=== PATIENT | male | born 1940 | race Caucasian/White ===

== ENCOUNTER 2017-10-08 21:41 | Emergency (ER) | payer MEDICARE ==
[2017-10-08] MEDS ORDERED: SODIUM CHLORIDE 0.9% 1,000 ML IV STA (22:23)
[2017-10-08] MEDS ORDERED: SODIUM CHLORIDE 0.9% 1,000 ML IV ONE (22:24)
[2017-10-08] MEDS ORDERED: KETOROLAC 30 MG/ML 1 ML VIAL IVP STA (22:39)
[2017-10-08] MEDS ORDERED: ACETAMINOPHEN TAB 500 MG TAB PO STA (22:39)
[2017-10-08 22:53] LABS: Amorphous Sediment,Urine Rare /hpf; Appearance,Urine Clear (Clear); Bilirubin,Urine Negative (Negative); Blood,Urine Trace (Negative); Color,Urine Yellow; Glucose,Urine (UA) Negative (Negative); Ketones,Urine Negative (Negative); Leukocyte Esterase,Urine Negative (Negative); Mucus,Urine Occasional /hpf; Nitrite,Urine Negative (Negative); Protein,Urine 1+ (Negative); RBC,Urine 8 /hpf (0-5); Specific Gravity,Urine 1.023 (1.001-1.035); Urobilinogen,Urine <2.0 mg/dL (<2.0); WBC,Urine 3 /hpf (0-5)
[2017-10-08 23:06] LABS: Basophils % (A) 0 %; Eosinophils # (A) 0.2 k/uL (0-0.7); Eosinophils % (A) 1 %; HCT 39.5 % (39.0-53.0); HGB 12.7 gm/dL (13.0-17.5); Lymphocytes % (A) 15 %; MCH 27.6 pg (25.0-35.0); MCHC 32.2 g/dL (31.0-37.0); MCV 85.6 fL (80.0-100.0); Mean Platelet Volume 7.3; Monocytes # (A) 1.2 k/uL (0-1.0); Monocytes % (A) 9 %; Neutrophils # (A) 9.8 k/uL (1.3-7.7); Neutrophils % (A) 73 %; Platelet Count 403 k/uL (150-450); RBC 4.61 m/uL (4.30-5.90); RDW 14.6 % (11.5-15.5); WBC 13.4 k/uL (3.8-10.6)
[2017-10-08 23:18] LABS: ALT 17 U/L (21-72); AST 15 U/L (17-59); Albumin 3.4 g/dL (3.5-5.0); Alkaline Phosphatase 83 U/L (38-126); Anion Gap 12 mmol/L; Blood Urea Nitrogen 26 mg/dL (9-20); Carbon Dioxide 31 mmol/L (22-30); Chloride 95 mmol/L (98-107); Glucose 124 mg/dL (74-99); Potassium 3.6 mmol/L (3.5-5.1); Sodium 138 mmol/L (137-145); Total Bilirubin 0.4 mg/dL (0.2-1.3); Total Protein 6.3 g/dL (6.3-8.2)
--- NOTE | 2017-10-08 23:53 | XR ---
EXAMINATION TYPE: XR chest 2V DATE OF EXAM: 10/08/2017 COMPARISON: 05/03/2016 HISTORY: Chest pain TECHNIQUE: Frontal and lateral views of the chest are obtained. FINDINGS: There is no heart failure nor confluent pneumonic infiltrate. Costophrenic angles are matt r. There is mild spurring in the thoracic spine. Heart size is fairly normal. There is some linear de nsity in the left lower lobe behind the heart. IMPRESSION: There is new mild linear density in the left lower lobe that could relate to focal atele ctasis. No heart failure. Normal heart.
--- NOTE | 2017-10-09 00:16 | CT ---
EXAMINATION TYPE: CT abdomen pelvis wo con DATE OF EXAM: 10/09/2017 COMPARISON: NONE HISTORY: Lower back pain, Abd pain CT DLP: 1063.70 mGycm Automated exposure control for dose reduction was used. TECHNIQUE: Helical acquisition of images was performed from the lung bases through the pelvis. FINDINGS: Lung bases are clear of consolidation. There is no pleural effusion. There is no pericardial effusion . Liver spleen pancreas gallbladder appear normal. Bile ducts are not dilated. There is no adrenal mass. Kidneys of normal size and contour. There is no hydronephrosis. There is no retroperitoneal adenopathy. Abdominal aorta is atheromatous. There is no evidence of aneurysm. There is some retained fecal material in the colon. I see no intestinal wall thickening. There are no dila yousuf loops. There is no ascites. There is no sign of free air. There are spondylotic changes in the tanesha mbar spine. There is a degenerative mild first-degree L4-5 spondylolisthesis. There is no compression fracture. Prostate is slightly enlarged with calcification. There is no evidence of any significant hernia. Appendix is not seen. There is no sign of appendicitis. IMPRESSION: SPONDYLOTIC CHANGES IN THE LUMBAR SPINE WITH DEGENERATIVE FIRST-DEGREE L4-5 SPONDYLOLISTHESIS. THERE IS PROBABLY A MODERATE L4-5 SPINAL STENOSIS. ATHEROMATOUS AORTA. CONSTIPATION. NO SIGN OF ACUTE ABDOMEN AND PELVIS.
[2017-10-09] MEDS ORDERED: ORPHENADRINE 30 MG/ML 2 ML VIAL IVP STA (00:20)
--- NOTE | 2017-10-09 00:33 | ED ---
General Adult HPI - General Chief complaint: Urogenital Stated complaint: leg & back pain/painful urination Time Seen by Provider: 10/08/17 22:07 Source: patient, RN notes reviewed, old records reviewed Mode of arrival: wheelchair Limitations: no limitations - History of Present Illness Initial comments: 77-year-old male presents emergency department today chief complaint of body aches, fever and chills. Patient reports that he has been having dysuria and dark urine for the past few days. He reports that he initially cyanosis of UTI a few weeks ago. He started antibiotics are not causing have some leg weakness. Patient reports that he went to his primary care provider later on and was started on steroids and muscle relaxers. He complains of just diffuse body aches and not being able to move his legs well. He states that he's been having to use his arms from his strengths and elbows are hurting. Patient states that he has not had any recent Motrin Tylenol. Does complain of lower back pain as well. - Related Data Home Medications Medication Instructions Recorded Confirmed Atorvastatin Calcium [Lipitor] 20 mg PO HS 05/03/16 10/08/17 Baclofen 10 mg PO HS 05/03/16 10/08/17 Diltiazem Cd [Cardizem CD] 120 mg PO DAILY 05/03/16 10/08/17 Aspirin [Adult Low Dose Aspirin EC] 10/08/17 Lisinopril-Hctz 20-25 mg 1 tab PO DAILY 10/08/17 10/08/17 [Zestoretic 20-25] Potassium Chloride [K-Tab ER] 10 meq PO 10/08/17 Previous Rx's Medication Instructions Recorded Nitrofurantoin Monohyd/M-Cryst 100 mg PO Q12HR #14 cap 10/09/17 [Macrobid] Allergies Allergy/AdvReac Type Severity Reaction Status Date / Time Penicillins Allergy Unknown Verified 05/03/16 07:21 Childhood Sulfa (Sulfonamide Allergy Nausea & Verified 05/03/16 07:21 Antibiotics) Vomiting & Diarrhea Review of Systems ROS Statement: Those systems with pertinent positive or pertinent negative responses have been documented in the HPI. ROS Other: All systems not noted in ROS Statement are negative. Past Medical History Past Medical History: Asthma, Coronary Artery Disease (CAD), Cancer, Chest Pain / Angina, Hyperlipidemia, Hypertension, Myocardial Infarction (NH), Osteoarthritis (OA) Additional Past Medical History / Comment(s): low back pain with L let sciatica , hypo and hyperkalemia, hypoglycemia many yrs ago, skin cancer with removal. Last Myocardial Infarction Date:: 2004? History of Any Multi-Drug Resistant Organisms: None Reported Past Surgical History: Appendectomy, Heart Catheterization, Heart Catheterization With Stent, Joint Replacement, Orthopedic Surgery, Tonsillectomy Additional Past Surgical History / Comment(s): 10/2010 PTCA with stent, L total knee arthroplasty and several arthroscopies prior, skin cancer removal. Additional Past Anesthesia/Blood Transfusion Reaction / Comment(s): Pt is slow to wake from anesthesia. Date of Last Stent Placement:: 10/2010 Past Psychological History: No Psychological Hx Reported Smoking Status: Former smoker Past Alcohol Use History: None Reported Past Drug Use History: None Reported - Past Family History Mother Family Medical History: Cancer Additional Family Medical History / Comment(s): Mother had breast cancer. Father Additional Family Medical History / Comment(s): Heart problems and major asthma. General Exam - General Exam Comments Initial Comments: This patient 77-year-old male. Patient alert. No acute distress. Limitations: no limitations General appearance: alert, in no apparent distress Head exam: Present: atraumatic, normocephalic, normal inspection Eye exam: Present: normal appearance, PERRL, EOMI. Absent: scleral icterus, conjunctival injection, periorbital swelling ENT exam: Present: normal exam, mucous membranes moist Neck exam: Present: normal inspection. Absent: tenderness, meningismus, lymphadenopathy Respiratory exam: Present: normal lung sounds bilaterally. Absent: respiratory distress, wheezes, rales, rhonchi, stridor Cardiovascular Exam: Present: regular rate, normal rhythm, normal heart sounds. Absent: systolic murmur, diastolic murmur, rubs, gallop, clicks GI/Abdominal exam: Present: soft, normal bowel sounds. Absent: distended, guarding, rebound, rigid Extremities exam: Present: normal inspection, full ROM, normal capillary refill. Absent: tenderness, pedal edema, joint swelling, calf tenderness Back exam: Present: normal inspection, CVA tenderness (R), CVA tenderness (L) Neurological exam: Present: alert, oriented X3, CN II-XII intact Psychiatric exam: Present: normal affect, normal mood Skin exam: Present: warm, dry, intact, normal color. Absent: rash Course Vital Signs 10/08/17 10/09/17 10/09/17 21:48 00:54 02:13 Temperature 100.2 F H 98.5 F 98 F Pulse Rate 85 85 88 Respiratory 20 18 18 Rate Blood Pressure 183/79 144/69 137/72 O2 Sat by Pulse 98 95 98 Oximetry Medical Decision Making - Medical Decision Making Patient is a 7-year-old male presents per exam of fever bodyaches. No cough or congestion. Also complains of dysuria and frequency in urination. Patient was given IV fluids labwork obtained. His urine is negative for any infection but there are red blood cells. He had some CVA tenderness on exam. No concern for possible kidney stone CT abdomen and pelvis without contrast was ordered. He is febrile at 100.2. White blood cell count is elevated at 13,000. Negative lactic acid. CT abdomen and pelvis shows no renal stones, patient does have spinal stenosis. Patient influenza is neagtive. We will do Urine culture and blood culture. Patient feels better after IV fluids. With patient clinical symptoms of UTI, will start patient on macrobid and discussed pending cuture. Patient informed he needs to follow up with PCP and urology. REturn parameters discussed. - Lab Data Result diagrams: 10/08/17 23:00 10/08/17 23:00 Lab Results 10/08/17 10/08/17 10/08/17 Range/Units 22:05 23:00 23:00 WBC 13.4 H (3.8-10.6) k/uL RBC 4.61 (4.30-5.90) m/uL Hgb 12.7 L (13.0-17.5) gm/dL Hct 39.5 (39.0-53.0) % MCV 85.6 (80.0-100.0) fL MCH 27.6 (25.0-35.0) pg MCHC 32.2 (31.0-37.0) g/dL RDW 14.6 (11.5-15.5) % Plt Count 403 (150-450) k/uL Neutrophils % 73 % Lymphocytes % 15 % Monocytes % 9 % Eosinophils % 1 % Basophils % 0 % Neutrophils # 9.8 H (1.3-7.7) k/uL Lymphocytes # 2.0 (1.0-4.8) k/uL Monocytes # 1.2 H (0-1.0) k/uL Eosinophils # 0.2 (0-0.7) k/uL Basophils # 0.0 (0-0.2) k/uL Sodium 138 (137-145) mmol/L Potassium 3.6 (3.5-5.1) mmol/L Chloride 95 L (98-107) mmol/L Carbon Dioxide 31 H (22-30) mmol/L Anion Gap 12 mmol/L BUN 26 H (9-20) mg/dL Creatinine 0.90 (0.66-1.25) mg/dL Est GFR (CKD-EPI)AfAm >90 (>60 ml/min/1.73 sqM) Est GFR (CKD-EPI)NonAf 83 (>60 ml/min/1.73 sqM) Glucose 124 H (74-99) mg/dL Plasma Lactic Acid Simon (0.7-2.0) mmol/L Calcium 9.0 (8.4-10.2) mg/dL Total Bilirubin 0.4 (0.2-1.3) mg/dL AST 15 L (17-59) U/L ALT 17 L (21-72) U/L Alkaline Phosphatase 83 (38-126) U/L Creatine Kinase (55-170) U/L Total Protein 6.3 (6.3-8.2) g/dL Albumin 3.4 L (3.5-5.0) g/dL Urine Color Yellow Urine Appearance Clear (Clear) Urine pH 6.0 (5.0-8.0) Ur Specific Zahl 1.023 (1.001-1.035) Urine Protein 1+ H (Negative) Urine Glucose (UA) Negative (Negative) Urine Ketones Negative (Negative) Urine Blood Trace H (Negative) Urine Nitrite Negative (Negative) Urine Bilirubin Negative (Negative) Urine Urobilinogen <2.0 (<2.0) mg/dL Ur Leukocyte Esterase Negative (Negative) Urine RBC 8 H (0-5) /hpf Urine WBC 3 (0-5) /hpf Amorphous Sediment Rare H (None) /hpf Urine Mucus Occasional H (None) /hpf Influenza Type A RNA (Not Detectd) Influenza Type B (PCR) (Not Detectd) 10/08/17 10/08/17 10/09/17 Range/Units 23:00 23:00 01:00 WBC (3.8-10.6) k/uL RBC (4.30-5.90) m/uL Hgb (13.0-17.5) gm/dL Hct (39.0-53.0) % MCV (80.0-100.0) fL MCH (25.0-35.0) pg MCHC (31.0-37.0) g/dL RDW (11.5-15.5) % Plt Count (150-450) k/uL Neutrophils % % Lymphocytes % % Monocytes % % Eosinophils % % Basophils % % Neutrophils # (1.3-7.7) k/uL Lymphocytes # (1.0-4.8) k/uL Monocytes # (0-1.0) k/uL Eosinophils # (0-0.7) k/uL Basophils # (0-0.2) k/uL Sodium (137-145) mmol/L Potassium (3.5-5.1) mmol/L Chloride (98-107) mmol/L Carbon Dioxide (22-30) mmol/L Anion Gap mmol/L BUN (9-20) mg/dL Creatinine (0.66-1.25) mg/dL Est GFR (CKD-EPI)AfAm (>60 ml/min/1.73 sqM) Est GFR (CKD-EPI)NonAf (>60 ml/min/1.73 sqM) Glucose (74-99) mg/dL Plasma Lactic Acid Simon 1.0 (0.7-2.0) mmol/L Calcium (8.4-10.2) mg/dL Total Bilirubin (0.2-1.3) mg/dL AST (17-59) U/L ALT (21-72) U/L Alkaline Phosphatase (38-126) U/L Creatine Kinase 34 L (55-170) U/L Total Protein (6.3-8.2) g/dL Albumin (3.5-5.0) g/dL Urine Color Urine Appearance (Clear) Urine pH (5.0-8.0) Ur Specific Zahl (1.001-1.035) Urine Protein (Negative) Urine Glucose (UA) (Negative) Urine Ketones (Negative) Urine Blood (Negative) Urine Nitrite (Negative) Urine Bilirubin (Negative) Urine Urobilinogen (<2.0) mg/dL Ur Leukocyte Esterase (Negative) Urine RBC (0-5) /hpf Urine WBC (0-5) /hpf Amorphous Sediment (None) /hpf Urine Mucus (None) /hpf Influenza Type A RNA Not Detected (Not Detectd) Influenza Type B (PCR) Not Detected (Not Detectd) - Radiology Data Radiology results: report reviewed CT shows evidence of spinal changes and lumbar spine with degenerative first- degree L4-L5 spondylolisthesis. There is probably a moderate L4-L5 spinal stenosis. Erythematous aorta. Evidence of constipation. No signs of acute abdomen and pelvis.New linear density in the left lower lobe that could relate to focal atelectasis. No heart failure. Normal heart. Disposition Clinical Impression: Dysuria, Body aches, Constipation Disposition: HOME SELF-CARE Condition: Good Instructions: Urinary Tract Infection in Men (ED) Additional Instructions: Patient advised to follow-up with primary care provider as well as urology. Return to the emergency department if any alarming signs or symptoms occur. Prescriptions: Nitrofurantoin Monohyd/M-Cryst [Macrobid] 100 mg PO Q12HR #14 cap Is patient prescribed a controlled substance at d/c from ED?: No If prescribed controlled substance>3 days was MAPS reviewed?: No When asked, does pt state using other controlled substances?: No Referrals: Wu Turner MD [Primary Care Provider] - 1-2 days Abdulkadir Delong MD [STAFF PHYSICIAN] - 1-2 days
[2017-10-09 00:59] VITALS: RESP 18
[2017-10-09] MEDS ORDERED: NITROFURANTOIN MONOHYD/M-CRYST 100 MG CAP PO STA (02:00)
[2017-10-09 02:15] VITALS: BP 137/72; PULSE 88; TEMP 98
== END 2017-10-09 02:18 | disposition home or self-care (01) ==
LOC: EC 21:41
DX: M54.5 Low back pain (principal); R30.0 Dysuria; K59.00 Constipation, unspecified; R50.9 Fever, unspecified; R53.1 Weakness; R35.0 Frequency of micturition; M48.00 Spinal stenosis, site unspecified; I25.10 Atherosclerotic heart disease of native coronary artery without angina pectoris; E78.5 Hyperlipidemia, unspecified; I10 Essential (primary) hypertension; I25.2 Old myocardial infarction; Z85.828 Personal history of other malignant neoplasm of skin; Z95.818 Presence of other cardiac implants and grafts; Z98.61 Coronary angioplasty status; Z87.891 Personal history of nicotine dependence; Z79.82 Long term (current) use of aspirin; Z79.899 Other long term (current) drug therapy; Z88.0 Allergy status to penicillin; Z88.2 Allergy status to sulfonamides
CPT/HCPCS: 36415; 80053; 82550; 83605; 85025; 81001; 87040; 87086; 87502; 71046; 74176; 99284; 96374; 96375; 96361; J2360; J1885

== ENCOUNTER → 2019-08-30 | Outpatient (CLI) | payer MEDICARE ==
--- NOTE | 2019-08-30 12:01 | XR ---
EXAMINATION TYPE: XR chest 2V DATE OF EXAM: 08/30/2019 COMPARISON: 10/08/2017 HISTORY: Preoperative evaluation. TECHNIQUE: Frontal and lateral views of the chest are obtained. FINDINGS: There is no focal air space opacity, pleural effusion, or pneumothorax seen. The cardiac silhouette size is within normal limits. The osseous structures are intact. Moderate degenerative c hange of the spine is seen. IMPRESSION: No acute cardiopulmonary process.
[2019-08-30 12:35] LABS: Basophils # (A) 0.1 k/uL (0-0.2); Basophils % (A) 1 %; Eosinophils # (A) 0.3 k/uL (0-0.7); Eosinophils % (A) 4 %; HCT 43.9 % (39.0-53.0); HGB 14.6 gm/dL (13.0-17.5); Lymphocytes # (A) 2.2 k/uL (1.0-4.8); Lymphocytes % (A) 23 %; MCH 30.2 pg (25.0-35.0); MCHC 33.3 g/dL (31.0-37.0); MCV 90.8 fL (80.0-100.0); Mean Platelet Volume 7.5; Monocytes # (A) 0.7 k/uL (0-1.0); Monocytes % (A) 7 %; Neutrophils # (A) 5.8 k/uL (1.3-7.7); Neutrophils % (A) 62 %; Platelet Count 230 k/uL (150-450); RBC 4.83 m/uL (4.30-5.90); RDW 14.1 % (11.5-15.5); WBC 9.3 k/uL (3.8-10.6)
[2019-08-30 12:40] LABS: African American GFR (CKD) >90 (>60 ml/min/1.73 sqM); Anion Gap 9 mmol/L; Blood Urea Nitrogen 17 mg/dL (9-20); Calcium 9.3 mg/dL (8.4-10.2); Carbon Dioxide 29 mmol/L (22-30); Chloride 100 mmol/L (98-107); Glucose 87 mg/dL (74-99); INR 0.9 (<1.2); Non-African American GFR(CKD) 83 (>60 ml/min/1.73 sqM); Partial Thromboplastin Time 23.2 sec (22.0-30.0); Potassium 3.3 mmol/L (3.5-5.1); Prothrombin Time 9.9 sec (9.0-12.0); Sodium 138 mmol/L (137-145)
[2019-08-30 12:41] LABS: Appearance,Urine Clear (Clear); Bilirubin,Urine Negative (Negative); Blood,Urine Negative (Negative); Color,Urine Light Yellow; Glucose,Urine (UA) Negative (Negative); Ketones,Urine Negative (Negative); Leukocyte Esterase,Urine Negative (Negative); Nitrite,Urine Negative (Negative); Protein,Urine Negative (Negative); Specific Gravity,Urine 1.012 (1.001-1.035); Urobilinogen,Urine <2.0 mg/dL (<2.0)
== END | disposition home or self-care (01) ==
LOC: LABPAT 11:21
PROVIDERS: ATTEND Orthopaedic Surgery Orthopaedic Surgery of the Spine
DX: Z01.818 Encounter for other preprocedural examination (principal); M48.00 Spinal stenosis, site unspecified; Z01.812 Encounter for preprocedural laboratory examination
CPT/HCPCS: 36415; 71046; 80048; 81003; 85025; 85610; 85730; 87070

== ENCOUNTER → 2019-11-29 | Outpatient (CLI) | payer MEDICARE ==
[2019-11-29 07:52] LABS: Appearance,Urine Clear (Clear); Bilirubin,Urine Negative (Negative); Blood,Urine Negative (Negative); Color,Urine Yellow; Glucose,Urine (UA) Negative (Negative); Ketones,Urine Negative (Negative); Leukocyte Esterase,Urine Small (Negative); Mucus,Urine Occasional /hpf; Nitrite,Urine Negative (Negative); Protein,Urine Trace (Negative); RBC,Urine 1 /hpf (0-5); Specific Gravity,Urine 1.025 (1.001-1.035); Squamous Epithelial Cell,Urine <1 /hpf (0-4); Urobilinogen,Urine <2.0 mg/dL (<2.0); WBC,Urine 1 /hpf (0-5)
[2019-11-29 08:03] LABS: Partial Thromboplastin Time 23.9 sec (22.0-30.0); Prothrombin Time 10.2 sec (9.0-12.0)
[2019-11-29 08:08] LABS: African American GFR (CKD) >90 (>60 ml/min/1.73 sqM); Anion Gap 4 mmol/L; Blood Urea Nitrogen 21 mg/dL (9-20); Calcium 9.4 mg/dL (8.4-10.2); Carbon Dioxide 33 mmol/L (22-30); Chloride 103 mmol/L (98-107); Glucose 96 mg/dL (74-99); Non-African American GFR(CKD) 80 (>60 ml/min/1.73 sqM); Potassium 3.8 mmol/L (3.5-5.1); Sodium 140 mmol/L (137-145)
[2019-11-29 08:46] LABS: Basophils # (A) 0.1 k/uL (0-0.2); Basophils % (A) 1 %; Eosinophils # (A) 0.4 k/uL (0-0.7); Eosinophils % (A) 5 %; HCT 45.2 % (39.0-53.0); HGB 15.1 gm/dL (13.0-17.5); Lymphocytes # (A) 2.3 k/uL (1.0-4.8); Lymphocytes % (A) 31 %; MCH 31.4 pg (25.0-35.0); MCHC 33.5 g/dL (31.0-37.0); MCV 93.7 fL (80.0-100.0); Mean Platelet Volume 7.9; Monocytes # (A) 0.6 k/uL (0-1.0); Monocytes % (A) 8 %; Neutrophils % (A) 53 %; Platelet Count 199 k/uL (150-450); RBC 4.82 m/uL (4.30-5.90); RDW 14.5 % (11.5-15.5); WBC 7.6 k/uL (3.8-10.6)
== END | disposition home or self-care (01) ==
LOC: LABPAT 07:14
PROVIDERS: ATTEND Orthopaedic Surgery Orthopaedic Surgery of the Spine
DX: Z01.818 Encounter for other preprocedural examination (principal); Z01.812 Encounter for preprocedural laboratory examination; M48.00 Spinal stenosis, site unspecified; Z51.81 Encounter for therapeutic drug level monitoring; Z79.01 Long term (current) use of anticoagulants
CPT/HCPCS: 80048; 81001; 85025; 85610; 85730; 87070

== ENCOUNTER 2019-12-09 06:14 | Inpatient (IN) | payer MEDICARE ==
[2019-12-05 09:20] VITALS: BMI 30.4
[~2019-12-09 06:14] MED LIST: CLINDAMYCIN 900 MG in DEXTROSE 5% IN WATER 50 ML IVPB ONE; DEXAMETHASONE SOD PHOSPHATE 10 MG/ML 1 ML VIAL IV ONE; ONDANSETRON 4 MG/2 ML VIAL IVP ONE; SODIUM CHLORIDE 0.9% IRRIGATIO 1,000 ML IRRIGATION ONE
[2019-12-09] MEDS ORDERED: LIDOCAINE 1% (10MG/ML) FOR IV START INTRADERMA ONE (07:05)
[2019-12-09] MEDS: LACTATED RINGERS 1,000 ML IV SCH (07:05)
[2019-12-09] MEDS ORDERED: LIDOCAINE 1% INJ 10MG/ML (20 ML MDV) ONE (07:36)
[2019-12-09] MEDS ORDERED: PHENYLEPHRINE-0.9% NACL SYG 1 MG/10 ML SYRINGE ONE (07:36)
[2019-12-09] MEDS ORDERED: SUCCINYLCHOLINE CHLORIDE VIAL 200 MG/10 ML VIAL IV ONE (07:36)
[2019-12-09] MEDS ORDERED: ROCURONIUM BROMIDE 10 MG/ML 5 ML VIAL IV ONE (07:36)
[2019-12-09] MEDS ORDERED: PROPOFOL 10 MG/ML 20 ML VIAL IV ONE (07:36)
[2019-12-09] MEDS ORDERED: ePHEDrine SULFATE/0.9% NACL/PF 50 MG/5 ML SYRINGE IV ONE (07:36)
[2019-12-09] MEDS ORDERED: MIDAZOLAM 2 MG/2 ML VIAL ONE (07:36)
[2019-12-09] MEDS ORDERED: fentaNYL (PF) 50 MCG/ML 2 ML AMP ONE (07:36)
[2019-12-09] MEDS ORDERED: LACTATED RINGERS 1,000 ML IV ONE ×3 (08:25→11:02)
[2019-12-09] MEDS ORDERED: GELATIN SPONGE,ABSORB (LARGE) 1 EACH SPONGE TOPICAL ONE (08:47)
[2019-12-09] MEDS ORDERED: THROMBIN (BOVINE) 5,000 UNIT VIAL TOPICAL ONE (08:47)
[2019-12-09] MEDS ORDERED: LIDOCAINE 2%-EPI 1:100,000 20 ML VIAL SQ ONE ×2 (08:48)
[2019-12-09] MEDS ORDERED: BUPIVACAINE (PF) 0.25% 30 ML VIAL SQ ONE ×2 (08:49)
--- NOTE | 2019-12-09 10:43 | FL ---
Fluoroscopy INDICATION: Pain FINDINGS: Fluoroscopy time: 30 seconds. Images obtained: 0. IMPRESSIONS: 1. Documentation of fluoroscopy.
--- NOTE | 2019-12-09 10:55 | XR ---
Fluoroscopy INDICATION: Pain FINDINGS: Images obtained: 2. IMPRESSIONS: 1. Documentation of a surgical procedure.
[2019-12-09] MEDS ORDERED: HYDROmorphone 1 MG/ML 1 ML SYRINGE IVP PRN (11:20)
[2019-12-09] MEDS ORDERED: BENZOCAINE/MENTHOL LOZENG 1 EACH LOZENGE MUCOUS MEM PRN (11:20)
[2019-12-09] MEDS ORDERED: MAGNESIUM HYDROXIDE 2,400 MG/10 ML CUP PO PRN (11:20)
[2019-12-09] MEDS ORDERED: ONDANSETRON 4 MG/2 ML VIAL IVP PRN (11:21)
--- NOTE | 2019-12-09 11:39 | P.OP ---
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) Condition: stable Disposition: PACU Description of Procedure: DESCRIPTION OF PROCEDURE(S): BRIEF OPERATIVE NOTE Preoperative Diagnosis: Spondylolisthesis L4 5, spinal stenosis L4 5, lower extremity radiculopathy, lower extremity weakness, neurogenic claudication, degenerative disc disease, facet arthrosis, low back pain Multiple masses at the back, presumed sebaceous cyst 3 Postoperative Diagnosis:Spondylolisthesis L4 5, spinal stenosis L4 5, lower extremity radiculopathy, lower extremity weakness, neurogenic claudication, degenerative disc disease, facet arthrosis, low back pain Multiple masses at the back, presumed sebaceous cyst 3 at the subcutaneous tissue at the lower mid and upper back Procedure: Laminectomy and decompression L4 5 Minimally invasive Posterior lateral decompression and fusion L4 5 Minimally invasive Transforaminal lumbar interbody fusion for a 360 fusion L4 5 Use of computer guidance navigation for placement of hardware for screw fixation and fusion L4 5 Discectomy for decompression L4 5 Placement of interbody graft L4 5 Local autogenous bone grafting L4 5 Harvesting of bone marrow aspirate of the pedicle and vertebral body of L4 Use of Cell Saver Use of bone graft extenders Surgeon: Dr. Mendez Boring Mill Operator: Adam Rea is present throughout the entire the case persistence during positioning, dissection, exposure, visualization, and all crucial elements of the case as well as closure. Anesthesia: General anesthesia per Dr. Goodrich Estimated blood loss: Approximately 250 mL Complications: None apparent Components implanted: K2M minimally evasive [place] pedicle screw system with 4 screws measuring 6.5 x 50 with and 2 rods and 1 [place] interbody cage with 5 mL of osteoamp bone graft enhancer and 30 mL of DBM bone fibers to supplemental local autogenous and bone marrow aspirate graft Specimen: Contents labeled back mass 1 back mass to back mass 3 sent to pathology presumed sebaceous cyst and sebaceous cyst lining capsule 3 Disposition: To recovery room in good stable condition. OPERATIVE INDICATIONS The patient has had long-standing issues in their lower back and lower extremities. The patient was found have worsening symptoms at his back and his lower extremity is with worsening ability to do activity. He is found to have a severe stenosis L4 5 with spondylolisthesis at that level with severe is arthrosis and disc degeneration. These findings correlate well with his low back pain and lower extremity radiculopathy and weakness. He is not having any prolonged benefit despite aggressive conservative care and different treatment options including surgery were explained to him. The patient has been through conservative treatment. We discussed various treatment options including surgery, and the patient wishes to proceed with surgery We discussed the risk, patient's alternatives and benefits of surgery including but not limited to, risk of bleeding risk of infection, risk of need for further surgery, risk of decreased, loss of motion, muscle function, malunion nonunion, hardware failure, nerve damage, paralysis, heart attack, blindness and . We also discussed the nature of the current pandemic and the fact that it may be impossible to keep the patient 100% free of potential exposure. I also explained him that the masses at his back would be removed however they do have potential of recurrent. He understands these issues. OPERATIVE SUMMARY After discussing all the risks, patient alternatives and benefits at length, the patient elected to proceed with surgical intervention, signed informed consent, and presented for their procedure. The patient was seen and examined in the preoperative holding area and the surgical site was marked. The patient was given antibiotics and brought to the operating room. The patient was sedated and intubated by anesthesia in standard fashion. The patient was positioned on to the operating room table in a prone position on the appropriate frame which was well-padded and well molded. We were careful to pad any bony prominences and pressure points. We were careful to maintain the patient's cervical spine and good neutral alignment and position throughout. The patient was prepped and draped in a normal standard fashion. An appropriate timeout and keystone protocol performed. We were able to proceed with the surgery. The local wound area was infiltrated with local anesthetic bilaterally at L4 5. I was able utilize C-arm guidance to establish appropriate position over the pedicles bilaterally at the appropriate levels at L4 5. With the appropriate levels confirmed was able to make small stab incisions over the appropriate pedicle sites bilaterally. Over the right iliac crest and made small stab incisions to establish the bony fixation reference point for the Adam computer navigation device, to facilitate placement of the screws at L4 and L5. Utilizing C-arm and Achilles were navigation device in his house able to establish a Jamshidi needle over the lateral aspect of the pedicle and advanced the trocar into the pedicle being careful not to breech superiorly inferiorly medially or laterally. Position was confirmed regularly with AP and lateral images on C-arm and K Peter navigation at L4 and L5. I was able to establish the trocar into the pedicle appropriately into the posterior aspect of the vertebral body bilaterally at the appropriate levels. This was done at each of the pedicle positions and each of the vertebrae. I was able place the guidewire into the trocar and into the vertebral body appropriately under C-arm guidance. Dissection was taken down over the wire to the appropriate starting position for the screw placed. The appropriate length screw was chosen, threaded over the guidewire and screwed appropriately into the pedicle and vertebral body under C- arm guidance in excellent alignment and position with good bony purchase. This is done at each of the screw sites at the appropriate levels at L4 and L5. With the screws intact I extended the incision to connect the screw hole sites on the most symptomatic side. I dissected down to establish access over the pars and lamina to the base of the spinous process on the left side. I was able to expose the facet joint. The capsule the facet was taken down and showed some facet arthrosis at the joint. No was made of severe osteophytic spurring and severe facet arthrosis. I was able to use a combination of curettes and Kerrison rongeurs and a high-speed drill to take down the facet joint and do a facetectomy. Partial laminectomy was also performed at L4 and L5 with good cross over the midline and excellent bilateral foraminal decompression. I was able get excellent foraminal decompression and central decompression with undermining across midline to perform a laminectomy centrally and contralaterally at L4 and L5. As able get good central decompression. The ligamentum flavum was taken down to further decompress centrally and at bilateral neural foramen. I was able to expose the disc space and visualize the traversing nerve root. Note was made of some disc protrusion at the level causing further compression of the nerve root. I was able to establish a annulotomy at the appropriate level protecting soft tissue and neural structures. Note was made of some disc desiccation at the disc. I performed a complete discectomy with accommodation of curettes and rasps and scrapers. I was able get good endplate preparation at the disc space. I sized for the appropriate size interbody spacer protecting the soft tissue and neural structures. The wound was copiously irrigated and suctioned dry. There is no evidence of any dural tear or leak. I was able to pack the disc space with local autogenous bone graft as well as a small amount of bone graft which was also placed into the interbody cage itself. Protecting the soft tissue structures and neural structures I was able place the interbody cage in good alignment and good position with good fit and fill at the interbody space. Position was confirmed with C-arm guidance. Good hemostasis maintained. There is no evidence of any dural tear or leak. The wound was irrigated and suctioned dry. With the hardware intact, intraoperative C-arm imaging was again taken which showed good alignment and position of the hardware at the appropriate levels of L4 and L5. We were then able to measure, contour and place the rods and appropriate hardware bilaterally. I was able to place capcrews, tighten them down, and torque them with the torque screwdriver appropriately. With this intact I was able to place the local autogenous bone graft with additional bone graft enhancer as necessary into the posterior lateral gutters over the decorticated transverse processes. The remainder of the bone graft was placed over the facet joint on the contralateral side after taking down the facet joint capsule. With the bone graft intact, a stable construct, and good decompression at the appropriate levels, we were able to proceed with closure. Good hemostasis was maintained. There is no evidence of dural tear or leak. The fascia was closed for a watertight closure. he subcuticular tissue was closed with absorbable suture. The wound was cleaned and dried and dressed with the appropriate dressing. The drapes were broken down for the lumbar spine procedure. We're able to reprep and drape for the removal of the masses at his back 3. The 3 masses were easily identified. Maintain sterile technique and prepped the area that his mid and upper back to expose the masses times 3 One at the base of his neck one towards the mid thoracic and one towards the thoracolumbar junction to the right. In similar fashion an incision was made sharply through skin and subcu tissue with this scalpel skin knife. Upon entering subcutaneous space significant amounts of waxy White foul-smelling substance of removed p resumedly Sebum. The #1 space measured approximately 6 x 5 x 5 cm deep the #2 space at the midthoracic measure approximately 3 x 2 x 2 cm deep and then the #3 space measured Solomon 2 by 2 x 2 centimeters. All of them had significant amounts of presumed sebum removed. I was able to identify the capsule at each of the spaces and the capsule was excised and removed with comminution of curettes and Bovie electrocauterization and excision. The contents and portions of the capsule were passed off to be sent for pathology. I was able get to good bleeding surfaces at each space. Good hemostasis was maintained. The deep tissues irrigated and suctioned dry. There is no further noted. And each of the areas was closed with #2 Vicryl and #4 Vicryl for the skin. All the incisions were clean and dried and dressed with excellent fit glue and a watertight dressing. The patient was gently rolled back onto their hospital bed being careful to maintain their cervical spine and good neutral alignment and position. They were woken up by anesthesia, extubated, and brought to the recovery room in good stable condition. The patient will be admitted to the hospital for appropriate postoperative care, medical management and monitoring. We will continue to follow them closely about the postoperative course.
[2019-12-09] MEDS: HYDROmorphone 0.5 MG/0.5 ML SYRINGE IVP PRN ×3 (12:07→21:05)
[2019-12-09] MEDS ORDERED: diphenhydrAMINE 50 MG/ML 1 ML VIAL IVP ONE (12:30)
[2019-12-09] MEDS ORDERED: KETOROLAC 0.5% OPHTH DROPS 5 ML BTL OP STA (13:27)
[2019-12-09] MEDS: SODIUM CHLORIDE 0.9% 1,000 ML IV SCH (13:57)
[2019-12-09] MEDS: CLINDAMYCIN 900 MG in DEXTROSE 5% IN WATER 50 ML IVPB SCH ×4 (13:58→21:04)
[2019-12-09] MEDS: KETOROLAC 0.5% OPHTH DROPS 5 ML BTL OP SCH ×3 (13:58→21:12)
[2019-12-09] MEDS: HYDROcodone/APAP 5-325MG 1 EACH TAB PO PRN ×2 (17:30→23:35)
[2019-12-09] MEDS: ERYTHROMYCIN 5 MG/GM OPHTH OINT 3.5 GM TUBE BOTH EYES SCH ×2 (18:14→23:32)
[2019-12-09] MEDS: TAMSULOSIN 0.4 MG CAP.ER.24H PO SCH (21:03)
[2019-12-09] MEDS: METOPROLOL TARTRATE 25 MG TAB PO SCH (21:03)
[2019-12-10] MEDS: LACTATED RINGERS 1,000 ML IV SCH (02:26)
[2019-12-10] MEDS: SODIUM CHLORIDE 0.9% 1,000 ML IV SCH ×2 (02:29→15:23)
[2019-12-10] MEDS: HYDROmorphone 0.5 MG/0.5 ML SYRINGE IVP PRN (02:30)
[2019-12-10] MEDS: ERYTHROMYCIN 5 MG/GM OPHTH OINT 3.5 GM TUBE BOTH EYES SCH ×2 (04:50→09:19)
[2019-12-10 07:58] LABS: Basophils % (A) 0 %; Eosinophils # (A) 0.1 k/uL (0-0.7); Eosinophils % (A) 1 %; HCT 34.4 % (39.0-53.0); Lymphocytes # (A) 1.9 k/uL (1.0-4.8); Lymphocytes % (A) 15 %; MCH 31.8 pg (25.0-35.0); MCV 93.4 fL (80.0-100.0); Mean Platelet Volume 8.5; Monocytes # (A) 0.8 k/uL (0-1.0); Monocytes % (A) 6 %; Neutrophils # (A) 9.3 k/uL (1.3-7.7); Neutrophils % (A) 76 %; Platelet Count 149 k/uL (150-450); RBC 3.69 m/uL (4.30-5.90); RDW 14.5 % (11.5-15.5); WBC 12.3 k/uL (3.8-10.6)
[2019-12-10 08:01] LABS: HGB 11.7 gm/dL (13.0-17.5)
[2019-12-10 08:11] LABS: African American GFR (CKD) >90 (>60 ml/min/1.73 sqM); Anion Gap 6 mmol/L; Blood Urea Nitrogen 17 mg/dL (9-20); Calcium 7.9 mg/dL (8.4-10.2); Carbon Dioxide 29 mmol/L (22-30); Chloride 99 mmol/L (98-107); Glucose 96 mg/dL (74-99); Non-African American GFR(CKD) 81 (>60 ml/min/1.73 sqM); Potassium 3.5 mmol/L (3.5-5.1); Sodium 134 mmol/L (137-145)
[2019-12-10] MEDS: METOPROLOL TARTRATE 25 MG TAB PO SCH ×2 (09:15→21:03)
[2019-12-10] MEDS: SENNOSIDES-DOCUSATE SODIUM 1 EACH TAB PO SCH (09:15)
[2019-12-10] MEDS: MULTIVITAMINS, THERA 1 EACH TAB PO SCH (09:15)
[2019-12-10] MEDS: ATORVASTATIN 40 MG TAB PO SCH (09:15)
[2019-12-10] MEDS: POTASSIUM CHLORIDE ER 20 MEQ TAB.ER PO SCH (09:15)
[2019-12-10] MEDS: ASPIRIN 81 MG PO SCH (09:15)
[2019-12-10] MEDS: DILTIAZEM CD 120 MG CAP.ER.24H PO SCH (09:16)
[2019-12-10] MEDS: LISINOPRIL-HCTZ 20-25 MG 1 EACH TAB PO SCH (09:16)
[2019-12-10] MEDS: POLYETHYLENE GLYCOL 3350 17 GM POWD.PACK PO SCH (09:18)
[2019-12-10] MEDS: KETOROLAC 0.5% OPHTH DROPS 5 ML BTL OP SCH ×2 (09:19→13:11)
[2019-12-10] MEDS: HYDROcodone/APAP 5-325MG 1 EACH TAB PO PRN ×2 (09:37→13:47)
--- NOTE | 2019-12-10 10:13 | CONS ---
CONSULTATION OPHTHALMOLOGY CONSULT/DATE: DECEMBER 10, 2019 CHIEF COMPLAINT: Right eye pain. HPI: Mr. Sargent is a 79-year-old male who complains of less than 1-day history of pain in the right eye. This is improving. This started suddenly after having surgery. The pain is moderate. There is no associated vision loss or other symptoms. REVIEW OF SYSTEMS: Significant for back pain, however, otherwise negative. CURRENT MEDICATIONS: Aspirin 81 mg, Lipitor, potassium chloride, Cardizem, Zestoretic, Mobic, tamsulosin. MEDICAL HISTORY: Back pain, hyperlipidemia, hypertension, asthma, cardiac stent, heart disease. ALLERGIES: Sulfa and penicillin. SURGICAL HISTORY: No ophthalmic surgical history, history of appendix removal and prior knee surgeries. SOCIAL HISTORY: Denies tobacco use. OPHTHALMOLOGIC EXAM: Visual acuity is 20/70 at near with correction in the right eye and 20/40 at near with correction of the left eye. Pupils are equal, round, react to light accommodation. Extraocular movements are full. The lids and adnexa are within normal limits. Conjunctiva is clear and the cornea appears clear at this time with very slight irregularity on the corneal surface in the right eye. Anterior chamber is within normal limits. There is nuclear sclerotic cataract in both lens. Posterior exam is essentially normal on limited exam. ASSESSMENT/PLAN: 1. Corneal abrasion, right eye. This appears to be healing quickly. The abrasion is minimal at this time. One additional dose of erythromycin ointment can be given today and then the erythromycin can be DC 'd. The patient is reassured. 2. Nuclear sclerotic cataract, both eyes. This will likely need intervention in the coming months. Patient to be seen as an outpatient as on an as-needed basis. Thank you for allowing me to participate in this patient's care. The patient can be seen as needed in the future in the office. MMODL / IJN: [id number] /
--- NOTE | 2019-12-10 11:20 | P.PN ---
Progress Note - Text Progress Note Date: 12/10/19 Orthopedic Spine: History of present illness: Patient is a pleasant 79-year-old male who is seen and examined at the bedside following minimally invasive L4-5 posterior lateral decompression and fusion performed yesterday and removal of multiple masses at the back presumed sebaceous cyst 3. Patient states they are doing well postsurgically. He is not currently complaining of any lower extremity weakness or radiculopathy. His most significant symptom is back pain with muscle spasm most significant on the left. Currently does not complain of nausea, vomiting, fever, or chills. Patient states pain has been adequately controlled. Patient is eating without difficulty. His Canela catheter has been discontinued this morning. He wants to ambulate to the restroom. He is been seen by ophthalmology and treated for a corneal abrasion postoperatively. He is not complaining of any pain in his right eye. He is currently being treated with erythromycin ointment. Patient's past medical history includes hyperlipidemia, hypertension, heart disease, and placement of a heart stent. Consult has been placed for medical management postoperatively. Physical Exam Lumbar Fusion: Status post surgical day number 1 Patient is awake, alert, and oriented 3 Patiently sitting at bedside chair Vital signs stable Good chest excursion with deep inspiration and expiration Dorsiflexion, plantarflexion, and extensor hallucis longus positive sustained bilaterally No signs or symptoms of DVT; no calf pain; pneumatic cuffs not currently intact bilateral lower extremities Dressings are clean, dry, and intact; no erythema, purulence, or signs of infection over the lower lumbar spine and over the right iliac crest 3 dressings remain intact over the surgical sites of the back masses The superior and middle dressings at the back masses site have a small area of dried blood No active drainage from any of the surgical sites Neurovascularly intact bilaterally lower extremities Assessment: L4-5 minimally invasive posterior lateral decompression and fusion and transforaminal lumbar interbody fusion Removal of back masses presumed sebaceous cysts 3 Low back pain Muscle spasm in the back L4-5 spondylolisthesis L4-5 spinal canal stenosis Neurogenic claudication Lumbar degenerative disc disease Lumbar facet arthrosis Postoperative corneal abrasion of the right eye Hypertension Hyperlipidemia Heart disease History of stent placement Plan: 1. Ambulate as tolerated; work with Physical Therapy to increase mobilization 2. Continue pain control with IV and oral medications including Dilaudid and [facility]; patient is experiencing significant spasms of his lumbar spine most significant on the left. We will plan cyclobenzaprine 10 mg 1 tab 3 times a day as needed for muscle spasms. 3. Dressings to remain intact with Optifaom and Tegaderm; patient may shower with dressings intact 4. Medical management can continue to manage patient for patient's other medical diagnoses 5. Patient will continue seen by ophthalmology for treatment of a right eye postoperative corneal abrasion 6. We will continue to follow the patient closely; if the patient continues to improve, we'll plan for discharge home over the next 1-2 days 7. Patient can follow-up with Adam Smith PA-C or Dr. David Mendez at [facility] in 2-3 weeks following discharge
[2019-12-10] MEDS ORDERED: CYCLOBENZAPRINE 10 MG TAB PO PRN (11:40)
--- NOTE | 2019-12-10 11:59 | P.CONS ---
History of Present Illness - Reason for Consult Consult date: 12/10/19 Medical management - History of Present Illness This is a 79-year-old male patient of Dr. Wu Truner with past medical history of coronary artery disease status post PTCA and stent in 2010, hypertension, hyperlipidemia, mild intermittent asthma, benign prostatic hypertrophy. Patient has been brought into the hospital under the care of Dr. Fritz status post minimally invasive L4-5 posterior lateral decompression and fusion performed yesterday and removal of multiple masses at the back presumed sebaceous cyst 3. Patient has had no postop complications. He has been hemodynamically stable. Patient is found sitting up in a recliner and appears to be comfortable. He gives history that prior to this procedure, he had chronic back pain with lightening bolt feeling down his extremities. He was followed by Dr. Michelle and underwent 3 epidural injections without significant improvement. At this time, patient denies any chest pain, shortness of breath, lightheadedness or dizziness, no nausea vomiting or abdominal pain. Blood work this morning reveals WBC 12.3, hemoglobin 11.7, platelet count 149, sodium 134. He has been afebrile, heart rate 73, blood pressure 149/71, pulse ox 96% on room air. Review of Systems Constitutional: No fever, no chills, no night sweats. No weight change. Reports weakness, fatigue or lethargy. No daytime sleepiness. EENT: No headache. No blurred vision or double vision, no loss of vision. No loss of Hearing, no ringing in the ears, no dizziness. No nasal drainage or congestion. No epistaxis. No sore throat. Lungs: No shortness of breath, cough, no sputum production. No wheezing. Cardiovascular: No chest pain, no lower extremity edema. No palpitations. No paroxysmal nocturnal dyspnea. No orthopnea. No lightheadedness or dizziness. No syncopal episodes. Abdominal: No abdominal pain. No nausea, vomiting. No diarrhea. No constipation. No bloody or tarry stools. No loss of appetite. Genitourinary: No dysuria, increased frequency, urgency. No urinary retention. Musculoskeletal: No myalgias. Denies muscle weakness, no frequent falls. Reports back discomfort. Reports spasms. No neck pain. Integumentary: No wounds, no lesions. No rash or pruritus. No unusual bruising. No change in hair or nails. Neurologic: No aphasia. No facial droop. No change in mentation. No head injury. No headache. No paralysis. No paresthesia. Psychiatric: No depression. No anxiety. No mood swings. Endocrine: No abnormal blood sugars. Physical Examination Gen: This is a 79-year-old male. He is resting in recliner and appears to be in no acute distress. HEENT: Head is atraumatic, normocephalic. Pupils equal, round. Sclerae is anicteric. NECK: Supple. No JVD. No lymphadenopathy. No thyromegaly. LUNGS: Clear to auscultation. No wheezes or rhonchi. No intercostal retractions . HEART: Regular rate and rhythm. No murmur. ABDOMEN: Soft. Bowel sounds are present. No masses. No tenderness. EXTREMITIES: No pedal edema. No calf tenderness. Dorsalis pedis +[address] to the lumbar area. NEUROLOGICAL: Patient is awake, alert and oriented x3. Cranial nerves 2 through 12 are grossly intact. Assessment and Plan 1. Spondylolisthesis L4 5, spinal stenosis L4 5, lower extremity radiculopathy, lower extremity weakness, neurogenic claudication, degenerative disc disease, facet arthrosis, low back pain Multiple masses at the back, presumed sebaceous cyst 3, status post minimally invasive L4-5 posterior lateral decompression and fusion and removal of multiple masses at the back. Patient has had no postop, occasions. Patient's hemodynamic hemodynamically stable. Plan to continue current pain management, PT and OT per orthopedics. Incentive spirometry to reduce incidence of atelectasis and hospital-acquired pneumonia. 2. History of coronary artery disease. Continue aspirin 81 mg daily, Lipitor 40 mg daily, Lopressor 25 mg twice daily. 3. Hypertension. Continue Cardizem CD 120 mg daily, Zestoretic daily, Lop ressor. 4. Hyperlipidemia. Continue statin. 5. Mild intermittent asthma without exacerbation. 6. Benign prostatic hypertrophy. Monitor for urinary retention, continue Flomax 0.4 mg daily. 7. GI prophylaxis. Pepcid Patient will be admitted to the hospital for a minimum of 2 night stay. Discharge plan: Most likely home with homecare. Impression and plan of care have been directed as dictated by the signing physician. Mariely Moore nurse practitioner acting as scribe for signing physi jonathan. Past Medical History Past Medical History: Asthma, Coronary Artery Disease (CAD), Cancer, Chest Pain / Angina, Hyperlipidemia, Hypertension, Myocardial Infarction (HI), Osteoarthritis (OA), Prostate Disorder Additional Past Medical History / Comment(s): low back pain with L leg sciatica, skin cancer., constipation, BPH, Last Myocardial Infarction Date:: ? History of Any Multi-Drug Resistant Organisms: None Reported Past Surgical History: Appendectomy, Heart Catheterization, Heart Catheterization With Stent, Joint Replacement, Orthopedic Surgery, Tonsillectomy Additional Past Surgical History / Comment(s): 10/2010 PTCA with stent, L total knee arthroplasty and several arthroscopies prior, skin cancer removal. Past Anesthesia/Blood Transfusion Reactions: No Reported Reaction Additional Past Anesthesia/Blood Transfusion Reaction / Comm: Pt is slow to wake from anesthesia. Date of Last Stent Placement:: 10/2010 Smoking Status: Former smoker Additional Past Alcohol Use History / Comment(s): Patient was a smoker for [place] 14 years less than 1 pack per day. No alcohol use, rare 1 or illicit drug use. 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 He is and lives at home with his . - Past Family History Mother Family Medical History: Cancer Additional Family Medical History / Comment(s): Mother at age 90 from old age with history of breast cancer. Father Additional Family Medical History / Comment(s): Father at age 75 from a myocardial infarction. History of asthma. Patient has a total of 5 children with no major medical problems. Patient has 1 brother with chronic back problems. No sisters. Medications and Allergies Home Medications Medication Instructions Recorded Confirmed Type Aspirin [Adult Low Dose Aspirin EC] 81 mg PO DAILY 10/08/17 12/09/19 History Lisinopril-Hctz 20-25 mg 1 tab PO DAILY 10/08/17 12/09/19 History [Zestoretic 20-25] Potassium Chloride [K-Tab ER] 20 meq PO DAILY 10/08/17 12/09/19 History Metoprolol Tartrate [Lopressor] 25 mg PO BID 09/05/19 12/09/19 History Tamsulosin [Flomax] 0.4 mg PO HS 09/05/19 12/09/19 History Atorvastatin [Lipitor] 40 mg PO DAILY 12/05/19 12/09/19 History Diltiazem HCl [Cardizem CD] 120 mg PO DAILY 12/05/19 12/09/19 History Vitamin Pack 1 dosepack PO BID 12/05/19 12/09/19 History Allergies Allergy/AdvReac Type Severity Reaction Status Date / Time Milk Containing Products Allergy Unknown Congestion, Verified 12/09/19 06:48 [Dairy] Irritable Penicillins Allergy Unknown Verified 12/09/19 06:48 Childhood Sulfa (Sulfonamide Allergy Nausea & Verified 12/09/19 06:48 Antibiotics) Vomiting & Diarrhea Physical Exam Vitals: Vital Signs Temp Pulse Pulse Resp BP Pulse Ox 12/10/19 05:00 98.6 F 73 18 149/71 96 12/09/19 21:01 97.5 F L 85 147/66 96 12/09/19 21:00 97.9 F 75 18 126/69 98 12/09/19 14:32 97.9 F 79 17 143/64 95 12/09/19 13:00 58 L 18 128/61 97 12/09/19 12:30 62 18 113/53 97 12/09/19 12:15 101 H 18 101/52 96 12/09/19 12:00 57 L 18 118/57 94 L 12/09/19 11:44 65 16 110/53 98 12/09/19 11:29 97.4 F L 60 18 120/63 99 Intake and Output 12/09/19 12/10/19 12/10/19 22:59 06:59 14:59 Intake Total 1450 Output Total 1700 Balance -250 Intake: Intake, IV Titration 950 Amount Clindamycin 900 mg In 50 Dextrose 5% in Water 50 ml @ 50 mls/hr IVPB Q6H [facility] Rx#:[id number] Sodium Chloride 0.9% 1, 900 000 ml @ 75 mls/hr IV . [id number] [facility] Rx#:[id number] Oral 500 Output: Urine 1700 Uretheral (Canela) 700 Other: Voiding Method Indwelling Catheter Toilet # Bowel Movements 1 Results CBC & Chem 7: 12/10/19 07:36 12/10/19 07:36 Labs: Abnormal Lab Results - Last 24 Hours (Table) 12/10/19 12/10/19 Range/Units 07:36 07:36 WBC 12.3 H (3.8-10.6) k/uL RBC 3.69 L (4.30-5.90) m/uL Hgb 11.7 L D (13.0-17.5) gm/dL Hct 34.4 L (39.0-53.0) % Plt Count 149 L (150-450) k/uL Neutrophils # 9.3 H (1.3-7.7) k/uL Sodium 134 L (137-145) mmol/L Calcium 7.9 L (8.4-10.2) mg/dL
[2019-12-10] MEDS ORDERED: TAMSULOSIN 0.4 MG CAP.ER.24H PO STA (15:21)
[2019-12-10] MEDS: TAMSULOSIN 0.4 MG CAP.ER.24H PO SCH (21:03)
[2019-12-11] MEDS: SODIUM CHLORIDE 0.9% 1,000 ML IV SCH ×2 (03:18→08:39)
[2019-12-11] MEDS: LACTATED RINGERS 1,000 ML IV SCH (03:18)
[2019-12-11] MEDS ORDERED: TAMSULOSIN 0.4 MG CAP.ER.24H PO SCH (08:00)
[2019-12-11] MEDS: METOPROLOL TARTRATE 25 MG TAB PO SCH ×2 (08:38→23:08)
[2019-12-11] MEDS: MULTIVITAMINS, THERA 1 EACH TAB PO SCH (08:38)
[2019-12-11] MEDS: ATORVASTATIN 40 MG TAB PO SCH (08:38)
[2019-12-11] MEDS: FAMOTIDINE 20 MG TAB PO SCH (08:38)
[2019-12-11] MEDS: HYDROcodone/APAP 5-325MG 1 EACH TAB PO PRN ×2 (08:38→17:13)
[2019-12-11] MEDS: POTASSIUM CHLORIDE ER 20 MEQ TAB.ER PO SCH (08:38)
[2019-12-11] MEDS: ASPIRIN 81 MG PO SCH (08:38)
[2019-12-11] MEDS: DILTIAZEM CD 120 MG CAP.ER.24H PO SCH (08:40)
[2019-12-11] MEDS: LISINOPRIL-HCTZ 20-25 MG 1 EACH TAB PO SCH (08:40)
[2019-12-11] MEDS: TAMSULOSIN 0.4 MG CAP.ER.24H PO SCH ×2 (08:52→20:17)
[2019-12-11] MEDS: SENNOSIDES-DOCUSATE SODIUM 1 EACH TAB PO SCH (08:52)
[2019-12-11] MEDS: POLYETHYLENE GLYCOL 3350 17 GM POWD.PACK PO SCH (08:53)
--- NOTE | 2019-12-11 10:58 | P.PN ---
Progress Note - Text Progress Note Date: 12/11/19 Orthopedic Spine: History of present illness: Patient is a pleasant 79-year-old male who is seen and examined at the bedside following minimally invasive L4-5 posterior lateral decompression and fusion performed Monday and removal of multiple masses at the back presumed sebaceous cyst 3. Patient states they are doing ok postsurgically. He is not currently complaining of any lower extremity weakness or radiculopathy. His most significant symptom is back pain with muscle spasm. He was having difficulty with urination yesterday and ambulatory to the restroom multiple times. He feels he has had increased back pain since that time. He is not taking frequent narcotic pain medication. He continues to have difficulty with urination. He takes Flomax and the outpatient setting. He was seen by medicine this morning to increase his Flomax 2 twice a day. He required straight catheterization twice. His urination status is being controlled by medicine. Patient states medicine stated if a Canela catheter needed to be reinserted patient would most likely have an intact over the next 10-12 days. Currently does not complain of nausea, vomiting, fever, or chills. Patient states pain is increased but has been fairly well controlled. He has had some difficulty mobility today given his increased back pain and spasm. He wants to ambulate to the restroom. He is been seen by ophthalmology and treated for a corneal abrasion postoperatively. He is not complaining of any pain in his right eye. He is currently being treated with erythromycin ointment. Patient's past medical history includes hyperlipidemia, hypertension, heart disease, and placement of a heart stent. Consult has been placed for medical management postoperatively. Physical Exam Lumbar Fusion: Status post surgical day number 2 Patient is awake, alert, and oriented 3 Patiently sitting at bedside chair Vital signs stable Good chest excursion with deep inspiration and expiration Dorsiflexion, plantarflexion, and extensor hallucis longus positive sustained bilaterally No signs or symptoms of DVT; no calf pain; pneumatic cuffs not currently intact bilateral lower extremities Dressings are clean, dry, and intact; no erythema, purulence, or signs of infection over the lower lumbar spine and over the right iliac crest 3 dressings remain intact over the surgical sites of the back masses with some evidence of dried blood over these 3 dressings sites No active drainage from any of the surgical sites Neurovascularly intact bilaterally lower extremities Assessment: L4-5 minimally invasive posterior lateral decompression and fusion and transforaminal lumbar interbody fusion Removal of back masses presumed sebaceous cysts 3 Low back pain Muscle spasm in the back L4-5 spondylolisthesis L4-5 spinal canal stenosis Neurogenic claudication Lumbar degenerative disc disease Lumbar facet arthrosis Urinary retention Postoperative corneal abrasion of the right eye Hypertension Hyperlipidemia Heart disease History of stent placement Plan: 1. Ambulate as tolerated; work with Physical Therapy to increase mobilization 2. Continue pain control with IV and oral medications including Dilaudid and [place]; patient will also continue with cyclobenzaprine 10 mg 1 tab 3 times a day for treatment for his spasms postoperatively. In anticipation for discharge over the next 1-2 days, MAPS has been reviewed today, 12/11/2019, with an Overall Overdose Risk Score of 230. An "Opiod Start Talking" Form has been signed and placed in the patient's chart. A prescription has been written for [place] 5 mg/325 mg 1-2 tabs every 6 hours as needed for pain, dispensed #56. Prescriptions also written for cyclobenzaprine 10 mg 1 tab 3 times a day for muscle spasm, dispense #90. Prescription for [place] 5 mg/325 mg and cyclobenzaprine 10 mg have been electronically sent to the pharmacy here [facility]. 3. Dressings to remain intact with Optifaom and Tegaderm; patient may shower wi th dressings intact over the lumbar surgical sites. We will plan to change the dressings today at the 3 incision sites at the removal of back masses when patient is sitting at the bedside. 4. Medical management can continue to manage patient for patient's other medical diagnoses including management of urinary retention postoperatively 5. Patient will continue seen by ophthalmology for treatment of a right eye postoperative corneal abrasion 6. We will continue to follow the patient closely; if the patient continues to improve, we'll plan for discharge home over the next 1-2 days; consultation is placed with case management to set up home care at the time of discharge 7. Patient can follow-up with Adam Smith PA-C or Dr. David Mendez at [facility] in 2-3 weeks following discharge
--- NOTE | 2019-12-11 13:21 | P.PN ---
Subjective Progress Note Date: 12/11/19 - History of Present Illness This is a 79-year-old male patient of Dr. Wu Turner with past medical history of coronary artery disease status post PTCA and stent in 2010, hypertension, hyperlipidemia, mild intermittent asthma, benign prostatic hypertrophy. Patient has been brought into the hospital under the care of Dr. Fritz status post minimally invasive L4-5 posterior lateral decompression and fusion performed yesterday and removal of multiple masses at the back presumed sebaceous cyst 3. Patient has had no postop complications. He has been hemodynamically stable. Patient is found sitting up in a recliner and appears to be comfortable. He gives history that prior to this procedure, he had chronic back pain with lightening bolt feeling down his extremities. He was followed by Dr. Michelle and underwent 3 epidural injections without significant improvement. At this time, patient denies any chest pain, shortness of breath, lightheadedness or dizziness, no nausea vomiting or abdominal pain. Blood work this morning reveals WBC 12.3, hemoglobin 11.7, platelet count 149, sodium 134. He has been afebrile, heart rate 73, blood pressure 149/71, pulse ox 96% on room air. 12/10: Patient has had urinary retention requiring straight cath during the night on 2 episodes with return of 1000 ML's and 600 ML's. He is currently on Flomax once daily at home which will be increased to twice daily. Patient is complaining of low back discomfort and spasms. Patient has been afebrile, heart rate 57, blood pressure 111/58, pulse ox 95% on room air. Review of Systems Constitutional: No fever, no chills, no night sweats. No weight change. Reports weakness, fatigue or lethargy. No daytime sleepiness. EENT: No headache. No blurred vision or double vision, no loss of vision. No loss of Hearing, no ringing in the ears, no dizziness. No nasal drainage or congestion. No epistaxis. No sore throat. Lungs: No shortness of breath, cough, no sputum production. No wheezing. Cardiovascular: No chest pain, no lower extremity edema. No palpitations. No paroxysmal nocturnal dyspnea. No orthopnea. No lightheadedness or dizziness. No syncopal episodes. Abdominal: No abdominal pain. No nausea, vomiting. No diarrhea. No constipation. No bloody or tarry stools. No loss of appetite. Genitourinary: No dysuria, increased frequency, urgency. No urinary retention. Musculoskeletal: No myalgias. Denies muscle weakness, no frequent falls. Reports back discomfort. Reports spasms. No neck pain. Integumentary: No wounds, no lesions. No rash or pruritus. No unusual bruising. No change in hair or nails. Neurologic: No aphasia. No facial droop. No change in mentation. No head injury. No headache. No paralysis. No paresthesia. Psychiatric: No depression. No anxiety. No mood swings. Endocrine: No abnormal blood sugars. Physical Examination Gen: This is a 79-year-old male. He is resting in recliner and appears to be in no acute distress. HEENT: Head is atraumatic, normocephalic. Pupils equal, round. Sclerae is anicteric. NECK: Supple. No JVD. No lymphadenopathy. No thyromegaly. LUNGS: Clear to auscultation. No wheezes or rhonchi. No intercostal retractions. HEART: Regular rate and rhythm. No murmur. ABDOMEN: Soft. Bowel sounds are present. No masses. No tenderness. EXTREMITIES: No pedal edema. No calf tenderness. Dorsalis pedis +[address] to the lumbar area. NEUROLOGICAL: Patient is awake, alert and oriented x3. Cranial nerves 2 through 12 are grossly intact. Assessment and Plan 1. Spondylolisthesis L4 5, spinal stenosis L4 5, lower extremity radiculopathy, lower extremity weakness, neurogenic claudication, degenerative disc disease, facet arthrosis, low back pain Multiple masses at the back, presumed sebaceous cyst 3, status post minimally invasive L4-5 posterior lateral decompression and fusion and removal of multiple masses at the back. Patient has had no postop, occasions. Patient's hemodynamic hemodynamically stable. Plan to continue current pain management, PT and OT per orthopedics. Incentive spirometry to reduce incidence of atelectasis and hospital-acquired pneumonia. 2. History of coronary artery disease. Continue aspirin 81 mg daily, Lipitor 40 mg daily, Lopressor 25 mg twice daily. 3. Hypertension. Continue Cardizem CD 120 mg daily, Zestoretic daily, Lopress or. 4. Hyperlipidemia. Continue statin. 5. Mild intermittent asthma without exacerbation. 6. Benign prostatic hypertrophy with urinary retention, continue Flomax 0.4 mg increased frequency to twice daily daily. 7. GI prophylaxis. Pepcid Discharge plan: home without homecare. Impression and plan of care have been directed as dictated by the signing physician. Mariely Moore nurse practitioner acting as scribe for signing physician. Objective - Vital Signs Vital signs: Vital Signs Temp 99.1 F 12/11/19 04:59 Pulse 68 12/11/19 04:59 Resp 18 12/11/19 04:59 BP 133/60 12/11/19 04:59 Pulse Ox 97 12/11/19 04:59 Intake & Output 12/10/19 12/11/19 12/11/19 18:59 06:59 18:59 Intake Total 600 Output Total 1350 3600 Balance -750 -3600 Intake: Intake, IV Titration 600 Amount Sodium Chloride 0.9% 1, 600 000 ml @ 75 mls/hr IV . [id number] [facility] Rx#:[id number] Output: Urine 750 1850 Straight 600 1750 Uretheral (Canela) 150 Post Void Residual 600 1750 Other: Voiding Method Toilet Toilet # Bowel Movements 1 5 - Labs CBC & Chem 7: 12/10/19 07:36 12/10/19 07:36 Labs: Abnormal Lab Results - Last 24 Hours (Table) 12/10/19 12/10/19 Range/Units 07:36 07:36 WBC 12.3 H (3.8-10.6) k/uL RBC 3.69 L (4.30-5.90) m/uL Hgb 11.7 L D (13.0-17.5) gm/dL Hct 34.4 L (39.0-53.0) % Plt Count 149 L (150-450) k/uL Neutrophils # 9.3 H (1.3-7.7) k/uL Sodium 134 L (137-145) mmol/L Calcium 7.9 L (8.4-10.2) mg/dL
--- NOTE | 2019-12-11 14:10 | CDI ---
Documentation Clarification Form Date: 12/11/2019 01:39:52 PM From: Autumn Medina RN CCDS Email: [email or web address] Admit Date: 12/09/2019 11:21:00 AM Patient Name: Jose Sargent Visit Number: [id number] Discharge Date: ATTENTION: The Clinical Documentation Specialists (CDI) and [facility] Coding Staff appreciate your assistance in clarifying documentation. Please respond to the clarification below the line at the bottom and electronically sign. The CDI & [facility] Coding staff will review the response and follow-up if needed. Please note: Queries are made part of the Legal Health Record. If you have any questions, please contact the author of this message via ITS. Dr. Yeny Mendez Postoperative corneal abrasion is documented in Orthopedic progress notes 12/09 and 12/10 Patients Admitting Diagnosis: Spondylolisthesis L4 5, spinal stenosis L4 5, lower extremity radiculopathy, lower extremity weakness, neurogenic claudication, degenerative disc disease, facet arthrosis, low back pain. Multiple masses at the back, presumed sebaceous cyst x3 Post-Operative Diagnosis: Spondylolisthesis L4 5, spinal stenosis L4 5, lower extremity radiculopathy, lower extremity weakness, neurogenic claudication, degenerative disc disease, facet arthrosis, low back pain. Multiple masses at the back, presumed sebaceous cyst x3 at the subcutaneous tissue at the lower mid and upper back. Procedure performed: Laminectomy and decompression, Minimally invasive Posterior lateral decompression and fusion, Minimally invasive Transforaminal lumbar interbody fusion for a 360-degree fusion, Discectomy for decompression, placement of interbody graft, Local autogenous bone grafting of the L4 5 Vertebrae. Harvesting of bone marrow aspirate of the pedicle and vertebral body of L4. History/Risk Factors: 79-year-old male with a history of low back pain, spondylolisthesis and spinal canal stenosis presented for elective Transforaminal lumbar interbody fusion with decompression. Medical History Asthma, CAD, HLD and [place] Clinical Indicators: Eye pain Treatment: 12/09 Ophthalmology Consult: Eye pain after surgery. Corneal abrasion, right eye. Appears to be healing quickly. Medication: 12/09 Erythromycin ointment one dose In order to accurately reflect this patients severity of illness, please clarify if the corneal abrasion is the result of the surgical procedure? Yes No Other, please specify Unable to determine (Last Revision: September 2017) The patient had some pain at his eye postoperatively, that had not been present preoperatively. During positioning he was placed in a prone position with padding around his eyes and keeping his eyes free of pressure. However he could've sustained an abrasion or some irritation around his eye during positioning for the surgical procedure. This seems reasonable resolving well without any evidence of crepitation or issue. Medication appears to be appropriate. MTDD
[2019-12-12] MEDS: HYDROcodone/APAP 5-325MG 1 EACH TAB PO PRN ×2 (00:36→05:30)
[2019-12-12] MEDS: POLYETHYLENE GLYCOL 3350 17 GM POWD.PACK PO SCH (05:33)
[2019-12-12] MEDS: LACTATED RINGERS 1,000 ML IV SCH (07:07)
[2019-12-12] MEDS: SODIUM CHLORIDE 0.9% 1,000 ML IV SCH ×2 (07:08→20:20)
--- NOTE | 2019-12-12 08:10 | P.PN ---
Subjective Progress Note Date: 12/12/19 Principal diagnosis: Status post minimally invasive L4 to L5 posterior lateral decompression and fusion This is a 79 year-old male post minimally invasive L4 to L5 posterior lateral decompression and fusion and multiple mass excisions on the back. This is post- op day 3. The patient was evaluated at the bedside today. The patient denies nausea, vomiting, abdominal pain, shortness of breath, and chest pain this morning. He states his pain is controlled at this time. He is still experiencing urinary retention but is urinary small amounts frequently. He states he last bladder scan post void was 500 mL this morning. The patient's Flomax was increased to twice daily per internal medicine. Urology has been consulted. He denies any issues with his right eye at this time. The patient states the neurological symptoms in his right leg has improved slightly since surgery. The patient has been up with physical therapy. Objective - Vital Signs Vital signs: Vital Signs Temp 98.2 F 12/12/19 05:00 Pulse 55 L 12/12/19 05:00 Resp 18 12/12/19 05:00 BP 135/75 12/12/19 05:00 Pulse Ox 97 12/12/19 05:00 Intake & Output 12/11/19 12/12/19 12/12/19 18:59 06:59 18:59 Intake Total 100 Output Total 868 650 Balance -868 -550 Intake: Oral 100 Output: Urine 450 650 Straight 450 525 Post Void Residual 418 Other: Voiding Method Toilet Toilet # Voids 0 1 - Exam The patient is a 79-year-old male who is in no acute distress. He is alert and oriented 3. Abdomen is soft and nontender. Chest has good excursion with deep inspiration. Incision site is clean dry and intact. No erythema or purulent drainage. Extremities has not had neurological change from prior to surgery. He has sustained dorsiflexion and plantar flexion and EHL function. He has good foot and ankle motion. Bilateral calves are soft and nontender. Neurological and circulatory status is intact. - Labs CBC & Chem 7: 12/10/19 07:36 12/10/19 07:36 Assessment and Plan (1) Urinary retention Current Visit: Yes Status: Acute Code(s): R33.9 - RETENTION OF URINE, UNSPECIFIED SNOMED Code(s): 457982331 (2) Status post laminectomy with spinal fusion Current Visit: Yes Status: Acute Code(s): Z98.1 - ARTHRODESIS STATUS SNOMED Code(s): 902733767 Plan: 1. Continue pain control 2. SCDs for DVT prophylaxis 3. Continue physical therapy and ambulation 4. Await urology consult regarding urinary retention 5. Anticipate discharge home when cleared by internal medicine and urology, today or tomorrow most likely.
[2019-12-12] MEDS: METOPROLOL TARTRATE 25 MG TAB PO SCH ×2 (08:16→20:30)
[2019-12-12] MEDS: DILTIAZEM CD 120 MG CAP.ER.24H PO SCH (08:16)
[2019-12-12] MEDS: FAMOTIDINE 20 MG TAB PO SCH (08:16)
[2019-12-12] MEDS: POTASSIUM CHLORIDE ER 20 MEQ TAB.ER PO SCH (08:16)
[2019-12-12] MEDS: ATORVASTATIN 40 MG TAB PO SCH (08:16)
[2019-12-12] MEDS: TAMSULOSIN 0.4 MG CAP.ER.24H PO SCH ×2 (08:16→20:30)
[2019-12-12] MEDS: ASPIRIN 81 MG PO SCH (08:16)
[2019-12-12] MEDS: MULTIVITAMINS, THERA 1 EACH TAB PO SCH (08:16)
[2019-12-12] MEDS: LISINOPRIL-HCTZ 20-25 MG 1 EACH TAB PO SCH (08:16)
[2019-12-12] MEDS: SENNOSIDES-DOCUSATE SODIUM 1 EACH TAB PO SCH (08:16)
--- NOTE | 2019-12-12 12:33 | P.PN ---
Subjective Progress Note Date: 12/12/19 - History of Present Illness This is a 79-year-old male patient of Dr. Wu Turner with past medical history of coronary artery disease status post PTCA and stent in 2010, hypertension, hyperlipidemia, mild intermittent asthma, benign prostatic hypertrophy. Patient has been brought into the hospital under the care of Dr. Fritz status post minimally invasive L4-5 posterior lateral decompression and fusion performed yesterday and removal of multiple masses at the back presumed sebaceous cyst 3. Patient has had no postop complications. He has been hemodynamically stable. Patient is found sitting up in a recliner and appears to be comfortable. He gives history that prior to this procedure, he had chronic back pain with lightening bolt feeling down his extremities. He was followed by Dr. Michelle and underwent 3 epidural injections without significant improvement. At this time, patient denies any chest pain, shortness of breath, lightheadedness or dizziness, no nausea vomiting or abdominal pain. Blood work this morning reveals WBC 12.3, hemoglobin 11.7, platelet count 149, sodium 134. He has been afebrile, heart rate 73, blood pressure 149/71, pulse ox 96% on room air. 12/10: Patient has had urinary retention requiring straight cath during the night on 2 episodes with return of 1000 ML's and 600 ML's. He is currently on Flomax once daily at home which will be increased to twice daily. Patient is complaining of low back discomfort and spasms. Patient has been afebrile, heart rate 57, blood pressure 111/58, pulse ox 95% on room air. 12/11: Overnight, patient has continued to have urinary retention and was straight cath with removal of 750, 450 and 525. Patient has been on Flomax twice daily for 2 days. Consult will be placed with urology. Back pain is improved. He denies any nausea or vomiting. No shortness of breath or chest pain. Patient has been afebrile, heart rate 55, blood pressure 135/75, pulse ox 97% on room air. Anticipate discharge within 24 hours. Review of Systems Constitutional: No fever, no chills, no night sweats. No weight change. Reports weakness, fatigue or lethargy. No daytime sleepiness. EENT: No headache. No blurred vision or double vision, no loss of vision. No loss of Hearing, no ringing in the ears, no dizziness. No nasal drainage or congestion. No epistaxis. No sore throat. Lungs: No shortness of breath, cough, no sputum production. No wheezing. Cardiovascular: No chest pain, no lower extremity edema. No palpitations. No paroxysmal nocturnal dyspnea. No orthopnea. No lightheadedness or dizziness. No syncopal episodes. Abdominal: No abdominal pain. No nausea, vomiting. No diarrhea. No constipation. No bloody or tarry stools. No loss of appetite. Genitourinary: No dysuria, increased frequency, urgency. Reports urinary retention. Musculoskeletal: No myalgias. Denies muscle weakness, no frequent falls. Reports back discomfort. Reports spasms. No neck pain. Integumentary: No wounds, no lesions. No rash or pruritus. No unusual br uising. No change in hair or nails. Neurologic: No aphasia. No facial droop. No change in mentation. No head injury. No headache. No paralysis. No paresthesia. Psychiatric: No depression. No anxiety. No mood swings. Endocrine: No abnormal blood sugars. Physical Examination Gen: This is a 79-year-old male. He is resting in recliner and appears to be in no acute distress. HEENT: Head is atraumatic, normocephalic. Pupils equal, round. Sclerae is anicteric. NECK: Supple. No JVD. No lymphadenopathy. No thyromegaly. LUNGS: Clear to auscultation. No wheezes or rhonchi. No intercostal retractions. HEART: Regular rate and rhythm. No murmur. ABDOMEN: Soft. Bowel sounds are present. No masses. No tenderness. EXTREMITIES: No pedal edema. No calf tenderness. Dorsalis pedis +[address] to the lumbar area. NEUROLOGICAL: Patient is awake, alert and oriented x3. Cranial nerves 2 through 12 are grossly intact. Assessment and Plan 1. Spondylolisthesis L4 5, spinal stenosis L4 5, lower extremity radiculopathy, lower extremity weakness, neurogenic claudication, degenerative disc disease, facet arthrosis, low back pain Multiple masses at the back, presumed sebaceous cyst 3, status post minimally invasive L4-5 posterior lateral decompression and fusion and removal of multiple masses at the back. Patient has had no postop, occasions. Patient's hemodynamic hemodynamically stable. Plan to continue current pain management, PT and OT per orthopedics. Incentive spirometry to reduce incidence of a telectasis and hospital-acquired pneumonia. 2. History of coronary artery disease. Continue aspirin 81 mg daily, Lipitor 40 mg daily, Lopressor 25 mg twice daily. 3. Hypertension. Continue Cardizem CD 120 mg daily, Zestoretic daily, Lopressor. 4. Hyperlipidemia. Continue statin. 5. Mild intermittent asthma without exacerbation. 6. Benign prostatic hypertrophy with urinary retention, continue Flomax 0.4 mg twice daily. Urology consult. 7. GI prophylaxis. Pepcid Discharge plan: home without homecare. Impression and plan of care have been directed as dictated by the signing ph ysician. Mariely Moore nurse practitioner acting as scribe for signing physician. Objective - Vital Signs Vital signs: Vital Signs Temp 98.2 F 12/12/19 05:00 Pulse 55 L 12/12/19 05:00 Resp 18 12/12/19 05:00 BP 135/75 12/12/19 05:00 Pulse Ox 97 12/12/19 05:00 Intake & Output 12/11/19 12/12/19 12/12/19 18:59 06:59 18:59 Intake Total 100 Output Total 868 650 Balance -868 -550 Intake: Oral 100 Output: Urine 450 650 Straight 450 525 Post Void Residual 418 Other: Voiding Method Toilet Toilet # Voids 0 1 - Labs CBC & Chem 7: 12/10/19 07:36 12/10/19 07:36
--- NOTE | 2019-12-12 18:49 | P.GSCN ---
History of Present Illness Consult date: 12/12/19 Reason for Consult: Urinary retention History of present illness: The patient is a 79-year-old male who underwent elective surgical treatment for L4-L5 spinal stenosis and 12/08. A catheter was placed at the time of the surgery and was removed the following morning. The patient was unable to void through the day and was in and out cath'd for 600 cc in the afternoon. He remained unable to void and was in and out cath'd for 1000 cc in the evening. Yesterday he was in and out cath'd several times for volumes of 450-600 cc. He remained unable to void this morning other than small amounts. A bladder scan apparently showed 450 cc at 700 this morning. The patient had been taking tamsulosin 0.4 mg daily prior to being admitted and the dose was increased to 0.4 mg twice a day. Unfortunately the patient has been unable to void other th an very small amounts. The patient has no previous history of urinary retention. He was started on Flomax by Dr. Covarrubias in 06/2019 and says that it improved his urinary flow and decreased his nocturia. He described his urinary flow is a 7 out of 10 prior to his surgery. He says he was voiding every 2-3 hours during the day and usually once at night. He has not had a bowel movement since surgery but apparently was not eating much the first day or two. Review of Systems All systems: negative (as noted in the history) Past Medical History Past Medical History: Asthma, Coronary Artery Disease (CAD), Cancer, Chest Pain / Angina, Hyperlipidemia, Hypertension, Myocardial Infarction (ID), Osteoarthritis (OA), Prostate Disorder Additional Past Medical History / Comment(s): low back pain with L leg sciatica, skin cancer., constipation, BPH, Last Myocardial Infarction Date:: ? History of Any Multi-Drug Resistant Organisms: None Reported Past Surgical History: Appendectomy, Heart Catheterization, Heart Cat heterization With Stent, Joint Replacement, Orthopedic Surgery, Tonsillectomy Additional Past Surgical History / Comment(s): 10/2010 PTCA with stent, L total knee arthroplasty and several arthroscopies prior, skin cancer removal. Past Anesthesia/Blood Transfusion Reactions: No Reported Reaction Additional Past Anesthesia/Blood Transfusion Reaction / Comm: Pt is slow to wake from anesthesia. Date of Last Stent Placement:: 10/2010 Smoking Status: Former smoker Additional Past Alcohol Use History / Comment(s): Patient was a smoker for [place] 14 years less than 1 pack per day. No alcohol use, rare 1 or illicit drug use. 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 He is and lives at home with his . - Past Family History Mother Family Medical History: Cancer Additional Family Medical History / Comment(s): Mother at age 90 from old age with history of breast cancer. Father Additional Family Medical History / Comment(s): Father at age 75 from a myocardial infarction. History of asthma. Patient has a total of 5 children with no major medical problems. Patient has 1 brother with chronic back problems. No sisters. Medications and Allergies Home Medications Medication Instructions Recorded Confirmed Type Aspirin [Adult Low Dose Aspirin EC] 81 mg PO DAILY 10/08/17 12/09/19 History Lisinopril-Hctz 20-25 mg 1 tab PO DAILY 10/08/17 12/09/19 History [Zestoretic 20-25] Potassium Chloride [K-Tab ER] 20 meq PO DAILY 10/08/17 12/09/19 History Metoprolol Tartrate [Lopressor] 25 mg PO BID 09/05/19 12/09/19 History Tamsulosin [Flomax] 0.4 mg PO HS 09/05/19 12/09/19 History Atorvastatin [Lipitor] 40 mg PO DAILY 12/05/19 12/09/19 History Diltiazem HCl [Cardizem CD] 120 mg PO DAILY 12/05/19 12/09/19 History Vitamin Pack 1 dosepack PO BID 12/05/19 12/09/19 History Cyclobenzaprine [Flexeril] 10 mg PO TID PRN #90 tab 12/11/19 Rx HYDROcodone/APAP 5-325MG [[place] 1 - 2 tab PO Q6HR PRN #56 tab 12/11/19 Rx 5-325] Allergies Allergy/AdvReac Type Severity Reaction Status Date / Time Milk Containing Products Allergy Unknown Congestion, Verified 12/09/19 06:48 [Dairy] Irritable Penicillins Allergy Unknown Verified 12/09/19 06:48 Childhood Sulfa (Sulfonamide Allergy Nausea & Verified 12/09/19 06:48 Antibiotics) Vomiting & Diarrhea Surgical - Exam Vital Signs Temp Pulse Resp BP Pulse Ox 97.1 F L 54 L 18 139/67 96 12/09/19 06:55 12/09/19 06:55 12/09/19 06:55 12/09/19 06:55 12/09/19 06:55 - General well developed, well nourished, no pain - ENT no hearing loss - Respiratory normal respiratory effort - Abdomen Abdomen: soft, non tender, no organomegaly - Genitourinary normal penis with no external lesions, testicles non-tender Results - Labs 12/10/19 07:36 12/10/19 07:36 Assessment and Plan (1) Urinary retention Narrative/Plan: The patient's urinary retention following his surgery may be in part related to use of narcotics for control of his pain and secondary sedation. He did have symptoms of bladder outflow obstruction previously but appeared to be doing well prior to his surgery. Unfortunately his bladder was allowed to distend on several occasions following the surgery prior to in and out catheterization. This may delay spontaneous voiding. I would suggest placing an indwelling catheter and leaving it in for at least an additional 3 days. From my standpoint the patient could be discharged in the morning. An appointment should be made for the patient to see early next week. The patient's could remove his catheter at home early that morning and he could see Dr. Covarrubias later in the day. He should be continued on tamsulosin twice a day. Current Visit: Yes Status: Acute Code(s): R33.9 - RETENTION OF URINE, UNSPECIFIED SNOMED Code(s): 330193492
[2019-12-12 20:56] VITALS: RESP 18
[2019-12-13] MEDS: LACTATED RINGERS 1,000 ML IV SCH (04:43)
[2019-12-13 06:12] VITALS: BP 158/76; PULSE 51; TEMP 98.6
[2019-12-13] MEDS: SODIUM CHLORIDE 0.9% 1,000 ML IV SCH (08:35)
[2019-12-13] MEDS: ATORVASTATIN 40 MG TAB PO SCH (08:37)
[2019-12-13] MEDS: FAMOTIDINE 20 MG TAB PO SCH (08:37)
[2019-12-13] MEDS: TAMSULOSIN 0.4 MG CAP.ER.24H PO SCH (08:37)
[2019-12-13] MEDS: DILTIAZEM CD 120 MG CAP.ER.24H PO SCH (08:37)
[2019-12-13] MEDS: ASPIRIN 81 MG PO SCH (08:37)
[2019-12-13] MEDS: LISINOPRIL-HCTZ 20-25 MG 1 EACH TAB PO SCH (08:37)
[2019-12-13] MEDS: POTASSIUM CHLORIDE ER 20 MEQ TAB.ER PO SCH (08:37)
[2019-12-13] MEDS: METOPROLOL TARTRATE 25 MG TAB PO SCH (08:37)
[2019-12-13] MEDS: POLYETHYLENE GLYCOL 3350 17 GM POWD.PACK PO SCH (08:37)
[2019-12-13] MEDS: SENNOSIDES-DOCUSATE SODIUM 1 EACH TAB PO SCH (08:37)
[2019-12-13] MEDS: MULTIVITAMINS, THERA 1 EACH TAB PO SCH (08:37)
--- NOTE | 2019-12-13 08:39 | P.DS ---
Providers Date of admission: 12/09/19 11:21 Expected date of discharge: 12/13/19 Attending physician: Yeny Mendez Consults: 12/09/19 11:21 Consult Physician Routine Consulting Provider: Wu Turner Consult Reason/Comments: Medical management Do you want consulting provider notified?: Yes 12/09/19 13:22 Consult Physician Urgent Consulting Provider: Gilmer Leavitt Consult Reason/Comments: poss corneal abrasion Do you want consulting provider notified?: Yes 12/12/19 08:03 Consult Physician Routine Consulting Provider: Wu Covarrubias Consult Reason/Comments: post op urinary retention Do you want consulting provider notified?: Yes Primary care physician: Wu Turner - Discharge Diagnosis(es) (1) Urinary retention Current Visit: Yes Status: Acute (2) Status post laminectomy with spinal fusion Current Visit: Yes Status: Acute Hospital Course: The patient is a 79-year-old male who is status post minimally invasive L4 to L5 posterior lateral decompression and fusion and multiple mass excisions on the back by Dr. Mendez. Patient has known history of low back pain and presented to discuss options. After discussion and consideration, patient elected to proceed with a laminectomy and decompression. The patient was seen preoperatively and medically cleared for surgery by his primary care physician. The procedure was performed without complications. He did develop post operative urinary retention and was seen by urology. The patient also acquired a coronal abrasion post-operatively as well. The patient was seen and evaluated at bedside today and denies any new complaints. Pain is reasonably controlled. Dressing is clean dry and intact. His abdomen is soft and nontender. Dorsiflexion, plantarflexion, extensor hallucis longus positive sustaining bilaterally. Calves are soft and nontender. The patient has full foot and ankle motion without difficulty. Patient's bilateral lower extremities are neurovascular intact. He will be discharged home with a staley catheter. The catheter will be removed on Monday morning by his and he will see Dr. Covarrubias in the office in the afternoon on Monday. Patient is orthopedically stable for discharge to home today. Pertinent Studies: Laboratory Tests 12/10/19 12/10/19 07:36 07:36 WBC 12.3 H RBC 3.69 L Hgb 11.7 L D Hct 34.4 L Plt Count 149 L Neutrophils # 9.3 H Sodium 134 L Calcium 7.9 L Patient Condition at Discharge: Stable Plan - Discharge Summary Discharge Rx Participant: No New Discharge Prescriptions: New Cyclobenzaprine [Flexeril] 10 mg PO TID PRN #90 tab PRN Reason: Muscle Spasm HYDROcodone/APAP 5-325MG [[place] 5-325] 1 - 2 tab PO Q6HR PRN #56 tab PRN Reason: Pain Tamsulosin [Flomax] 0.4 mg PO BID #60 cap.er.24h Continue Lisinopril-Hctz 20-25 mg [Zestoretic 20-25] 1 tab PO DAILY Potassium Chloride [K-Tab ER] 20 meq PO DAILY Aspirin [Adult Low Dose Aspirin EC] 81 mg PO DAILY Metoprolol Tartrate [Lopressor] 25 mg PO BID Diltiazem HCl [Cardizem CD] 120 mg PO DAILY Atorvastatin [Lipitor] 40 mg PO DAILY Vitamin Pack 1 dosepack PO BID Discontinued Tamsulosin [Flomax] 0.4 mg PO HS Discharge Medication List Aspirin [Adult Low Dose Aspirin EC] 81 mg PO DAILY 10/08/17 [History] Lisinopril-Hctz 20-25 mg [Zestoretic 20-25] 1 tab PO DAILY 10/08/17 [History] Potassium Chloride [K-Tab ER] 20 meq PO DAILY 10/08/17 [History] Metoprolol Tartrate [Lopressor] 25 mg PO BID 09/05/19 [History] Atorvastatin [Lipitor] 40 mg PO DAILY 12/05/19 [History] Diltiazem HCl [Cardizem CD] 120 mg PO DAILY 12/05/19 [History] Vitamin Pack 1 dosepack PO BID 12/05/19 [History] Cyclobenzaprine [Flexeril] 10 mg PO TID PRN #90 tab 12/11/19 [Rx] HYDROcodone/APAP 5-325MG [[place] 5-325] 1 - 2 tab PO Q6HR PRN #56 tab 12/11/19 [Rx] Tamsulosin [Flomax] 0.4 mg PO BID #60 cap.er.24h 12/13/19 [Rx] Follow up Appointment(s)/Referral(s): Adam Smith, INDER[facility] [PHYSICIAN REGISTERED NURSE [facility]] - 12/27/19 2:00 pm (Patient may follow-up with Adam Smith PA-C or Dr. David Mendez at [facility] in 2-3 weeks following discharge. ) [facility], [NON-STAFF] - 1 Week Wu Covarrubias MD [STAFF PHYSICIAN] - 1 Week (office to call you with appt. time and date.) Wu Turner MD [Primary Care Provider] - 1 Week (office is closed. please call office to schedule follow up appt.) Activity/Diet/Wound Care/Special Instructions: 1. Patient may shower with Optifoam dressing intact. 2. Patient may remove Optifoam dressing in 3 days and shower without a dressing at that time. 3. Patient should refrain from driving until at least after their first follow- up appointment in the office. 4. Patient should avoid excessive bending, twisting, and lifting; no lifting greater than 10 pounds 5. Take medications as prescribed 6. Do not soak in tub 7. Spouse to remove catheter 6 hours prior to Monday appt. with Dr. Covarrubias. Discharge Disposition: HOME SELF-CARE
--- NOTE | 2019-12-13 11:59 | P.PN ---
Subjective Progress Note Date: 12/13/19 - History of Present Illness This is a 79-year-old male patient of Dr. Wu Turner with past medical history of coronary artery disease status post PTCA and stent in 2010, hypertension, hyperlipidemia, mild intermittent asthma, benign prostatic hypertrophy. Patient has been brought into the hospital under the care of Dr. Fritz status post minimally invasive L4-5 posterior lateral decompression and fusion performed yesterday and removal of multiple masses at the back presumed sebaceous cyst 3. Patient has had no postop complications. He has been hemodynamically stable. Patient is found sitting up in a recliner and appears to be comfortable. He gives history that prior to this procedure, he had chronic back pain with lightening bolt feeling down his extremities. He was followed by Dr. Michelle and underwent 3 epidural injections without significant improvement. At this time, patient denies any chest pain, shortness of breath, lightheadedness or dizziness, no nausea vomiting or abdominal pain. Blood work this morning reveals WBC 12.3, hemoglobin 11.7, platelet count 149, sodium 134. He has been afebrile, heart rate 73, blood pressure 149/71, pulse ox 96% on room air. 12/10: Patient has had urinary retention requiring straight cath during the night on 2 episodes with return of 1000 ML's and 600 ML's. He is currently on Flomax once daily at home which will be increased to twice daily. Patient is complaining of low back discomfort and spasms. Patient has been afebrile, heart rate 57, blood pressure 111/58, pulse ox 95% on room air. 12/11: Overnight, patient has continued to have urinary retention and was straight cath with removal of 750, 450 and 525. Patient has been on Flomax twice daily for 2 days. Consult will be placed with urology. Back pain is improved. He denies any nausea or vomiting. No shortness of breath or chest pain. Patient has been afebrile, heart rate 55, blood pressure 135/75, pulse ox 97% on room air. Anticipate discharge within 24 hours. 12/12: Patient has been seen by Dr. Delong with recommendations for Canela catheter and follow-up with Dr. Covarrubias in the outpatient setting. Patient's to gissell ve the Canela the morning of the appointment with Dr. Covarrubias. A prescription has been sent to patient's pharmacy for Flomax increased dose frequency to twice daily. Patient has been afebrile, heart rate 51, blood pressure 158/76, pulse ox 96% on room air. Patient is cleared from medicine for discharge home today. Patient to follow-up with Dr. Adriel Turner. Review of Systems Constitutional: No fever, no chills, no night sweats. No weight change. Reports weakness, fatigue or lethargy. No daytime sleepiness. EENT: No headache. No blurred vision or double vision, no loss of vision. No loss of Hearing, no ringing in the ears, no dizziness. No nasal drainage or c ongestion. No epistaxis. No sore throat. Lungs: No shortness of breath, cough, no sputum production. No wheezing. Cardiovascular: No chest pain, no lower extremity edema. No palpitations. No paroxysmal nocturnal dyspnea. No orthopnea. No lightheadedness or dizziness. No syncopal episodes. Abdominal: No abdominal pain. No nausea, vomiting. No diarrhea. No constipation. No bloody or tarry stools. No loss of appetite. Genitourinary: No dysuria, increased frequency, urgency. Reports urinary retention-fully. Musculoskeletal: No myalgias. Denies muscle weakness, no frequent falls. Rep orts back discomfort. Reports spasms. No neck pain. Integumentary: No wounds, no lesions. No rash or pruritus. No unusual bruising. No change in hair or nails. Neurologic: No aphasia. No facial droop. No change in mentation. No head injury. No headache. No paralysis. No paresthesia. Psychiatric: No depression. No anxiety. No mood swings. Endocrine: No abnormal blood sugars. Physical Examination Gen: This is a 79-year-old male. He is resting in recliner and appears to be in no acute distress. HEENT: Head is atraumatic, normocephalic. Pupils equal, round. Sclerae is anicteric. NECK: Supple. No JVD. No lymphadenopathy. No thyromegaly. LUNGS: Clear to auscultation. No wheezes or rhonchi. No intercostal retractions. HEART: Regular rate and rhythm. No murmur. ABDOMEN: Soft. Bowel sounds are present. No masses. No tenderness. Canela catheter draining clear susana urine. EXTREMITIES: No pedal edema. No calf tenderness. Dorsalis pedis +2 bila [address]ally. Dressing in place to the lumbar area. NEUROLOGICAL: Patient is awake, alert and oriented x3. Cranial nerves 2 through 12 are grossly intact. Assessment and Plan 1. Spondylolisthesis L4 5, spinal stenosis L4 5, lower extremity radiculopathy, lower extremity weakness, neurogenic claudication, degenerative disc disease, facet arthrosis, low back pain Multiple masses at the back, presumed sebaceous cyst 3, status post minimally invasive L4-5 posterior lateral decompression and fusion and removal of multiple masses at the back. Patient has had no postop, occasions. Patient's hemodynamic hemodynamically stable. Plan to continue current pain management, PT and OT per orthopedics. Incentive spirometry to reduce incidence of atelectasis and hospital-acquired pneumonia. 2. History of coronary artery disease. Continue aspirin 81 mg daily, Lipitor 40 mg daily, Lopressor 25 mg twice daily. 3. Hypertension. Continue Cardizem CD 120 mg daily, Zestoretic daily, Lopressor. 4. Hyperlipidemia. Continue statin. 5. Mild intermittent asthma without exacerbation. 6. Benign prostatic hypertrophy with urinary retention, continue Flomax 0.4 mg twice daily. Urology consult. Appreciated. Canela catheter with follow-up outpatient. 7. GI prophylaxis. Pepcid Discharge plan: home without homecare. Impression and plan of care have been directed as dictated by the signing physician. Mariely Moore nurse practitioner acting as scribe for signing cheryle feng. Objective - Vital Signs Vital signs: Vital Signs Temp 98.6 F 12/13/19 05:00 Pulse 51 L 12/13/19 05:00 Resp 18 12/13/19 05:00 BP 158/76 12/13/19 05:00 Pulse Ox 96 12/13/19 05:00 Intake & Output 12/12/19 12/13/19 12/13/19 18:59 06:59 18:59 Intake Total 460 Output Total 700 2350 Balance -700 -1890 Intake: Oral 460 Output: Urine 700 2350 Straight 2350 Other: Voiding Method Toilet Indwelling Catheter - Labs CBC & Chem 7: 12/10/19 07:36 12/10/19 07:36
== END 2019-12-13 12:11 | disposition home or self-care (01) | DRG 455 ==
LOC: OR 06:14 → 5NMEDONC 11:21
PROVIDERS: ADMIT Orthopaedic Surgery Orthopaedic Surgery of the Spine; ATTEND Orthopaedic Surgery Orthopaedic Surgery of the Spine
DX: M43.16 Spondylolisthesis, lumbar region (principal); E78.2 Mixed hyperlipidemia; M48.062 Spinal stenosis, lumbar region with neurogenic claudication; M51.16 Intervertebral disc disorders with radiculopathy, lumbar region; I08.1 Rheumatic disorders of both mitral and tricuspid valves; L72.3 Sebaceous cyst; M21.371 Foot drop, right foot; M62.838 Other muscle spasm; S05.01XA Injury of conjunctiva and corneal abrasion without foreign body, right eye, initial encounter; G89.29 Other chronic pain; I10 Essential (primary) hypertension; J45.20 Mild intermittent asthma, uncomplicated; G62.9 Polyneuropathy, unspecified; I25.10 Atherosclerotic heart disease of native coronary artery without angina pectoris; H25.13 Age-related nuclear cataract, bilateral; I49.3 Ventricular premature depolarization; I25.2 Old myocardial infarction; K59.00 Constipation, unspecified; N40.1 Benign prostatic hyperplasia with lower urinary tract symptoms; R33.8 Other retention of urine; R35.1 Nocturia; M25.421 Effusion, right elbow; Z79.82 Long term (current) use of aspirin; Z79.899 Other long term (current) drug therapy; Z95.5 Presence of coronary angioplasty implant and graft; Z85.828 Personal history of other malignant neoplasm of skin; Z90.49 Acquired absence of other specified parts of digestive tract; Z87.19 Personal history of other diseases of the digestive system; Z87.891 Personal history of nicotine dependence; Z96.652 Presence of left artificial knee joint; Z97.3 Presence of spectacles and contact lenses; Z90.89 Acquired absence of other organs; Z98.890 Other specified postprocedural states; Z91.011 Allergy to milk products; Z88.0 Allergy status to penicillin; Z88.2 Allergy status to sulfonamides; Z82.49 Family history of ischemic heart disease and other diseases of the circulatory system; Z80.3 Family history of malignant neoplasm of breast; Z82.5 Family history of asthma and other chronic lower respiratory diseases
CPT/HCPCS: 72100; 80048; 85025; 86850; 86900; 86901; 88304

== ENCOUNTER 2022-01-12 06:29 | Observation (INO) | payer MEDICARE ==
[2022-01-12 07:05] LABS: Basophils # (A) 0.1 k/uL (0-0.2); Basophils % (A) 1 %; Eosinophils # (A) 0.3 k/uL (0-0.7); Eosinophils % (A) 3 %; HCT 45.9 % (39.0-53.0); HGB 15.6 gm/dL (13.0-17.5); Lymphocytes # (A) 2.5 k/uL (1.0-4.8); Lymphocytes % (A) 26 %; MCH 32.9 pg (25.0-35.0); MCHC 33.9 g/dL (31.0-37.0); MCV 96.8 fL (80.0-100.0); Mean Platelet Volume 7.5; Monocytes # (A) 0.7 k/uL (0-1.0); Monocytes % (A) 7 %; Neutrophils # (A) 5.6 k/uL (1.3-7.7); Neutrophils % (A) 59 %; Platelet Count 245 k/uL (150-450); RBC 4.74 m/uL (4.30-5.90); RDW 14.7 % (11.5-15.5); WBC 9.5 k/uL (3.8-10.6)
[2022-01-12 07:09] LABS: ALT 23 U/L (4-49); AST 35 U/L (17-59); African American GFR (CKD) >90 (>60 ml/min/1.73 sqM); Albumin 4.4 g/dL (3.5-5.0); Alkaline Phosphatase 98 U/L (38-126); Anion Gap 7 mmol/L; Blood Urea Nitrogen 15 mg/dL (9-20); Calcium 9.3 mg/dL (8.4-10.2); Carbon Dioxide 29 mmol/L (22-30); Chloride 104 mmol/L (98-107); Glucose 103 mg/dL (74-99); Magnesium 2.1 mg/dL (1.6-2.3); Non-African American GFR(CKD) 79 (>60 ml/min/1.73 sqM); Potassium 3.8 mmol/L (3.5-5.1); Sodium 140 mmol/L (137-145); Total Bilirubin 0.4 mg/dL (0.2-1.3); Total Protein 7.3 g/dL (6.3-8.2)
[2022-01-12 07:11] LABS: INR 0.9 (<1.2); Partial Thromboplastin Time 23.2 sec (22.0-30.0); Prothrombin Time 10.1 sec (9.0-12.0)
--- NOTE | 2022-01-12 07:11 | ED ---
Chest Pain HPI - General Chief Complaint: Chest Pain Stated Complaint: Chest Pain Time Seen by Provider: 01/12/22 06:30 Source: patient, RN notes reviewed Mode of arrival: ambulatory Limitations: no limitations - History of Present Illness Initial Comments: 81-year-old male presents emergency Department with chief complaint of chest pain. Patient states his been having on and off chest pain in which he is scheduled for heart cath today with Dr. Epperson. Patient states he started this morning and presented emergency from secondary to pain. Patient states is very similar, centralized chest pain nonradiating. Patient does have a history of hypertension hyperlipidemia one prior stent. - Related Data Home Medications Medication Instructions Recorded Confirmed Aspirin [Adult Low Dose Aspirin EC] 81 mg PO DAILY 10/08/17 01/11/22 Lisinopril-Hctz 20-25 mg 1 tab PO DAILY 10/08/17 01/11/22 [Zestoretic 20-25] Potassium Chloride [K-Tab ER] 10 meq PO BID 10/08/17 01/11/22 Atorvastatin [Lipitor] 40 mg PO DAILY 12/05/19 01/11/22 dilTIAZem HCL [Cardizem CD] 120 mg PO DAILY 12/05/19 01/11/22 Ezetimibe [Zetia] 10 mg PO DAILY 01/11/22 01/11/22 Fluticasone Propion/Salmeterol 1 puff INHALATION DAILY PRN 01/11/22 01/11/22 [Advair Hfa 115-21 Mcg Inhaler] Isosorbide Mononitrate ER [Imdur] 30 mg PO DAILY 01/11/22 01/11/22 Metoprolol Tartrate [Lopressor] 50 mg PO BID 01/11/22 01/11/22 Multivitamins, Thera [Multivitamin 1 tab PO DAILY 01/11/22 01/11/22 (formulary)] Nitroglycerin Sl Tabs [Nitrostat] 0.4 mg SUBLINGUAL Q5M PRN 01/11/22 01/11/22 hydrALAZINE HCL [Apresoline] 50 mg PO BID 01/11/22 01/11/22 lisinopriL [Prinivil] 20 mg PO HS 01/11/22 01/11/22 Allergies Allergy/AdvReac Type Severity Reaction Status Date / Time Milk Containing Products Allergy Unknown Congestion, Verified 01/12/22 06:35 [Dairy] Irritable Penicillins Allergy Unknown Verified 01/12/22 06:35 Childhood Sulfa (Sulfonamide Allergy Nausea & Verified 01/12/22 06:35 Antibiotics) Vomiting & Diarrhea Review of Systems ROS Statement: Those systems with pertinent positive or pertinent negative responses have been documented in the HPI. ROS Other: All systems not noted in ROS Statement are negative. Past Medical History Past Medical History: Asthma, Coronary Artery Disease (CAD), Cancer, Chest Pain / Angina, Hyperlipidemia, Hypertension, Myocardial Infarction ([place]), Prostate Disorder Additional Past Medical History / Comment(s): hx hypokalemia, hypoglycemia many yrs ago, skin cancer with removal. "heart skips a beat every so often" Last Myocardial Infarction Date:: 1994 or 1995 History of Any Multi-Drug Resistant Organisms: None Reported Past Surgical History: Appendectomy, Heart Catheterization, Heart Catheterization With Stent, Joint Replacement, Orthopedic Surgery, Prostate Surgery, Tonsillectomy Additional Past Surgical History / Comment(s): 10/2010 with one stent, L total knee arthroplasty, mult. left knee arthroscopies, skin cancer removal. Past Anesthesia/Blood Transfusion Reactions: Previous Problems w/ Anesthesia Additional Past Anesthesia/Blood Transfusion Reaction / Comment(s): "states slow to wake" from anesthesia. Date of Last Stent Placement:: 10/2010 Past Psychological History: No Psychological Hx Reported Smoking Status: Former smoker Past Alcohol Use History: None Reported Past Drug Use History: None Reported - Past Family History Mother Family Medical History: Cancer Additional Family Medical History / Comment(s): breast cancer Father Additional Family Medical History / Comment(s): Father at age 75 from a myocardial infarction. History of asthma. Patient has a total of 5 children with no major medical problems. Patient has 1 brother with chronic back problems. No sisters. General Exam Limitations: no limitations General appearance: alert, in no apparent distress Head exam: Present: atraumatic, normocephalic, normal inspection Eye exam: Present: normal appearance, PERRL, EOMI. Absent: scleral icterus, conjunctival injection, periorbital swelling ENT exam: Present: normal exam, mucous membranes moist Neck exam: Present: normal inspection, full ROM. Absent: tenderness, meningismus, lymphadenopathy Respiratory exam: Present: normal lung sounds bilaterally. Absent: respiratory distress, wheezes, rales, rhonchi, stridor Cardiovascular Exam: Present: regular rate, normal rhythm, normal heart sounds. Absent: systolic murmur, diastolic murmur, rubs, gallop, clicks GI/Abdominal exam: Present: soft, normal bowel sounds. Absent: distended, tenderness, guarding, rebound, rigid Course Vital Signs 01/12/22 06:33 Temperature 98 F Pulse Rate 51 L Respiratory 20 Rate Blood Pressure 172/86 O2 Sat by Pulse 97 Oximetry Chest Pain MDM - MDM I did contact Dr. Buchanan immediately upon evaluation of the patient. In which she did contact Dr. Epperson, cardiovascular lab. Patient will be sent to the Record Label Intern or his schedule heart cath. EKG does not show STEMI. Disposition Clinical Impression: Chest pain Disposition: ADMITTED IP TO THIS HOSP Condition: Fair Referrals: Wu Turner MD [Primary Care Provider] - 1-2 days Time of Disposition: 07:11
[2022-01-12] MEDS ORDERED: fentaNYL (PF) 50 MCG/ML 2 ML AMP IV ONE (08:01)
[2022-01-12] MEDS ORDERED: IV FLUID CONTINUATION 1,000 ML IV ONE (08:01)
[2022-01-12] MEDS ORDERED: LIDOCAINE 1% INJ 10MG/ML (5 ML VIAL-PF) SQ ONE (08:02)
[2022-01-12] MEDS ORDERED: VERAPAMIL SYRINGE (5 MG/10 ML) INTRAARTER ONE (08:03)
[2022-01-12] MEDS ORDERED: HEPARIN SODIUM 1,000 UN/ML (10ML VL) IV ONE (08:10)
[2022-01-12] MEDS ORDERED: MIDAZOLAM 2 MG/2 ML VIAL IV ONE (08:20)
[2022-01-12] MEDS ORDERED: IOPAMIDOL-370 125ML BTL INJ ONE (08:25)
[2022-01-12] MEDS ORDERED: RX INFO: IV CONTRAST WAS GIVEN 1 EACH MISC MISCELLANE PRN (08:31)
[2022-01-12] MEDS ORDERED: SYMBICORT 160-4.5 MCG INHALER INHALATION PRN (08:32)
--- NOTE | 2022-01-12 08:39 | P.CARDCATH ---
Date of Procedure: 01/12/22 Description of Procedure: Cardiac Catheterization: The patient is a 81-year-old male with a known history of CAD, hypertension and hyperlipidemia who presented was progressive chest discomfort and dyspnea on exertion. Recommendations were made regarding cardiac catheterization, the risks and the complications were discussed with the patient who is in full understanding and agreement. Procedure Description: Patient was brought to laboratory animal facility supervisor in fasting semi-sedated state after receiving Fentanyl and Benadryl achieiving moderate conscious sedated state. Using Xylocaine Anesthesia and Seldinger technique, a 6-Maldivian sheath was introduced in the left radial artery . Subsequently, selective coronary angiography was performed using a 5-Maldivian 4 bend Miguel catheter. Multiple views of the coronary artery including hemiaxial views were obtained. The 5-Maldivian Pigtail catheter was used to cross the aortic valve and LVEDP was calculated. Following that, catheter and sheath were removed. Hemostasis was obtained with deployment of TR band . There was no immediate complication. Patient was returned to room in stable condition. Of note, the patient received a total of 4500 units of intravenous heparin as well as intra-arterial verapamil. Findings: Fluoroscopy reveals severe calcification involving the left main and the LAD as well as the left circumflex Left main: This is a large size vessel, bifurcating into LAD and left circumflex, the left main has an eccentric 60% stenosis in the distal segment LAD: This is a large size vessel, reaching to the effects, giving rise to a proximal large diagonal branch. In the proximal segment there is a long area of severe stenosis up to 99%, the distal vessel has no high-grade stenosis Left circumflex: This is a nondominant size vessel, large in caliber, giving rise to a large obtuse marginal branch. The proximal left circumflex has a 30% plaque, the stented segment in the second obtuse marginal branch has no evidence of significant in-stent restenosis RCA: This is a large dominant vessel, the mid and distal vessel has intimal disease with area of stenosis up to 99%, the PDA and PLV have no evidence of high-grade stenosis Left Ventriculogram: Not performed Hemodynamics: There was no gradient across the aortic valve , LVEDP was 16-20 minutes of mercury Conclusion: 1. Calcified coronary arteries 2. Significant disease in the distal left main 3. Severe stenosis in the LAD and the RCA 4. Mild to moderate disease in the left circumflex Recommendations: In view of the findings and the anatomy of recommended to obtain a surgical opinion for CABG, The findings and the recommendations were discussed with the patient and the family and they were in full understanding and agreement. Duration of sedation is 24 minutes.
[2022-01-12] MEDS ORDERED: HEPARIN SOD,PORK IN 0.45% NACL 25,000 UNIT in 0.45% NACL 1 250ML.BAG IV SCH (08:45)
[2022-01-12] MEDS ORDERED: SODIUM CHLORIDE 0.9% 1,000 ML IV SCH (08:45)
[2022-01-12] MEDS ORDERED: LISINOPRIL-HCTZ 20-25 MG 1 EACH TAB PO SCH (09:00)
[2022-01-12] MEDS ORDERED: ISOSORBIDE MONONITRATE ER 30 MG TAB.ER.24H PO SCH (09:00)
[2022-01-12] MEDS ORDERED: HEPARIN SODIUM 1,000 UN/ML (10ML VL) IV PRN (11:00)
--- NOTE | 2022-01-12 11:11 | US ---
EXAMINATION TYPE: US carotid duplex BILAT DATE OF EXAM: 01/12/2022 COMPARISON: NONE CLINICAL HISTORY: preop cardiac surgery. preop surgery EXAM MEASUREMENTS: RIGHT: Peak Systolic Velocity (PSV) cm/sec ----- Right CCA: 96.8 ----- Right ICA: 119.4 ----- Right ECA: 117.7 ICA/CCA ratio: 1.2 RIGHT: End Diastole cm/sec ----- Right CCA: 16.0 ----- Right ICA: 22.5 ----- Right ECA: 6.3 LEFT: Peak Systolic Velocity (PSV) cm/sec ----- Left CCA: 93.5 ----- Left ICA: 109.7 ----- Left ECA: 71.3 ICA/CCA ratio: 1.2 LEFT: End Diastole cm/sec ----- Left CCA: 7.9 ----- Left ICA: 11.1 ----- Left ECA: 13.1 VERTEBRALS (direction of flow): Right Vertebral: Antegrade Left Vertebral: Antegrade Rhythm: Normal Mild calcified atherosclerosis in the bilateral carotid bulbs. IMPRESSION: Mild atherosclerosis of the bilateral carotid arterial system without ultrasound evidence of hemodyna mically significant stenosis.
[2022-01-12 12:08] LABS: Appearance,Urine Clear (Clear); Bilirubin,Urine Negative (Negative); Blood,Urine Negative (Negative); Color,Urine Yellow; Glucose,Urine (UA) Trace (Negative); Ketones,Urine Negative (Negative); Leukocyte Esterase,Urine Negative (Negative); Nitrite,Urine Negative (Negative); PH, Urine 6.5 (5.0-8.0); Protein,Urine Trace (Negative); Urobilinogen,Urine <2.0 mg/dL (<2.0)
[2022-01-12 12:10] LABS: Specific Gravity,Urine >1.050 (1.001-1.035)
--- NOTE | 2022-01-12 14:04 | P.GSCN ---
History of Present Illness Consult date: 01/12/22 Reason for Consult: CAD Requesting physician: Henry Epperson History of present illness: This is a 81 year old active male who follows on an outpatient basis with Dr. Wu Turner for primary care and Dr. Epperson for cardiology. He has a previous medical history of CAD with MT status post PCI in 2010, hypertension, hyperlipidemia, asthma, skin cancer status post removal, previous tobacco dependence, and family history of heart disease. He presented to [facility] with complaints of exertional chest pain and shortness of breath which has been increasing in frequency and severity recently. He underwent heart catheterization today with Dr. Epperson which revealed distal left main stenosis 60%, proximal LAD stenosis 99%, patent OM2 stent, and mid to distal RCA stenosis 99%. Due to these findings consultation was placed to Dr. Billy for surgical revascularization recommendations. Review of Systems Review of systems was reviewed and was negative except as noted - Cardiovascular Reports as per HPI, Reports chest pain, Reports decreased exercise tolerance, Reports dyspnea on exertion Past Medical History Past Medical History: Asthma, Coronary Artery Disease (CAD), Cancer, Chest Pain / Angina, Hyperlipidemia, Hypertension, Myocardial Infarction ([place]), Prostate Disorder Additional Past Medical History / Comment(s): hx hypokalemia, hypoglycemia many yrs ago, skin cancer with removal. "heart skips a beat every so often" Last Myocardial Infarction Date:: 1994 or 1995 History of Any Multi-Drug Resistant Organisms: None Reported Past Surgical History: Appendectomy, Heart Catheterization, Heart Cathete rization With Stent, Joint Replacement, Orthopedic Surgery, Prostate Surgery, Tonsillectomy Additional Past Surgical History / Comment(s): 10/2010 with one stent, L total knee arthroplasty, mult. left knee arthroscopies, skin cancer removal. Past Anesthesia/Blood Transfusion Reactions: Previous Problems w/ Anesthesia Additional Past Anesthesia/Blood Transfusion Reaction / Comm: "states slow to wake" from anesthesia. Date of Last Stent Placement:: 10/2010 Past Psychological History: No Psychological Hx Reported Smoking Status: Former smoker Past Alcohol Use History: None Reported Past Drug Use History: None Reported - Past Family History Mother Family Medical History: Cancer Additional Family Medical History / Comment(s): breast cancer Father Additional Family Medical History / Comment(s): Father at age 75 from a myocardial infarction. History of asthma. Patient has a total of 5 children with no major medical problems. Patient has 1 brother with chronic back problems. No sisters. Medications and Allergies Home Medications Medication Instructions Recorded Confirmed Type Aspirin [Adult Low Dose Aspirin EC] 81 mg PO DAILY 10/08/17 01/12/22 History Lisinopril-Hctz 20-25 mg 1 tab PO DAILY 10/08/17 01/12/22 History [Zestoretic 20-25] Potassium Chloride [K-Tab ER] 10 meq PO BID 10/08/17 01/12/22 History Atorvastatin [Lipitor] 40 mg PO DAILY 12/05/19 01/12/22 History dilTIAZem HCL [Cardizem CD] 120 mg PO DAILY 12/05/19 01/12/22 History Ezetimibe [Zetia] 10 mg PO DAILY 01/11/22 01/12/22 History Fluticasone Propion/Salmeterol 1 puff INHALATION RT-DAILY PRN 01/11/22 01/12/22 History [Advair Hfa 115-21 Mcg Inhaler] Isosorbide Mononitrate ER [Imdur] 30 mg PO DAILY 01/11/22 01/12/22 History Metoprolol Tartrate [Lopressor] 50 mg PO BID 01/11/22 01/12/22 History Multivitamins, Thera [Multivitamin 1 tab PO DAILY 01/11/22 01/12/22 History (formulary)] Nitroglycerin Sl Tabs [Nitrostat] 0.4 mg SUBLINGUAL Q5M PRN 01/11/22 01/12/22 History hydrALAZINE HCL [Apresoline] 50 mg PO BID 01/11/22 01/12/22 History lisinopriL [Prinivil] 20 mg PO HS 01/11/22 01/12/22 History Allergies Allergy/AdvReac Type Severity Reaction Status Date / Time Penicillins Allergy Unknown Verified 01/12/22 07:21 Childhood Milk Containing Products AdvReac Unknown Congestion, Verified 01/12/22 07:21 [Dairy] Irritable Sulfa (Sulfonamide AdvReac Nausea & Verified 01/12/22 07:21 Antibiotics) Vomiting & Diarrhea Surgical - Exam Vital Signs Temp Pulse Resp BP Pulse Ox 98 F 51 L 20 172/86 97 01/12/22 06:33 01/12/22 06:33 01/12/22 06:33 01/12/22 06:33 01/12/22 06:33 CONSTITUTIONAL: Awake and alert, appears comfortable, cooperative, well- developed, well-nourished, no pain, no acute distress EYES: Pupils equal, round, reactive to light, normal ocular movement ENT: Moist mucous membranes without oral lesions present NECK: No masses, no bruits, trachea midline RESPIRATORY: Lungs sounds clear to auscultation bilaterally. Respirations even, nonlabored. Currently on room air with oxygen saturation 97%. No clubbing or cyanosis present CARDIOVASCULAR: S1, S2 present. Slow but regular rate and rhythm, sinus zach on telemetry. Palpable peripheral pulses bilaterally. No edema present. GASTROINTESTINAL: Abdomen soft, nontender, nondistended without masses or organomegaly noted. There is no rebound or guarding present. Active bowel sounds present 4 quadrants. GENITOURINARY: Deferred INTEGUMENTARY: Skin is warm and dry with evidence of good perfusion. Left radial heart cath site with T band in place NEUROLOGIC: Cranial nerves II through XII intact, normal coordination, no obvious motor or sensory deficits, speech is normal MUSKULOSKELETAL: Able to move all extremities, strength equal bilaterally, normal posture PSYCHIATRIC: Alert and oriented to person place and time, appropriate affect, intact judgment and insight Results - Labs 01/12/22 06:49 01/12/22 06:49 Abnormal Lab Results - Last 24 Hours (Table) 01/12/22 01/12/22 Range/Units 06:49 11:40 Glucose 103 H (74-99) mg/dL Ur Specific Gate >1.050 H (1.001-1.035) Urine Protein Trace H (Negative) Urine Glucose (UA) Trace H (Negative) Diabetes panel 01/12/22 Range/Units 06:49 Sodium 140 (137-145) mmol/L Potassium 3.8 (3.5-5.1) mmol/L Chloride 104 (98-107) mmol/L Carbon Dioxide 29 (22-30) mmol/L BUN 15 (9-20) mg/dL Creatinine 0.92 (0.66-1.25) mg/dL Glucose 103 H (74-99) mg/dL Calcium 9.3 (8.4-10.2) mg/dL AST 35 (17-59) U/L ALT 23 (4-49) U/L Alkaline Phosphatase 98 (38-126) U/L Total Protein 7.3 (6.3-8.2) g/dL Albumin 4.4 (3.5-5.0) g/dL Thyroid panel 01/12/22 Range/Units 06:49 TSH 1.940 (0.465-4.680) mIU/L Calcium panel 01/12/22 Range/Units 06:49 Calcium 9.3 (8.4-10.2) mg/dL Albumin 4.4 (3.5-5.0) g/dL Pituitary panel 01/12/22 01/12/22 Range/Units 06:49 06:49 Sodium 140 (137-145) mmol/L Potassium 3.8 (3.5-5.1) mmol/L Chloride 104 (98-107) mmol/L Carbon Dioxide 29 (22-30) mmol/L BUN 15 (9-20) mg/dL Creatinine 0.92 (0.66-1.25) mg/dL Glucose 103 H (74-99) mg/dL Calcium 9.3 (8.4-10.2) mg/dL TSH 1.940 (0.465-4.680) mIU/L Adrenal panel 01/12/22 Range/Units 06:49 Sodium 140 (137-145) mmol/L Potassium 3.8 (3.5-5.1) mmol/L Chloride 104 (98-107) mmol/L Carbon Dioxide 29 (22-30) mmol/L BUN 15 (9-20) mg/dL Creatinine 0.92 (0.66-1.25) mg/dL Glucose 103 H (74-99) mg/dL Calcium 9.3 (8.4-10.2) mg/dL Total Bilirubin 0.4 (0.2-1.3) mg/dL AST 35 (17-59) U/L ALT 23 (4-49) U/L Alkaline Phosphatase 98 (38-126) U/L Total Protein 7.3 (6.3-8.2) g/dL Albumin 4.4 (3.5-5.0) g/dL - Imaging Additional studies: Heart cath films reviewed with Dr. Billy Assessment and Plan Assessment: 1. CAD with left main disease, previous MT status post PCI in 2010 2. History of hypertension 3. History of hyperlipidemia, treated 4. Asthma 5. History of skin cancer status post removal 6. Previous tobacco dependence 7. Family history of heart disease, father of MT at 75 years old Plan: The patient was seen and examined in the extended stay unit with Dr. Billy. Chart/diagnostics were reviewed. The usual perioperative course of open heart surgery was discussed in detail with the patient and his family, risks and benefits were reviewed, all questions were answered. Preoperative testing has been initiated. Once completed we will calculate STS risk score and discuss with the patient. Recommend continuing to maximize medical therapy with ASA, statin, beta ashley therapy. Our plan is for off pump surgical myocardial revascularization with left internal mammary artery, left radial artery harvest, endoscopic vein harvest, and left atrial appendage by Dr. Billy on Monday01/17/22. This was discussed with the patient and family and they are in agreement, and discussed with Dr. Epperson by Dr. Billy. Thank you Dr. Epperson for this consultation. I have personally seen and examined the patient, performed the documentation and the assessment and plan as written. Number of minutes spent on the visit: 30. BANDAR Fall
--- NOTE | 2022-01-12 14:06 | P.HPIM ---
History of Present Illness H&P Date: 01/12/22 This is a pleasant 81-year-old male presents to the with concern for chest pain over the left chest. He denies radiation and describes the pain as a dull ache. The pain comes and goes. He has associated diaphoresis, shortness of breath. Denies fever, chills. He sees Dr Epperson outpatient. Patient has a past medical history significant for coronary artery disease status post cardiac cath with PCI, [place] years ago in the 90s, hypertension, hyperlipidemia, asthma, prostate disorder, multiple orthopedic surgeries, former smoker quit many years ago. Labs on admission are unremarkable. Troponin level negative. Patient underwent cardiac catheterization which reveals significant disease in the dis heidi left main, severe stenosis in the LAD and RCA, mild to moderate disease in the left circumflex. No intervention was performed and cardiothoracic services was consulted for evaluation for coronary artery bypass grafting. He is afebrile, he has sinus bradycardia in the 50s, blood pressure 138/75, 94% room air. Home medications have been resumed and he is being hydrated with normal saline. REVIEW OF SYSTEMS: CONSTITUTIONAL: No fever, no malaise, no fatigue. HEENT: No recent visual problems or hearing problems. Denied any sore throat. CARDIOVASCULAR: Reports intermittent left chest pain dull ache with associated diaphoresis. PULMONARY: No shortness of breath, no cough, no hemoptysis. GASTROINTESTINAL: No diarrhea, no nausea, no vomiting, no abdominal pain. NEUROLOGICAL: No headaches, no weakness, no numbness. HEMATOLOGICAL: Denies any bleeding or petechiae. GENITOURINARY: Denies any burning micturition, frequency, or urgency. MUSCULOSKELETAL/RHEUMATOLOGICAL: Denies any joint pain, swelling, or any muscle pain. ENDOCRINE: Denies any polyuria or polydipsia. The rest of the 14-point review of systems is negative. PHYSICAL EXAMINATION: GENERAL: The patient is alert and oriented x3, not in any acute distress. Well developed, well nourished. HEENT: Pupils are round and equally reacting to light. EOMI. No scleral icterus. No conjunctival pallor. Normocephalic, atraumatic. No pharyngeal erythema. No thyromegaly. CARDIOVASCULAR: S1 and S2 present. No murmurs, rubs, or gallops. PULMONARY: Chest is clear to auscultation, no wheezing or crackles. ABDOMEN: Soft, nontender, nondistended, normoactive bowel sounds. No palpable organomegaly. MUSCULOSKELETAL: No joint swelling or deformity. EXTREMITIES: No cyanosis, clubbing, or pedal edema. NEUROLOGICAL: Gross neurological examination did not reveal any focal deficits. SKIN: No rashes. Assessment and plan Assessment Chest pain with dyspnea Patient is status post cardiac catheterization with evidence for significant coronary artery disease History of coronary artery disease status post PCI Hypertension Hyperlipidemia Prostate disorder History of myocardial infarction History asthma not in acute exacerbation Former smoker GI prophylaxis DVT prophylaxis Full Code Plan Patient is postop cardiac catheterization 2-D echocardiogram is pending Cardiothoracic services has been consulted Appropriate home medications have been resumed Repeat BMP in the morning The impression and plan of care has been dictated by Laura Warner Nurse Practitioner as directed. Dr. Rudy MD I have performed a history and physical examination and medical decision making of this patient, discussed the same with the dictator, and agree with the dictators assessment and plan as written, documented as a scribe. Based on total visit time, I have performed more than 50% of this visit. Past Medical History Past Medical History: Asthma, Coronary Artery Disease (CAD), Cancer, Chest Pain / Angina, Hyperlipidemia, Hypertension, Myocardial Infarction ([place]), Prostate Disorder Additional Past Medical History / Comment(s): hx hypokalemia, hypoglycemia many yrs ago, skin cancer with removal. "heart skips a beat every so often" Last Myocardial Infarction Date:: 1994 or 1995 History of Any Multi-Drug Resistant Organisms: None Reported Past Surgical History: Appendectomy, Heart Catheterization, Heart Catheterization With Stent, Joint Replacement, Orthopedic Surgery, Prostate Surgery, Tonsillectomy Additional Past Surgical History / Comment(s): 10/2010 with one stent, L total knee arthroplasty, mult. left knee arthroscopies, skin cancer removal. Past Anesthesia/Blood Transfusion Reactions: Previous Problems w/ Anesthesia Additional Past Anesthesia/Blood Transfusion Reaction / Comment(s): "states slow to wake" from anesthesia. Date of Last Stent Placement:: 10/2010 Past Psychological History: No Psychological Hx Reported Smoking Status: Former smoker Past Alcohol Use History: None Reported Past Drug Use History: None Reported - Past Family History Mother Family Medical History: Cancer Additional Family Medical History / Comment(s): breast cancer Father Additional Family Medical History / Comment(s): Father at age 75 from a myocardial infarction. History of asthma. Patient has a total of 5 children with no major medical problems. Patient has 1 brother with chronic back problems. No sisters. Medications and Allergies Home Medications Medication Instructions Recorded Confirmed Type Aspirin [Adult Low Dose Aspirin EC] 81 mg PO DAILY 10/08/17 01/12/22 History Lisinopril-Hctz 20-25 mg 1 tab PO DAILY 10/08/17 01/12/22 History [Zestoretic 20-25] Potassium Chloride [K-Tab ER] 10 meq PO BID 10/08/17 01/12/22 History Atorvastatin [Lipitor] 40 mg PO DAILY 12/05/19 01/12/22 History dilTIAZem HCL [Cardizem CD] 120 mg PO DAILY 12/05/19 01/12/22 History Ezetimibe [Zetia] 10 mg PO DAILY 01/11/22 01/12/22 History Fluticasone Propion/Salmeterol 1 puff INHALATION RT-DAILY PRN 01/11/22 01/12/22 History [Advair Hfa 115-21 Mcg Inhaler] Isosorbide Mononitrate ER [Imdur] 30 mg PO DAILY 01/11/22 01/12/22 History Metoprolol Tartrate [Lopressor] 50 mg PO BID 01/11/22 01/12/22 History Multivitamins, Thera [Multivitamin 1 tab PO DAILY 01/11/22 01/12/22 History (formulary)] Nitroglycerin Sl Tabs [Nitrostat] 0.4 mg SUBLINGUAL Q5M PRN 01/11/22 01/12/22 History hydrALAZINE HCL [Apresoline] 50 mg PO BID 01/11/22 01/12/22 History lisinopriL [Prinivil] 20 mg PO HS 01/11/22 01/12/22 History Allergies Allergy/AdvReac Type Severity Reaction Status Date / Time Penicillins Allergy Unknown Verified 01/12/22 07:21 Childhood Milk Containing Products AdvReac Unknown Congestion, Verified 01/12/22 07:21 [Dairy] Irritable Sulfa (Sulfonamide AdvReac Nausea & Verified 01/12/22 07:21 Antibiotics) Vomiting & Diarrhea Physical Exam Vitals: Vital Signs Temp Pulse Pulse Resp BP BP Pulse Ox 01/12/22 09:10 50 L 16 138/75 94 L 01/12/22 08:55 46 L 16 108/58 94 L 01/12/22 08:40 48 L 16 134/67 93 L 01/12/22 06:33 98 F 51 L 20 172/86 97 Intake and Output 01/11/22 01/12/22 01/12/22 22:59 06:59 14:59 Intake Total 50 Output Total 175 Balance -125 Intake: IV 50 Output: Urine 175 Other: # Voids 1 Weight 86.183 kg Results CBC & Chem 7: 01/12/22 06:49 01/12/22 06:49 Labs: Abnormal Lab Results - Last 24 Hours (Table) 01/12/22 Range/Units 06:49 Glucose 103 H (74-99) mg/dL Assessment and Plan Time with Patient: Greater than 30
[2022-01-12 14:56] LABS: Chol/HDL Ratio 2.64 Ratio; LDL Cholesterol,Calculated 73.6 mg/dL (0.0-131.0); VLDL Calculation 12.24 mg/dL (5.00-40.00)
[2022-01-12 16:54] LABS: Hepatitis A Antibody IgM Nonreactive (Nonreactive); Hepatitis B Core IgM Nonreactive (Nonreactive); Hepatitis B Surface Antigen Nonreactive (Nonreactive); Hepatitis C IgG Antibody Nonreactive (Nonreactive)
[2022-01-12] MEDS: NITROGLYCERIN OINT 1 INCH/GM PACKET TOPICAL SCH ×3 (18:04→23:08)
[2022-01-12] MEDS ORDERED: polyethylene glycoL 3350 17 GM POWD.PACK PO PRN (18:36)
[2022-01-12] MEDS: DILTIAZEM CD 120 MG CAP.ER.24H PO SCH (19:26)
[2022-01-12] MEDS: EZETIMIBE 10 MG TAB PO SCH (19:26)
[2022-01-12] MEDS: hydrALAZINE HCL 50 MG TAB PO SCH ×2 (19:37→20:45)
[2022-01-12] MEDS: POTASSIUM CHLORIDE ER 10 MEQ TAB.ER.PRT PO SCH ×2 (19:38→20:45)
[2022-01-12] MEDS: METOPROLOL TARTRATE 50 MG TAB PO SCH ×2 (19:38→20:45)
[2022-01-12] MEDS ORDERED: lisinopriL 20 MG TAB PO SCH (21:00)
[2022-01-13] MEDS ORDERED: ACETAMINOPHEN TAB 325 MG TAB PO PRN (02:25)
[2022-01-13] MEDS: METOPROLOL TARTRATE 50 MG TAB PO SCH (03:33)
[2022-01-13] MEDS: hydrALAZINE HCL 50 MG TAB PO SCH (03:33)
[2022-01-13] MEDS ORDERED: PANTOPRAZOLE 40 MG TABLET PO SCH (07:30)
--- NOTE | 2022-01-13 07:38 | XR ---
EXAMINATION TYPE: XR chest 2V DATE OF EXAM: 01/13/2022 COMPARISON: 08/30/2019 INDICATION: Preop CABG TECHNIQUE: Frontal and lateral views of the chest are obtained. FINDINGS: The heart size is normal. The pulmonary vasculature is normal. The lungs are clear. There is mild hyperinflation. Consider COPD. IMPRESSION: 1. No acute pulmonary process. 2. Consider possible COPD.
[2022-01-13 07:58] LABS: Basophils # (A) 0.1 k/uL (0-0.2); Basophils % (A) 1 %; Eosinophils # (A) 0.2 k/uL (0-0.7); Eosinophils % (A) 2 %; HCT 47.1 % (39.0-53.0); HGB 15.6 gm/dL (13.0-17.5); Lymphocytes # (A) 2.6 k/uL (1.0-4.8); Lymphocytes % (A) 21 %; MCH 31.8 pg (25.0-35.0); MCHC 33.2 g/dL (31.0-37.0); MCV 95.8 fL (80.0-100.0); Mean Platelet Volume 7.8; Monocytes # (A) 0.7 k/uL (0-1.0); Monocytes % (A) 6 %; Neutrophils # (A) 8.4 k/uL (1.3-7.7); Neutrophils % (A) 69 %; Platelet Count 229 k/uL (150-450); RBC 4.91 m/uL (4.30-5.90); RDW 14.3 % (11.5-15.5); WBC 12.2 k/uL (3.8-10.6)
[2022-01-13 08:06] LABS: Partial Thromboplastin Time 55.8 sec (22.0-30.0); Prothrombin Time 10.5 sec (9.0-12.0)
[2022-01-13 08:13] LABS: African American GFR (CKD) >90 (>60 ml/min/1.73 sqM); Anion Gap 6 mmol/L; Blood Urea Nitrogen 11 mg/dL (9-20); Calcium 9.1 mg/dL (8.4-10.2); Carbon Dioxide 33 mmol/L (22-30); Chloride 97 mmol/L (98-107); Glucose 99 mg/dL (74-99); Non-African American GFR(CKD) 85 (>60 ml/min/1.73 sqM); Potassium 3.5 mmol/L (3.5-5.1); Sodium 136 mmol/L (137-145)
[2022-01-13] MEDS: POTASSIUM CHLORIDE ER 10 MEQ TAB.ER.PRT PO SCH (08:50)
[2022-01-13] MEDS: EZETIMIBE 10 MG TAB PO SCH (08:51)
[2022-01-13] MEDS: DILTIAZEM CD 120 MG CAP.ER.24H PO SCH (08:51)
[2022-01-13 08:55] VITALS: BP 208/99; PULSE 58; RESP 16; TEMP 97.5
[2022-01-13] MEDS ORDERED: lisinopriL 20 MG TAB PO SCH (09:00)
[2022-01-13] MEDS ORDERED: ASPIRIN 81 MG PO SCH (09:00)
[2022-01-13] MEDS ORDERED: ISOSORBIDE MONONITRATE ER 60 MG TAB.ER.24H PO SCH (09:00)
[2022-01-13] MEDS ORDERED: ATORVASTATIN 40 MG TAB PO SCH (09:00)
--- NOTE | 2022-01-13 09:10 | CA ---
Transthoracic Echo Report Name: Jose Sargent Age: 81 Gender: M : 1940 Exam Date: 01/12/2022 09:41 Exam Location: [facility] Ht (in): Wt (lb): Ordering Physician: Gaye Pryor Attending/Referring Phys: Plant Controller Gaye Rodriguez RDCS Procedure CPT: Indications: preop cardiac surgery Cardiac Hx: Preop cardiac surgery Technical Quality: Fair Contrast 1: Total Dose (mL): Contrast 2: Total Dose (mL): MEASUREMENTS (Male / Female) Normal Values 2D ECHO LV Diastolic Diameter PLAX 4.8 cm 4.2 - 5.9 / 3.9 - 5.3 cm LV Systolic Diameter PLAX 2.4 cm IVS Diastolic Thickness 1.2 cm 0.6 - 1.0 / 0.6 - 0.9 cm LVPW Diastolic Thickness 1.3 cm 0.6 - 1.0 / 0.6 - 0.9 cm LV Relative Wall Thickness 0.5 DOPPLER AV Peak Velocity 144.0 cm/s AV Peak Gradient 8.3 mmHg MV Area PHT 2.7 cm??? Mitral E Point Velocity 85.9 cm/s Mitral A Point Velocity 75.3 cm/s Mitral E to A Ratio 1.1 MV Deceleration Time 283.1 ms FINDINGS Left Ventricle Mildly increased septal wall thickness. Left ventricular ejection fraction is estimated at 55-60 %. Left ventricular cavity size normal. Right Ventricle The right ventricle is normal in size and function. Right Atrium The right atrium is normal in size. Left Atrium The left atrium is normal in size. Mitral Valve Structurally normal mitral valve without significant stenosis or prolapse. There is trace mitral regurgitation. Aortic Valve Structurally normal aortic valve without significant sclerosis or stenosis. There is no aortic regurgitation. Focal thickening of the aortic valve cusps. Tricuspid Valve Structurally normal tricuspid valve without significant stenosis. Pulmonary artery systolic pressure is normal. Trace tricuspid regurgitation. Pulmonic Valve Structurally normal pulmonic valve without significant stenosis. There is no pulmonic regurgitation. Pericardium Normal pericardium without effusion. Aorta Normal aortic root dimension. CONCLUSIONS Technically somewhat suboptimal study. Normal LV size and systolic function. Minimal mitral and tricuspid insufficiency. No pulmonary hypertension. No pericardial effusion Previewed by: Dr. Evan Bryan MD (Electronically Signed) Final Date: 13 January 2022 09:09
--- NOTE | 2022-01-13 12:06 | P.PN ---
Subjective This is a 81-year-old male with a past medical history of coronary artery disease status post PCI to the OM 2 in 2010, PCI distal RCA in 1995, hypert ension, dyslipidemia, PVCs. He follows in the office with Dr. Epperson. Patient presented to the hospital with chest discomfort and dyspnea on exertion. He was taken to the pathology laboratory director. Patient underwent cardiac catheterization with Dr. Epperson which revealed calcified coronary arteries, significant disease in the distal left main with 60% stenosis, severe stenosis LAD and the RCA 99% stenosis, patient OM2 stent, mild to moderate disease in the left circumflex. Secondary to the patient's anatomy CT surgery consultation was recommended for possible CABG. 01/13/2022 Patient seen and examined at bedside, sitting up on the edge of the bed. He is feeling well. He has no complaints of chest pain or shortness of breath. Blood pressure elevated this morning prior to medications being given. He is maintaining sinus rhythm heart rate in the 50s70s, PVCs noted. His heparin drip has been stopped. Patient evaluated by CT surgery and plan for CABG on 01/17/2022 He's currently maintained on aspirin 81 mg daily, atorvastatin 40 mg daily, Zetia 10 mg daily, Cardizem 120 mg daily, hydralazine 50 mg twice a day, Imdur 60 mg daily, lisinopril 20 mg twice a day, metoprolol tartrate 50 mg twice a day Echocardiogram revealed EF of 5560%, trace mitral regurgitation, trace t ricuspid regurgitation GENERAL: Well-appearing, well-nourished and in no acute distress. NECK: Supple without JVD or thyromegaly. LUNGS: Breath sounds clear to auscultation bilaterally. Respiration equal and unlabored. No wheezes, rales or rhonchi. HEART: Regular rate and rhythm without murmurs, rubs or gallops. S1 and S2 heard. EXTREMITIES: Normal range of motion, no edema. No clubbing or cyanosis. Peripheral pulses intact. SKIN: Right radial cath site clean dry intact 2+ pulses. ASSESSMENT Coronary artery disease with significant disease in the distal left main with 60% stenosis, 99% proximal LAD stenosis ,mid to distal RCA 99% stenosis, mild to moderate disease in the left circumflex History of PCI to OM 2010 History of hypertension Dyslipidemia History of PVCs Former tobacco use Family history of coronary disease PLAN Increase activity as tolerated today, if no chest pain or shortness of breath. Ok to discharge today and patient to return for planned CABG on Monday01/17/2022. Patient has been evaluated and discussed with Dr. Epperson, CT surgery team and Dr. Coy. Continue current cardiac medications. Nurse Practitioner note has been reviewed, I agree with a documented findings and plan of care. Patient was seen and examined. Objective - Vital Signs Vital signs: Vital Signs Temp 98 F 01/12/22 06:33 Pulse 48 L 01/12/22 11:07 Resp 16 01/12/22 11:07 BP 116/61 01/12/22 11:07 Pulse Ox 94 L 01/12/22 11:07 FiO2 Intake & Output 01/11/22 01/12/22 01/12/22 18:59 06:59 18:59 Intake Total 375 Output Total 175 Balance 200 Weight 86.183 kg Intake: IV 50 Intake, IV Titration 325 Amount Sodium Chloride 0.9% 1, 325 000 ml @ 75 mls/hr IV . [id number] JIM Rx#:[id number] Output: Urine 175 Other: # Voids 1 - Labs CBC & Chem 7: 01/13/22 07:07 01/13/22 07:07 Labs: Abnormal Lab Results - Last 24 Hours (Table) 01/12/22 01/12/22 Range/Units 06:49 11:40 Glucose 103 H (74-99) mg/dL Ur Specific [place] >1.050 H (1.001-1.035) Urine Protein Trace H (Negative) Urine Glucose (UA) Trace H (Negative)
--- NOTE | 2022-01-13 13:55 | US ---
EXAMINATION TYPE: US vein mapping BILAT DATE OF EXAM: 01/12/2022 10:59 AM COMPARISON: NONE CLINICAL HISTORY: preop cardiac surgery. preop surgery SIDE PERFORMED: Bilateral TECHNIQUE: Lower extremity saphenous vein is examined and measured utilizing real time linear array sonography. DUPLEX FINDINGS: Greater Saphenous: Color flow seen Measurements in mm: Right Greater Saphenous: Groin: 8.2 x 7.1 mm High Thigh: 5.1 x 4.2 mm Mid Thigh: 2.7 X 1.6 mm Above Knee: 4.3 x 3.2 mm Knee: 4.7 x 3.3 mm Below Knee: 4.0 x 2.7 mm Mid Calf: 4.9 x 3.1 mm At Ankle: 4.0 x 2.9 mm Left Greater Saphenous: Groin: 7.2 x 6.5 mm High Thigh: 6.3 x 4.8 mm Mid Thigh: 6.4 x 5.1 mm Above Knee: 5.9 x 4.6 mm Knee: 4.7 x 3.2 mm Below Knee: 3.8 x 2.8 mm Mid Calf: 2.6 x 2.1 mm At Ankle: 3.4 x 2.7 mm IMPRESSION: 1. Bilateral GSV measurements listed above. 2. Performing surgeon to determine viability as conduit.
--- NOTE | 2022-01-13 13:58 | US ---
EXAMINATION TYPE: Pre-Operative Non-Invasive Evaluation of the hand for Potential Radial Artery Raffaele , Measurements only DATE OF EXAM: 01/12/2022 10:59 AM CLINICAL HISTORY: preop cabg. preop SIDE PERFORMED: Left TECHNIQUE: Radial artery is measured utilizing real time linear array sonography. Dominant hand: Right Duplex Findings: Radial Artery: Color flow seen Measurements in mm, transverse view: Left Radial: mm Proximal: 6.3 x 5.6 mm Mid: 4.6 x 4.7 mm Distal: 4.4 x 3.2 mm IMPRESSION: 1. Left radial artery measurements listed above. 2. Performing surgeon to determine viability as conduit.
--- NOTE | 2022-01-15 01:13 | P.DS ---
Providers Date of admission: 01/12/22 07:07 Expected date of discharge: 01/13/22 Attending physician: Alfonso Giordano Consults: 01/12/22 07:06 Consult Physician Urgent Consulting Provider: Henry Epperson Consult Reason/Comments: CP Do you want consulting provider notified?: Already Contacted 01/12/22 08:34 Consult Physician Routine Consulting Provider: Germán Billy Consult Reason/Comments: cabg Do you want consulting provider notified?: Already Contacted Primary care physician: Wu Turner [facility] Course: Final diagnosis Chest pain with dyspnea Patient is status post cardiac catheterization with evidence for significant coronary artery disease History of coronary artery disease status post PCI Hypertension Hyperlipidemia Prostate disorder History of myocardial infarction History asthma not in acute exacerbation Former smoker GI prophylaxis DVT prophylaxis Full Code Discharge disposition Patient is being discharged in a stable condition with guarded prognosis to home. Patient will follow-up with Dr. Castelan in the outpatient setting upon discharge. Patient is to follow with Dr. Billy wednesday 01/17 for CABG. Total time taken is greater than 35 minutes. Hospital course This is a 81-year-old male who was recently admitted with chest pain and underwent cardiac catheterization and is being worked up for CABG with Dr. Billy this Monday01/17/2022 Patient has been cleared to go home and return Monday. Maximize medical management. Patient encouraged to avoid others and go home and isolate. Continue heart healthy diet and NPO night before surgery. Specific instructions provided by CT surgery. Currently no reports of chest pain, shortness of breath, or palpitations. Patient is afebrile. No reports of nausea or vomiting and patient is tolerating diet. Patient will be discharged today. Encouraged incentive spirometer use, monitoring blood pressure, and resting. Physical exam: Gen: This is a 81 year old male awake, alert and oriented x3. Well developed, well nourished. HEENT: Head is atraumatic, normocephalic. Pupils equal, round. Sclerae is anicteric. NECK: Supple. No JVD. No lymphadenopathy. No thyromegaly. LUNGS: Clear to auscultation. No wheezes or rhonchi. No intercostal retractions. HEART: Regular rate and rhythm. No murmur. ABDOMEN: Soft. Bowel sounds are present. No masses. No tenderness. EXTREMITIES: No pedal edema. No calf tenderness. NEUROLOGICAL: Patient is awake, alert and oriented x3. Cranial nerves 2 through 12 are grossly intact. Please refer to medication reconciliation sheet for a list of medications. The impression and plan of care has been dictated by Bushra Ramon, Nurse Practitioner as directed. Dr. Pasquale MD I have performed a history and examination and MDM of this patient, discussed the same with the dictator, and agree with the dictator's assessment and plan as written ,documented as a scribe. Based on total visit time, I have performed more than 50% of the visit. Patient Condition at Discharge: Fair Plan - Discharge Summary Discharge Rx Participant: No New Discharge Prescriptions: New Pantoprazole [Protonix] 40 mg PO AC-BRKFST #30 tab Isosorbide Mononitrate ER [Imdur] 60 mg PO DAILY #30 tab polyethylene glycoL 3350 [Miralax] 17 gm PO DAILY PRN packet PRN Reason: Constipation lisinopriL [Zestril] 20 mg PO BID 30 Days #60 tab Continue Potassium Chloride [K-Tab ER] 10 meq PO BID Aspirin [Adult Low Dose Aspirin EC] 81 mg PO DAILY dilTIAZem HCL [Cardizem CD] 120 mg PO DAILY Atorvastatin [Lipitor] 40 mg PO DAILY Multivitamins, Thera [Multivitamin (formulary)] 1 tab PO DAILY Ezetimibe [Zetia] 10 mg PO DAILY hydrALAZINE HCL [Apresoline] 50 mg PO BID Nitroglycerin Sl Tabs [Nitrostat] 0.4 mg SUBLINGUAL Q5M PRN PRN Reason: Chest Pain Fluticasone Propion/Salmeterol [Advair Hfa 115-21 Mcg Inhaler] 1 puff INHALATION RT-DAILY Metoprolol Tartrate [Lopressor] 50 mg PO BID Discontinued Lisinopril-Hctz 20-25 mg [Zestoretic 20-25] 1 tab PO DAILY Isosorbide Mononitrate ER [Imdur] 30 mg PO DAILY lisinopriL [Prinivil] 20 mg PO HS Discharge Medication List Aspirin [Adult Low Dose Aspirin EC] 81 mg PO DAILY 10/08/17 [History] Potassium Chloride [K-Tab ER] 10 meq PO BID 10/08/17 [History] Atorvastatin [Lipitor] 40 mg PO DAILY 12/05/19 [History] dilTIAZem HCL [Cardizem CD] 120 mg PO DAILY 12/05/19 [History] Ezetimibe [Zetia] 10 mg PO DAILY 01/11/22 [History] Fluticasone Propion/Salmeterol [Advair Hfa 115-21 Mcg Inhaler] 1 puff INHALATION RT-DAILY 01/11/22 [History] Metoprolol Tartrate [Lopressor] 50 mg PO BID 01/11/22 [History] Multivitamins, Thera [Multivitamin (formulary)] 1 tab PO DAILY 01/11/22 [History] Nitroglycerin Sl Tabs [Nitrostat] 0.4 mg SUBLINGUAL Q5M PRN 01/11/22 [History] hydrALAZINE HCL [Apresoline] 50 mg PO BID 01/11/22 [History] Isosorbide Mononitrate ER [Imdur] 60 mg PO DAILY #30 tab 01/13/22 [Rx] Pantoprazole [Protonix] 40 mg PO AC-BRKFST #30 tab 01/13/22 [Rx] lisinopriL [Zestril] 20 mg PO BID 30 Days #60 tab 01/13/22 [Rx] polyethylene glycoL 3350 [Miralax] 17 gm PO DAILY PRN packet 01/13/22 [Rx] Follow up Appointment(s)/Referral(s): Germán Billy MD [STAFF PHYSICIAN] - 01/17/22 (You are scheduled for surgery 01/17/22 @ [address] Billy. The OR will call you after 2:30 pm on Monday01/14/22 with information on what time to be here Monday. If you have any ques tions/concerns over the weekend please call JENNIFER Huizar @ ) Wu Turner MD [Primary Care Provider] - 1-2 days Patient Instructions/Handouts: Coronary Artery Disease (DC), CABG (Coronary Artery Bypass Graft) (DC) Activity/Diet/Wound Care/Special Instructions: Activity Limited until follow-up Continue taking medications as prescribed Continue with restrictions per cardiothoracic and cardiology services as discussed Follow-up with cardiothoracic surgery as scheduled on 01/17 Continue with heart healthy diet Monitor blood pressure daily and keep a diary of the readings Continue incentive spirometer at least 4-5 times daily Discharge Disposition: HOME SELF-CARE
== END 2022-01-13 13:25 | disposition home or self-care (01) ==
LOC: EC 06:29 → 6NMEDSUR 07:07 → 3SCARD 08:28
PROVIDERS: ADMIT Hospitalist; ATTEND Hospitalist
DX: R07.89 Other chest pain (principal); I25.10 Atherosclerotic heart disease of native coronary artery without angina pectoris; I49.3 Ventricular premature depolarization; I10 Essential (primary) hypertension; E78.5 Hyperlipidemia, unspecified; N42.9 Disorder of prostate, unspecified; J45.909 Unspecified asthma, uncomplicated; I25.2 Old myocardial infarction; Z79.82 Long term (current) use of aspirin; Z79.51 Long term (current) use of inhaled steroids; Z79.899 Other long term (current) drug therapy; Z88.0 Allergy status to penicillin; Z88.2 Allergy status to sulfonamides; Z91.011 Allergy to milk products; Z85.828 Personal history of other malignant neoplasm of skin; Z96.652 Presence of left artificial knee joint; Z90.49 Acquired absence of other specified parts of digestive tract; Z95.5 Presence of coronary angioplasty implant and graft; Z98.890 Other specified postprocedural states; Z87.891 Personal history of nicotine dependence; Z80.3 Family history of malignant neoplasm of breast; Z82.49 Family history of ischemic heart disease and other diseases of the circulatory system; Z82.5 Family history of asthma and other chronic lower respiratory diseases
CPT/HCPCS: 99285; 36415; 94150; 93005; 93306; 93458; 80061; 80053; 80048; 80074; 84443; 83735; 84484; 85025 ×2; 85610 ×2; 85730 ×2; 81003; 87070; 83036; 71046; 93931; 93970; 93880; G0378 ×3; C1769 ×2; C1894; J2250; J2001; J3010; J1644 ×2; Q9967; 86850; 86900; 86901

== ENCOUNTER 2022-01-17 05:36 | Inpatient (IN) | payer MEDICARE ==
[~2022-01-17 05:36] MED LIST changes: +ALBUMIN HUMAN 25% 50 ML IV ONE; +ALBUMIN HUMAN 5% 500 ML IVPB ONE; +ASPIRIN 325 MG TAB PO ONE; +ATORVASTATIN 10 MG TAB PO ONE; +CALCIUM CHLORIDE 100 MG/ML 10 ML SYRINGE IV ONE; +CARDIOPLEGIC SOLN (K+ 16 MEQ/L 1,000 ML with SODIUM BICARB (1 MEQ/ML) 20 ML, LIDOCAINE ... PERFUSION ONE; +CHLORHEXIDINE GLUCONATE 15 ML CUP MUCOUS MEM ONE; +CLEVIDIPINE BUTYRATE 25 MG in EMPTY BAG 1 BAG IV ONE; -CLINDAMYCIN 900 MG in DEXTROSE 5% IN WATER 50 ML IVPB ONE; -DEXAMETHASONE SOD PHOSPHATE 10 MG/ML 1 ML VIAL IV ONE; +DILTIAZEM 125 MG in SODIUM CHLORIDE 0.9% 100 ML IV ONE; +HEPARIN SODIUM 1,000 UN/ML (10ML VL) IV ONE; +HEPARIN SODIUM,PORCINE 5,000 UNIT in SODIUM CHLORIDE 0.9% 500 ML 500 ML IV ONE; +INSULIN REGULAR 100 UNIT in SODIUM CHLORIDE 0.9% 100 ML IV ONE; +LACTATED RINGERS 1,000 ML IV ONE; +MAGNESIUM SULFATE 16.24 MEQ in EMPTY SYRINGE 1 SYR IV ONE; +MANNITOL 25% 12.5 GM/50 ML VIAL IV ONE; +METOPROLOL TARTRATE 12.5 MG TAB PO ONE; +MUPIROCIN 2% OINT 22 GM TUBE NASAL ONE; +NITROGLYCERIN SL TABS 0.4 MG TAB SUBLINGUAL ONE; +NITROGLYCERIN-D5W PMX 25 MG/250 ML BTL IV ONE; +NITROGLYCERIN-D5W PMX 50 MG in DEXTROSE/WATER 1 250ML.BAG IV ONE; +NOREPINEPHRINE 4 MG in SODIUM CHLORIDE 0.9% 250 ML IV ONE; -ONDANSETRON 4 MG/2 ML VIAL IVP ONE; +PAPAVERINE 360 MG in SODIUM CHLORIDE 0.9% 90 ML IV ONE; +PHENYLEPHRINE 10 MG/ML VIAL IV ONE; +PHENYLEPHRINE 40 MG in SODIUM CHLORIDE 0.9% 250 ML IV ONE; +PROTAMINE SULFATE 10 MG/ML 25 ML VIAL IV ONE; +PROTAMINE SULFATE 250 MG in EMPTY BAG 1 BAG IV ONE; +SODIUM BICARB 8.4% 50 ML SYR (1 MEQ/ML) IV ONE; +SODIUM CHLORIDE 0.9% 1,000 ML IV ONE; -SODIUM CHLORIDE 0.9% IRRIGATIO 1,000 ML IRRIGATION ONE; +TRANEXAMIC ACID 2,000 MG in SODIUM CHLORIDE 0.9% 80 ML IV ONE; +ceFAZolin 1,000 MG in SODIUM CHLORIDE 0.9% IRRIGATIO 1,000 ML IRRIGATION ONE; +propofoL 1,000 MG/100 ML VIAL IV ONE
[2022-01-17] MEDS ORDERED: LABETALOL 5 MG/ML VIAL MDV IVP ONE (06:50)
[2022-01-17] MEDS ORDERED: MIDAZOLAM 2 MG/2 ML VIAL IVP ONE (06:58)
[2022-01-17] MEDS ORDERED: ALBUMIN HUMAN 5% (25gm) 500 ML VIAL IVPB ONE (07:43)
[2022-01-17] MEDS ORDERED: ceFAZolin 1,000 MG VIAL ONE (07:43)
[2022-01-17] MEDS ORDERED: PROTAMINE SULFATE 10 MG/ML 5 ML VIAL IV ONE (07:43)
[2022-01-17] MEDS ORDERED: HEPARIN SODIUM,PORCINE 10,000 UNIT/ML 1 ML VIAL ONE (07:43)
[2022-01-17] MEDS ORDERED: SODIUM CHLORIDE 0.9% IRRIG 1,000 ML BTL IRRIGATION ONE (07:43)
[2022-01-17] MEDS ORDERED: MIDAZOLAM HCL 10 MG/10 ML VIAL ONE (07:43)
[2022-01-17] MEDS ORDERED: fentaNYL (PF) 50 MCG/ML 50 ML VIAL ONE (07:43)
[2022-01-17] MEDS ORDERED: VECURONIUM 10 MG VIAL IV ONE (07:43)
[2022-01-17] MEDS ORDERED: PROPOFOL 10 MG/ML 20 ML VIAL IV ONE (07:43)
[2022-01-17] MEDS ORDERED: SODIUM CHLORIDE 0.9% 100 ML BAG ONE (07:43)
[2022-01-17] MEDS ORDERED: POTASSIUM CHLORIDE OPEN HEART 20 MEQ/50 ML BAG IVPB ONE (07:43)
[2022-01-17] MEDS ORDERED: PHENYLEPHRINE-0.9% NACL SYG 1,000 MCG/10 ML SYRINGE ONE (07:43)
[2022-01-17 08:27] LABS: ABG Base Excess 1.9 mmol/L; ABG Glucose Whole Blood 90 mg/dL (75-99); ABG HCO3 27 mmol/L (21-25); ABG Hematocrit 41 % (34.0-46.0); ABG Ionized Calcium 4.6 mg/dL (4.5-5.3); ABG Lactic Acid Whole Blood 1.3 mmol/L (0.5-1.6); ABG PCO2 42 mmHg (35-45); ABG PH 7.42 (7.35-7.45); ABG Potassium Whole Blood 3.8 mmol/L (3.4-4.5); ABG Sodium Whole Blood 138 mmol/L (135-146); ABG TCO2 28 mmol/L (19-24)
[2022-01-17] MEDS ORDERED: PAPAVERINE 360 MG in SODIUM CHLORIDE 0.9% 90 ML IV ONE (09:41)
[2022-01-17] MEDS ORDERED: SODIUM CHLORIDE 0.9% 500 ML 500 ML with HEPARIN SODIUM,PORCINE 5,000 UNIT IV ONE ×2 (09:41)
[2022-01-17] MEDS ORDERED: ceFAZolin 1,000 MG in SODIUM CHLORIDE 0.9% 1,000 ML IRRIGATION ONE ×4 (09:41)
[2022-01-17 10:03] LABS: ABG Base Excess 0.3 mmol/L; ABG Glucose Whole Blood 102 mg/dL (75-99); ABG HCO3 25 mmol/L (21-25); ABG Hematocrit 36 % (34.0-46.0); ABG Ionized Calcium 4.4 mg/dL (4.5-5.3); ABG Lactic Acid Whole Blood 0.7 mmol/L (0.5-1.6); ABG Oxygen Saturation 99.3 % (94-97); ABG PCO2 41 mmHg (35-45); ABG PO2 182 mmHg (83-108); ABG Potassium Whole Blood 3.7 mmol/L (3.4-4.5); ABG Sodium Whole Blood 138 mmol/L (135-146); ABG TCO2 26 mmol/L (19-24)
[2022-01-17 10:38] LABS: ABG Glucose Whole Blood 85 mg/dL (75-99); ABG HCO3 23 mmol/L (21-25); ABG Hematocrit 32 % (34.0-46.0); ABG Ionized Calcium 4.2 mg/dL (4.5-5.3); ABG Lactic Acid Whole Blood 0.7 mmol/L (0.5-1.6); ABG Oxygen Saturation 99.6 % (94-97); ABG PCO2 34 mmHg (35-45); ABG PH 7.44 (7.35-7.45); ABG PO2 159 mmHg (83-108); ABG Potassium Whole Blood 3.5 mmol/L (3.4-4.5); ABG Sodium Whole Blood 138 mmol/L (135-146); ABG TCO2 24 mmol/L (19-24)
--- NOTE | 2022-01-17 11:02 | P.ANPRN ---
Procedure Note - Anesthesia - Invasive Line Right Central Line Time Out Performed: Yes (731) Date of Procedure: 01/17/22 Time of Procedure: 07:32 Location of Patient: PreOp Preparation: Sterile Prep, Sterile Dressing Arterial Line Location: Radial Ultrasound Used: Yes Purpose - Visualization and Identification of Vasculature: Yes Needle Guage: 18g angio Image Stored and Saved: Yes Narrative: Central line placement per sterile protocol utilized. +local +sterile protocol +angio +cvp +jwire +uneventful dilation and introcudtion right IJ Cordis. Lumen bled and flushed. secured and dressed.
--- NOTE | 2022-01-17 11:05 | P.ANPRN ---
Procedure Note - Anesthesia - Invasive Line Right [place] Deja Time Out Performed: Yes (731) Date of Procedure: 01/17/22 Time of Procedure: 07:42 Location of Patient: PreOp Preparation: Sterile Prep, Sterile Dressing Arterial Line Location: Radial Ultrasound Used: No Purpose - Visualization and Identification of Vasculature: No Image Stored and Saved: No Narrative: Central line placement per sterile protocol utilized. swan floated in sheath in oine attempt under sterile protocol. Wedge at 53cm and w/d with b/d to 48cm. Secured.
[2022-01-17 11:17] LABS: ABG Glucose Whole Blood 106 mg/dL (75-99); ABG HCO3 23 mmol/L (21-25); ABG Hematocrit 29 % (34.0-46.0); ABG Ionized Calcium 4.2 mg/dL (4.5-5.3); ABG Lactic Acid Whole Blood 0.7 mmol/L (0.5-1.6); ABG Oxygen Saturation 99.5 % (94-97); ABG PCO2 38 mmHg (35-45); ABG PH 7.38 (7.35-7.45); ABG PO2 187 mmHg (83-108); ABG Potassium Whole Blood 3.8 mmol/L (3.4-4.5); ABG Sodium Whole Blood 138 mmol/L (135-146); ABG TCO2 24 mmol/L (19-24)
[2022-01-17 12:02] LABS: ABG Base Excess -2.1 mmol/L; ABG Glucose Whole Blood 114 mg/dL (75-99); ABG HCO3 23 mmol/L (21-25); ABG Hematocrit 27 % (34.0-46.0); ABG Ionized Calcium 4.3 mg/dL (4.5-5.3); ABG Lactic Acid Whole Blood 1.1 mmol/L (0.5-1.6); ABG Oxygen Saturation 99.1 % (94-97); ABG PCO2 38 mmHg (35-45); ABG PH 7.39 (7.35-7.45); ABG PO2 182 mmHg (83-108); ABG Potassium Whole Blood 4.1 mmol/L (3.4-4.5); ABG Sodium Whole Blood 138 mmol/L (135-146); ABG TCO2 24 mmol/L (19-24)
[2022-01-17 12:34] LABS: ABG PO2 >420 mmHg (83-108)
[2022-01-17 12:49] LABS: ABG Base Excess -4.3 mmol/L; ABG Glucose Whole Blood 115 mg/dL (75-99); ABG HCO3 22 mmol/L (21-25); ABG Hematocrit 27 % (34.0-46.0); ABG Ionized Calcium 5.7 mg/dL (4.5-5.3); ABG Lactic Acid Whole Blood 0.8 mmol/L (0.5-1.6); ABG Oxygen Saturation 98.7 % (94-97); ABG PCO2 43 mmHg (35-45); ABG PH 7.31 (7.35-7.45); ABG PO2 142 mmHg (83-108); ABG Potassium Whole Blood 3.8 mmol/L (3.4-4.5); ABG Sodium Whole Blood 138 mmol/L (135-146); ABG TCO2 23 mmol/L (19-24)
[2022-01-17] MEDS ORDERED: Potassium Replacement Protocol 1 EACH MISC MISCELLANE PRN (13:18)
[2022-01-17] MEDS ORDERED: AMIODARONE 360 MG in DEXTROSE 5% IN WATER 200 ML IV PRN ×2 (13:18)
[2022-01-17] MEDS ORDERED: BENZOCAINE/MENTHOL LOZENG 1 EACH LOZENGE MUCOUS MEM PRN (13:18)
[2022-01-17] MEDS ORDERED: hydrALAZINE HCL 20 MG/ML 1 ML VIAL IVP PRN (13:18)
[2022-01-17] MEDS ORDERED: DEXMEDETOMIDINE/0.9% NACL(PMX) 400 MCG in EMPTY BAG 1 BAG IV SCH (13:18)
[2022-01-17] MEDS ORDERED: AMIODARONE 450 MG in DEXTROSE 5% IN WATER 250 ML IV PRN ×2 (13:18)
[2022-01-17] MEDS ORDERED: NITROGLYCERIN-D5W PMX 50 MG in DEXTROSE/WATER 1 250ML.BAG IV SCH (13:18)
[2022-01-17] MEDS ORDERED: IPRATROPIUM-ALBUTEROL 3 ML NEB INHALATION PRN (13:18)
[2022-01-17] MEDS ORDERED: METOCLOPRAMIDE 5 MG/ML 2 ML VIAL IVP PRN (13:18)
[2022-01-17] MEDS ORDERED: DEXTROSE 50% SYRINGE 50 ML IVP PRN ×2 (13:18)
[2022-01-17] MEDS ORDERED: Magnesium Replacement Protocol 1 EACH MISC MISCELLANE PRN ×2 (13:18→14:26)
[2022-01-17] MEDS ORDERED: INSULIN REGULAR 100 UNIT in SODIUM CHLORIDE 0.9% 100 ML IV SCH (13:18)
[2022-01-17] MEDS ORDERED: DEXTROSE 5% IN WATER 100 ML with AMIODARONE 150 MG IV PRN (13:18)
[2022-01-17 13:47] LABS: Glucose,Whole Blood 116 mg/dL (70-110)
--- NOTE | 2022-01-17 13:58 | P.OP ---
Date of Procedure: 01/17/22 Preoperative Diagnosis: CAD Postoperative Diagnosis: CAD Procedure(s) Performed: OPCABG x 4 with JUDD to LAD, left rqadial artery graft to OM, Saphenous vein grafts to Intermediate and RCA, Ligation JHON with 35mm Atricure clip, endovascular harvest of both right greater saphenous vein and left radial artery. Implants: 35mm Atricure clip Surgeon: Germán Billy Head Screen Worker #1: Constantin Mirza Head Screen Worker #2: Alejandro Cox Pathology: other (Nevus from sternal skin) Condition: stable Disposition: ICU Indications for Procedure: 81-year-old gentleman presents with gradually increasing anginal symptomatology. Found to have severe three-vessel coronary artery disease by cardiac catheterization. Scheduled for elective coronary bypass at the next available outpatient slot. Operative Findings: Left ventricular function and valvular function were normal by echocardiography. There was a large nevus in the midline sternotomy incision which was excised. Saphenous vein and radial artery and left internal mammary artery were good conduits. The LAD was a good target with mild distal palpable disease. Obtuse marginal was a good target but was intramyocardial and was grafted proximally. Intermediate coronary artery was a good target. PDA and JUSTO branches were extremely small. The right coronary was a diffusely diseased and heavily diseased vessel and was grafted in a soft spot distal to the acute margin of the heart but proximal to its bifurcation. The 3 non-pedicled grafts had good backflow after distal anastomosis in the conduits without any veins in the valves. All the grafts lay well with more than adequate length. Good hemostasis was noted prior to closure. Description of Procedure: Patient was electively admitted to Hospital on the morning of surgery. Invasive lines were placed prior to entering the operating room. Following appropriate positioning on the table and general anesthesia was induced in the anterior torso lateral lower extremities and left upper extremity were sterilely prepped and draped. Saphenous vein was harvested from the right lower extremity from ankle to groin and was of reasonable quality. The best pieces were used. Simultaneously the left radial artery was harvested from the left forearm. Both arms were performed with endovascular technique. Left radial artery was prepared on the back table. It was an excellent conduit and the best pieces were used. Simultaneous to this midline sternotomy was performed. There was a large nevus present in the midline and this was excised with an elliptical excision and sent for pathology. Left hemisternum was retracted upwards and the left internal mammary artery harvested on a vascularized pedicle, left intact on its origin from the subclavian and divided distally. Standard sternal retractor was placed and the pericardium was opened in the midline. Heart was exposed with pericardial sutures. The patient was systemically heparinized and ACT was maintained greater than 250 during grafting. 35mm AtriCure clip was placed at the base of the left atrial appendage. We then began with the JUDD to the LAD. The JUDD was a good vessel of more than adequate length. It was trimmed to appropriate length. The LAD was stabilized in its midportion. Prior to this it was an intramyocardial vessel. It was grafted just as it exited the myocardium. It was a 1.75 mm vessel. It was opened and blood flow control the 1.5 mm flow through. End to side anastomosis renal JDUD and the LAD was performed with running 8-0 Prolene suture. On completion anastomosis the flow through was removed effectively probing the proximal distal portion of the anastomosis. Suture was tied with good result and hemostasis and inflow was open. CATHIE pedicle was tacked surrounding epicardium with 6-0 silk. High lateral wall was exposed. The intermediate coronary artery was noted. It was opened about 2 cm distal to its exit from the AV groove. There was a 1.5 mm vessel of good quality. Blood flow was controlled with a 1.5 mm flow through. Anastomosis between saphenous vein and the intermediate coronary artery was performed with running 7-0 Prolene suture. On completion anastomosis flow through was removed effectively probing the proximal distal portion anastomosis. Was tied with good resultant hemostasis. Good backbleeding was noted into the vein graft controlled with a bulldog clamp. Next the major marginal branch was identified as it exited the AV groove. It quickly disappeared intramyocardially. It was grafted just as it disappeared intramyocardially. There was a 1.75 mm vessel of good quality. It was opened and blood flow control the 1.5 mm flow through. Radial artery was anastomosed in end-to-side fashion with running 7-0 Prolene suture. On completion the anastomosis the flow through was removed effectively probing the proximal distal portion anastomosis. Suture was tied with good result and hemostasis. Good backbleeding was noted into the radial artery controlled with a bulldog clamp. Next the inferior wall was exposed. PDA and JUSTO vessels were explored. These were both very small vessels and not felt to be appropriate for bypass. The RCA was dissected out by its bifurcation but was heavily diseased here and not felt to be appropriate for bypass at this level either. More proximally a soft spot on the RCA was identified distal to the acute margin of the heart and the takeoff of the acute marginal branch and proximal of the previously be explored bifurcation. The RCA was opened here. A 1.5 mm flow through was placed in his lumen. Saphenous vein was anastomosed in an inside fashion with running 7-0 Prolene suture. On completion anastomosis the flow through was removed effectively probing the proximal distal portion of the anastomosis. Good backbleeding was noted into the vein graft controlled a bulldog clamp. Heart was lowered into anatomic position. Blood pressure was controlled by anesthesia. Partial-occlusion clamp was placed on the ascending aorta. 34 mm punch holes were created in the ascending aorta and the 3 proximal anastomosis performed with running 6-0 Prolene suture. Completion of the anastomoses were de-aired by backbleeding and then the sutures tied. Partial-occlusion clamp was removed and the inflow open. Good hemostasis was now noted throughout. Heparin was reversed with protamine. Mediastinum was drained with 36-Danish chest tube. Mediastinum was also irrigated with antibiotic solution and then the sternum was closed with 8 sternal wires. Fascia was closed with 0 Ethibond subcutaneous and subcuticular layers with layers of Vicryl suture. Dry sterile dressings were applied the patient was transferred to ICU in stable hemodynamic condition.
[2022-01-17 14:06] LABS: Basophils % (A) 0 %; Eosinophils # (A) 0.1 k/uL (0-0.7); Eosinophils % (A) 0 %; HCT 27.5 % (39.0-53.0); Lymphocytes # (A) 1.2 k/uL (1.0-4.8); Lymphocytes % (A) 8 %; MCH 31.9 pg (25.0-35.0); MCHC 32.9 g/dL (31.0-37.0); Mean Platelet Volume 7.8; Monocytes # (A) 0.8 k/uL (0-1.0); Monocytes % (A) 5 %; Neutrophils # (A) 13.9 k/uL (1.3-7.7); Neutrophils % (A) 86 %; Platelet Count 140 k/uL (150-450); RBC 2.83 m/uL (4.30-5.90); RDW 14.4 % (11.5-15.5); WBC 16.2 k/uL (3.8-10.6)
[2022-01-17 14:10] LABS: Ionized Calcium 5.3 mg/dL (4.5-5.3)
--- NOTE | 2022-01-17 14:13 | XR ---
EXAMINATION TYPE: XR chest 1V portable DATE OF EXAM: 01/17/2022 CLINICAL HISTORY: Postoperative cardiac surgery. TECHNIQUE: Single AP portable supine view of the chest is obtained. COMPARISON: Chest x-ray from 4 days earlier FINDINGS: There is new endotracheal tube terminating at mid clavicular level approximately 4 cm abov e the ginny. There is new orogastric tube projecting below diaphragm. There is new right internal ju gular [place]ja catheter projecting at level of pulmonary outflow tract. There is new left atrial arielle endage clip. There are new sternal wires and mediastinal clips present. There is new left basilar angelo st tube without left-sided pneumothorax. There is new mediastinal drainage catheter. Patchy lateral left basilar opacity remains present. Right lung remains clear. Mild cardiomegaly rede monstrated. Bridging spurs in thoracic spine redemonstrated. IMPRESSION: 1. New tubes and lines satisfactory in position. 2. New left-sided chest tube without pneumothorax. Lateral left basilar atelectasis is present.
[2022-01-17 14:14] LABS: INR 1.3 (<1.2); Prothrombin Time 13.3 sec (9.0-12.0)
--- NOTE | 2022-01-17 14:15 | P.CNPUL ---
History of Present Illness Consult date: 01/17/22 Requesting physician: Germán Billy Reason for consult: other Chief complaint: Coronary artery disease History of present illness: 81-year-old male patient of Dr. Wu Turner, previous history of CAD with IA status post PCI in 2010, hypertension, hyperlipidemia, chronic bronchial asthma unspecified, former smoker and family history of heart disease. Patient was recently hospitalized at [facility] where he presented with exertional chest pain and shortness of breath. He underwent heart catheterization on 01/12/2022 which showed distal left main stenosis of 60%, proximal LAD stenosis of 99%, patent up his marginal 2 stent, and mid to distal RCA stenosis of 99%. Echocardiogram showed preserved LV function with EF of 55- 60%, and minimal mitral and tricuspid insufficiency, no pulmonary hypertension or pericardial effusion. Patient underwent four-vessel bypass grafting surgery off pump, with JUDD to LAD, left radial artery to OM, SVG to RI, and SVG to the RCA, endoscopic vein harvest of the right leg, and left atrial appendage exclusion. Patient is seen in postoperative period sedated and intubated on assist control with a rate of 12, tidal volume is 550, FiO2 100% and PEEP of 8. Postoperative chest x-ray is pending, she is on Diprivan at 25 mics per kilo per minute, Cardizem drip is at 5 mg per hour, and nitroglycerin is a 5 mics per kilo per minute and lactated Ringer's at 50 ML per hour, PA pressures 22/7, CVP 6, cardiac output is 5.3, and cardiac index is 2.6, he is in sinus mechanism, hemodynamically he is stable, his left pleural and mediastinal chest tube with small amount of serous output in the Pleur-evac, postoperative blood gas and labs are pending. Review of Systems All systems: negative Constitutional: Denies chills, Denies fever Eyes: denies blurred vision, denies pain Ears, nose, mouth and throat: Denies headache, Denies sore throat Cardiovascular: Denies chest pain, Denies shortness of breath Respiratory: Reports dyspnea, Denies cough Gastrointestinal: Denies abdominal pain, Denies diarrhea, Denies nausea, Denies vomiting Musculoskeletal: Denies myalgias Integumentary: Denies pruritus, Denies rash Neurological: Denies numbness, Denies weakness Psychiatric: Denies anxiety, Denies depression Endocrine: Denies fatigue, Denies weight change Past Medical History Past Medical History: Asthma, Coronary Artery Disease (CAD), Cancer, Chest Pain / Angina, Hyperlipidemia, Hypertension, Myocardial Infarction (IA), Prostate Disorder Additional Past Medical History / Comment(s): hx hypokalemia, one time episode hypoglycemia many yrs ago, skin cancer with removal. "heart skips a beat every so often", just d/c from [facility] 01-13-22, adm. for chest pain Last Myocardial Infarction Date:: 1994 or 1995 History of Any Multi-Drug Resistant Organisms: None Reported Past Surgical History: Appendectomy, Heart Catheterization, Heart Catheterization With Stent, Joint Replacement, Orthopedic Surgery, Prostate Surgery, Tonsillectomy Additional Past Surgical History / Comment(s): 10/2010 with one stent, L total knee arthroplasty, mult. left knee arthroscopies, skin cancer removal. Past Anesthesia/Blood Transfusion Reactions: Previous Problems w/ Anesthesia Additional Past Anesthesia/Blood Transfusion Reaction / Comment(s): "states slow to wake" from anesthesia. Date of Last Stent Placement:: 10/2010 Smoking Status: Former smoker - Past Family History Mother Family Medical History: Cancer Additional Family Medical History / Comment(s): breast cancer Father Additional Family Medical History / Comment(s): Father at age 75 from a myocardial infarction. History of asthma. Patient has a total of 5 children with no major medical problems. Patient has 1 brother with chronic back problems. No sisters. Medications and Allergies Home Medications Medication Instructions Recorded Confirmed Type Aspirin [Adult Low Dose Aspirin EC] 81 mg PO DAILY 10/08/17 01/17/22 History Potassium Chloride [K-Tab ER] 10 meq PO BID 10/08/17 01/14/22 History Atorvastatin [Lipitor] 40 mg PO DAILY 12/05/19 01/14/22 History dilTIAZem HCL [Cardizem CD] 120 mg PO DAILY 12/05/19 01/14/22 History Ezetimibe [Zetia] 10 mg PO DAILY 01/11/22 01/14/22 History Fluticasone Propion/Salmeterol 1 puff INHALATION RT-DAILY 01/11/22 01/14/22 History [Advair Hfa 115-21 Mcg Inhaler] Metoprolol Tartrate [Lopressor] 50 mg PO BID 01/11/22 01/14/22 History Multivitamins, Thera [Multivitamin 1 tab PO DAILY 01/11/22 01/14/22 History (formulary)] Nitroglycerin Sl Tabs [Nitrostat] 0.4 mg SUBLINGUAL Q5M PRN 01/11/22 01/14/22 History hydrALAZINE HCL [Apresoline] 50 mg PO BID 01/11/22 01/14/22 History Isosorbide Mononitrate ER [Imdur] 60 mg PO DAILY #30 tab 01/13/22 01/14/22 Rx Pantoprazole [Protonix] 40 mg PO AC-BRKFST #30 tab 01/13/22 01/17/22 Rx lisinopriL [Zestril] 20 mg PO BID 30 Days #60 tab 01/13/22 01/14/22 Rx polyethylene glycoL 3350 [Miralax] 17 gm PO DAILY PRN packet 01/13/22 01/14/22 Rx Allergies Allergy/AdvReac Type Severity Reaction Status Date / Time Penicillins Allergy Unknown Verified 01/17/22 05:58 Childhood Milk Containing Products AdvReac Unknown Congestion, Verified 01/17/22 05:58 [Dairy] Irritable Sulfa (Sulfonamide AdvReac Nausea & Verified 01/17/22 05:58 Antibiotics) Vomiting & Diarrhea Physical Exam Vitals: Vital Signs Temp Pulse Resp BP BP Pulse Ox FiO2 01/17/22 13:42 100 01/17/22 13:40 100 01/17/22 07:03 78 18 223/116 97 01/17/22 06:52 76 18 222/108 98 01/17/22 06:35 225/122 220/95 01/17/22 06:07 97.8 F 72 18 220/104 232/100 97 Intake and Output 01/16/22 01/17/22 01/17/22 22:59 06:59 14:59 Intake Total 200 4 Output Total 1800 Balance 200 -1796 Intake: IV 200 4 Output: Urine 600 Estimated Blood Loss 1200 Other: Weight 87.8 kg GENERAL EXAM: Sedated, intubated 81-year-old on assist-control mode of ventilation comfortable in no apparent distress. HEAD: Normocephalic/atraumatic. EYES: Normal reaction of pupils, equal size. Conjunctiva pink, sclera white. NOSE: Clear with pink turbinates. THROAT: No erythema or exudates. NECK: No masses, no JVD, no thyroid enlargement, no adenopathy. CHEST: No chest wall deformity. Symmetrical expansion. Midsternal incision is clean dry and intact, left pleural and mediastinal chest tube in place connected to 1 pleural VAC with small amount of sanguinous output. LUNGS: Equal air entry with no crackles, wheeze, rhonchi or dullness. CVS: Regular rate and rhythm, normal S1 and S2, no gallops, no murmurs, no rubs ABDOMEN: Soft, nontender. No hepatosplenomegaly, normal bowel sounds, no guarding or rigidity. EXTREMITIES: No clubbing, no edema, no cyanosis, 2+ pulses and upper and lower extremities. Left leg incision is covered with a surgical dressing, left radial artery graft site is covered with surgical dressing MUSCULOSKELETAL: Muscle strength and tone normal. SPINE: No scoliosis or deformity SKIN: No rashes CENTRAL NERVOUS SYSTEM: Sedated No focal deficits, tone is normal in all 4 extremities. Results - Laboratory Findings ABG ABG pH 7.31 (7.35-7.45) L 01/17/22 12:52 ABG pCO2 43 mmHg (35-45) 01/17/22 12:52 ABG pO2 142 mmHg (83-108) H 01/17/22 12:52 ABG O2 Saturation 98.7 % (94-97) H 01/17/22 12:52 Abnormal lab findings: Abnormal Labs 01/12/22 01/17/22 01/17/22 11:00 08:30 10:06 ABG pH ABG pCO2 ABG pO2 >420 H 182 H ABG HCO3 27 H ABG Total CO2 28 H 26 H ABG O2 Saturation 100.0 H 99.3 H ABG Hematocrit ABG Ionized Calcium 4.4 L ABG Glucose 102 H Hemoglobin 11.9 L POC Glucose (mg/dL) Arterial Blood Glucose 102 H Crossmatch See Detail 01/17/22 01/17/22 01/17/22 10:40 11:19 12:04 ABG pH ABG pCO2 34 L ABG pO2 159 H 187 H 182 H ABG HCO3 ABG Total CO2 ABG O2 Saturation 99.6 H 99.5 H 99.1 H ABG Hematocrit 32 L 29 L 27 L ABG Ionized Calcium 4.2 L 4.2 L 4.3 L ABG Glucose 106 H 114 H Hemoglobin 10.4 L 9.3 L 8.7 L POC Glucose (mg/dL) Arterial Blood Glucose 106 H 114 H Crossmatch 01/17/22 01/17/22 12:52 13:45 ABG pH 7.31 L ABG pCO2 ABG pO2 142 H ABG HCO3 ABG Total CO2 ABG O2 Saturation 98.7 H ABG Hematocrit 27 L ABG Ionized Calcium 5.7 H ABG Glucose 115 H Hemoglobin 8.9 L POC Glucose (mg/dL) 116 H Arterial Blood Glucose 115 H Crossmatch - Diagnostic Findings Chest x-ray: report reviewed, image reviewed Assessment and Plan Plan: Assessment: #1. Multivessel coronary artery disease with left main disease, status post off-pump four-vessel coronary artery bypass grafting surgery with JUDD to LAD, left radial artery to OM, SVG to RI, and SVG to the RCA, endoscopic vein harvest of the right leg, and left atrial appendage exclusion on 01/17/2022 #2. Routine postoperative ventilator management #3. History of chronic bronchial asthma, unspecified, preop PFT showed moderate restriction, FEV1 of 1.73 L or 62% of predicted #4. Hypertension #5. Hyperlipidemia #6. Former smoker #7. Family history of heart disease #8. Coronary artery disease with previous PCI and previous IA Plan: Postoperative chest x-ray blood gas on labs are pending Patient was seen and evaluated at the bedside Hemodynamically stable No significant drainage from the mediastinal and left pleural chest tubes We'll continue to wean FiO2 per protocol We will allow the patient to wake up and will proceed with spontaneous breathing trials Incentive spirometer to the bedside after extubation Breathing treatments every 4 hours [id number] while on the vent and 4 times a day when necessary after extubation GI and DVT prophylaxis, prophylactic antibiotics per CT surgery We'll continue to closely follow with cardiology and CT surgery I have personally seen and examined the patient, performed the documentation and the assessment and plan as written. Number of minutes spent on the visit: [15] Time with Patient: Greater than 30
[2022-01-17 14:18] LABS: ALT 17 U/L (4-49); AST 25 U/L (17-59); African American GFR (CKD) >90 (>60 ml/min/1.73 sqM); Albumin 3.3 g/dL (3.5-5.0); Alkaline Phosphatase 41 U/L (38-126); Anion Gap 4 mmol/L; Blood Urea Nitrogen 16 mg/dL (9-20); Calcium 8.6 mg/dL (8.4-10.2); Carbon Dioxide 23 mmol/L (22-30); Chloride 110 mmol/L (98-107); Glucose 108 mg/dL (74-99); Magnesium 1.6 mg/dL (1.6-2.3); Non-African American GFR(CKD) 87 (>60 ml/min/1.73 sqM); Potassium 4.5 mmol/L (3.5-5.1); Sodium 137 mmol/L (137-145); Total Bilirubin 0.7 mg/dL (0.2-1.3); Total Protein 4.8 g/dL (6.3-8.2)
[2022-01-17] MEDS: ALBUMIN HUMAN 5% 250 ML in EMPTY BAG 1 BAG IVPB PRN ×5 (14:19→15:46)
[2022-01-17] MEDS: DILTIAZEM 125 MG in SODIUM CHLORIDE 0.9% 100 ML IV SCH (14:23)
[2022-01-17] MEDS: LACTATED RINGERS 1,000 ML IV SCH (14:23)
[2022-01-17 14:24] LABS: ABG Base Excess -1.8 mmol/L; ABG HCO3 24 mmol/L (21-25); ABG PCO2 44 mmHg (35-45); ABG PH 7.34 (7.35-7.45); ABG PO2 >400 mmHg (83-108); ABG TCO2 25 mmol/L (19-24); Allen Test Performed? Yes
[2022-01-17] MEDS: MAGNESIUM SULFATE-D5W PMX 1 GM in DEXTROSE/WATER 1 100ML.BAG IVPB SCH ×2 (14:41→15:44)
[2022-01-17] MEDS: CLEVIDIPINE BUTYRATE 25 MG in EMPTY BAG 1 BAG IV SCH ×2 (14:55→19:31)
[2022-01-17 15:04] LABS: Glucose,Whole Blood 120 mg/dL (70-110)
[2022-01-17] MEDS ORDERED: DOPamine DRIP 800 MG in DEXTROSE/WATER 1 250ML.BAG IV SCH (15:45)
[2022-01-17] MEDS ORDERED: IPRATROPIUM-ALBUTEROL 3 ML NEB INHALATION SCH (16:00)
[2022-01-17 16:02] LABS: Glucose,Whole Blood 134 mg/dL (70-110)
[2022-01-17 17:13] LABS: Glucose,Whole Blood 143 mg/dL (70-110)
[2022-01-17] MEDS: HEPARIN SODIUM,PORCINE/PF 5,000 UNIT/0.5 ML SYRINGE SQ SCH ×2 (17:20→23:56)
[2022-01-17 18:06] LABS: Glucose,Whole Blood 148 mg/dL (70-110)
[2022-01-17] MEDS: ACETAMINOPHEN IV (For NPO) 1,000 MG in EMPTY BAG 1 BAG IVPB SCH ×2 (18:06→23:56)
[2022-01-17] MEDS: KETOROLAC 15 MG/ML 1 ML VIAL IVP SCH ×2 (18:07→23:54)
[2022-01-17 18:18] LABS: Basophils % (A) 0 %; Eosinophils % (A) 0 %; HCT 20.8 % (39.0-53.0); Lymphocytes % (A) 9 %; MCH 33.9 pg (25.0-35.0); MCHC 34.5 g/dL (31.0-37.0); Mean Platelet Volume 7.9; Monocytes # (A) 0.6 k/uL (0-1.0); Monocytes % (A) 5 %; Neutrophils # (A) 8.6 k/uL (1.3-7.7); Neutrophils % (A) 83 %; Platelet Count 119 k/uL (150-450); RBC 2.13 m/uL (4.30-5.90); RDW 14.8 % (11.5-15.5); WBC 10.4 k/uL (3.8-10.6)
[2022-01-17 18:20] LABS: HGB 7.2 gm/dL (13.0-17.5)
[2022-01-17 18:27] LABS: ABG Base Excess -2.1 mmol/L; ABG HCO3 22 mmol/L (21-25); ABG Oxygen Saturation 99.9 % (94-97); ABG PCO2 34 mmHg (35-45); ABG PH 7.43 (7.35-7.45); ABG PO2 247 mmHg (83-108); ABG TCO2 23 mmol/L (19-24); Allen Test Performed? Yes
[2022-01-17] MEDS: IPRATROPIUM-ALBUTEROL 3 ML NEB INHALATION SCH (18:51)
[2022-01-17 19:01] LABS: Glucose,Whole Blood 142 mg/dL (70-110)
[2022-01-17 19:12] LABS: Basophils % (A) 0 %; Eosinophils % (A) 0 %; HCT 21.8 % (39.0-53.0); HGB 7.5 gm/dL (13.0-17.5); Lymphocytes # (A) 0.8 k/uL (1.0-4.8); Lymphocytes % (A) 8 %; MCH 33.4 pg (25.0-35.0); MCHC 34.6 g/dL (31.0-37.0); MCV 96.5 fL (80.0-100.0); Monocytes # (A) 0.6 k/uL (0-1.0); Monocytes % (A) 6 %; Neutrophils # (A) 8.6 k/uL (1.3-7.7); Neutrophils % (A) 85 %; Platelet Count 118 k/uL (150-450); RBC 2.26 m/uL (4.30-5.90); RDW 14.3 % (11.5-15.5); WBC 10.1 k/uL (3.8-10.6)
[2022-01-17] MEDS: ONDANSETRON 4 MG/2 ML VIAL IVP PRN (19:46)
[2022-01-17 20:02] LABS: Glucose,Whole Blood 142 mg/dL (70-110)
[2022-01-17 21:02] LABS: Glucose,Whole Blood 120 mg/dL (70-110)
[2022-01-17] MEDS: METOPROLOL TARTRATE 25 MG TAB PO SCH (21:07)
[2022-01-17 22:06] LABS: Glucose,Whole Blood 126 mg/dL (70-110)
[2022-01-17 23:03] LABS: Glucose,Whole Blood 119 mg/dL (70-110)
[2022-01-18 00:08] LABS: Glucose,Whole Blood 124 mg/dL (70-110)
[2022-01-18 01:05] LABS: Glucose,Whole Blood 130 mg/dL (70-110)
[2022-01-18] MEDS ORDERED: HYDROcodone/APAP 5-325MG 1 EACH TAB PO PRN ×2 (01:06)
[2022-01-18 01:59] LABS: Glucose,Whole Blood 119 mg/dL (70-110)
[2022-01-18] MEDS: ALBUMIN HUMAN 5% 250 ML in EMPTY BAG 1 BAG IVPB PRN ×4 (02:46→13:09)
[2022-01-18 02:59] LABS: Glucose,Whole Blood 115 mg/dL (70-110)
[2022-01-18 03:59] LABS: Glucose,Whole Blood 116 mg/dL (70-110)
[2022-01-18] MEDS: DILTIAZEM 125 MG in SODIUM CHLORIDE 0.9% 100 ML IV SCH (04:01)
[2022-01-18 04:10] LABS: Basophils % (A) 0 %; Eosinophils % (A) 0 %; HCT 21.5 % (39.0-53.0); HGB 7.2 gm/dL (13.0-17.5); Lymphocytes # (A) 1.7 k/uL (1.0-4.8); Lymphocytes % (A) 12 %; MCHC 33.2 g/dL (31.0-37.0); MCV 96.3 fL (80.0-100.0); Mean Platelet Volume 10.4; Monocytes # (A) 0.9 k/uL (0-1.0); Monocytes % (A) 7 %; Neutrophils # (A) 10.8 k/uL (1.3-7.7); Neutrophils % (A) 79 %; Platelet Count 136 k/uL (150-450); RBC 2.24 m/uL (4.30-5.90); RDW 14.6 % (11.5-15.5); WBC 13.6 k/uL (3.8-10.6)
[2022-01-18 04:35] LABS: Ionized Calcium 4.6 mg/dL (4.5-5.3)
[2022-01-18 04:44] LABS: ALT 16 U/L (4-49); AST 32 U/L (17-59); African American GFR (CKD) >90 (>60 ml/min/1.73 sqM); Albumin 4.1 g/dL (3.5-5.0); Alkaline Phosphatase 38 U/L (38-126); Anion Gap 8 mmol/L; Blood Urea Nitrogen 18 mg/dL (9-20); Calcium 8.2 mg/dL (8.4-10.2); Carbon Dioxide 23 mmol/L (22-30); Chloride 107 mmol/L (98-107); Glucose 104 mg/dL (74-99); Non-African American GFR(CKD) 85 (>60 ml/min/1.73 sqM); Sodium 138 mmol/L (137-145); Total Bilirubin 0.5 mg/dL (0.2-1.3); Total Protein 5.5 g/dL (6.3-8.2)
[2022-01-18 05:12] LABS: Glucose,Whole Blood 117 mg/dL (70-110)
[2022-01-18 06:08] LABS: Glucose,Whole Blood 126 mg/dL (70-110)
[2022-01-18] MEDS: KETOROLAC 15 MG/ML 1 ML VIAL IVP SCH ×4 (06:16→23:34)
[2022-01-18 07:21] LABS: Glucose,Whole Blood 116 mg/dL (70-110)
--- NOTE | 2022-01-18 07:56 | P.CRDCN ---
History of Present Illness Consult date: 01/18/22 Chief complaint: Status post CABG History of present illness: This is a 81-year-old gentleman who sees Dr. Epperson regularly with a past medical history significant for hypertension and dyslipidemia who was evaluated recently as an outpatient for chest discomfort concerning for angina. In light of that a heart catheterization was advised. Few weeks ago he underwent a heart catheterization that revealed severe disease involving the distal left main coronary artery as well as the left anterior descending artery. He was evaluated by cardiothoracic a surgeon and the plan was to pursue with CABG. The patient underwent yesterday CABG 4 with JUDD to LAD and radial graft to OM as well as SVG to ramus intermedius as well as RCA and also he underwent ligation of the left atrial appendage. This is postoperative elevation day #1. The patient was extubated yesterday. Overall clinically he is doing well. He is hemodynamically stable. He is currently on Cardizem IV for the radial graft and he will be subsequently transition into calcium channel ashley by mouth. Beside that his pressure and heart rate are within normal limits beside mild sinus bradycardia. Urine output has been marginal. The chest x-ray showed small left pleural effusion. He is on dual antiplatelet therapy with aspirin as well as Plavix and also he is an intermediate intensity statin which I'm going to increase for high intensity statin. Hemoglobin is 7.0. The rest of the blood work including the BNP came in to be unremarkable. Past Medical History Past Medical History: Asthma, Coronary Artery Disease (CAD), Cancer, Chest Pain / Angina, Hyperlipidemia, Hypertension, Myocardial Infarction (MT), Prostate Disorder Additional Past Medical History / Comment(s): hx hypokalemia, one time episode hypoglycemia many yrs ago, skin cancer with removal. "heart skips a beat every so often", just d/c from [facility] 01-13-22, adm. for chest pain Last Myocardial Infarction Date:: 1994 or 1995 History of Any Multi-Drug Resistant Organisms: None Reported Past Surgical History: Appendectomy, Heart Catheterization, Heart Cat heterization With Stent, Joint Replacement, Orthopedic Surgery, Prostate Surgery, Tonsillectomy Additional Past Surgical History / Comment(s): 10/2010 with one stent, L total k nee arthroplasty, mult. left knee arthroscopies, skin cancer removal. Past Anesthesia/Blood Transfusion Reactions: Previous Problems w/ Anesthesia Additional Past Anesthesia/Blood Transfusion Reaction / Comment(s): "states slow to wake" from anesthesia. Date of Last Stent Placement:: 10/2010 Smoking Status: Former smoker - Past Family History Mother Family Medical History: Cancer Additional Family Medical History / Comment(s): breast cancer Father Additional Family Medical History / Comment(s): Father at age 75 from a myocardial infarction. History of asthma. Patient has a total of 5 children with no major medical problems. Patient has 1 brother with chronic back problems. No sisters. Medications and Allergies Home Medications Medication Instructions Recorded Confirmed Type Aspirin [Adult Low Dose Aspirin EC] 81 mg PO DAILY 10/08/17 01/17/22 History Potassium Chloride [K-Tab ER] 10 meq PO BID 10/08/17 01/14/22 History Atorvastatin [Lipitor] 40 mg PO DAILY 12/05/19 01/14/22 History dilTIAZem HCL [Cardizem CD] 120 mg PO DAILY 12/05/19 01/14/22 History Ezetimibe [Zetia] 10 mg PO DAILY 01/11/22 01/14/22 History Fluticasone Propion/Salmeterol 1 puff INHALATION RT-DAILY 01/11/22 01/14/22 History [Advair Hfa 115-21 Mcg Inhaler] Metoprolol Tartrate [Lopressor] 50 mg PO BID 01/11/22 01/14/22 History Multivitamins, Thera [Multivitamin 1 tab PO DAILY 01/11/22 01/14/22 History (formulary)] Nitroglycerin Sl Tabs [Nitrostat] 0.4 mg SUBLINGUAL Q5M PRN 01/11/22 01/14/22 History hydrALAZINE HCL [Apresoline] 50 mg PO BID 01/11/22 01/14/22 History Isosorbide Mononitrate ER [Imdur] 60 mg PO DAILY #30 tab 01/13/22 01/14/22 Rx Pantoprazole [Protonix] 40 mg PO AC-BRKFST #30 tab 01/13/22 01/17/22 Rx lisinopriL [Zestril] 20 mg PO BID 30 Days #60 tab 01/13/22 01/14/22 Rx polyethylene glycoL 3350 [Miralax] 17 gm PO DAILY PRN packet 01/13/22 01/14/22 Rx Allergies Allergy/AdvReac Type Severity Reaction Status Date / Time Penicillins Allergy Unknown Verified 01/17/22 05:58 Childhood Milk Containing Products AdvReac Unknown Congestion, Verified 01/17/22 05:58 [Dairy] Irritable Sulfa (Sulfonamide AdvReac Nausea & Verified 01/17/22 05:58 Antibiotics) Vomiting & Diarrhea Physical Exam Vitals: Vital Signs Temp Pulse Pulse Resp BP Pulse Ox FiO2 01/18/22 07:00 65 29 H 96/49 96 01/18/22 06:00 66 20 97/47 99 01/18/22 05:00 73 20 102/52 97 01/18/22 04:00 97.9 F 68 20 108/56 99 01/18/22 03:00 68 24 109/58 100 01/18/22 02:00 69 22 111/61 01/18/22 01:00 75 18 121/66 100 01/18/22 00:00 97.7 F 75 70 17 113/55 100 01/17/22 23:00 68 26 H 105/52 100 01/17/22 22:00 65 17 100 01/17/22 21:00 68 23 135/67 01/17/22 20:00 98.1 F 89 78 20 135/67 98 01/17/22 19:03 89 01/17/22 19:00 86 14 117/55 98 01/17/22 18:51 93 01/17/22 18:50 91 12 117/55 92 L 01/17/22 18:40 92 31 H 117/55 98 01/17/22 18:30 67 14 117/55 99 01/17/22 18:20 77 7 L 117/55 99 01/17/22 18:10 75 12 109/49 98 01/17/22 18:00 89 26 H 109/49 99 01/17/22 17:50 27 H 98 01/17/22 17:40 85 9 L 109/49 98 50 01/17/22 17:30 78 24 109/49 98 01/17/22 17:20 71 11 L 93/51 98 01/17/22 17:10 36 H 93/51 98 01/17/22 17:00 23 98 01/17/22 16:50 71 12 98 01/17/22 16:40 75 7 L 98 01/17/22 16:30 75 13 98 01/17/22 16:20 69 12 100 01/17/22 16:10 75 12 100 01/17/22 16:00 97.0 F L 30 H 100 50 01/17/22 15:50 67 12 100 01/17/22 15:40 70 12 100 01/17/22 15:30 64 H 100 01/17/22 15:28 66 12 01/17/22 15:25 50 01/17/22 15:20 64 12 100 01/17/22 15:15 50 01/17/22 15:12 79 18 01/17/22 15:10 8 L 100 01/17/22 15:05 50 01/17/22 15:00 69 12 93/51 100 01/17/22 14:50 71 15 93/51 100 01/17/22 14:40 71 8 L 93/51 100 01/17/22 14:30 71 5 L 93/51 100 01/17/22 14:27 80 01/17/22 14:20 67 0 L 93/51 100 01/17/22 14:10 76 4 L 93/51 100 01/17/22 14:00 95.9 F L 78 5 L 81/57 01/17/22 13:50 69 8 L 01/17/22 13:42 100 01/17/22 13:40 70 14 100 01/17/22 13:36 78 9 L Intake and Output 01/17/22 01/18/22 01/18/22 22:59 06:59 14:59 Intake Total 2001.303 0909.968 61.491 Output Total 1560 555 30 Balance -169.824 677.968 31.491 Intake: IV 342 1152 59 ACETAMINOPHEN IV (For NPO 100 ) 1,000 mg In Empty Bag 1 bag @ 400 mls/hr IVPB Q6HR JIM Rx#:[id number] Albumin Human 5% 250 ml 500 In Empty Bag 1 bag @ 250 mls/hr IVPB Q1HR PRN Rx#: [id number] Lactated Ringers 1,000 ml 150 400 50 @ 50 mls/hr IV .Q20H JIM Rx#:[id number] cardiac output 120 30 ceFAZolin 2 gm In Sodium 50 Chloride 0.9% 50 ml @ 100 mls/hr IVPB Q8HR JIM Rx# :[id number] pressure bag 72 72 9 Intake, IV Titration 1048.176 80.968 2.491 Amount ACETAMINOPHEN IV (For NPO 100 ) 1,000 mg In Empty Bag 1 bag @ 400 mls/hr IVPB Q6HR JIM Rx#:[id number] Clevidipine Butyrate 25 10.867 mg In Empty Bag 1 bag @ 1 MG/HR 2 mls/hr IV .Q24H JIM Rx#:[id number] DOPamine DRIP 800 mg In 5.818 Dextrose/Water 1 250ml. bag @ 2 MCG/KG/MIN 3.293 mls/hr IV .Q24H JIM Rx#: [id number] Diltiazem 125 mg In 68.167 Sodium Chloride 0.9% 100 ml @ 5 MG/HR 5 mls/hr IV .Q24H JIM Rx#:[id number] Insulin Regular 100 unit 11.077 12.801 2.491 In Sodium Chloride 0.9% 100 ml @ Per Protocol IV .Q0M JIM Rx#:[id number] Lactated Ringers 1,000 ml 750 @ 50 mls/hr IV .Q20H JIM Rx#:[id number] Magnesium Sulfate-D5w Pmx 100 1 gm In Dextrose/Water 1 100ml.bag @ 100 mls/hr IVPB Q1H JIM Rx#: [id number] ceFAZolin 2 gm In Sodium 50 Chloride 0.9% 50 ml @ 100 mls/hr IVPB Q8HR JIM Rx# :[id number] propofoL 1,000 mg In 20.414 Empty Bag 1 bag @ Titrate IV .Q0M JIM Rx#: [id number] Output: Chest Tube Drainage 410 330 20 MS/LP 410 330 20 Drainage 20 15 Left Arm 20 15 Urine 1130 210 10 Other: Voiding Method Indwelling Catheter Indwelling Catheter Weight 91.8 kg ABP, PAP, CO, CI - Last 8 Hours Arterial Blood Pressure 114/44 Arterial Blood Pressure 110/39 Arterial Blood Pressure 148/48 Arterial Blood Pressure 129/51 Arterial Blood Pressure 137/50 Arterial Blood Pressure 128/51 Arterial Blood Pressure 100/77 Arterial Blood Pressure 143/54 Pulmonary Artery Pressure 29/13 Pulmonary Artery Pressure 20/11 Pulmonary Artery Pressure 30/18 Pulmonary Artery Pressure 31/23 Pulmonary Artery Pressure 30/16 Pulmonary Artery Pressure 32/18 Pulmonary Artery Pressure 33/19 Pulmonary Artery Pressure 29/19 Cardiac Output 4.4 Cardiac Output 5.5 Cardiac Output 4 Cardiac Output 4.8 Cardiac Index 2.2 Cardiac Index 2.7 Cardiac Index 2 Cardiac Index 2.4 - Respiratory Respiratory: bilateral: diminished - Cardiovascular Rhythm: regular Results 01/18/22 04:00 01/18/22 04:00 Cardiac Enzymes 01/17/22 01/18/22 Range/Units 13:40 04:00 AST 25 32 (17-59) U/L Coagulation 01/17/22 Range/Units 13:40 PT 13.3 H (9.0-12.0) sec APTT 35.0 H (22.0-30.0) sec CBC 01/17/22 01/17/22 01/17/22 Range/Units 13:40 17:13 18:58 WBC 16.2 H 10.4 10.1 (3.8-10.6) k/uL RBC 2.83 L 2.13 L 2.26 L (4.30-5.90) m/uL Hgb 9.0 L D 7.2 L D 7.5 L (13.0-17.5) gm/dL Hct 27.5 L 20.8 L 21.8 L (39.0-53.0) % Plt Count 140 L 119 L 118 L (150-450) k/uL 01/18/22 Range/Units 04:00 WBC 13.6 H (3.8-10.6) k/uL RBC 2.24 L (4.30-5.90) m/uL Hgb 7.2 L (13.0-17.5) gm/dL Hct 21.5 L (39.0-53.0) % Plt Count 136 L (150-450) k/uL Comprehensive Metabolic Panel 01/17/22 01/18/22 Range/Units 13:40 04:00 Sodium 137 138 (137-145) mmol/L Potassium 4.5 4.0 (3.5-5.1) mmol/L Chloride 110 H 107 (98-107) mmol/L Carbon Dioxide 23 23 (22-30) mmol/L BUN 16 18 (9-20) mg/dL Creatinine 0.76 0.81 (0.66-1.25) mg/dL Glucose 108 H 104 H (74-99) mg/dL Calcium 8.6 8.2 L (8.4-10.2) mg/dL AST 25 32 (17-59) U/L ALT 17 16 (4-49) U/L Alkaline Phosphatase 41 38 (38-126) U/L Total Protein 4.8 L 5.5 L (6.3-8.2) g/dL Albumin 3.3 L 4.1 (3.5-5.0) g/dL Current Medications Generic Name Dose Route Start Last Admin Trade Name Freq PRN Reason Stop Dose Admin Hydrocodone Bitart/Acetaminophen 2 each 01/18/22 01:06 Hydrocodone/Apap 5-325mg 1 Each Tab PO Q4HR PRN Severe Pain Hydrocodone Bitart/Acetaminophen 1 each 01/18/22 01:06 Hydrocodone/Apap 5-325mg 1 Each Tab PO Q4HR PRN Moderate Pain Albuterol/Ipratropium 3 ml 01/17/22 13:18 Ipratropium-Albuterol 3 Ml Neb INHALATION RT-Q2H PRN Shortness Of Breath Or Wheezing Albuterol/Ipratropium 3 ml 01/17/22 20:00 01/17/22 18:51 Ipratropium-Albuterol 3 Ml Neb INHALATION 3 ml RT-QID JIM Administration Aspirin 325 mg 01/18/22 09:00 Aspirin 325 Mg Tab PO DAILY [facility] Atorvastatin Calcium 80 mg 01/18/22 09:00 Atorvastatin 40 Mg Tab PO DAILY [facility] Benzocaine/Menthol 1 each 01/17/22 13:18 Benzocaine/Menthol Lozeng 1 Each Lozenge MUCOUS MEM Q2H PRN Sore Throat Bisacodyl 10 mg 01/18/22 09:00 Bisacodyl 10 Mg Supp RECTAL DAILY PRN Constipation Budesonide/Formoterol Fumarate 1 puff 01/18/22 08:00 Symbicort 160-4.5 Mcg Inhaler INHALATION RT-DAILY [facility] Clopidogrel Bisulfate 75 mg 01/18/22 09:00 Clopidogrel 75 Mg Tab PO DAILY [facility] Dextrose/Water 25 ml 01/17/22 13:18 Dextrose 50% Syringe 50 Ml IVP PER PROTOCOL PRN Hypoglycemia Protocol Dextrose/Water 50 ml 01/17/22 13:18 Dextrose 50% Syringe 50 Ml IVP PER PROTOCOL PRN Hypoglycemia Protocol Ezetimibe 10 mg 01/18/22 09:00 Ezetimibe 10 Mg Tab PO DAILY JIM Heparin Sodium (Porcine) 5,000 unit 01/17/22 16:00 01/17/22 23:56 Heparin Sodium,Porcine/Pf 5,000 Unit/0.5 Ml Syringe SQ 5,000 unit Q8HR JIM Administration Hydralazine HCl 10 mg 01/17/22 13:18 Hydralazine Hcl 20 Mg/Ml 1 Ml Vial IVP Q1H PRN Blood Pressure - High Diltiazem HCl 125 mg/ Sodium 125 mls @ 5 mls/hr 01/17/22 13:18 01/18/22 04:01 Chloride IV 5 mg/hr .Q24H JIM 5 mls/hr Administration 5 MG/HR Amiodarone HCl 150 mg/ 103 mls @ 618 mls/hr 01/17/22 13:18 Dextrose/Water IV .Q10M PRN A.FIB/FLUTTER Protocol Amiodarone HCl 360 mg/ 207.2 mls @ 34.533 mls/hr 01/17/22 13:18 Dextrose/Water IV .Q6H PRN A.FIB/FLUTTER Protocol 1 MG/MIN Amiodarone HCl 450 mg/ 250 mls @ 16.667 mls/hr 01/17/22 13:18 Dextrose/Water IV .Q15H PRN A.FIB/FLUTTER Protocol 0.5 MG/MIN Albumin Human 250 ml/ IV 250 mls @ 250 mls/hr 01/17/22 13:18 01/18/22 05:35 Solution IVPB 01/19/22 13:19 250 mls/hr Q1HR PRN Administration For Volume Protocol Clevidipine 25 mg/ IV Solution 50 mls @ 2 mls/hr 01/17/22 13:18 01/17/22 22:21 IV 0 mg/hr .Q24H JIM 0 mls/hr Titration Protocol 1 MG/HR Nitroglycerin/Dextrose 50 mg/ 250 mls @ 1.5 mls/hr 01/17/22 13:18 01/17/22 14:22 IV Solution IV 5 mcg/min .Q24H JIM 1.5 mls/hr Administration 5 MCG/MIN Lactated Ringer's 1,000 mls @ 50 mls/hr 01/17/22 13:18 01/17/22 14:23 Lactated Ringers IV 50 mls/hr .Q20H JIM Administration Propofol 1,000 mg/ IV Solution 100 mls @ 0 mls/hr 01/17/22 13:18 01/17/22 15:56 IV 0 mcg/kg/min .Q0M JIM 0 mls/hr Titration Protocol Titrate Dexmedetomidine HCl 400 mcg/ 100 mls @ 0 mls/hr 01/17/22 13:18 IV Solution IV 01/18/22 13:18 .Q0M JIM Protocol Titrate Cefazolin Sodium 2 gm/ Sodium 50 mls @ 100 mls/hr 01/17/22 16:00 01/17/22 23:54 Chloride IVPB 01/18/22 08:29 100 mls/hr Q8HR JIM Administration Protocol Insulin Human Regular 100 unit 101 mls @ 0 mls/hr 01/17/22 13:18 01/18/22 07:21 / Sodium Chloride IV 1.5 units/hr .Q0M JIM 1.515 mls/hr Titration Protocol Per Protocol Dopamine HCl/Dextrose 800 mg/ 250 mls @ 3.293 mls/hr 01/17/22 15:45 01/17/22 19:05 IV Solution IV 0 mcg/kg/min .Q24H JIM 0 mls/hr Infusion 2 MCG/KG/MIN Ketorolac Tromethamine 15 mg 01/17/22 18:00 01/18/22 06:16 Ketorolac 15 Mg/Ml 1 Ml Vial IVP 01/20/22 14:41 15 mg Q6HR JIM Administration Magnesium Hydroxide 2,400 mg 01/18/22 09:00 Magnesium Hydroxide 2,400 Mg/10 Ml Cup PO BID PRN Constipation Metoclopramide HCl 10 mg 01/17/22 13:18 Metoclopramide 5 Mg/Ml 2 Ml Vial IVP Q4H PRN Nausea And Vomiting Metoprolol Tartrate 25 mg 01/17/22 21:00 01/17/22 21:07 Metoprolol Tartrate 25 Mg Tab PO 25 mg BID JIM Administration Miscellaneous Information 1 each 01/17/22 13:18 Potassium Replacement Protocol 1 Each Misc MISCELLANE DAILY PRN Per Protocol Protocol Miscellaneous Information 1 each 01/17/22 13:18 Magnesium Replacement Protocol 1 Each Misc MISCELLANE DAILY PRN Per Protocol Protocol Miscellaneous Information 1 each 01/17/22 14:26 Magnesium Replacement Protocol 1 Each Misc MISCELLANE DAILY PRN Per Protocol Protocol Multivitamins 1 each 01/18/22 09:00 Multivitamins, Thera 1 Each Tab PO DAILY [facility] Ondansetron HCl 4 mg 01/17/22 13:18 01/17/22 19:46 Ondansetron 4 Mg/2 Ml Vial IVP 4 mg Q6HR PRN Administration Nausea And Vomiting Pantoprazole Sodium 40 mg 01/19/22 07:30 Pantoprazole 40 Mg Tablet PO AC-BRKFST JIM Pantoprazole Sodium 40 mg 01/18/22 09:00 Pantoprazole 40 Mg/10 Ml Vial IVP DAILY [facility] Senna/Docusate Sodium 2 each 01/18/22 21:00 Sennosides-Docusate Sodium 1 Each Tab PO HS [facility] Sodium Chloride 10 ml 01/17/22 21:00 01/17/22 21:29 Sodium Chloride 0.9% Flush 10 Ml Syringe IV 10 ml BID [facility] Administration Intake and Output 01/17/22 01/18/22 01/18/22 22:59 06:59 14:59 Intake Total 7085.031 6572.968 61.491 Output Total 1560 555 30 Balance -169.824 677.968 31.491 Intake: IV 342 1152 59 ACETAMINOPHEN IV (For NPO 100 ) 1,000 mg In Empty Bag 1 bag @ 400 mls/hr IVPB Q6HR JIM Rx#:[id number] Albumin Human 5% 250 ml 500 In Empty Bag 1 bag @ 250 mls/hr IVPB Q1HR PRN Rx#: [id number] Lactated Ringers 1,000 ml 150 400 50 @ 50 mls/hr IV .Q20H JIM Rx#:[id number] cardiac output 120 30 ceFAZolin 2 gm In Sodium 50 Chloride 0.9% 50 ml @ 100 mls/hr IVPB Q8HR JIM Rx# :[id number] pressure bag 72 72 9 Intake, IV Titration 1048.176 80.968 2.491 Amount ACETAMINOPHEN IV (For NPO 100 ) 1,000 mg In Empty Bag 1 bag @ 400 mls/hr IVPB Q6HR JIM Rx#:[id number] Clevidipine Butyrate 25 10.867 mg In Empty Bag 1 bag @ 1 MG/HR 2 mls/hr IV .Q24H JIM Rx#:[id number] DOPamine DRIP 800 mg In 5.818 Dextrose/Water 1 250ml. bag @ 2 MCG/KG/MIN 3.293 mls/hr IV .Q24H JIM Rx#: [id number] Diltiazem 125 mg In 68.167 Sodium Chloride 0.9% 100 ml @ 5 MG/HR 5 mls/hr IV .Q24H JIM Rx#:[id number] Insulin Regular 100 unit 11.077 12.801 2.491 In Sodium Chloride 0.9% 100 ml @ Per Protocol IV .Q0M JIM Rx#:[id number] Lactated Ringers 1,000 ml 750 @ 50 mls/hr IV .Q20H JIM Rx#:[id number] Magnesium Sulfate-D5w Pmx 100 1 gm In Dextrose/Water 1 100ml.bag @ 100 mls/hr IVPB Q1H JIM Rx#: [id number] ceFAZolin 2 gm In Sodium 50 Chloride 0.9% 50 ml @ 100 mls/hr IVPB Q8HR JIM Rx# :[id number] propofoL 1,000 mg In 20.414 Empty Bag 1 bag @ Titrate IV .Q0M JIM Rx#: [id number] Output: Chest Tube Drainage 410 330 20 MS/LP 410 330 20 Drainage 20 15 Left Arm 20 15 Urine 1130 210 10 Other: Voiding Method Indwelling Catheter Indwelling Catheter Weight 91.8 kg 01/18/22 04:00 01/18/22 04:00 Assessment and Plan Assessment: Assessment #1 severe CAD and status post CABG #2 hypertension #3 dyslipidemia Plan #1 increase the dose of atorvastatin #2 continue dual antiplatelet therapy #3 transition to calcium channel ashley by mouth #4 he potentially benefit from small dose of Lasix IV #5 continue monitor the kidney function and electrolytes #6 continue monitor the hemoglobin #7 monitor the urine output #8 follow-up with the patient
--- NOTE | 2022-01-18 08:06 | P.PN ---
Subjective Progress Note Date: 01/18/22 Principal diagnosis: Coronary artery disease. Past medical history significant for coronary artery disease with myocardial infarction status post PCI in 2010, hypertension, hyperl ipidemia, asthma with a preoperative FEV1 62% of predicted value, skin cancer status post removal, remote history of nicotine dependence and family history of heart disease. POD #1 off-pump coronary artery bypass grafting 4 with left internal mammary artery to left anterior descending coronary artery, left radial artery graft to the obtuse marginal coronary artery, a saphenous vein graft to the intermediate coronary artery and right coronary artery. Ligation of the left atrial appendage with a 35 mm Atriclip. Endovascular harvest of both right greater saphenous vein and left radial artery. Postoperative acute blood loss anemia, expected due to hemodilution. The patient was seen and examined today 01/24/2022 at his bedside in the intensive care unit. He was successfully extubated at 6:40 PM last evening and is currently on 2 L nasal cannula with oxygen saturations 98%. He is achieving 1500 mL on his incentive spirometry with encouragement. He remains Cardizem drip at 5 mg per hour for radial artery spasm prophylaxis. Bedside telemetry showing normal sinus rhythm heart rate 69 BPM. Right IJ Cordis and [place]-Deja catheter remained in place with current hemodynamic showing a cardiac output 4.4, cardiac index 2.2, PA pressures 27/12 and CVP 10 mmHg. Left pleural and mediastinal chest tubes remain in place to low continuous wall suction -20 cm H2O. No air leak is present. Draining thin serosanguineous drainage with 330 mL output in 8 hours and 851 L output since surgery. Staley cath remains in place with urine output in the last 8 hours 210 mL. Laboratory results this morning show a WBC count of 13.6, hemoglobin 7.2, hematocrit 21.5, platelets 136, sodium 138, potassium 4.0, chloride 107, CO2 23, BUN 18, creatinine 0.81, glucose 104, calcium 8.2, ionized calcium 4.6 and magnesium 2.0. He denies any complaints of shortness of breath at this time although is complaining of some pain rating his pain 4 out of 10 on the pain scale 2 his left wrist where his KEN drain is inserted. He is currently sitting up to the bedside chair, is awake, alert, oriented 3 and is in no acute distress. Objective - Vital Signs Vital signs: Vital Signs Temp 97.9 F 08/02/22 04:00 Pulse 65 01/18/22 07:00 Resp 29 H 01/18/22 07:00 BP 96/49 01/18/22 07:00 Pulse Ox 96 01/18/22 07:00 FiO2 50 01/17/22 17:40 Intake & Output 01/17/22 01/18/22 01/18/22 18:59 06:59 18:59 Intake Total 2857.008 6731.263 61.491 Output Total 2590 1470 30 Balance -848.119 44.263 31.491 Weight 91.8 kg Intake: IV 119 1408 59 ACETAMINOPHEN IV (For NPO 100 ) 1,000 mg In Empty Bag 1 bag @ 400 mls/hr IVPB Q6HR JIM Rx#:[id number] Albumin Human 5% 250 ml 500 In Empty Bag 1 bag @ 250 mls/hr IVPB Q1HR PRN Rx#: [id number] Lactated Ringers 1,000 ml 550 50 @ 50 mls/hr IV .Q20H JIM Rx#:[id number] cardiac output 70 100 ceFAZolin 2 gm In Sodium 50 Chloride 0.9% 50 ml @ 100 mls/hr IVPB Q8HR JIM Rx# :[id number] pressure bag 45 108 9 Intake, IV Titration 1622.881 106.263 2.491 Amount ACETAMINOPHEN IV (For NPO 100 ) 1,000 mg In Empty Bag 1 bag @ 400 mls/hr IVPB Q6HR JIM Rx#:[id number] Clevidipine Butyrate 25 10.867 mg In Empty Bag 1 bag @ 1 MG/HR 2 mls/hr IV .Q24H JIM Rx#:[id number] DOPamine DRIP 800 mg In 5.818 Dextrose/Water 1 250ml. bag @ 2 MCG/KG/MIN 3.293 mls/hr IV .Q24H JIM Rx#: [id number] Diltiazem 125 mg In 68.167 Sodium Chloride 0.9% 100 ml @ 5 MG/HR 5 mls/hr IV .Q24H JIM Rx#:[id number] Insulin Regular 100 unit 2.467 21.411 2.491 In Sodium Chloride 0.9% 100 ml @ Per Protocol IV .Q0M JIM Rx#:[id number] Lactated Ringers 1,000 ml 1250 @ 50 mls/hr IV .Q20H [facility] Rx#:[id number] Magnesium Sulfate-D5w Pmx 200 1 gm In Dextrose/Water 1 100ml.bag @ 100 mls/hr IVPB Q1H JIM Rx#: [id number] ceFAZolin 2 gm In Sodium 50 Chloride 0.9% 50 ml @ 100 mls/hr IVPB Q8HR JIM Rx# :[id number] propofoL 1,000 mg In 20.414 Empty Bag 1 bag @ Titrate IV .Q0M JIM Rx#: [id number] Output: Chest Tube Drainage 350 500 20 MS/LP 350 500 20 Drainage 35 Left Arm 35 Urine 1040 935 10 Estimated Blood Loss 1200 Other: Voiding Method Indwelling Catheter Indwelling Catheter ABP, PAP, CO, CI - Last Documented Arterial Blood Pressure 114/44 Pulmonary Artery Pressure 29/13 Cardiac Output 4.4 Cardiac Index 2.2 - Exam CONSTITUTIONAL: Sitting up to the bedside chair in the intensive care unit, appears comfortable, cooperative, no apparent acute distress. HEENT: Neck is supple, no JVD, no lymphadenopathy. Right IJ Cordis and [place]- Deja catheter in place and functioning. RESPIRATORY: Lungs sounds essentially clear throughout, diminished to his bilateral bases. Respirations are symmetrical and nonlabored. Currently on 2 L nasal cannula with oxygen saturations 98%. Able to achieve 1500 mL on his incentive spirometry. Strong cough. CARDIOVASCULAR: Regular rhythm and rate. S1 and S2 present, negative for S3, gallop or murmur. Sternum is stable. Palpable peripheral pulses bilaterally, +1 edema to his bilateral lower extremities. No calf pain or tenderness noted. Heart hugger in place with patient demonstrating appropriate use. Knee-high MATT hose and sequential compression devices in place to his bilateral lower extremities. Bedside telemetry showing normal sinus rhythm heart rate 69 BPM. GASTROINTESTINAL: Abdomen soft, nontender, nondistended. Hypoactive bowel sounds present 4 quadrants. Tolerating diet. Denies passing flatus. No gua rding or rigidity. GENITOURINARY: Staley present draining clear, yellow urine. Urine output 210 mL in the last 8 hours. INTEGUMENTARY: Skin is warm and dry with no evidence of clubbing or cyanosis. Midline sternal incision clean dry and well approximated, covered with dry intact dressing. Right lower extremity EVH sites well approximated without redness or drainage, scattered ecchymosis to his right groin. Left arm radial artery harvest sites clean, dry and approximated. No drainage or redness is present. Scant ecchymosis to his left antecubital. NEUROLOGIC: Cranial nerves II through XII intact. No focal deficits. MUSKULOSKELETAL: Able to move all extremities, strength equal bilaterally, generalized weakness. PSYCHIATRIC: Alert and oriented to person place and time, appropriate affect, intact judgment and insight. INVASIVE LINES AND TUBES: Mediastinal/left pleural chest tubes present and connected to low continuous wall suction, no air leaks present. Mediastinal/left pleural chest tubes with 330 mL of thin serosanguineous drainage overnight, 850 mL output since surgery. Right internal jugular [place]/Cordis, right radial arterial line present. Last CO 4.4, CI 2.2, PA 27/12 and CVP 10 mmHg. Left arm KEN drain in place with scant thin serosanguineous drainage, 15 mL output in the last 8 hours. - Allied health notes Allied health notes reviewed: nursing - Labs CBC & Chem 7: 01/18/22 04:00 01/18/22 04:00 Labs: Abnormal Lab Results - Last 24 Hours (Table) 01/12/22 01/17/22 01/17/22 Range/Units 11:00 08:30 10:06 WBC (3.8-10.6) k/uL RBC (4.30-5.90) m/uL Hgb (13.0-17.5) gm/dL Hct (39.0-53.0) % Plt Count (150-450) k/uL Neutrophils # (1.3-7.7) k/uL Lymphocytes # (1.0-4.8) k/uL PT (9.0-12.0) sec INR (<1.2) APTT (22.0-30.0) sec ABG pH (7.35-7.45) ABG pCO2 (35-45) mmHg ABG pO2 >420 H 182 H (83-108) mmHg ABG HCO3 27 H (21-25) mmol/L ABG Total CO2 28 H 26 H (19-24) mmol/L ABG O2 Saturation 100.0 H 99.3 H (94-97) % ABG Hematocrit (34.0-46.0) % ABG Ionized Calcium 4.4 L (4.5-5.3) mg/dL ABG Glucose 102 H (75-99) mg/dL Hemoglobin 11.9 L (13.0-17.5) gm/dL Chloride (98-107) mmol/L Glucose (74-99) mg/dL POC Glucose (mg/dL) (70-110) mg/dL Calcium (8.4-10.2) mg/dL Total Protein (6.3-8.2) g/dL Albumin (3.5-5.0) g/dL Arterial Blood Glucose 102 H (75-99) mg/dL Crossmatch See Detail 01/17/22 01/17/22 01/17/22 Range/Units 10:40 11:19 12:04 WBC (3.8-10.6) k/uL RBC (4.30-5.90) m/uL Hgb (13.0-17.5) gm/dL Hct (39.0-53.0) % Plt Count (150-450) k/uL Neutrophils # (1.3-7.7) k/uL Lymphocytes # (1.0-4.8) k/uL PT (9.0-12.0) sec INR (<1.2) APTT (22.0-30.0) sec ABG pH (7.35-7.45) ABG pCO2 34 L (35-45) mmHg ABG pO2 159 H 187 H 182 H (83-108) mmHg ABG HCO3 (21-25) mmol/L ABG Total CO2 (19-24) mmol/L ABG O2 Saturation 99.6 H 99.5 H 99.1 H (94-97) % ABG Hematocrit 32 L 29 L 27 L (34.0-46.0) % ABG Ionized Calcium 4.2 L 4.2 L 4.3 L (4.5-5.3) mg/dL ABG Glucose 106 H 114 H (75-99) mg/dL Hemoglobin 10.4 L 9.3 L 8.7 L (13.0-17.5) gm/dL Chloride (98-107) mmol/L Glucose (74-99) mg/dL POC Glucose (mg/dL) (70-110) mg/dL Calcium (8.4-10.2) mg/dL Total Protein (6.3-8.2) g/dL Albumin (3.5-5.0) g/dL Arterial Blood Glucose 106 H 114 H (75-99) mg/dL Crossmatch 01/17/22 01/17/22 01/17/22 Range/Units 12:52 13:40 13:40 WBC 16.2 H (3.8-10.6) k/uL RBC 2.83 L (4.30-5.90) m/uL Hgb 9.0 L D (13.0-17.5) gm/dL Hct 27.5 L (39.0-53.0) % Plt Count 140 L (150-450) k/uL Neutrophils # 13.9 H (1.3-7.7) k/uL Lymphocytes # (1.0-4.8) k/uL PT 13.3 H (9.0-12.0) sec INR 1.3 H (<1.2) APTT 35.0 H (22.0-30.0) sec ABG pH 7.31 L (7.35-7.45) ABG pCO2 (35-45) mmHg ABG pO2 142 H (83-108) mmHg ABG HCO3 (21-25) mmol/L ABG Total CO2 (19-24) mmol/L ABG O2 Saturation 98.7 H (94-97) % ABG Hematocrit 27 L (34.0-46.0) % ABG Ionized Calcium 5.7 H (4.5-5.3) mg/dL ABG Glucose 115 H (75-99) mg/dL Hemoglobin 8.9 L (13.0-17.5) gm/dL Chloride (98-107) mmol/L Glucose (74-99) mg/dL POC Glucose (mg/dL) (70-110) mg/dL Calcium (8.4-10.2) mg/dL Total Protein (6.3-8.2) g/dL Albumin (3.5-5.0) g/dL Arterial Blood Glucose 115 H (75-99) mg/dL Crossmatch 01/17/22 01/17/22 01/17/22 Range/Units 13:40 13:45 14:21 WBC (3.8-10.6) k/uL RBC (4.30-5.90) m/uL Hgb (13.0-17.5) gm/dL Hct (39.0-53.0) % Plt Count (150-450) k/uL Neutrophils # (1.3-7.7) k/uL Lymphocytes # (1.0-4.8) k/uL PT (9.0-12.0) sec INR (<1.2) APTT (22.0-30.0) sec ABG pH 7.34 L (7.35-7.45) ABG pCO2 (35-45) mmHg ABG pO2 >400 H (83-108) mmHg ABG HCO3 (21-25) mmol/L ABG Total CO2 25 H (19-24) mmol/L ABG O2 Saturation 100.0 H (94-97) % ABG Hematocrit (34.0-46.0) % ABG Ionized Calcium (4.5-5.3) mg/dL ABG Glucose (75-99) mg/dL Hemoglobin (13.0-17.5) gm/dL Chloride 110 H (98-107) mmol/L Glucose 108 H (74-99) mg/dL POC Glucose (mg/dL) 116 H (70-110) mg/dL Calcium (8.4-10.2) mg/dL Total Protein 4.8 L (6.3-8.2) g/dL Albumin 3.3 L (3.5-5.0) g/dL Arterial Blood Glucose (75-99) mg/dL Crossmatch 01/17/22 01/17/22 01/17/22 Range/Units 15:03 16:00 17:12 WBC (3.8-10.6) k/uL RBC (4.30-5.90) m/uL Hgb (13.0-17.5) gm/dL Hct (39.0-53.0) % Plt Count (150-450) k/uL Neutrophils # (1.3-7.7) k/uL Lymphocytes # (1.0-4.8) k/uL PT (9.0-12.0) sec INR (<1.2) APTT (22.0-30.0) sec ABG pH (7.35-7.45) ABG pCO2 (35-45) mmHg ABG pO2 (83-108) mmHg ABG HCO3 (21-25) mmol/L ABG Total CO2 (19-24) mmol/L ABG O2 Saturation (94-97) % ABG Hematocrit (34.0-46.0) % ABG Ionized Calcium (4.5-5.3) mg/dL ABG Glucose (75-99) mg/dL Hemoglobin (13.0-17.5) gm/dL Chloride (98-107) mmol/L Glucose (74-99) mg/dL POC Glucose (mg/dL) 120 H 134 H 143 H (70-110) mg/dL Calcium (8.4-10.2) mg/dL Total Protein (6.3-8.2) g/dL Albumin (3.5-5.0) g/dL Arterial Blood Glucose (75-99) mg/dL Crossmatch 01/17/22 01/17/22 01/17/22 Range/Units 17:13 18:04 18:24 WBC (3.8-10.6) k/uL RBC 2.13 L (4.30-5.90) m/uL Hgb 7.2 L D (13.0-17.5) gm/dL Hct 20.8 L (39.0-53.0) % Plt Count 119 L (150-450) k/uL Neutrophils # 8.6 H (1.3-7.7) k/uL Lymphocytes # (1.0-4.8) k/uL PT (9.0-12.0) sec INR (<1.2) APTT (22.0-30.0) sec ABG pH (7.35-7.45) ABG pCO2 34 L (35-45) mmHg ABG pO2 247 H (83-108) mmHg ABG HCO3 (21-25) mmol/L ABG Total CO2 (19-24) mmol/L ABG O2 Saturation 99.9 H (94-97) % ABG Hematocrit (34.0-46.0) % ABG Ionized Calcium (4.5-5.3) mg/dL ABG Glucose (75-99) mg/dL Hemoglobin (13.0-17.5) gm/dL Chloride (98-107) mmol/L Glucose (74-99) mg/dL POC Glucose (mg/dL) 148 H (70-110) mg/dL Calcium (8.4-10.2) mg/dL Total Protein (6.3-8.2) g/dL Albumin (3.5-5.0) g/dL Arterial Blood Glucose (75-99) mg/dL Crossmatch 01/17/22 01/17/22 01/17/22 Range/Units 18:58 19:00 20:00 WBC (3.8-10.6) k/uL RBC 2.26 L (4.30-5.90) m/uL Hgb 7.5 L (13.0-17.5) gm/dL Hct 21.8 L (39.0-53.0) % Plt Count 118 L (150-450) k/uL Neutrophils # 8.6 H (1.3-7.7) k/uL Lymphocytes # 0.8 L (1.0-4.8) k/uL PT (9.0-12.0) sec INR (<1.2) APTT (22.0-30.0) sec ABG pH (7.35-7.45) ABG pCO2 (35-45) mmHg ABG pO2 (83-108) mmHg ABG HCO3 (21-25) mmol/L ABG Total CO2 (19-24) mmol/L ABG O2 Saturation (94-97) % ABG Hematocrit (34.0-46.0) % ABG Ionized Calcium (4.5-5.3) mg/dL ABG Glucose (75-99) mg/dL Hemoglobin (13.0-17.5) gm/dL Chloride (98-107) mmol/L Glucose (74-99) mg/dL POC Glucose (mg/dL) 142 H 142 H (70-110) mg/dL Calcium (8.4-10.2) mg/dL Total Protein (6.3-8.2) g/dL Albumin (3.5-5.0) g/dL Arterial Blood Glucose (75-99) mg/dL Crossmatch 01/17/22 01/17/22 01/17/22 Range/Units 21:00 22:04 23:01 WBC (3.8-10.6) k/uL RBC (4.30-5.90) m/uL Hgb (13.0-17.5) gm/dL Hct (39.0-53.0) % Plt Count (150-450) k/uL Neutrophils # (1.3-7.7) k/uL Lymphocytes # (1.0-4.8) k/uL PT (9.0-12.0) sec INR (<1.2) APTT (22.0-30.0) sec ABG pH (7.35-7.45) ABG pCO2 (35-45) mmHg ABG pO2 (83-108) mmHg ABG HCO3 (21-25) mmol/L ABG Total CO2 (19-24) mmol/L ABG O2 Saturation (94-97) % ABG Hematocrit (34.0-46.0) % ABG Ionized Calcium (4.5-5.3) mg/dL ABG Glucose (75-99) mg/dL Hemoglobin (13.0-17.5) gm/dL Chloride (98-107) mmol/L Glucose (74-99) mg/dL POC Glucose (mg/dL) 120 H 126 H 119 H (70-110) mg/dL Calcium (8.4-10.2) mg/dL Total Protein (6.3-8.2) g/dL Albumin (3.5-5.0) g/dL Arterial Blood Glucose (75-99) mg/dL Crossmatch 01/18/22 01/18/22 01/18/22 Range/Units 00:06 01:03 01:57 WBC (3.8-10.6) k/uL RBC (4.30-5.90) m/uL Hgb (13.0-17.5) gm/dL Hct (39.0-53.0) % Plt Count (150-450) k/uL Neutrophils # (1.3-7.7) k/uL Lymphocytes # (1.0-4.8) k/uL PT (9.0-12.0) sec INR (<1.2) APTT (22.0-30.0) sec ABG pH (7.35-7.45) ABG pCO2 (35-45) mmHg ABG pO2 (83-108) mmHg ABG HCO3 (21-25) mmol/L ABG Total CO2 (19-24) mmol/L ABG O2 Saturation (94-97) % ABG Hematocrit (34.0-46.0) % ABG Ionized Calcium (4.5-5.3) mg/dL ABG Glucose (75-99) mg/dL Hemoglobin (13.0-17.5) gm/dL Chloride (98-107) mmol/L Glucose (74-99) mg/dL POC Glucose (mg/dL) 124 H 130 H 119 H (70-110) mg/dL Calcium (8.4-10.2) mg/dL Total Protein (6.3-8.2) g/dL Albumin (3.5-5.0) g/dL Arterial Blood Glucose (75-99) mg/dL Crossmatch 01/18/22 01/18/22 01/18/22 Range/Units 02:57 03:58 04:00 WBC 13.6 H (3.8-10.6) k/uL RBC 2.24 L (4.30-5.90) m/uL Hgb 7.2 L (13.0-17.5) gm/dL Hct 21.5 L (39.0-53.0) % Plt Count 136 L (150-450) k/uL Neutrophils # 10.8 H (1.3-7.7) k/uL Lymphocytes # (1.0-4.8) k/uL PT (9.0-12.0) sec INR (<1.2) APTT (22.0-30.0) sec ABG pH (7.35-7.45) ABG pCO2 (35-45) mmHg ABG pO2 (83-108) mmHg ABG HCO3 (21-25) mmol/L ABG Total CO2 (19-24) mmol/L ABG O2 Saturation (94-97) % ABG Hematocrit (34.0-46.0) % ABG Ionized Calcium (4.5-5.3) mg/dL ABG Glucose (75-99) mg/dL Hemoglobin (13.0-17.5) gm/dL Chloride (98-107) mmol/L Glucose (74-99) mg/dL POC Glucose (mg/dL) 115 H 116 H (70-110) mg/dL Calcium (8.4-10.2) mg/dL Total Protein (6.3-8.2) g/dL Albumin (3.5-5.0) g/dL Arterial Blood Glucose (75-99) mg/dL Crossmatch 01/18/22 01/18/22 01/18/22 Range/Units 04:00 05:10 06:06 WBC (3.8-10.6) k/uL RBC (4.30-5.90) m/uL Hgb (13.0-17.5) gm/dL Hct (39.0-53.0) % Plt Count (150-450) k/uL Neutrophils # (1.3-7.7) k/uL Lymphocytes # (1.0-4.8) k/uL PT (9.0-12.0) sec INR (<1.2) APTT (22.0-30.0) sec ABG pH (7.35-7.45) ABG pCO2 (35-45) mmHg ABG pO2 (83-108) mmHg ABG HCO3 (21-25) mmol/L ABG Total CO2 (19-24) mmol/L ABG O2 Saturation (94-97) % ABG Hematocrit (34.0-46.0) % ABG Ionized Calcium (4.5-5.3) mg/dL ABG Glucose (75-99) mg/dL Hemoglobin (13.0-17.5) gm/dL Chloride (98-107) mmol/L Glucose 104 H (74-99) mg/dL POC Glucose (mg/dL) 117 H 126 H (70-110) mg/dL Calcium 8.2 L (8.4-10.2) mg/dL Total Protein 5.5 L (6.3-8.2) g/dL Albumin (3.5-5.0) g/dL Arterial Blood Glucose (75-99) mg/dL Crossmatch 01/18/22 Range/Units 07:20 WBC (3.8-10.6) k/uL RBC (4.30-5.90) m/uL Hgb (13.0-17.5) gm/dL Hct (39.0-53.0) % Plt Count (150-450) k/uL Neutrophils # (1.3-7.7) k/uL Lymphocytes # (1.0-4.8) k/uL PT (9.0-12.0) sec INR (<1.2) APTT (22.0-30.0) sec ABG pH (7.35-7.45) ABG pCO2 (35-45) mmHg ABG pO2 (83-108) mmHg ABG HCO3 (21-25) mmol/L ABG Total CO2 (19-24) mmol/L ABG O2 Saturation (94-97) % ABG Hematocrit (34.0-46.0) % ABG Ionized Calcium (4.5-5.3) mg/dL ABG Glucose (75-99) mg/dL Hemoglobin (13.0-17.5) gm/dL Chloride (98-107) mmol/L Glucose (74-99) mg/dL POC Glucose (mg/dL) 116 H (70-110) mg/dL Calcium (8.4-10.2) mg/dL Total Protein (6.3-8.2) g/dL Albumin (3.5-5.0) g/dL Arterial Blood Glucose (75-99) mg/dL Crossmatch - Imaging and Cardiology Chest x-ray: report reviewed, image reviewed Assessment and Plan Assessment: 1. Coronary artery disease, status post four-vessel coronary artery bypass grafting surgery 2. History of coronary artery disease with previous PCI in 2010 3. History of myocardial infarction 4. Hypertension 5. Hyperlipidemia 6. History of asthma with a preoperative FEV1 62% of predicted value 7. History of skin cancer status post removal 8. Remote history of nicotine dependence 9. Family history of heart disease 10. Postoperative acute blood loss anemia, expected given hemodilution Plan: 1. Continue to maximize medical therapy with full strength aspirin, Zetia, statin, and beta ashley. We will increase metoprolol tartrate as tolerated. 2. Discontinue nitroglycerin drip. 3. Wean O2 as tolerated. Encourage incentive spirometry 10 times every hour while awake. Bronchodilators per pulmonology. 4. Increase activity, ambulate as tolerated. PT/OT/cardiac rehab consulted. 5. Will monitor daily labs and chest x-ray. Electrolyte replacement per protocol. 6. Pain control with current medication regimen. 7. Insulin management per internal medicine. Patient is not diabetic, preoperative hemaglobin A1c 5.5%. 8. Discontinue swan, connect cordis to continuous CVP monitoring. 9. Continue chest tubes to low continuous wall suction -20 cm H2O for another 24 hours. We will splint his chest tubes today. 10. Continue staley for another 24 hours for strict accurate intake and output. Daily weights. 11. We will start amlodipine 2.5 mg by mouth daily for radial artery spasm prophylaxis. Discontinue Cardizem drip. 12. Remove left arm KEN drain today. 13. More recommendations to follow based on patient's clinical course. Time with Patient: Greater than 30
[2022-01-18] MEDS: IPRATROPIUM-ALBUTEROL 3 ML NEB INHALATION SCH ×4 (08:14→21:16)
[2022-01-18] MEDS: SYMBICORT 160-4.5 MCG INHALER INHALATION SCH (08:14)
--- NOTE | 2022-01-18 08:15 | XR ---
EXAMINATION TYPE: XR chest 1V portable DATE OF EXAM: 01/18/2022 6:00 AM COMPARISON: Chest radiographs from 01/17/2022 TECHNIQUE: XR chest 1V portable Frontal view of the chest. CLINICAL INDICATION:Male, 81 years old with history of Post Operative Cardiac Surgery; FINDINGS: Lungs/Pleura: Mild left basilar atelectasis no large pleural effusion or evidence for pneumothorax. Pulmonary vascularity: Unremarkable. Heart/mediastinum: Cardiomediastinal silhouette is enlarged and stable. Musculoskeletal: No acute osseous pathology. Midline sternotomy wires are noted and stable. Other findings: None Lines/Tubes: Interval removal of endotracheal and nasogastric tubes. Multiple leads cross over the chest limiting evaluation of lines. Drainage tubes with tips projecting over the mediastinum. There is a Binger-Deja catheter with tip projecting over the spine. Limited evaluation of distal tip se condary to multiple overlapping leads. IMPRESSION: 1. Postsurgical changes without evidence of pneumothorax or large pleural effusion. 2. Lines and tubes as above.
[2022-01-18] MEDS: amLODIPine 2.5 MG TAB PO SCH (08:47)
[2022-01-18] MEDS: CLOPIDOGREL 75 MG TAB PO SCH (08:47)
[2022-01-18] MEDS: ASPIRIN 325 MG TAB PO SCH (08:47)
[2022-01-18] MEDS: HEPARIN SODIUM,PORCINE/PF 5,000 UNIT/0.5 ML SYRINGE SQ SCH ×3 (08:47→23:34)
[2022-01-18] MEDS: METOPROLOL TARTRATE 25 MG TAB PO SCH ×2 (08:47→21:01)
[2022-01-18] MEDS: EZETIMIBE 10 MG TAB PO SCH (08:48)
[2022-01-18] MEDS: MULTIVITAMINS, THERA 1 EACH TAB PO SCH (08:48)
[2022-01-18] MEDS: ATORVASTATIN 80 MG TAB PO SCH (08:48)
[2022-01-18 08:55] LABS: Glucose,Whole Blood 122 mg/dL (70-110)
[2022-01-18] MEDS ORDERED: METOPROLOL TARTRATE 12.5 MG TAB PO SCH (09:00)
[2022-01-18] MEDS ORDERED: bisacodyL 10 MG SUPP RECTAL PRN (09:00)
[2022-01-18] MEDS ORDERED: ATORVASTATIN 40 MG TAB PO SCH (09:00)
[2022-01-18] MEDS ORDERED: PANTOPRAZOLE 40 MG/10 ML VIAL IVP SCH (09:00)
[2022-01-18] MEDS ORDERED: MAGNESIUM HYDROXIDE 2,400 MG/10 ML CUP PO PRN (09:00)
[2022-01-18 10:28] LABS: Glucose,Whole Blood 150 mg/dL (70-110)
--- NOTE | 2022-01-18 10:34 | P.PN ---
Subjective Progress Note Date: 01/18/22 Principal diagnosis: Status post bypass grafting. 81-year-old male patient of Dr. Wu Turner, previous history of CAD with VA status post PCI in 2010, hypertension, hyperlipidemia, chronic bronchial asthma unspecified, former smoker and family history of heart disease. Patient was recently hospitalized at [facility] where he presented with exertional chest pain and shortness of breath. He underwent heart catheterization on 01/12/2022 which showed distal left main stenosis of 60%, proximal LAD stenosis of 99%, patent up his marginal 2 stent, and mid to distal RCA stenosis of 99%. Echocardiogram showed preserved LV function with EF of 55- 60%, and minimal mitral and tricuspid insufficiency, no pulmonary hypertension or pericardial effusion. Patient underwent four-vessel bypass grafting surgery off pump, with JUDD to LAD, left radial artery to OM, SVG to RI, and SVG to the RCA, endoscopic vein harvest of the right leg, and left atrial appendage exclusion. Patient is seen in postoperative period sedated and intubated on assist control with a rate of 12, tidal volume is 550, FiO2 100% and PEEP of 8. Postoperative chest x-ray is pending, she is on Diprivan at 25 mics per kilo per minute, Cardizem drip is at 5 mg per hour, and nitroglycerin is a 5 mics per kilo per minute and lactated Ringer's at 50 ML per hour, PA pressures 22/7, CVP 6, cardiac output is 5.3, and cardiac index is 2.6, he is in sinus mechanism, hemodynamically he is stable, his left pleural and mediastinal chest tube with small amount of serous output in the Pleur-evac, postoperative blood gas and labs are pending. Progress note dated 01/18/2022. This is a 81-year-old male postop day #1, status post four-vessel bypass grafting. He was extubated about 5 hours after leaving the operating room. He's currently on 2 L nasal cannula. He is getting lactated Ringer's at 50 mL an hour, Cardizem drip at 5 mg an hour, and insulin drip at 1.5 units an hour. The patient's doing very well. His been doing his incentive spirometer, every hour. White count 13.6, hemoglobin 7.2, hematocrit 21.5, and platelet count 236,000. Electrolyte profile completely normal. Chest x-ray shows some post surgical changes without evidence of pneumothorax or pleural effusion. Objective - Vital Signs Vital signs: Vital Signs Temp 98.6 F 01/18/22 08:00 Pulse 70 01/18/22 08:24 Resp 33 H 01/18/22 09:00 BP 103/51 01/18/22 08:00 Pulse Ox 98 01/18/22 09:00 FiO2 50 01/17/22 17:40 Intake & Output 01/17/22 01/18/22 01/18/22 18:59 06:59 18:59 Intake Total 6825.358 9189.263 264.342 Output Total 2590 1470 110 Balance -848.119 44.263 154.342 Weight 91.8 kg Intake: IV 119 1408 234 ACETAMINOPHEN IV (For NPO 100 ) 1,000 mg In Empty Bag 1 bag @ 400 mls/hr IVPB Q6HR JIM Rx#:[id number] Albumin Human 5% 250 ml 500 In Empty Bag 1 bag @ 250 mls/hr IVPB Q1HR PRN Rx#: [id number] Lactated Ringers 1,000 ml 550 150 @ 20 mls/hr IV .Q24H JIM Rx#:[id number] cardiac output 70 100 10 ceFAZolin 2 gm In Sodium 50 50 Chloride 0.9% 50 ml @ 100 mls/hr IVPB Q8HR JIM Rx# :[id number] pressure bag 45 108 24 Intake, IV Titration 1622.881 106.263 30.342 Amount ACETAMINOPHEN IV (For NPO 100 ) 1,000 mg In Empty Bag 1 bag @ 400 mls/hr IVPB Q6HR JIM Rx#:[id number] Clevidipine Butyrate 25 10.867 mg In Empty Bag 1 bag @ 1 MG/HR 2 mls/hr IV .Q24H JIM Rx#:[id number] DOPamine DRIP 800 mg In 5.818 Dextrose/Water 1 250ml. bag @ 2 MCG/KG/MIN 3.293 mls/hr IV .Q24H JIM Rx#: [id number] Diltiazem 125 mg In 68.167 25.25 Sodium Chloride 0.9% 100 ml @ 5 MG/HR 5 mls/hr IV .Q24H JIM Rx#:[id number] Insulin Regular 100 unit 2.467 21.411 5.092 In Sodium Chloride 0.9% 100 ml @ Per Protocol IV .Q0M JIM Rx#:[id number] Lactated Ringers 1,000 ml 1250 @ 20 mls/hr IV .Q24H JIM Rx#:[id number] Magnesium Sulfate-D5w Pmx 200 1 gm In Dextrose/Water 1 100ml.bag @ 100 mls/hr IVPB Q1H JIM Rx#: [id number] ceFAZolin 2 gm In Sodium 50 Chloride 0.9% 50 ml @ 100 mls/hr IVPB Q8HR JIM Rx# :[id number] propofoL 1,000 mg In 20.414 Empty Bag 1 bag @ Titrate IV .Q0M JIM Rx#: [id number] Output: Chest Tube Drainage 350 500 60 MS/LP 350 500 60 Drainage 35 Left Arm 35 Urine 1040 935 50 Estimated Blood Loss 1200 Other: Voiding Method Indwelling Catheter Indwelling Catheter Indwelling Catheter ABP, PAP, CO, CI - Last Documented Arterial Blood Pressure 114/48 Pulmonary Artery Pressure 29/13 Cardiac Output 4.4 Cardiac Index 2.2 - Exam No acute distress, oriented 3. Sitting in a chair. Currently on 2 L. HEENT examination is grossly unremarkable. Neck supple. Full range of motion. No adenopathy thyromegaly or neck vein distention. Cardiovascular examination reveals regular rhythm rate. S1-S2 normal. No S3 or S4. No discernible murmur noted. Heart rate 70 bpm. Lungs reveal mild scattered rhonchi. No wheezes. No crackles. Breath sounds equal bilaterally. Saturation is 96%. Abdomen soft bowel sounds are heard. No masses or tenderness. Extremities are intact. No cyanosis clubbing or edema. Skin is without rash or lesion. Neurologic examination is brief but nonfocal. - Labs CBC & Chem 7: 01/18/22 04:00 01/18/22 04:00 Labs: Abnormal Lab Results - Last 24 Hours (Table) 01/12/22 01/17/22 01/17/22 Range/Units 11:00 08:30 10:06 WBC (3.8-10.6) k/uL RBC (4.30-5.90) m/uL Hgb (13.0-17.5) gm/dL Hct (39.0-53.0) % Plt Count (150-450) k/uL Neutrophils # (1.3-7.7) k/uL Lymphocytes # (1.0-4.8) k/uL PT (9.0-12.0) sec INR (<1.2) APTT (22.0-30.0) sec ABG pH (7.35-7.45) ABG pCO2 (35-45) mmHg ABG pO2 >420 H 182 H (83-108) mmHg ABG HCO3 27 H (21-25) mmol/L ABG Total CO2 28 H 26 H (19-24) mmol/L ABG O2 Saturation 100.0 H 99.3 H (94-97) % ABG Hematocrit (34.0-46.0) % ABG Ionized Calcium 4.4 L (4.5-5.3) mg/dL ABG Glucose 102 H (75-99) mg/dL Hemoglobin 11.9 L (13.0-17.5) gm/dL Chloride (98-107) mmol/L Glucose (74-99) mg/dL POC Glucose (mg/dL) (70-110) mg/dL Calcium (8.4-10.2) mg/dL Total Protein (6.3-8.2) g/dL Albumin (3.5-5.0) g/dL Arterial Blood Glucose 102 H (75-99) mg/dL Crossmatch See Detail 01/17/22 01/17/22 01/17/22 Range/Units 10:40 11:19 12:04 WBC (3.8-10.6) k/uL RBC (4.30-5.90) m/uL Hgb (13.0-17.5) gm/dL Hct (39.0-53.0) % Plt Count (150-450) k/uL Neutrophils # (1.3-7.7) k/uL Lymphocytes # (1.0-4.8) k/uL PT (9.0-12.0) sec INR (<1.2) APTT (22.0-30.0) sec ABG pH (7.35-7.45) ABG pCO2 34 L (35-45) mmHg ABG pO2 159 H 187 H 182 H (83-108) mmHg ABG HCO3 (21-25) mmol/L ABG Total CO2 (19-24) mmol/L ABG O2 Saturation 99.6 H 99.5 H 99.1 H (94-97) % ABG Hematocrit 32 L 29 L 27 L (34.0-46.0) % ABG Ionized Calcium 4.2 L 4.2 L 4.3 L (4.5-5.3) mg/dL ABG Glucose 106 H 114 H (75-99) mg/dL Hemoglobin 10.4 L 9.3 L 8.7 L (13.0-17.5) gm/dL Chloride (98-107) mmol/L Glucose (74-99) mg/dL POC Glucose (mg/dL) (70-110) mg/dL Calcium (8.4-10.2) mg/dL Total Protein (6.3-8.2) g/dL Albumin (3.5-5.0) g/dL Arterial Blood Glucose 106 H 114 H (75-99) mg/dL Crossmatch 01/17/22 01/17/22 01/17/22 Range/Units 12:52 13:40 13:40 WBC 16.2 H (3.8-10.6) k/uL RBC 2.83 L (4.30-5.90) m/uL Hgb 9.0 L D (13.0-17.5) gm/dL Hct 27.5 L (39.0-53.0) % Plt Count 140 L (150-450) k/uL Neutrophils # 13.9 H (1.3-7.7) k/uL Lymphocytes # (1.0-4.8) k/uL PT 13.3 H (9.0-12.0) sec INR 1.3 H (<1.2) APTT 35.0 H (22.0-30.0) sec ABG pH 7.31 L (7.35-7.45) ABG pCO2 (35-45) mmHg ABG pO2 142 H (83-108) mmHg ABG HCO3 (21-25) mmol/L ABG Total CO2 (19-24) mmol/L ABG O2 Saturation 98.7 H (94-97) % ABG Hematocrit 27 L (34.0-46.0) % ABG Ionized Calcium 5.7 H (4.5-5.3) mg/dL ABG Glucose 115 H (75-99) mg/dL Hemoglobin 8.9 L (13.0-17.5) gm/dL Chloride (98-107) mmol/L Glucose (74-99) mg/dL POC Glucose (mg/dL) (70-110) mg/dL Calcium (8.4-10.2) mg/dL Total Protein (6.3-8.2) g/dL Albumin (3.5-5.0) g/dL Arterial Blood Glucose 115 H (75-99) mg/dL Crossmatch 01/17/22 01/17/22 01/17/22 Range/Units 13:40 13:45 14:21 WBC (3.8-10.6) k/uL RBC (4.30-5.90) m/uL Hgb (13.0-17.5) gm/dL Hct (39.0-53.0) % Plt Count (150-450) k/uL Neutrophils # (1.3-7.7) k/uL Lymphocytes # (1.0-4.8) k/uL PT (9.0-12.0) sec INR (<1.2) APTT (22.0-30.0) sec ABG pH 7.34 L (7.35-7.45) ABG pCO2 (35-45) mmHg ABG pO2 >400 H (83-108) mmHg ABG HCO3 (21-25) mmol/L ABG Total CO2 25 H (19-24) mmol/L ABG O2 Saturation 100.0 H (94-97) % ABG Hematocrit (34.0-46.0) % ABG Ionized Calcium (4.5-5.3) mg/dL ABG Glucose (75-99) mg/dL Hemoglobin (13.0-17.5) gm/dL Chloride 110 H (98-107) mmol/L Glucose 108 H (74-99) mg/dL POC Glucose (mg/dL) 116 H (70-110) mg/dL Calcium (8.4-10.2) mg/dL Total Protein 4.8 L (6.3-8.2) g/dL Albumin 3.3 L (3.5-5.0) g/dL Arterial Blood Glucose (75-99) mg/dL Crossmatch 01/17/22 01/17/22 01/17/22 Range/Units 15:03 16:00 17:12 WBC (3.8-10.6) k/uL RBC (4.30-5.90) m/uL Hgb (13.0-17.5) gm/dL Hct (39.0-53.0) % Plt Count (150-450) k/uL Neutrophils # (1.3-7.7) k/uL Lymphocytes # (1.0-4.8) k/uL PT (9.0-12.0) sec INR (<1.2) APTT (22.0-30.0) sec ABG pH (7.35-7.45) ABG pCO2 (35-45) mmHg ABG pO2 (83-108) mmHg ABG HCO3 (21-25) mmol/L ABG Total CO2 (19-24) mmol/L ABG O2 Saturation (94-97) % ABG Hematocrit (34.0-46.0) % ABG Ionized Calcium (4.5-5.3) mg/dL ABG Glucose (75-99) mg/dL Hemoglobin (13.0-17.5) gm/dL Chloride (98-107) mmol/L Glucose (74-99) mg/dL POC Glucose (mg/dL) 120 H 134 H 143 H (70-110) mg/dL Calcium (8.4-10.2) mg/dL Total Protein (6.3-8.2) g/dL Albumin (3.5-5.0) g/dL Arterial Blood Glucose (75-99) mg/dL Crossmatch 01/17/22 01/17/22 01/17/22 Range/Units 17:13 18:04 18:24 WBC (3.8-10.6) k/uL RBC 2.13 L (4.30-5.90) m/uL Hgb 7.2 L D (13.0-17.5) gm/dL Hct 20.8 L (39.0-53.0) % Plt Count 119 L (150-450) k/uL Neutrophils # 8.6 H (1.3-7.7) k/uL Lymphocytes # (1.0-4.8) k/uL PT (9.0-12.0) sec INR (<1.2) APTT (22.0-30.0) sec ABG pH (7.35-7.45) ABG pCO2 34 L (35-45) mmHg ABG pO2 247 H (83-108) mmHg ABG HCO3 (21-25) mmol/L ABG Total CO2 (19-24) mmol/L ABG O2 Saturation 99.9 H (94-97) % ABG Hematocrit (34.0-46.0) % ABG Ionized Calcium (4.5-5.3) mg/dL ABG Glucose (75-99) mg/dL Hemoglobin (13.0-17.5) gm/dL Chloride (98-107) mmol/L Glucose (74-99) mg/dL POC Glucose (mg/dL) 148 H (70-110) mg/dL Calcium (8.4-10.2) mg/dL Total Protein (6.3-8.2) g/dL Albumin (3.5-5.0) g/dL Arterial Blood Glucose (75-99) mg/dL Crossmatch 01/17/22 01/17/22 01/17/22 Range/Units 18:58 19:00 20:00 WBC (3.8-10.6) k/uL RBC 2.26 L (4.30-5.90) m/uL Hgb 7.5 L (13.0-17.5) gm/dL Hct 21.8 L (39.0-53.0) % Plt Count 118 L (150-450) k/uL Neutrophils # 8.6 H (1.3-7.7) k/uL Lymphocytes # 0.8 L (1.0-4.8) k/uL PT (9.0-12.0) sec INR (<1.2) APTT (22.0-30.0) sec ABG pH (7.35-7.45) ABG pCO2 (35-45) mmHg ABG pO2 (83-108) mmHg ABG HCO3 (21-25) mmol/L ABG Total CO2 (19-24) mmol/L ABG O2 Saturation (94-97) % ABG Hematocrit (34.0-46.0) % ABG Ionized Calcium (4.5-5.3) mg/dL ABG Glucose (75-99) mg/dL Hemoglobin (13.0-17.5) gm/dL Chloride (98-107) mmol/L Glucose (74-99) mg/dL POC Glucose (mg/dL) 142 H 142 H (70-110) mg/dL Calcium (8.4-10.2) mg/dL Total Protein (6.3-8.2) g/dL Albumin (3.5-5.0) g/dL Arterial Blood Glucose (75-99) mg/dL Crossmatch 01/17/22 01/17/22 01/17/22 Range/Units 21:00 22:04 23:01 WBC (3.8-10.6) k/uL RBC (4.30-5.90) m/uL Hgb (13.0-17.5) gm/dL Hct (39.0-53.0) % Plt Count (150-450) k/uL Neutrophils # (1.3-7.7) k/uL Lymphocytes # (1.0-4.8) k/uL PT (9.0-12.0) sec INR (<1.2) APTT (22.0-30.0) sec ABG pH (7.35-7.45) ABG pCO2 (35-45) mmHg ABG pO2 (83-108) mmHg ABG HCO3 (21-25) mmol/L ABG Total CO2 (19-24) mmol/L ABG O2 Saturation (94-97) % ABG Hematocrit (34.0-46.0) % ABG Ionized Calcium (4.5-5.3) mg/dL ABG Glucose (75-99) mg/dL Hemoglobin (13.0-17.5) gm/dL Chloride (98-107) mmol/L Glucose (74-99) mg/dL POC Glucose (mg/dL) 120 H 126 H 119 H (70-110) mg/dL Calcium (8.4-10.2) mg/dL Total Protein (6.3-8.2) g/dL Albumin (3.5-5.0) g/dL Arterial Blood Glucose (75-99) mg/dL Crossmatch 01/18/22 01/18/22 01/18/22 Range/Units 00:06 01:03 01:57 WBC (3.8-10.6) k/uL RBC (4.30-5.90) m/uL Hgb (13.0-17.5) gm/dL Hct (39.0-53.0) % Plt Count (150-450) k/uL Neutrophils # (1.3-7.7) k/uL Lymphocytes # (1.0-4.8) k/uL PT (9.0-12.0) sec INR (<1.2) APTT (22.0-30.0) sec ABG pH (7.35-7.45) ABG pCO2 (35-45) mmHg ABG pO2 (83-108) mmHg ABG HCO3 (21-25) mmol/L ABG Total CO2 (19-24) mmol/L ABG O2 Saturation (94-97) % ABG Hematocrit (34.0-46.0) % ABG Ionized Calcium (4.5-5.3) mg/dL ABG Glucose (75-99) mg/dL Hemoglobin (13.0-17.5) gm/dL Chloride (98-107) mmol/L Glucose (74-99) mg/dL POC Glucose (mg/dL) 124 H 130 H 119 H (70-110) mg/dL Calcium (8.4-10.2) mg/dL Total Protein (6.3-8.2) g/dL Albumin (3.5-5.0) g/dL Arterial Blood Glucose (75-99) mg/dL Crossmatch 01/18/22 01/18/22 01/18/22 Range/Units 02:57 03:58 04:00 WBC 13.6 H (3.8-10.6) k/uL RBC 2.24 L (4.30-5.90) m/uL Hgb 7.2 L (13.0-17.5) gm/dL Hct 21.5 L (39.0-53.0) % Plt Count 136 L (150-450) k/uL Neutrophils # 10.8 H (1.3-7.7) k/uL Lymphocytes # (1.0-4.8) k/uL PT (9.0-12.0) sec INR (<1.2) APTT (22.0-30.0) sec ABG pH (7.35-7.45) ABG pCO2 (35-45) mmHg ABG pO2 (83-108) mmHg ABG HCO3 (21-25) mmol/L ABG Total CO2 (19-24) mmol/L ABG O2 Saturation (94-97) % ABG Hematocrit (34.0-46.0) % ABG Ionized Calcium (4.5-5.3) mg/dL ABG Glucose (75-99) mg/dL Hemoglobin (13.0-17.5) gm/dL Chloride (98-107) mmol/L Glucose (74-99) mg/dL POC Glucose (mg/dL) 115 H 116 H (70-110) mg/dL Calcium (8.4-10.2) mg/dL Total Protein (6.3-8.2) g/dL Albumin (3.5-5.0) g/dL Arterial Blood Glucose (75-99) mg/dL Crossmatch 01/18/22 01/18/22 01/18/22 Range/Units 04:00 05:10 06:06 WBC (3.8-10.6) k/uL RBC (4.30-5.90) m/uL Hgb (13.0-17.5) gm/dL Hct (39.0-53.0) % Plt Count (150-450) k/uL Neutrophils # (1.3-7.7) k/uL Lymphocytes # (1.0-4.8) k/uL PT (9.0-12.0) sec INR (<1.2) APTT (22.0-30.0) sec ABG pH (7.35-7.45) ABG pCO2 (35-45) mmHg ABG pO2 (83-108) mmHg ABG HCO3 (21-25) mmol/L ABG Total CO2 (19-24) mmol/L ABG O2 Saturation (94-97) % ABG Hematocrit (34.0-46.0) % ABG Ionized Calcium (4.5-5.3) mg/dL ABG Glucose (75-99) mg/dL Hemoglobin (13.0-17.5) gm/dL Chloride (98-107) mmol/L Glucose 104 H (74-99) mg/dL POC Glucose (mg/dL) 117 H 126 H (70-110) mg/dL Calcium 8.2 L (8.4-10.2) mg/dL Total Protein 5.5 L (6.3-8.2) g/dL Albumin (3.5-5.0) g/dL Arterial Blood Glucose (75-99) mg/dL Crossmatch 01/18/22 01/18/22 Range/Units 07:20 08:54 WBC (3.8-10.6) k/uL RBC (4.30-5.90) m/uL Hgb (13.0-17.5) gm/dL Hct (39.0-53.0) % Plt Count (150-450) k/uL Neutrophils # (1.3-7.7) k/uL Lymphocytes # (1.0-4.8) k/uL PT (9.0-12.0) sec INR (<1.2) APTT (22.0-30.0) sec ABG pH (7.35-7.45) ABG pCO2 (35-45) mmHg ABG pO2 (83-108) mmHg ABG HCO3 (21-25) mmol/L ABG Total CO2 (19-24) mmol/L ABG O2 Saturation (94-97) % ABG Hematocrit (34.0-46.0) % ABG Ionized Calcium (4.5-5.3) mg/dL ABG Glucose (75-99) mg/dL Hemoglobin (13.0-17.5) gm/dL Chloride (98-107) mmol/L Glucose (74-99) mg/dL POC Glucose (mg/dL) 116 H 122 H (70-110) mg/dL Calcium (8.4-10.2) mg/dL Total Protein (6.3-8.2) g/dL Albumin (3.5-5.0) g/dL Arterial Blood Glucose (75-99) mg/dL Crossmatch Assessment and Plan Assessment: Postop day #1, status post four-vessel bypass grafting, with left atrial appendage exclusion. Routine postoperative ventilator management. History of chronic bronchial asthma. Hypertension. Hyperlipidemia. Prior history of tobacco use. Family history of heart disease. CAD, with previous VA, and PCI. Plan: Plan dated 01/18/2022. The patient is postop day #1. Labs, x-rays, and medications are reviewed. The patient remains on Cardizem 5 mg an hour, and insulin at 1.5 units an hour. He's on 2 L nasal cannula. He is using his incentive spirometer every hour. He was extubated about 5 hours after leaving the operating room. Labs, x-rays, and medications are reviewed. Prognosis is guarded. The patient appears to be tolerating the procedure very well. Time with Patient: Greater than 30
[2022-01-18 10:36] VITALS: BMI 29.9
[2022-01-18] MEDS: ACETAMINOPHEN TAB 500 MG TAB PO PRN (10:55)
[2022-01-18 12:10] LABS: Glucose,Whole Blood 126 mg/dL (70-110)
[2022-01-18] MEDS: LACTATED RINGERS 1,000 ML IV SCH ×2 (13:08→22:18)
[2022-01-18] MEDS ORDERED: DEXTROSE 50% SYRINGE 50 ML IVP PRN ×2 (13:52)
--- NOTE | 2022-01-18 14:26 | P.CONS ---
History of Present Illness - Reason for Consult Consult date: 01/18/22 Medical management postop CABG - History of Present Illness This is a pleasant 81-year-old male who was recently admitted for chest pain underwent cardiac catheterization which revealed severe coronary artery disease with myocardial infarction status post PCI and underwent off-pump four-vessel coronary artery bypass grafting with Dr. Billy and is postop day #1. Patient does have a past medical history of asthma, coronary artery disease, skin cancer, chest pain angina, hyperlipidemia, hypertension, myocardial infarction with PCI stenting, and prostate disorder and follows with Dr. Wu Turner in the outpatient setting. Patient is a former smoker and denies any alcohol or illicit drug use. Patient is seen and evaluated sitting up in the chair in the ICU with and daughter at the bedside. Multiple chest tubes and drains noted. Patient also continues on 2 L via nasal cannula maintaining oxygen saturations above 95%.. Blood pressures are on the lower side although not requiring pressor support and home medications of blood pressure has been resumed. Patient was maintained on insulin drip for tight glycemic control per CABG protocol and recommend continue monitoring Accu-Cheks before meals and at bedtime and using sliding scale and discontinuing the insulin drip. Patient is being started on clear liquid diet and slowly advancing as tolerated. Review Of Systems: Constitutional: No fever, no chills, no night sweats. No weight change. No weakness, reports fatigue. No daytime sleepiness. EENT: No headache. No blurred vision or double vision, no loss of vision. No loss of Hearing, no ringing in the ears, no dizziness. No nasal drainage or congestion. No epistaxis. No sore throat. Lungs: No shortness of breath, cough, no sputum production. No wheezing. Cardiovascular: No chest pain, no lower extremity edema. Reports chest wall discomfort. No palpitations. No paroxysmal nocturnal dyspnea. No orthopnea. No lightheadedness or dizziness. No syncopal episodes. Abdominal: No abdominal pain. No nausea, vomiting. No diarrhea. No constipation. No bloody or tarry stools.. No loss of appetite. Genitourinary: No dysuria, increased frequency, urgency. No urinary retention. Musculoskeletal: No myalgias. No muscle weakness, no gait dysfunction, no frequent falls. No back pain. No neck pain. Integumentary: No wounds, no lesions. No rash or pruritus. No unusual brui sing. No change in hair or nails. Neurologic: No aphasia. No facial droop. No change in mentation. No head injury. No headache. No paralysis. No paresthesia. Psychiatric: No depression. No anxiety. No mood swings. Endocrine: No abnormal blood sugars. No weight change. No excessive sweating or thirst. No cold intolerance. PHYSICAL EXAMINATION: GENERAL: The patient is alert and oriented x4, Well developed, well nourished. HEENT: Pupils are round and equally reacting to light. EOMI. no scleral icterus. No conjunctival pallor. Normocephalic, atraumatic. No pharyngeal erythema. No th yromegaly. CARDIOVASCULAR: S1 and S2 muffled PULMONARY: diminished breath sounds bilaterally with no wheezing or rhonchi noted. Heart hugger noted ABDOMEN: soft. Nontender on exam. non-distended, normoactive bowel sounds. No palpable organomegaly. MUSCULOSKELETAL: No joint swelling or deformity. EXTREMITIES: No cyanosis, clubbing, or pedal edema. NEUROLOGICAL: Gross neurological examination did not reveal any focal deficits. Diffuse weakness SKIN: No rashes. Assessment: Coronary artery disease, status post four-vessel CABG postop day #1 Hypertension Hyperlipidemia History of asthma Former history of nicotine dependence History of previous myocardial infarction with coronary artery disease and PCI in 2010 GI prophylaxis DVT prophylaxis Full code Plan: Recommend to continue with current medications and management per cardiothoracic services. Patient is status post four-vessel off-pump CABG postop day #1. Patient continues with chest tubes and drains along with indwelling Canela catheter. Patient was maintained on insulin drip for tight glycemic control per CABG protocol although recommend transitioning to sliding scale with Accu-Cheks before meals and at bedtime. Patient is being started on clear liquid diet and will be advanced as tolerated. Incentive spirometer at the bedside and encourage the patient continue using at least 10 times every hour while awake. and daughter at the bedside with questions and concerns were answered. Patient is postop day #1 and continues with chest tubes and indwelling Canela catheter and recommend follow-up chest x-ray along with repeat labs. Patient had a hemoglobin of 7.2 and will be monitored closely. Patient has begun working with physical therapy and recommend continue daily along with cardiac rehab. Home medications have been resumed and recommend follow-up labs and chest x-ray ordered for a.m. Thank you for this consultation and we will continue to follow with cardiothoracic surgery during hospitalization. The impression and plan of care has been dictated by Bushra Ramon, nurse practitioner as directed. Dr. Rudy MD I have performed a history and examination and MDM of this patient, discussed the same with the dictator, and agree with the dictator's assessment and plan as written ,documented as a scribe. Based on total visit time, I have performed more than 50% of the visit. Any additional findings or plans will be noted. Past Medical History Past Medical History: Asthma, Coronary Artery Disease (CAD), Cancer, Chest Pain / Angina, Hyperlipidemia, Hypertension, Myocardial Infarction ([place]), Prostate Disorder Additional Past Medical History / Comment(s): hx hypokalemia, one time episode hypoglycemia many yrs ago, skin cancer with removal. "heart skips a beat every so often", just d/c from [facility] 01-13-22, adm. for chest pain Last Myocardial Infarction Date:: 1994 or 1995 History of Any Multi-Drug Resistant Organisms: None Reported Past Surgical History: Appendectomy, Heart Catheterization, Heart Catheterizat ion With Stent, Joint Replacement, Orthopedic Surgery, Prostate Surgery, Tonsillectomy Additional Past Surgical History / Comment(s): 10/2010 with one stent, L total knee arthroplasty, mult. left knee arthroscopies, skin cancer removal. Past Anesthesia/Blood Transfusion Reactions: Previous Problems w/ Anesthesia Additional Past Anesthesia/Blood Transfusion Reaction / Comm: "states slow to wake" from anesthesia. Date of Last Stent Placement:: 10/2010 Smoking Status: Former smoker - Past Family History Mother Family Medical History: Cancer Additional Family Medical History / Comment(s): breast cancer Father Additional Family Medical History / Comment(s): Father at age 75 from a myocardial infarction. History of asthma. Patient has a total of 5 children with no major medical problems. Patient has 1 brother with chronic back problems. No sisters. Medications and Allergies Home Medications Medication Instructions Recorded Confirmed Type Aspirin [Adult Low Dose Aspirin EC] 81 mg PO DAILY 10/08/17 01/17/22 History Potassium Chloride [K-Tab ER] 10 meq PO BID 10/08/17 01/14/22 History Atorvastatin [Lipitor] 40 mg PO DAILY 12/05/19 01/14/22 History dilTIAZem HCL [Cardizem CD] 120 mg PO DAILY 12/05/19 01/14/22 History Ezetimibe [Zetia] 10 mg PO DAILY 01/11/22 01/14/22 History Fluticasone Propion/Salmeterol 1 puff INHALATION RT-DAILY 01/11/22 01/14/22 History [Advair Hfa 115-21 Mcg Inhaler] Metoprolol Tartrate [Lopressor] 50 mg PO BID 01/11/22 01/14/22 History Multivitamins, Thera [Multivitamin 1 tab PO DAILY 01/11/22 01/14/22 History (formulary)] Nitroglycerin Sl Tabs [Nitrostat] 0.4 mg SUBLINGUAL Q5M PRN 01/11/22 01/14/22 History hydrALAZINE HCL [Apresoline] 50 mg PO BID 01/11/22 01/14/22 History Isosorbide Mononitrate ER [Imdur] 60 mg PO DAILY #30 tab 01/13/22 01/14/22 Rx Pantoprazole [Protonix] 40 mg PO AC-BRKFST #30 tab 01/13/22 01/17/22 Rx lisinopriL [Zestril] 20 mg PO BID 30 Days #60 tab 01/13/22 01/14/22 Rx polyethylene glycoL 3350 [Miralax] 17 gm PO DAILY PRN packet 01/13/22 01/14/22 Rx Allergies Allergy/AdvReac Type Severity Reaction Status Date / Time Penicillins Allergy Unknown Verified 01/17/22 05:58 Childhood Milk Containing Products AdvReac Unknown Congestion, Verified 01/17/22 05:58 [Dairy] Irritable Sulfa (Sulfonamide AdvReac Nausea & Verified 01/17/22 05:58 Antibiotics) Vomiting & Diarrhea Physical Exam Vitals: Vital Signs Temp Pulse Pulse Resp BP Pulse Ox FiO2 01/18/22 08:24 70 01/18/22 08:14 70 01/18/22 07:00 65 29 H 96/49 96 01/18/22 06:00 66 20 97/47 99 01/18/22 05:00 73 20 102/52 97 01/18/22 04:00 97.9 F 68 20 108/56 99 01/18/22 03:00 68 24 109/58 100 01/18/22 02:00 69 22 111/61 01/18/22 01:00 75 18 121/66 100 01/18/22 00:00 97.7 F 75 70 17 113/55 100 01/17/22 23:00 68 26 H 105/52 100 01/17/22 22:00 65 17 100 01/17/22 21:00 68 23 135/67 01/17/22 20:00 98.1 F 89 78 20 135/67 98 01/17/22 19:03 89 01/17/22 19:00 86 14 117/55 98 01/17/22 18:51 93 01/17/22 18:50 91 12 117/55 92 L 01/17/22 18:40 92 31 H 117/55 98 01/17/22 18:30 67 14 117/55 99 01/17/22 18:20 77 7 L 117/55 99 01/17/22 18:10 75 12 109/49 98 01/17/22 18:00 89 26 H 109/49 99 01/17/22 17:50 27 H 98 01/17/22 17:40 85 9 L 109/49 98 50 01/17/22 17:30 78 24 109/49 98 01/17/22 17:20 71 11 L 93/51 98 01/17/22 17:10 36 H 93/51 98 01/17/22 17:00 23 98 01/17/22 16:50 71 12 98 01/17/22 16:40 75 7 L 98 01/17/22 16:30 75 13 98 01/17/22 16:20 69 12 100 01/17/22 16:10 75 12 100 01/17/22 16:00 97.0 F L 30 H 100 50 01/17/22 15:50 67 12 100 01/17/22 15:40 70 12 100 01/17/22 15:30 64 H 100 01/17/22 15:28 66 12 01/17/22 15:25 50 01/17/22 15:20 64 12 100 01/17/22 15:15 50 01/17/22 15:12 79 18 01/17/22 15:10 8 L 100 01/17/22 15:05 50 01/17/22 15:00 69 12 93/51 100 01/17/22 14:50 71 15 93/51 100 01/17/22 14:40 71 8 L 93/51 100 01/17/22 14:30 71 5 L 93/51 100 01/17/22 14:27 80 01/17/22 14:20 67 0 L 93/51 100 01/17/22 14:10 76 4 L 93/51 100 01/17/22 14:00 95.9 F L 78 5 L 81/57 01/17/22 13:50 69 8 L 01/17/22 13:42 100 01/17/22 13:40 70 14 100 01/17/22 13:36 78 9 L Intake and Output 01/17/22 01/18/22 01/18/22 22:59 06:59 14:59 Intake Total 2013.817 7619.968 89.342 Output Total 1560 555 30 Balance -169.824 677.968 59.342 Intake: IV 342 1152 59 ACETAMINOPHEN IV (For NPO 100 ) 1,000 mg In Empty Bag 1 bag @ 400 mls/hr IVPB Q6HR JIM Rx#:[id number] Albumin Human 5% 250 ml 500 In Empty Bag 1 bag @ 250 mls/hr IVPB Q1HR PRN Rx#: [id number] Lactated Ringers 1,000 ml 150 400 50 @ 50 mls/hr IV .Q20H JIM Rx#:[id number] cardiac output 120 30 ceFAZolin 2 gm In Sodium 50 Chloride 0.9% 50 ml @ 100 mls/hr IVPB Q8HR JIM Rx# :[id number] pressure bag 72 72 9 Intake, IV Titration 1048.176 80.968 30.342 Amount ACETAMINOPHEN IV (For NPO 100 ) 1,000 mg In Empty Bag 1 bag @ 400 mls/hr IVPB Q6HR JIM Rx#:[id number] Clevidipine Butyrate 25 10.867 mg In Empty Bag 1 bag @ 1 MG/HR 2 mls/hr IV .Q24H JIM Rx#:[id number] DOPamine DRIP 800 mg In 5.818 Dextrose/Water 1 250ml. bag @ 2 MCG/KG/MIN 3.293 mls/hr IV .Q24H JIM Rx#: [id number] Diltiazem 125 mg In 68.167 25.25 Sodium Chloride 0.9% 100 ml @ 5 MG/HR 5 mls/hr IV .Q24H JIM Rx#:[id number] Insulin Regular 100 unit 11.077 12.801 5.092 In Sodium Chloride 0.9% 100 ml @ Per Protocol IV .Q0M JIM Rx#:[id number] Lactated Ringers 1,000 ml 750 @ 50 mls/hr IV .Q20H JIM Rx#:[id number] Magnesium Sulfate-D5w Pmx 100 1 gm In Dextrose/Water 1 100ml.bag @ 100 mls/hr IVPB Q1H JIM Rx#: [id number] ceFAZolin 2 gm In Sodium 50 Chloride 0.9% 50 ml @ 100 mls/hr IVPB Q8HR JIM Rx# :[id number] propofoL 1,000 mg In 20.414 Empty Bag 1 bag @ Titrate IV .Q0M JIM Rx#: [id number] Output: Chest Tube Drainage 410 330 20 MS/LP 410 330 20 Drainage 20 15 Left Arm 20 15 Urine 1130 210 10 Other: Voiding Method Indwelling Catheter Indwelling Catheter Weight 91.8 kg ABP, PAP, CO, CI - Last 8 Hours Arterial Blood Pressure 114/44 Arterial Blood Pressure 110/39 Arterial Blood Pressure 148/48 Arterial Blood Pressure 129/51 Arterial Blood Pressure 137/50 Arterial Blood Pressure 128/51 Pulmonary Artery Pressure 29/13 Pulmonary Artery Pressure 20/11 Pulmonary Artery Pressure 30/18 Pulmonary Artery Pressure 31/23 Pulmonary Artery Pressure 30/16 Pulmonary Artery Pressure 32/18 Cardiac Output 4.4 Cardiac Output 5.5 Cardiac Output 4 Cardiac Index 2.2 Cardiac Index 2.7 Cardiac Index 2 Results CBC & Chem 7: 01/18/22 04:00 01/18/22 04:00 Labs: Abnormal Lab Results - Last 24 Hours (Table) 01/12/22 01/17/22 01/17/22 Range/Units 11:00 08:30 10:06 WBC (3.8-10.6) k/uL RBC (4.30-5.90) m/uL Hgb (13.0-17.5) gm/dL Hct (39.0-53.0) % Plt Count (150-450) k/uL Neutrophils # (1.3-7.7) k/uL Lymphocytes # (1.0-4.8) k/uL PT (9.0-12.0) sec INR (<1.2) APTT (22.0-30.0) sec ABG pH (7.35-7.45) ABG pCO2 (35-45) mmHg ABG pO2 >420 H 182 H (83-108) mmHg ABG HCO3 27 H (21-25) mmol/L ABG Total CO2 28 H 26 H (19-24) mmol/L ABG O2 Saturation 100.0 H 99.3 H (94-97) % ABG Hematocrit (34.0-46.0) % ABG Ionized Calcium 4.4 L (4.5-5.3) mg/dL ABG Glucose 102 H (75-99) mg/dL Hemoglobin 11.9 L (13.0-17.5) gm/dL Chloride (98-107) mmol/L Glucose (74-99) mg/dL POC Glucose (mg/dL) (70-110) mg/dL Calcium (8.4-10.2) mg/dL Total Protein (6.3-8.2) g/dL Albumin (3.5-5.0) g/dL Arterial Blood Glucose 102 H (75-99) mg/dL Crossmatch See Detail 01/17/22 01/17/22 01/17/22 Range/Units 10:40 11:19 12:04 WBC (3.8-10.6) k/uL RBC (4.30-5.90) m/uL Hgb (13.0-17.5) gm/dL Hct (39.0-53.0) % Plt Count (150-450) k/uL Neutrophils # (1.3-7.7) k/uL Lymphocytes # (1.0-4.8) k/uL PT (9.0-12.0) sec INR (<1.2) APTT (22.0-30.0) sec ABG pH (7.35-7.45) ABG pCO2 34 L (35-45) mmHg ABG pO2 159 H 187 H 182 H (83-108) mmHg ABG HCO3 (21-25) mmol/L ABG Total CO2 (19-24) mmol/L ABG O2 Saturation 99.6 H 99.5 H 99.1 H (94-97) % ABG Hematocrit 32 L 29 L 27 L (34.0-46.0) % ABG Ionized Calcium 4.2 L 4.2 L 4.3 L (4.5-5.3) mg/dL ABG Glucose 106 H 114 H (75-99) mg/dL Hemoglobin 10.4 L 9.3 L 8.7 L (13.0-17.5) gm/dL Chloride (98-107) mmol/L Glucose (74-99) mg/dL POC Glucose (mg/dL) (70-110) mg/dL Calcium (8.4-10.2) mg/dL Total Protein (6.3-8.2) g/dL Albumin (3.5-5.0) g/dL Arterial Blood Glucose 106 H 114 H (75-99) mg/dL Crossmatch 01/17/22 01/17/22 01/17/22 Range/Units 12:52 13:40 13:40 WBC 16.2 H (3.8-10.6) k/uL RBC 2.83 L (4.30-5.90) m/uL Hgb 9.0 L D (13.0-17.5) gm/dL Hct 27.5 L (39.0-53.0) % Plt Count 140 L (150-450) k/uL Neutrophils # 13.9 H (1.3-7.7) k/uL Lymphocytes # (1.0-4.8) k/uL PT 13.3 H (9.0-12.0) sec INR 1.3 H (<1.2) APTT 35.0 H (22.0-30.0) sec ABG pH 7.31 L (7.35-7.45) ABG pCO2 (35-45) mmHg ABG pO2 142 H (83-108) mmHg ABG HCO3 (21-25) mmol/L ABG Total CO2 (19-24) mmol/L ABG O2 Saturation 98.7 H (94-97) % ABG Hematocrit 27 L (34.0-46.0) % ABG Ionized Calcium 5.7 H (4.5-5.3) mg/dL ABG Glucose 115 H (75-99) mg/dL Hemoglobin 8.9 L (13.0-17.5) gm/dL Chloride (98-107) mmol/L Glucose (74-99) mg/dL POC Glucose (mg/dL) (70-110) mg/dL Calcium (8.4-10.2) mg/dL Total Protein (6.3-8.2) g/dL Albumin (3.5-5.0) g/dL Arterial Blood Glucose 115 H (75-99) mg/dL Crossmatch 01/17/22 01/17/22 01/17/22 Range/Units 13:40 13:45 14:21 WBC (3.8-10.6) k/uL RBC (4.30-5.90) m/uL Hgb (13.0-17.5) gm/dL Hct (39.0-53.0) % Plt Count (150-450) k/uL Neutrophils # (1.3-7.7) k/uL Lymphocytes # (1.0-4.8) k/uL PT (9.0-12.0) sec INR (<1.2) APTT (22.0-30.0) sec ABG pH 7.34 L (7.35-7.45) ABG pCO2 (35-45) mmHg ABG pO2 >400 H (83-108) mmHg ABG HCO3 (21-25) mmol/L ABG Total CO2 25 H (19-24) mmol/L ABG O2 Saturation 100.0 H (94-97) % ABG Hematocrit (34.0-46.0) % ABG Ionized Calcium (4.5-5.3) mg/dL ABG Glucose (75-99) mg/dL Hemoglobin (13.0-17.5) gm/dL Chloride 110 H (98-107) mmol/L Glucose 108 H (74-99) mg/dL POC Glucose (mg/dL) 116 H (70-110) mg/dL Calcium (8.4-10.2) mg/dL Total Protein 4.8 L (6.3-8.2) g/dL Albumin 3.3 L (3.5-5.0) g/dL Arterial Blood Glucose (75-99) mg/dL Crossmatch 01/17/22 01/17/22 01/17/22 Range/Units 15:03 16:00 17:12 WBC (3.8-10.6) k/uL RBC (4.30-5.90) m/uL Hgb (13.0-17.5) gm/dL Hct (39.0-53.0) % Plt Count (150-450) k/uL Neutrophils # (1.3-7.7) k/uL Lymphocytes # (1.0-4.8) k/uL PT (9.0-12.0) sec INR (<1.2) APTT (22.0-30.0) sec ABG pH (7.35-7.45) ABG pCO2 (35-45) mmHg ABG pO2 (83-108) mmHg ABG HCO3 (21-25) mmol/L ABG Total CO2 (19-24) mmol/L ABG O2 Saturation (94-97) % ABG Hematocrit (34.0-46.0) % ABG Ionized Calcium (4.5-5.3) mg/dL ABG Glucose (75-99) mg/dL Hemoglobin (13.0-17.5) gm/dL Chloride (98-107) mmol/L Glucose (74-99) mg/dL POC Glucose (mg/dL) 120 H 134 H 143 H (70-110) mg/dL Calcium (8.4-10.2) mg/dL Total Protein (6.3-8.2) g/dL Albumin (3.5-5.0) g/dL Arterial Blood Glucose (75-99) mg/dL Crossmatch 01/17/22 01/17/22 01/17/22 Range/Units 17:13 18:04 18:24 WBC (3.8-10.6) k/uL RBC 2.13 L (4.30-5.90) m/uL Hgb 7.2 L D (13.0-17.5) gm/dL Hct 20.8 L (39.0-53.0) % Plt Count 119 L (150-450) k/uL Neutrophils # 8.6 H (1.3-7.7) k/uL Lymphocytes # (1.0-4.8) k/uL PT (9.0-12.0) sec INR (<1.2) APTT (22.0-30.0) sec ABG pH (7.35-7.45) ABG pCO2 34 L (35-45) mmHg ABG pO2 247 H (83-108) mmHg ABG HCO3 (21-25) mmol/L ABG Total CO2 (19-24) mmol/L ABG O2 Saturation 99.9 H (94-97) % ABG Hematocrit (34.0-46.0) % ABG Ionized Calcium (4.5-5.3) mg/dL ABG Glucose (75-99) mg/dL Hemoglobin (13.0-17.5) gm/dL Chloride (98-107) mmol/L Glucose (74-99) mg/dL POC Glucose (mg/dL) 148 H (70-110) mg/dL Calcium (8.4-10.2) mg/dL Total Protein (6.3-8.2) g/dL Albumin (3.5-5.0) g/dL Arterial Blood Glucose (75-99) mg/dL Crossmatch 01/17/22 01/17/22 01/17/22 Range/Units 18:58 19:00 20:00 WBC (3.8-10.6) k/uL RBC 2.26 L (4.30-5.90) m/uL Hgb 7.5 L (13.0-17.5) gm/dL Hct 21.8 L (39.0-53.0) % Plt Count 118 L (150-450) k/uL Neutrophils # 8.6 H (1.3-7.7) k/uL Lymphocytes # 0.8 L (1.0-4.8) k/uL PT (9.0-12.0) sec INR (<1.2) APTT (22.0-30.0) sec ABG pH (7.35-7.45) ABG pCO2 (35-45) mmHg ABG pO2 (83-108) mmHg ABG HCO3 (21-25) mmol/L ABG Total CO2 (19-24) mmol/L ABG O2 Saturation (94-97) % ABG Hematocrit (34.0-46.0) % ABG Ionized Calcium (4.5-5.3) mg/dL ABG Glucose (75-99) mg/dL Hemoglobin (13.0-17.5) gm/dL Chloride (98-107) mmol/L Glucose (74-99) mg/dL POC Glucose (mg/dL) 142 H 142 H (70-110) mg/dL Calcium (8.4-10.2) mg/dL Total Protein (6.3-8.2) g/dL Albumin (3.5-5.0) g/dL Arterial Blood Glucose (75-99) mg/dL Crossmatch 01/17/22 01/17/22 01/17/22 Range/Units 21:00 22:04 23:01 WBC (3.8-10.6) k/uL RBC (4.30-5.90) m/uL Hgb (13.0-17.5) gm/dL Hct (39.0-53.0) % Plt Count (150-450) k/uL Neutrophils # (1.3-7.7) k/uL Lymphocytes # (1.0-4.8) k/uL PT (9.0-12.0) sec INR (<1.2) APTT (22.0-30.0) sec ABG pH (7.35-7.45) ABG pCO2 (35-45) mmHg ABG pO2 (83-108) mmHg ABG HCO3 (21-25) mmol/L ABG Total CO2 (19-24) mmol/L ABG O2 Saturation (94-97) % ABG Hematocrit (34.0-46.0) % ABG Ionized Calcium (4.5-5.3) mg/dL ABG Glucose (75-99) mg/dL Hemoglobin (13.0-17.5) gm/dL Chloride (98-107) mmol/L Glucose (74-99) mg/dL POC Glucose (mg/dL) 120 H 126 H 119 H (70-110) mg/dL Calcium (8.4-10.2) mg/dL Total Protein (6.3-8.2) g/dL Albumin (3.5-5.0) g/dL Arterial Blood Glucose (75-99) mg/dL Crossmatch 01/18/22 01/18/22 01/18/22 Range/Units 00:06 01:03 01:57 WBC (3.8-10.6) k/uL RBC (4.30-5.90) m/uL Hgb (13.0-17.5) gm/dL Hct (39.0-53.0) % Plt Count (150-450) k/uL Neutrophils # (1.3-7.7) k/uL Lymphocytes # (1.0-4.8) k/uL PT (9.0-12.0) sec INR (<1.2) APTT (22.0-30.0) sec ABG pH (7.35-7.45) ABG pCO2 (35-45) mmHg ABG pO2 (83-108) mmHg ABG HCO3 (21-25) mmol/L ABG Total CO2 (19-24) mmol/L ABG O2 Saturation (94-97) % ABG Hematocrit (34.0-46.0) % ABG Ionized Calcium (4.5-5.3) mg/dL ABG Glucose (75-99) mg/dL Hemoglobin (13.0-17.5) gm/dL Chloride (98-107) mmol/L Glucose (74-99) mg/dL POC Glucose (mg/dL) 124 H 130 H 119 H (70-110) mg/dL Calcium (8.4-10.2) mg/dL Total Protein (6.3-8.2) g/dL Albumin (3.5-5.0) g/dL Arterial Blood Glucose (75-99) mg/dL Crossmatch 01/18/22 01/18/22 01/18/22 Range/Units 02:57 03:58 04:00 WBC 13.6 H (3.8-10.6) k/uL RBC 2.24 L (4.30-5.90) m/uL Hgb 7.2 L (13.0-17.5) gm/dL Hct 21.5 L (39.0-53.0) % Plt Count 136 L (150-450) k/uL Neutrophils # 10.8 H (1.3-7.7) k/uL Lymphocytes # (1.0-4.8) k/uL PT (9.0-12.0) sec INR (<1.2) APTT (22.0-30.0) sec ABG pH (7.35-7.45) ABG pCO2 (35-45) mmHg ABG pO2 (83-108) mmHg ABG HCO3 (21-25) mmol/L ABG Total CO2 (19-24) mmol/L ABG O2 Saturation (94-97) % ABG Hematocrit (34.0-46.0) % ABG Ionized Calcium (4.5-5.3) mg/dL ABG Glucose (75-99) mg/dL Hemoglobin (13.0-17.5) gm/dL Chloride (98-107) mmol/L Glucose (74-99) mg/dL POC Glucose (mg/dL) 115 H 116 H (70-110) mg/dL Calcium (8.4-10.2) mg/dL Total Protein (6.3-8.2) g/dL Albumin (3.5-5.0) g/dL Arterial Blood Glucose (75-99) mg/dL Crossmatch 01/18/22 01/18/22 01/18/22 Range/Units 04:00 05:10 06:06 WBC (3.8-10.6) k/uL RBC (4.30-5.90) m/uL Hgb (13.0-17.5) gm/dL Hct (39.0-53.0) % Plt Count (150-450) k/uL Neutrophils # (1.3-7.7) k/uL Lymphocytes # (1.0-4.8) k/uL PT (9.0-12.0) sec INR (<1.2) APTT (22.0-30.0) sec ABG pH (7.35-7.45) ABG pCO2 (35-45) mmHg ABG pO2 (83-108) mmHg ABG HCO3 (21-25) mmol/L ABG Total CO2 (19-24) mmol/L ABG O2 Saturation (94-97) % ABG Hematocrit (34.0-46.0) % ABG Ionized Calcium (4.5-5.3) mg/dL ABG Glucose (75-99) mg/dL Hemoglobin (13.0-17.5) gm/dL Chloride (98-107) mmol/L Glucose 104 H (74-99) mg/dL POC Glucose (mg/dL) 117 H 126 H (70-110) mg/dL Calcium 8.2 L (8.4-10.2) mg/dL Total Protein 5.5 L (6.3-8.2) g/dL Albumin (3.5-5.0) g/dL Arterial Blood Glucose (75-99) mg/dL Crossmatch 01/18/22 01/18/22 Range/Units 07:20 08:54 WBC (3.8-10.6) k/uL RBC (4.30-5.90) m/uL Hgb (13.0-17.5) gm/dL Hct (39.0-53.0) % Plt Count (150-450) k/uL Neutrophils # (1.3-7.7) k/uL Lymphocytes # (1.0-4.8) k/uL PT (9.0-12.0) sec INR (<1.2) APTT (22.0-30.0) sec ABG pH (7.35-7.45) ABG pCO2 (35-45) mmHg ABG pO2 (83-108) mmHg ABG HCO3 (21-25) mmol/L ABG Total CO2 (19-24) mmol/L ABG O2 Saturation (94-97) % ABG Hematocrit (34.0-46.0) % ABG Ionized Calcium (4.5-5.3) mg/dL ABG Glucose (75-99) mg/dL Hemoglobin (13.0-17.5) gm/dL Chloride (98-107) mmol/L Glucose (74-99) mg/dL POC Glucose (mg/dL) 116 H 122 H (70-110) mg/dL Calcium (8.4-10.2) mg/dL Total Protein (6.3-8.2) g/dL Albumin (3.5-5.0) g/dL Arterial Blood Glucose (75-99) mg/dL Crossmatch
[2022-01-18] MEDS: DEXTROSE/WATER 1 250ML.BAG with DOPamine DRIP 800 MG IV SCH (14:33)
[2022-01-18] MEDS: ONDANSETRON 4 MG/2 ML VIAL IVP PRN (15:06)
[2022-01-18 16:43] LABS: Glucose,Whole Blood 156 mg/dL (70-110)
[2022-01-18] MEDS: FERROUS SULFATE 325 MG TAB PO SCH (17:47)
[2022-01-18] MEDS: INSULIN ASPART (NovoLOG) 100 UNIT/ML VIAL SQ SCH ×2 (17:47→21:01)
[2022-01-18] MEDS: ASCORBIC ACID 500 MG TAB PO SCH (17:47)
[2022-01-18 20:59] LABS: Glucose,Whole Blood 130 mg/dL (70-110)
[2022-01-18] MEDS: SENNOSIDES-DOCUSATE SODIUM 1 EACH TAB PO SCH (21:01)
[2022-01-19] MEDS: ACETAMINOPHEN TAB 500 MG TAB PO PRN ×3 (03:50→22:22)
[2022-01-19 05:23] LABS: Basophils % (A) 0 %; Eosinophils # (A) 0.2 k/uL (0-0.7); Eosinophils % (A) 1 %; Lymphocytes # (A) 1.7 k/uL (1.0-4.8); Lymphocytes % (A) 15 %; MCH 33.4 pg (25.0-35.0); MCHC 33.7 g/dL (31.0-37.0); MCV 99.2 fL (80.0-100.0); Macrocytosis Slight; Mean Platelet Volume 9.5; Monocytes # (A) 0.7 k/uL (0-1.0); Monocytes % (A) 6 %; Neutrophils # (A) 8.5 k/uL (1.3-7.7); Neutrophils % (A) 75 %; Platelet Count 112 k/uL (150-450); RBC 1.86 m/uL (4.30-5.90); RDW 15.4 % (11.5-15.5); WBC 11.3 k/uL (3.8-10.6)
[2022-01-19 05:28] LABS: Ionized Calcium 4.8 mg/dL (4.5-5.3)
[2022-01-19 05:31] LABS: Albumin 3.5 g/dL (3.5-5.0); Calcium 8.2 mg/dL (8.4-10.2); HCT 18.5 % (39.0-53.0); HGB 6.2 gm/dL (13.0-17.5); Potassium 4.1 mmol/L (3.5-5.1); Total Bilirubin 0.5 mg/dL (0.2-1.3); Total Protein 5.1 g/dL (6.3-8.2)
[2022-01-19 06:34] LABS: Glucose,Whole Blood 109 mg/dL (70-110)
[2022-01-19] MEDS: KETOROLAC 15 MG/ML 1 ML VIAL IVP SCH (06:40)
[2022-01-19] MEDS: ASCORBIC ACID 500 MG TAB PO SCH ×2 (06:42→15:57)
[2022-01-19] MEDS: PANTOPRAZOLE 40 MG TABLET PO SCH (06:42)
[2022-01-19] MEDS: FERROUS SULFATE 325 MG TAB PO SCH ×2 (06:43→15:57)
[2022-01-19] MEDS: IPRATROPIUM-ALBUTEROL 3 ML NEB INHALATION SCH ×4 (07:20→20:29)
[2022-01-19] MEDS: SYMBICORT 160-4.5 MCG INHALER INHALATION SCH (07:20)
[2022-01-19] MEDS: INSULIN ASPART (NovoLOG) 100 UNIT/ML VIAL SQ SCH ×4 (07:21→20:57)
--- NOTE | 2022-01-19 07:37 | P.PN ---
Subjective Progress Note Date: 01/19/22 Principal diagnosis: CAD and status post CABG The patient is a 81-year-old gentleman who underwent elective CABG 4 with JUDD to LAD and radial artery to OM and also SVG to ramus intermedius and RCA. This is postoperative elevation day #2. The patient hemodynamically is stable with systolic pressure in the 80s. As a matter of fact he symptomatic in terms off dizziness and lightheadedness. His hemoglobin is 6.2. I advised and recommended the patient received at least one unit of packed RBC with continue monitoring the hemoglobin and transfusion if the hemoglobin continues to be below 7. Otherwise his urine output has been also marginal. I think this is also related to the low blood pressure which could be related to low hemoglobin. He is on dual antiplatelet therapy along with high intensity statin. The chest x-ray was reviewed. The blood work was reviewed as well. He is on a small dose of beta ashley as well as small dose of amlodipine for the radial graft. Objective - Vital Signs Vital signs: Vital Signs Temp 98.8 F 01/19/22 04:00 Pulse 83 01/19/22 07:21 Resp 16 01/19/22 07:21 BP 82/47 01/19/22 07:00 Pulse Ox 82 L 01/19/22 07:00 FiO2 50 01/17/22 17:40 Intake & Output 01/18/22 01/19/22 01/19/22 18:59 06:59 18:59 Intake Total 1818.369 442 36 Output Total 525 890 42 Balance 1293.369 -448 -6 Weight 91.8 kg 93.8 kg Intake: IV 1182 442 36 Albumin Human 5% 250 ml 500 In Empty Bag 1 bag @ 250 mls/hr IVPB Q1HR PRN Rx#: [id number] Lactated Ringers 1,000 ml 550 370 30 @ 20 mls/hr IV .Q24H [facility] Rx#:[id number] cardiac output 10 ceFAZolin 2 gm In Sodium 50 Chloride 0.9% 50 ml @ 100 mls/hr IVPB Q8HR [facility] Rx# :[id number] pressure bag 72 72 6 Intake, IV Titration 36.369 Amount Diltiazem 125 mg In 25.25 Sodium Chloride 0.9% 100 ml @ 5 MG/HR 5 mls/hr IV .Q24H [facility] Rx#:[id number] Insulin Regular 100 unit 11.119 In Sodium Chloride 0.9% 100 ml @ Per Protocol IV .Q0M [facility] Rx#:[id number] Oral 600 Output: Chest Tube Drainage 260 330 MS/LP 260 330 Urine 265 560 42 Other: Voiding Method Indwelling Catheter Indwelling Catheter # Bowel Movements 0 ABP, PAP, CO, CI - Last Documented Arterial Blood Pressure 116/48 Pulmonary Artery Pressure 29/13 Cardiac Output 4.4 Cardiac Index 2.2 - Constitutional General appearance: Present: no acute distress - Respiratory Respiratory: bilateral: diminished - Cardiovascular Rhythm: regular - Labs CBC & Chem 7: 01/19/22 04:40 01/19/22 04:40 Labs: Abnormal Lab Results - Last 24 Hours (Table) 01/12/22 01/18/22 01/18/22 Range/Units 11:00 08:54 10:26 WBC (3.8-10.6) k/uL RBC (4.30-5.90) m/uL Hgb (13.0-17.5) gm/dL Hct (39.0-53.0) % Plt Count (150-450) k/uL Neutrophils # (1.3-7.7) k/uL Sodium (137-145) mmol/L BUN (9-20) mg/dL Glucose (74-99) mg/dL POC Glucose (mg/dL) 122 H 150 H (70-110) mg/dL Calcium (8.4-10.2) mg/dL AST (17-59) U/L Total Protein (6.3-8.2) g/dL Crossmatch See Detail 01/18/22 01/18/22 01/18/22 Range/Units 12:09 16:42 20:56 WBC (3.8-10.6) k/uL RBC (4.30-5.90) m/uL Hgb (13.0-17.5) gm/dL Hct (39.0-53.0) % Plt Count (150-450) k/uL Neutrophils # (1.3-7.7) k/uL Sodium (137-145) mmol/L BUN (9-20) mg/dL Glucose (74-99) mg/dL POC Glucose (mg/dL) 126 H 156 H 130 H (70-110) mg/dL Calcium (8.4-10.2) mg/dL AST (17-59) U/L Total Protein (6.3-8.2) g/dL Crossmatch 01/19/22 01/19/22 Range/Units 04:40 04:40 WBC 11.3 H (3.8-10.6) k/uL RBC 1.86 L (4.30-5.90) m/uL Hgb 6.2 L* (13.0-17.5) gm/dL Hct 18.5 L* (39.0-53.0) % Plt Count 112 L (150-450) k/uL Neutrophils # 8.5 H (1.3-7.7) k/uL Sodium 133 L (137-145) mmol/L BUN 24 H (9-20) mg/dL Glucose 126 H (74-99) mg/dL POC Glucose (mg/dL) (70-110) mg/dL Calcium 8.2 L (8.4-10.2) mg/dL AST 73 H (17-59) U/L Total Protein 5.1 L (6.3-8.2) g/dL Crossmatch Assessment and Plan Assessment: Assessment #1 severe CAD and status post CABG #2 hypertension #3 dyslipidemia #4 blood loss anemia Plan #1 recommend the patient received one units of packed RBC as soon as possible #2 continue monitor the hemoglobin as well as kidney function #3 continue dual antiplatelet therapy #4 continue beta ashley as well as amlodipine #6 continue high intensity statin Follow-up with the patient
--- NOTE | 2022-01-19 08:16 | XR ---
EXAMINATION TYPE: XR chest 1V portable DATE OF EXAM: 01/19/2022 COMPARISON: 01/18/2022 INDICATION: Postop cardiac surgery TECHNIQUE: Single frontal view of the chest is obtained. FINDINGS: The heart size is enlarged. The pulmonary vasculature is normal. Mild left lower lobe infiltrate is present Mediastinal tube is present. Left-sided chest tube is present. No pneumothorax is evident. Right cent ral venous catheter sheath is evident. Flint-Deja catheters been removed. IMPRESSION: 1. Mild left lower lobe infiltrate. 2. Lines and catheters discussed above
--- NOTE | 2022-01-19 08:21 | P.PN ---
Subjective Progress Note Date: 01/19/22 Principal diagnosis: Coronary artery disease. Previous medical history of coronary artery disease with myocardial infarction status post PCI in 2010, hypertension, hyperlipidemia, asthma with a preoperative FEV1 62% of predicted value, skin cancer status post removal, previous tobacco dependence, and family history of heart disease. POD #2 off-pump coronary artery bypass grafting 4 with left internal mammary artery to left anterior descending coronary artery, left radial artery graft to the obtuse marginal coronary artery, saphenous vein graft to the intermediate coronary artery and right coronary artery. Ligation of the left atrial appendage with a 35 mm Atriclip. Endovascular harvest of both right greater saphenous vein and left radial artery. Postoperative acute blood loss anemia and thrombocytopenia, expected due to hemodilution. The patient was seen and examined sparing sitting up in a recliner in the intensive care unit in no acute distress. States post surgical pain is controlled on current medication regimen, denies shortness of breath. Does complain of some mild dizziness with ambulation. Remains in sinus rhythm, blood pressure a bit low, currently on IV dopamine. Hemoglobin 6.2 this morning, will receive 1 unit packed red blood cells which should help improve his blood pressure. Remains on 2 L nasal cannula with oxygen saturation in the mid 90s. Right internal jugular Cordis, right radial arterial line, mediastinal/left pleural chest tubes all remaining present. No other new concerns. Objective - Vital Signs Vital signs: Vital Signs Temp 98.8 F 01/19/22 04:00 Pulse 93 01/19/22 07:34 Resp 16 01/19/22 07:34 BP 82/47 01/19/22 07:00 Pulse Ox 82 L 01/19/22 07:00 FiO2 50 01/17/22 17:40 Intake & Output 01/18/22 01/19/22 01/19/22 18:59 06:59 18:59 Intake Total 1818.369 442 36 Output Total 525 890 42 Balance 1293.369 -448 -6 Weight 91.8 kg 93.8 kg Intake: IV 1182 442 36 Albumin Human 5% 250 ml 500 In Empty Bag 1 bag @ 250 mls/hr IVPB Q1HR PRN Rx#: [id number] Lactated Ringers 1,000 ml 550 370 30 @ 20 mls/hr IV .Q24H [facility] Rx#:[id number] cardiac output 10 ceFAZolin 2 gm In Sodium 50 Chloride 0.9% 50 ml @ 100 mls/hr IVPB Q8HR [facility] Rx# :[id number] pressure bag 72 72 6 Intake, IV Titration 36.369 Amount Diltiazem 125 mg In 25.25 Sodium Chloride 0.9% 100 ml @ 5 MG/HR 5 mls/hr IV .Q24H [facility] Rx#:[id number] Insulin Regular 100 unit 11.119 In Sodium Chloride 0.9% 100 ml @ Per Protocol IV .Q0M [facility] Rx#:[id number] Oral 600 Output: Chest Tube Drainage 260 330 MS/LP 260 330 Urine 265 560 42 Other: Voiding Method Indwelling Catheter Indwelling Catheter Indwelling Catheter # Bowel Movements 0 ABP, PAP, CO, CI - Last Documented Arterial Blood Pressure 116/48 Pulmonary Artery Pressure 29/13 Cardiac Output 4.4 Cardiac Index 2.2 - Exam CONSTITUTIONAL: Appears comfortable, cooperative, no acute distress RESPIRATORY: Lungs sounds diminished bilaterally. Respirations even, nonlabored. Currently on 2 L nasal cannula with oxygen saturation 94%. Able to achieve 2000 mL on incentive spirometry. Strong cough. CARDIOVASCULAR: S1, S2 present. Regular rate and rhythm, sinus rhythm on telemetry. Sternum stable. Palpable peripheral pulses bilaterally. Left upper extremity edema present. No calf pain or tenderness noted. Heart hugger in place with patient demonstrating appropriate use. Antiembolism stockings, SCDs present. GASTROINTESTINAL: Abdomen soft, nontender, nondistended. Active bowel sounds present 4 quadrants. Tolerating diet. Positive flatus GENITOURINARY: Staley present draining clear, yellow urine. Output overnight 30-60 mL per hour, 825 mL in the last 24 hours INTEGUMENTARY: Skin is warm and dry with evidence of good perfusion. Anterior chest incision well approximated and covered with dry intact dressing. Right lower extremity EVH site as well as left radial artery harvest site well appro ximated without redness or drainage. NEUROLOGIC: Cranial nerves II through XII intact MUSKULOSKELETAL: Able to move all extremities, strength equal bilaterally, gait normal PSYCHIATRIC: Alert and oriented to person place and time, appropriate affect, intact judgment and insight INVASIVE LINES AND TUBES: Mediastinal/left pleural chest tubes present and connected to wall suction, no air leaks present, 220 mL serosanguineous drainage overnight, 600 mL in the last 24 hours. Right internal jugular Cordis, right radial arterial line present. - Allied health notes Allied health notes reviewed: nursing - Labs CBC & Chem 7: 01/19/22 04:40 01/19/22 04:40 Labs: Abnormal Lab Results - Last 24 Hours (Table) 01/12/22 01/18/22 01/18/22 Range/Units 11:00 08:54 10:26 WBC (3.8-10.6) k/uL RBC (4.30-5.90) m/uL Hgb (13.0-17.5) gm/dL Hct (39.0-53.0) % Plt Count (150-450) k/uL Neutrophils # (1.3-7.7) k/uL Sodium (137-145) mmol/L BUN (9-20) mg/dL Glucose (74-99) mg/dL POC Glucose (mg/dL) 122 H 150 H (70-110) mg/dL Calcium (8.4-10.2) mg/dL AST (17-59) U/L Total Protein (6.3-8.2) g/dL Crossmatch See Detail 01/18/22 01/18/22 01/18/22 Range/Units 12:09 16:42 20:56 WBC (3.8-10.6) k/uL RBC (4.30-5.90) m/uL Hgb (13.0-17.5) gm/dL Hct (39.0-53.0) % Plt Count (150-450) k/uL Neutrophils # (1.3-7.7) k/uL Sodium (137-145) mmol/L BUN (9-20) mg/dL Glucose (74-99) mg/dL POC Glucose (mg/dL) 126 H 156 H 130 H (70-110) mg/dL Calcium (8.4-10.2) mg/dL AST (17-59) U/L Total Protein (6.3-8.2) g/dL Crossmatch 01/19/22 01/19/22 Range/Units 04:40 04:40 WBC 11.3 H (3.8-10.6) k/uL RBC 1.86 L (4.30-5.90) m/uL Hgb 6.2 L* (13.0-17.5) gm/dL Hct 18.5 L* (39.0-53.0) % Plt Count 112 L (150-450) k/uL Neutrophils # 8.5 H (1.3-7.7) k/uL Sodium 133 L (137-145) mmol/L BUN 24 H (9-20) mg/dL Glucose 126 H (74-99) mg/dL POC Glucose (mg/dL) (70-110) mg/dL Calcium 8.2 L (8.4-10.2) mg/dL AST 73 H (17-59) U/L Total Protein 5.1 L (6.3-8.2) g/dL Crossmatch - Imaging and Cardiology Chest x-ray: image reviewed Assessment and Plan Assessment: 1. Coronary artery disease, status post four-vessel off-pump CABG 2. History of coronary artery disease with myocardial infarction status post PCI in 2010 3. History of hypertension, currently hypotensive on dopamine for blood pressure 4. Hyperlipidemia, treated, cholesterol 138, LDL 74 5. Asthma 6. History of skin cancer status post removal 7. Previous tobacco dependence, preoperative FEV1 62% of predicted 8. Family history of heart disease. 9. Postoperative acute blood loss anemia and thrombocytopenia, expected Plan: 1. Continue to maximize medical therapy with aspirin, Zetia, statin, and beta ashley. Will increase beta ashley as tolerated. Continue low dose calcium channel ashley for radial artery spasm prophylaxis 2. Wean dopamine as tolerated 3. Wean O2 as tolerated. Encourage incentive spirometry 10 times every hour while awake. Bronchodilators per pulmonology. 4. Increase activity, ambulate as tolerated. PT/OT/cardiac rehab following 5. Will monitor daily labs and chest x-ray. Electrolyte replacement per protocol. Will give 1 unit packed red blood cells today 6. Pain control with current medication regimen. 7. Insulin management per internal medicine. Patient is not diabetic, preoperative hemaglobin A1c 5.5%. 8. Will split chest tubes, if minimal drainage and mediastinal may discontinue later today. Continue left pleural chest tube for another 24 hours 9. Will discontinue staley later this afternoon. May bladder scan and straight cath for greater than 300 mL residual 10. Strict accurate intake and output. Daily weights. 11. More recommendations to follow
[2022-01-19] MEDS: HEPARIN SODIUM,PORCINE/PF 5,000 UNIT/0.5 ML SYRINGE SQ SCH ×2 (08:33→15:57)
[2022-01-19] MEDS: MULTIVITAMINS, THERA 1 EACH TAB PO SCH (08:33)
[2022-01-19] MEDS: ASPIRIN 325 MG TAB PO SCH (08:34)
[2022-01-19] MEDS: METOPROLOL TARTRATE 25 MG TAB PO SCH ×2 (08:34→20:56)
[2022-01-19] MEDS: EZETIMIBE 10 MG TAB PO SCH (08:34)
[2022-01-19] MEDS: amLODIPine 2.5 MG TAB PO SCH (08:34)
[2022-01-19] MEDS: CLOPIDOGREL 75 MG TAB PO SCH (08:34)
[2022-01-19] MEDS: ATORVASTATIN 80 MG TAB PO SCH (08:34)
--- NOTE | 2022-01-19 09:18 | P.PN ---
Subjective Progress Note Date: 01/19/22 Principal diagnosis: Status post bypass grafting. 81-year-old male patient of Dr. Wu Turner, previous history of CAD with CT status post PCI in 2010, hypertension, hyperlipidemia, chronic bronchial asthma unspecified, former smoker and family history of heart disease. Patient was recently hospitalized at [facility] where he presented with exertional chest pain and shortness of breath. He underwent heart catheterization on 01/12/2022 which showed distal left main stenosis of 60%, proximal LAD stenosis of 99%, patent up his marginal 2 stent, and mid to distal RCA stenosis of 99%. Echocardiogram showed preserved LV function with EF of 55- 60%, and minimal mitral and tricuspid insufficiency, no pulmonary hypertension or pericardial effusion. Patient underwent four-vessel bypass grafting surgery off pump, with JUDD to LAD, left radial artery to OM, SVG to RI, and SVG to the RCA, endoscopic vein harvest of the right leg, and left atrial appendage exclusion. Patient is seen in postoperative period sedated and intubated on assist control with a rate of 12, tidal volume is 550, FiO2 100% and PEEP of 8. Postoperative chest x-ray is pending, she is on Diprivan at 25 mics per kilo per minute, Cardizem drip is at 5 mg per hour, and nitroglycerin is a 5 mics per kilo per minute and lactated Ringer's at 50 ML per hour, PA pressures 22/7, CVP 6, cardiac output is 5.3, and cardiac index is 2.6, he is in sinus mechanism, hemodynamically he is stable, his left pleural and mediastinal chest tube with small amount of serous output in the Pleur-evac, postoperative blood gas and labs are pending. Progress note dated 01/18/2022. This is a 81-year-old male postop day #1, status post four-vessel bypass grafting. He was extubated about 5 hours after leaving the operating room. He's currently on 2 L nasal cannula. He is getting lactated Ringer's at 50 mL an hour, Cardizem drip at 5 mg an hour, and insulin drip at 1.5 units an hour. The patient's doing very well. His been doing his incentive spirometer, every hour. White count 13.6, hemoglobin 7.2, hematocrit 21.5, and platelet count 236,000. Electrolyte profile completely normal. Chest x-ray shows some post surgical changes without evidence of pneumothorax or pleural effusion. Progress note dated 01/19/2022. 81-year-old male seen again in the intensive care unit, room 265. He is postop day #2, status post four-vessel bypass grafting. The patient is currently on 2 L nasal cannula. He is getting dopamine at 2.5 mcg/kg/m. He is also receiving lactated Ringer's at 40 mL an hour. He had an uneventful night according to the nurses. He's been relatively stable. The patient is going to receive 1 unit of blood. White count 11.3, hemoglobin 6.2, hematocrit 18.5, and platelet count 112,000. Sodium 133, potassium 4.1, chloride 104, CO2 25, BUN 24, and creatinine 1.17. Chest x-ray shows basilar atelectasis on the left. Objective - Vital Signs Vital signs: Vital Signs Temp 98.2 F 01/19/22 09:04 Pulse 87 01/19/22 09:04 Resp 22 01/19/22 09:04 BP 111/47 01/19/22 09:04 Pulse Ox 95 01/19/22 09:04 FiO2 50 01/17/22 17:40 Intake & Output 01/18/22 01/19/22 01/19/22 18:59 06:59 18:59 Intake Total 1818.369 442 36 Output Total 525 890 42 Balance 1293.369 -448 -6 Weight 91.8 kg 93.8 kg Intake: IV 1182 442 36 Albumin Human 5% 250 ml 500 In Empty Bag 1 bag @ 250 mls/hr IVPB Q1HR PRN Rx#: [id number] Lactated Ringers 1,000 ml 550 370 30 @ 20 mls/hr IV .Q24H [facility] Rx#:[id number] cardiac output 10 ceFAZolin 2 gm In Sodium 50 Chloride 0.9% 50 ml @ 100 mls/hr IVPB Q8HR [facility] Rx# :[id number] pressure bag 72 72 6 Intake, IV Titration 36.369 Amount Diltiazem 125 mg In 25.25 Sodium Chloride 0.9% 100 ml @ 5 MG/HR 5 mls/hr IV .Q24H [facility] Rx#:[id number] Insulin Regular 100 unit 11.119 In Sodium Chloride 0.9% 100 ml @ Per Protocol IV .Q0M [facility] Rx#:[id number] Oral 600 Blood Product 0 Unit 0 Output: Chest Tube Drainage 260 330 MS/LP 260 330 Urine 265 560 42 Other: Voiding Method Indwelling Catheter Indwelling Catheter Indwelling Catheter # Bowel Movements 0 ABP, PAP, CO, CI - Last Documented Arterial Blood Pressure 116/48 Pulmonary Artery Pressure 29/13 Cardiac Output 4.4 Cardiac Index 2.2 - Exam No acute distress, oriented 3. Sitting in a chair. Currently on 2 L. HEENT examination is grossly unremarkable. Neck supple. Full range of motion. No adenopathy thyromegaly or neck vein distention. Cardiovascular examination reveals regular rhythm rate. S1-S2 normal. No S3 or S4. No discernible murmur noted. Heart rate 82 bpm. Lungs reveal mild scattered rhonchi. No wheezes. No crackles. Breath sounds equal bilaterally. Saturation is 97%. Abdomen soft bowel sounds are heard. No masses or tenderness. Extremities are intact. No cyanosis clubbing or edema. Skin is without rash or lesion. Neurologic examination is brief but nonfocal. - Labs CBC & Chem 7: 01/19/22 04:40 01/19/22 04:40 Labs: Abnormal Lab Results - Last 24 Hours (Table) 01/12/22 01/18/22 01/18/22 Range/Units 11:00 10:26 12:09 WBC (3.8-10.6) k/uL RBC (4.30-5.90) m/uL Hgb (13.0-17.5) gm/dL Hct (39.0-53.0) % Plt Count (150-450) k/uL Neutrophils # (1.3-7.7) k/uL Sodium (137-145) mmol/L BUN (9-20) mg/dL Glucose (74-99) mg/dL POC Glucose (mg/dL) 150 H 126 H (70-110) mg/dL Calcium (8.4-10.2) mg/dL AST (17-59) U/L Total Protein (6.3-8.2) g/dL Crossmatch See Detail 01/18/22 01/18/22 01/19/22 Range/Units 16:42 20:56 04:40 WBC 11.3 H (3.8-10.6) k/uL RBC 1.86 L (4.30-5.90) m/uL Hgb 6.2 L* (13.0-17.5) gm/dL Hct 18.5 L* (39.0-53.0) % Plt Count 112 L (150-450) k/uL Neutrophils # 8.5 H (1.3-7.7) k/uL Sodium (137-145) mmol/L BUN (9-20) mg/dL Glucose (74-99) mg/dL POC Glucose (mg/dL) 156 H 130 H (70-110) mg/dL Calcium (8.4-10.2) mg/dL AST (17-59) U/L Total Protein (6.3-8.2) g/dL Crossmatch 01/19/22 Range/Units 04:40 WBC (3.8-10.6) k/uL RBC (4.30-5.90) m/uL Hgb (13.0-17.5) gm/dL Hct (39.0-53.0) % Plt Count (150-450) k/uL Neutrophils # (1.3-7.7) k/uL Sodium 133 L (137-145) mmol/L BUN 24 H (9-20) mg/dL Glucose 126 H (74-99) mg/dL POC Glucose (mg/dL) (70-110) mg/dL Calcium 8.2 L (8.4-10.2) mg/dL AST 73 H (17-59) U/L Total Protein 5.1 L (6.3-8.2) g/dL Crossmatch Assessment and Plan Assessment: Postop day #2, status post four-vessel bypass grafting, with left atrial appendage exclusion. Routine postoperative ventilator management. Postoperative anemia, expected. History of chronic bronchial asthma. Hypertension. Hyperlipidemia. Prior history of tobacco use. Family history of heart disease. CAD, with previous CT, and PCI. Plan: Plan dated 01/18/2022. The patient is postop day #1. Labs, x-rays, and medications are reviewed. The patient remains on Cardizem 5 mg an hour, and insulin at 1.5 units an hour. He's on 2 L nasal cannula. He is using his incentive spirometer every hour. He was extubated about 5 hours after leaving the operating room. Labs, x-rays, and medications are reviewed. Prognosis is guarded. The patient appears to be tolerating the procedure very well. Plan dated 01/19/2022. The patient is postop day #2. The patient's hemoglobin is a bit low, and he will receive 1 unit of packed red blood cells. Labs, x-rays, medications are reviewed. He is on 2 L. Saturations are 96-97%. Chest x-ray shows some atelectasis at the left lung base. He continues to work on his incentive spirometer. He is progressing very nicely. We'll continue to follow the patient and make recommendations along the way. Prognosis is thought to be good. Time with Patient: Less than 30
[2022-01-19 11:55] LABS: Glucose,Whole Blood 105 mg/dL (70-110)
[2022-01-19 14:49] LABS: Basophils % (A) 0 %; Eosinophils # (A) 0.1 k/uL (0-0.7); Eosinophils % (A) 1 %; HCT 22.9 % (39.0-53.0); HGB 7.5 gm/dL (13.0-17.5); Lymphocytes # (A) 1.6 k/uL (1.0-4.8); Lymphocytes % (A) 11 %; MCH 31.8 pg (25.0-35.0); MCHC 32.9 g/dL (31.0-37.0); MCV 96.5 fL (80.0-100.0); Monocytes # (A) 0.8 k/uL (0-1.0); Monocytes % (A) 6 %; Neutrophils # (A) 11.4 k/uL (1.3-7.7); Neutrophils % (A) 80 %; Platelet Count 129 k/uL (150-450); RBC 2.37 m/uL (4.30-5.90); RDW 14.5 % (11.5-15.5); WBC 14.2 k/uL (3.8-10.6)
--- NOTE | 2022-01-19 16:03 | P.PN ---
Subjective Progress Note Date: 01/19/22 - Reason for Consult Consult date: 01/18/22 Medical management postop CABG - History of Present Illness This is a pleasant 81-year-old male who was recently admitted for chest pain underwent cardiac catheterization which revealed severe coronary artery disease with myocardial infarction status post PCI and underwent off-pump four-vessel c oronary artery bypass grafting with Dr. Billy and is postop day #1. Patient does have a past medical history of asthma, coronary artery disease, skin cancer, chest pain angina, hyperlipidemia, hypertension, myocardial infarction with PCI stenting, and prostate disorder and follows with Dr. Wu Turner in the outpatient setting. Patient is a former smoker and denies any alcohol or illicit drug use. Patient is seen and evaluated sitting up in the chair in the ICU with and daughter at the bedside. Multiple chest tubes and drains noted. Patient also continues on 2 L via nasal cannula maintaining oxygen saturations above 95%.. Blood pressures are on the lower side although not req uiring pressor support and home medications of blood pressure has been resumed. Patient was maintained on insulin drip for tight glycemic control per CABG protocol and recommend continue monitoring Accu-Cheks before meals and at bedtime and using sliding scale and discontinuing the insulin drip. Patient is being started on clear liquid diet and slowly advancing as tolerated. 01/19/2022 Patient is seen in follow-up this morning continues to be in the ICU with multiple medical consultations following. Patient continues with multiple chest tubes an indwelling Canela catheter and 2 L via nasal cannula. He is reporting his buttock hurts from sitting and was unable to get up and walk much yesterday. Plan is for patient to continue to increase activity as tolerated. Chest x-ray today shows mild left lobe infiltrate and a [place] deja catheter has been removed. Patient is afebrile and denies chest pain or shortness of breath. On this morning's labs hemoglobin was found to be 6.2 and awaiting to receive a unit of PRBCs. WBCs 11.3 with a platelet count of 112. Sodium was 133 with a potassium of 4.1 and current creatinine is 1.17 and blood sugars well controlled. Patient tolerating diet with no reports of nausea or vomiting noted. Recommend repeat labs and x-ray in the a.m. Review of systems: Constitutional: No reports of fatigue, fever, or chills Cardiovascular: No reports of chest pain or palpitations Respiratory: No reports of shortness of breath or cough GI: No reports of nausea, vomiting, or diarrhea : No reports of dysuria or retention Neurovascular: reports of generalized weakness, reports buttock pain from sitting in the chair All medications have been reviewed Active Medications Acetaminophen (Acetaminophen Tab 500 Mg Tab) 1,000 mg PO Q6HR PRN PRN Reason: Fever and/ or Pain Last Admin: 01/19/22 03:50 Dose: 1,000 mg Hydrocodone Bitart/Acetaminophen (Hydrocodone/Apap 5-325mg 1 Each Tab) 2 each PO Q4HR PRN PRN Reason: Severe Pain Hydrocodone Bitart/Acetaminophen (Hydrocodone/Apap 5-325mg 1 Each Tab) 1 each PO Q4HR PRN PRN Reason: Moderate Pain Albuterol/Ipratropium (Ipratropium-Albuterol 3 Ml Neb) 3 ml INHALATION RT-Q2H PRN PRN Reason: Shortness Of Breath Or Wheezing Albuterol/Ipratropium (Ipratropium-Albuterol 3 Ml Neb) 3 ml INHALATION RT-QID [facility] Last Admin: 01/19/22 15:30 Dose: 3 ml Amlodipine Besylate (Amlodipine 2.5 Mg Tab) 2.5 mg PO DAILY [facility] Last Admin: 01/19/22 08:34 Dose: 2.5 mg Ascorbic Acid (Ascorbic Acid 500 Mg Tab) 500 mg PO BID-W/MEALS [facility] Last Admin: 01/19/22 06:42 Dose: 500 mg Aspirin (Aspirin 325 Mg Tab) 325 mg PO DAILY [facility] Last Admin: 01/19/22 08:34 Dose: 325 mg Atorvastatin Calcium (Atorvastatin 80 Mg Tab) 80 mg PO DAILY [facility] Last Admin: 01/19/22 08:34 Dose: 80 mg Benzocaine/Menthol (Benzocaine/Menthol Lozeng 1 Each Lozenge) 1 each MUCOUS MEM Q2H PRN PRN Reason: Sore Throat Bisacodyl (Bisacodyl 10 Mg Supp) 10 mg RECTAL DAILY PRN PRN Reason: Constipation Budesonide/Formoterol Fumarate (Symbicort 160-4.5 Mcg Inhaler) 1 puff INHALATION RT-DAILY [facility] Last Admin: 01/19/22 07:20 Dose: 1 puff Clopidogrel Bisulfate (Clopidogrel 75 Mg Tab) 75 mg PO DAILY [facility] Last Admin: 01/19/22 08:34 Dose: 75 mg Dextrose/Water (Dextrose 50% Syringe 50 Ml) 25 ml IVP PER PROTOCOL PRN; Protocol PRN Reason: Hypoglycemia Dextrose/Water (Dextrose 50% Syringe 50 Ml) 25 ml IVP PER PROTOCOL PRN; Protocol PRN Reason: Hypoglycemia Dextrose/Water (Dextrose 50% Syringe 50 Ml) 50 ml IVP PER PROTOCOL PRN; Protocol PRN Reason: Hypoglycemia Ezetimibe (Ezetimibe 10 Mg Tab) 10 mg PO DAILY [facility] Last Admin: 01/19/22 08:34 Dose: 10 mg Ferrous Sulfate (Ferrous Sulfate 325 Mg Tab) 325 mg PO BID-W/MEALS [facility] Last Admin: 01/19/22 06:43 Dose: 325 mg Heparin Sodium (Porcine) (Heparin Sodium,Porcine/Pf 5,000 Unit/0.5 Ml Syringe) 5,000 unit SQ Q8HR [facility] Last Admin: 01/19/22 08:33 Dose: 5,000 unit Amiodarone HCl 150 mg/ (Dextrose/Water) 103 mls @ 618 mls/hr IV .Q10M PRN; Protocol PRN Reason: A.FIB/FLUTTER Amiodarone HCl 360 mg/ (Dextrose/Water) 207.2 mls @ 34.533 mls/hr IV .Q6H PRN; Protocol PRN Reason: A.FIB/FLUTTER Amiodarone HCl 450 mg/ (Dextrose/Water) 250 mls @ 16.667 mls/hr IV .Q15H PRN; Protocol PRN Reason: A.FIB/FLUTTER Lactated Ringer's (Lactated Ringers) 1,000 mls @ 20 mls/hr IV .Q24H [facility] Last Admin: 01/18/22 22:18 Dose: 20 mls/hr Insulin Aspart (Insulin Aspart (Novolog) 100 Unit/Ml Vial) 0 unit SQ ACHS [facility]; Protocol Last Admin: 01/19/22 14:02 Dose: Not Given Magnesium Hydroxide (Magnesium Hydroxide 2,400 Mg/10 Ml Cup) 2,400 mg PO BID PRN PRN Reason: Constipation Melatonin (Melatonin 3 Mg Tablet) 6 mg PO HS [facility] Metoclopramide HCl (Metoclopramide 5 Mg/Ml 2 Ml Vial) 10 mg IVP Q4H PRN PRN Reason: Nausea And Vomiting Last Admin: 01/18/22 15:43 Dose: 5 mg Metoprolol Tartrate (Metoprolol Tartrate 25 Mg Tab) 25 mg PO BID [facility] Last Admin: 01/19/22 08:34 Dose: 25 mg Miscellaneous Information (Potassium Replacement Protocol 1 Each Misc) 1 each MISCELLANE DAILY PRN; Protocol PRN Reason: Per Protocol Miscellaneous Information (Magnesium Replacement Protocol 1 Each Misc) 1 each MISCELLANE DAILY PRN; Protocol PRN Reason: Per Protocol Miscellaneous Information (Magnesium Replacement Protocol 1 Each Misc) 1 each MISCELLANE DAILY PRN; Protocol PRN Reason: Per Protocol Multivitamins (Multivitamins, Thera 1 Each Tab) 1 each PO DAILY [facility] Last Admin: 01/19/22 08:33 Dose: 1 each Ondansetron HCl (Ondansetron 4 Mg/2 Ml Vial) 4 mg IVP Q6HR PRN PRN Reason: Nausea And Vomiting Last Admin: 01/18/22 15:06 Dose: 4 mg Pantoprazole Sodium (Pantoprazole 40 Mg Tablet) 40 mg PO AC-BRKFST [facility] Last Admin: 01/19/22 06:42 Dose: 40 mg Senna/Docusate Sodium (Sennosides-Docusate Sodium 1 Each Tab) 2 each PO HS [facility] Last Admin: 01/18/22 21:01 Dose: 2 each Sodium Chloride (Sodium Chloride 0.9% Flush 10 Ml Syringe) 10 ml IV BID [facility] Last Admin: 01/19/22 08:34 Dose: Not Given PHYSICAL EXAMINATION: GENERAL: The patient is alert and oriented x4, Well developed, well nourished. HEENT: Pupils are round and equally reacting to light. EOMI. no scleral icterus. No conjunctival pallor. Normocephalic, atraumatic. No pharyngeal erythema. No thyromegaly. CARDIOVASCULAR: S1 and S2 muffled swans Deja catheter was removed PULMONARY: diminished breath sounds bilaterally with no wheezing or rhonchi noted. Heart hugger noted, continued chest tubes noted ABDOMEN: soft. Nontender on exam. non-distended, normoactive bowel sounds. No palpable organomegaly. MUSCULOSKELETAL: No joint swelling or deformity. EXTREMITIES: No cyanosis, clubbing, or pedal edema. NEUROLOGICAL: Gross neurological examination did not reveal any focal deficits. Diffuse weakness SKIN: No rashes. Assessment: Coronary artery disease, status post four-vessel CABG postop day #2 Hypertension Acute blood loss anemia and thrombocytopenia, expected postoperatively Hyperlipidemia History of asthma Former history of nicotine dependence History of previous myocardial infarction with coronary artery disease and PCI in 2010 GI prophylaxis DVT prophylaxis Full code Plan: Recommend to continue with current medications and management per cardiothoracic services. Patient is status post four-vessel off-pump CABG postop day #2. Patient continues with chest tubes and drains along with indwelling Canela catheter. Possible removal of one of the chest tubes and Canela catheter later today. Patient was found to have a hemoglobin of 6.2 and receiving a unit of PRBCs and recommend repeat labs. Chest x-ray showing left lower lobe infiltrate and maintained on 2 L. 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 Patient is maintained on consistent carb diet and Accu-Cheks before meals and at bedtime and will use sliding scale as needed for tight glycemic control. Patient is not a diabetic and hemoglobin A1c was 5.5 on initial surgical evaluation. Thank you for this consultation and we will continue to follow with cardiothoracic surgery during hospitalization. The impression and plan of care has been dictated by Bushra Ramon, nurse practitioner as directed. Dr. Rudy MD I have performed a history and examination and MDM of this patient, discussed the same with the dictator, and agree with the dictator's assessment and plan as written ,documented as a scribe. Based on total visit time, I have performed more than 50% of the visit. Any additional findings or plans will be noted. Objective - Vital Signs Vital signs: Vital Signs Temp 98.4 F 01/19/22 08:24 Pulse 105 H 01/19/22 08:24 Resp 22 01/19/22 08:24 BP 103/44 01/19/22 08:24 Pulse Ox 95 01/19/22 08:24 FiO2 50 01/17/22 17:40 Intake & Output 01/18/22 01/19/22 01/19/22 18:59 06:59 18:59 Intake Total 1818.369 442 36 Output Total 525 890 42 Balance 1293.369 -448 -6 Weight 91.8 kg 93.8 kg Intake: IV 1182 442 36 Albumin Human 5% 250 ml 500 In Empty Bag 1 bag @ 250 mls/hr IVPB Q1HR PRN Rx#: [id number] Lactated Ringers 1,000 ml 550 370 30 @ 20 mls/hr IV .Q24H [facility] Rx#:[id number] cardiac output 10 ceFAZolin 2 gm In Sodium 50 Chloride 0.9% 50 ml @ 100 mls/hr IVPB Q8HR [facility] Rx# :[id number] pressure bag 72 72 6 Intake, IV Titration 36.369 Amount Diltiazem 125 mg In 25.25 Sodium Chloride 0.9% 100 ml @ 5 MG/HR 5 mls/hr IV .Q24H [facility] Rx#:[id number] Insulin Regular 100 unit 11.119 In Sodium Chloride 0.9% 100 ml @ Per Protocol IV .Q0M [facility] Rx#:[id number] Oral 600 Blood Product 0 Unit 0 Output: Chest Tube Drainage 260 330 MS/LP 260 330 Urine 265 560 42 Other: Voiding Method Indwelling Catheter Indwelling Catheter Indwelling Catheter # Bowel Movements 0 ABP, PAP, CO, CI - Last Documented Arterial Blood Pressure 116/48 Pulmonary Artery Pressure 29/13 Cardiac Output 4.4 Cardiac Index 2.2 - Labs CBC & Chem 7: 01/19/22 14:46 01/19/22 04:40 Labs: Abnormal Lab Results - Last 24 Hours (Table) 01/12/22 01/18/22 01/18/22 Range/Units 11:00 10:26 12:09 WBC (3.8-10.6) k/uL RBC (4.30-5.90) m/uL Hgb (13.0-17.5) gm/dL Hct (39.0-53.0) % Plt Count (150-450) k/uL Neutrophils # (1.3-7.7) k/uL Sodium (137-145) mmol/L BUN (9-20) mg/dL Glucose (74-99) mg/dL POC Glucose (mg/dL) 150 H 126 H (70-110) mg/dL Calcium (8.4-10.2) mg/dL AST (17-59) U/L Total Protein (6.3-8.2) g/dL Crossmatch See Detail 01/18/22 01/18/22 01/19/22 Range/Units 16:42 20:56 04:40 WBC 11.3 H (3.8-10.6) k/uL RBC 1.86 L (4.30-5.90) m/uL Hgb 6.2 L* (13.0-17.5) gm/dL Hct 18.5 L* (39.0-53.0) % Plt Count 112 L (150-450) k/uL Neutrophils # 8.5 H (1.3-7.7) k/uL Sodium (137-145) mmol/L BUN (9-20) mg/dL Glucose (74-99) mg/dL POC Glucose (mg/dL) 156 H 130 H (70-110) mg/dL Calcium (8.4-10.2) mg/dL AST (17-59) U/L Total Protein (6.3-8.2) g/dL Crossmatch 01/19/22 Range/Units 04:40 WBC (3.8-10.6) k/uL RBC (4.30-5.90) m/uL Hgb (13.0-17.5) gm/dL Hct (39.0-53.0) % Plt Count (150-450) k/uL Neutrophils # (1.3-7.7) k/uL Sodium 133 L (137-145) mmol/L BUN 24 H (9-20) mg/dL Glucose 126 H (74-99) mg/dL POC Glucose (mg/dL) (70-110) mg/dL Calcium 8.2 L (8.4-10.2) mg/dL AST 73 H (17-59) U/L Total Protein 5.1 L (6.3-8.2) g/dL Crossmatch
[2022-01-19 16:56] LABS: Glucose,Whole Blood 146 mg/dL (70-110)
[2022-01-19] MEDS: TAMSULOSIN 0.4 MG CAP.ER.24H PO SCH (18:35)
[2022-01-19 20:49] LABS: Glucose,Whole Blood 74 mg/dL (70-110)
[2022-01-19] MEDS: MELATONIN 3 MG TABLET PO SCH (20:56)
[2022-01-19] MEDS: SENNOSIDES-DOCUSATE SODIUM 1 EACH TAB PO SCH (20:56)
[2022-01-20] MEDS: HEPARIN SODIUM,PORCINE/PF 5,000 UNIT/0.5 ML SYRINGE SQ SCH ×4 (00:10→23:13)
[2022-01-20 04:21] LABS: Basophils % (A) 0 %; Eosinophils # (A) 0.1 k/uL (0-0.7); Eosinophils % (A) 1 %; Lymphocytes # (A) 1.4 k/uL (1.0-4.8); Lymphocytes % (A) 15 %; MCH 33.6 pg (25.0-35.0); MCHC 33.9 g/dL (31.0-37.0); MCV 99.1 fL (80.0-100.0); Macrocytosis Slight; Mean Platelet Volume 9.4; Monocytes # (A) 0.5 k/uL (0-1.0); Monocytes % (A) 5 %; Neutrophils # (A) 7.2 k/uL (1.3-7.7); Neutrophils % (A) 76 %; Platelet Count 106 k/uL (150-450); RDW 15.2 % (11.5-15.5); WBC 9.4 k/uL (3.8-10.6)
[2022-01-20 04:24] LABS: HGB 6.7 gm/dL (13.0-17.5)
[2022-01-20 04:25] LABS: HCT 19.8 % (39.0-53.0)
[2022-01-20 05:00] LABS: Albumin 3.2 g/dL (3.5-5.0); Calcium 8.3 mg/dL (8.4-10.2); Potassium 3.8 mmol/L (3.5-5.1); Total Bilirubin 0.7 mg/dL (0.2-1.3); Total Protein 4.9 g/dL (6.3-8.2)
[2022-01-20 06:12] LABS: Glucose,Whole Blood 162 mg/dL (70-110)
[2022-01-20] MEDS: PANTOPRAZOLE 40 MG TABLET PO SCH (06:54)
[2022-01-20] MEDS: INSULIN ASPART (NovoLOG) 100 UNIT/ML VIAL SQ SCH ×4 (06:55→20:11)
[2022-01-20] MEDS: ASCORBIC ACID 500 MG TAB PO SCH ×2 (06:55→18:10)
[2022-01-20] MEDS: FERROUS SULFATE 325 MG TAB PO SCH ×2 (06:55→18:09)
[2022-01-20] MEDS: IPRATROPIUM-ALBUTEROL 3 ML NEB INHALATION SCH ×4 (07:09→19:48)
[2022-01-20] MEDS: SYMBICORT 160-4.5 MCG INHALER INHALATION SCH (07:09)
--- NOTE | 2022-01-20 07:11 | XR ---
EXAMINATION TYPE: XR chest 1V portable DATE OF EXAM: 01/20/2022 5:43 AM COMPARISON: Chest radiographs from 01/19/2022. TECHNIQUE: XR chest 1V portable Frontal view of the chest. CLINICAL INDICATION:Male, 81 years old with history of Post cardiac surgery; FINDINGS: Lungs/Pleura: No pneumothorax. No sizable pleural effusion. Right lung is clear. Left basilar consoli dation. Pulmonary vascularity: Unremarkable. Heart/mediastinum: Cardiomediastinal silhouette is enlarged and stable. Postoperative changes are pr esent in the mediastinum. Musculoskeletal: No acute osseous pathology. Midline sternotomy wires are noted and stable. Other findings: None Lines/Tubes: Left lateral approach drainage tube projects over the mediastinum in stable position. Mediastinal tube is no longer visualized. IMPRESSION: * Postsurgical changes without evidence for pneumothorax or sizable pleural effusion. * Similar left basilar consolidation. * Tubes as described above.
[2022-01-20] MEDS ORDERED: FUROSEMIDE 10 MG/ML 2 ML VIAL IV ONE (07:54)
--- NOTE | 2022-01-20 08:10 | P.PN ---
Subjective Progress Note Date: 01/20/22 Principal diagnosis: CAD and status post CABG The patient is a 81-year-old gentleman who underwent elective CABG 4 with JUDD to LAD and radial artery to OM and also SVG to ramus intermedius and RCA. The patient was seen this morning. He is hemodynamically stable. He went into A. fib and subsequently started on amiodarone IV and came back to normal sinus mechanism. He is on amiodarone IV right now and in process to be switching to oral amiodarone. His hemoglobin is 6.7. He is in process of receiving one pack of RBC which I would agree on. Also would suggest increasing the dose of beta ashley. Beside that he is on dual antiplatelet therapy as well as high intensi ty statin. The chest x-ray as well as a blood work reviewed. Objective - Vital Signs Vital signs: Vital Signs Temp 98.4 F 01/20/22 04:00 Pulse 85 01/20/22 07:21 Resp 12 01/20/22 07:00 BP 105/61 01/20/22 07:00 Pulse Ox 99 01/20/22 07:10 FiO2 50 01/17/22 17:40 Intake & Output 01/19/22 01/20/22 01/20/22 18:59 06:59 18:59 Intake Total 1889 396 33 Output Total 582 505 30 Balance 1307 -109 3 Weight 93.9 kg Intake: IV 429 396 33 Lactated Ringers 1,000 ml 360 360 30 @ 20 mls/hr IV .Q24H [facility] Rx#:[id number] pressure bag 69 36 3 Oral 840 Blood Product 620 Rc As-1 Unit 310 [id number] Output: Chest Tube Drainage 190 180 30 LP 110 180 30 MS 80 Urine 392 325 0 Straight 100 Other: Voiding Method Indwelling Catheter Urinal ABP, PAP, CO, CI - Last Documented Arterial Blood Pressure 160/58 Pulmonary Artery Pressure 29/13 Cardiac Output 4.4 Cardiac Index 2.2 - Constitutional General appearance: Present: no acute distress - Respiratory Respiratory: bilateral: diminished - Cardiovascular Rhythm: regular Heart sounds: normal: S1, S2 - Labs CBC & Chem 7: 01/20/22 04:00 01/20/22 04:00 Labs: Abnormal Lab Results - Last 24 Hours (Table) 01/12/22 01/19/22 01/19/22 Range/Units 11:00 14:46 16:53 WBC 14.2 H (3.8-10.6) k/uL RBC 2.37 L (4.30-5.90) m/uL Hgb 7.5 L (13.0-17.5) gm/dL Hct 22.9 L (39.0-53.0) % Plt Count 129 L (150-450) k/uL Neutrophils # 11.4 H (1.3-7.7) k/uL Sodium (137-145) mmol/L BUN (9-20) mg/dL Glucose (74-99) mg/dL POC Glucose (mg/dL) 146 H (70-110) mg/dL Calcium (8.4-10.2) mg/dL AST (17-59) U/L Total Protein (6.3-8.2) g/dL Albumin (3.5-5.0) g/dL Crossmatch See Detail 01/20/22 01/20/22 01/20/22 Range/Units 04:00 04:00 06:09 WBC (3.8-10.6) k/uL RBC 2.00 L (4.30-5.90) m/uL Hgb 6.7 L* (13.0-17.5) gm/dL Hct 19.8 L* (39.0-53.0) % Plt Count 106 L (150-450) k/uL Neutrophils # (1.3-7.7) k/uL Sodium 133 L (137-145) mmol/L BUN 26 H (9-20) mg/dL Glucose 119 H (74-99) mg/dL POC Glucose (mg/dL) 162 H (70-110) mg/dL Calcium 8.3 L (8.4-10.2) mg/dL AST 82 H (17-59) U/L Total Protein 4.9 L (6.3-8.2) g/dL Albumin 3.2 L (3.5-5.0) g/dL Crossmatch Assessment and Plan Assessment: Assessment #1 severe CAD and status post CABG #2 hypertension #3 dyslipidemia #4 blood loss anemia #5 paroxysmal atrial fibrillation, postoperatively Plan #1 recommend the patient received one units of packed RBC as soon as possible #2 continue monitor the hemoglobin as well as kidney function #3 continue dual antiplatelet therapy #4 advised increasing the dose of beta ashley #6 continue high intensity statin Follow-up with the patient
--- NOTE | 2022-01-20 08:13 | P.PN ---
Subjective Progress Note Date: 01/20/22 Principal diagnosis: Coronary artery disease. Previous medical history of coronary artery disease with myocardial infarction status post PCI in 2010, hypertension, hyperlipidemia, asthma with a preoperative FEV1 62% of predicted value, skin cancer status post removal, previous tobacco dependence, and family history of heart disease. POD #3 off-pump coronary artery bypass grafting 4 with left internal mammary artery to left anterior descending coronary artery, left radial artery graft to the obtuse marginal coronary artery, saphenous vein graft to the intermediate coronary artery and right coronary artery. Ligation of the left atrial appendage with a 35 mm Atriclip. Endovascular harvest of both right greater saphenous vein and left radial artery. Postoperative acute blood loss anemia and thrombocytopenia, expected due to hemodilution. Postoperative afib, known common occurrence after open heart surgery The patient was seen and examined this morning sitting up in a recliner in the intensive care unit in no acute distress eating breakfast. States post surgical pain is controlled on current medication regimen, denies shortness of breath. He did have an episode this morning for about 1 hour of atrial fibrillation with rapid ventricular response, started on amiodarone protocol, converted back to sinus rhythm with occasional ectopy. Patient has been off IV dopamine since the transfusion yesterday, hemoglobin this morning 6.7, will transfuse another unit packed red blood cells. Remains on 2 L nasal cannula with oxygen saturation in the mid 90s. Right internal jugular Cordis, left pleural chest tubes remain present. No other new concerns. Objective - Vital Signs Vital signs: Vital Signs Temp 98.4 F 01/20/22 04:00 Pulse 85 01/20/22 07:21 Resp 12 01/20/22 07:00 BP 105/61 01/20/22 07:00 Pulse Ox 99 01/20/22 07:10 FiO2 50 01/17/22 17:40 Intake & Output 01/19/22 01/20/22 01/20/22 18:59 06:59 18:59 Intake Total 1889 396 33 Output Total 582 505 30 Balance 1307 -109 3 Weight 93.9 kg Intake: IV 429 396 33 Lactated Ringers 1,000 ml 360 360 30 @ 20 mls/hr IV .Q24H [facility] Rx#:[id number] pressure bag 69 36 3 Oral 840 Blood Product 620 Rc As-1 Unit 310 [id number] Output: Chest Tube Drainage 190 180 30 LP 110 180 30 MS 80 Urine 392 325 0 Straight 100 Other: Voiding Method Indwelling Catheter Urinal ABP, PAP, CO, CI - Last Documented Arterial Blood Pressure 160/58 Pulmonary Artery Pressure 29/13 Cardiac Output 4.4 Cardiac Index 2.2 - Exam CONSTITUTIONAL: Appears comfortable, cooperative, no acute distress RESPIRATORY: Lungs sounds diminished bilaterally. Respirations even, nonlabored. Currently on 2 L nasal cannula with oxygen saturation 99%. Able to achieve 2000 mL on incentive spirometry. Strong cough. CARDIOVASCULAR: S1, S2 present. Regular rate and rhythm, sinus rhythm on telemetry. Sternum stable. Palpable peripheral pulses bilaterally. Left upper extremity edema present. No calf pain or tenderness noted. Heart hugger in place with patient demonstrating appropriate use. Antiembolism stockings, SCDs present. GASTROINTESTINAL: Abdomen soft, nontender, nondistended. Active bowel sounds present 4 quadrants. Tolerating diet. Positive flatus GENITOURINARY: Canela discontinued yesterday, patient was straight cathed x 1 for 100 mL then voided on his own INTEGUMENTARY: Skin is warm and dry with evidence of good perfusion. Anterior chest incision well approximated and covered with dry intact dressing. Right lower extremity EVH site as well as left radial artery harvest site well approximated without redness or drainage. Left upper extremity very eccymotic- expected NEUROLOGIC: Cranial nerves II through XII intact MUSKULOSKELETAL: Able to move all extremities, strength equal bilaterally, gait normal PSYCHIATRIC: Alert and oriented to person place and time, appropriate affect, intact judgment and insight INVASIVE LINES AND TUBES: Left pleural chest tube present and connected to wall suction, no air leak present, 70 mL serosanguineous drainage overnight, 350 mL in the last 24 hours. Right internal jugular Cordis present. - Allied health notes Allied health notes reviewed: nursing - Labs CBC & Chem 7: 01/20/22 04:00 01/20/22 04:00 Labs: Abnormal Lab Results - Last 24 Hours (Table) 01/12/22 01/19/22 01/19/22 Range/Units 11:00 14:46 16:53 WBC 14.2 H (3.8-10.6) k/uL RBC 2.37 L (4.30-5.90) m/uL Hgb 7.5 L (13.0-17.5) gm/dL Hct 22.9 L (39.0-53.0) % Plt Count 129 L (150-450) k/uL Neutrophils # 11.4 H (1.3-7.7) k/uL Sodium (137-145) mmol/L BUN (9-20) mg/dL Glucose (74-99) mg/dL POC Glucose (mg/dL) 146 H (70-110) mg/dL Calcium (8.4-10.2) mg/dL AST (17-59) U/L Total Protein (6.3-8.2) g/dL Albumin (3.5-5.0) g/dL Crossmatch See Detail 01/20/22 01/20/22 01/20/22 Range/Units 04:00 04:00 06:09 WBC (3.8-10.6) k/uL RBC 2.00 L (4.30-5.90) m/uL Hgb 6.7 L* (13.0-17.5) gm/dL Hct 19.8 L* (39.0-53.0) % Plt Count 106 L (150-450) k/uL Neutrophils # (1.3-7.7) k/uL Sodium 133 L (137-145) mmol/L BUN 26 H (9-20) mg/dL Glucose 119 H (74-99) mg/dL POC Glucose (mg/dL) 162 H (70-110) mg/dL Calcium 8.3 L (8.4-10.2) mg/dL AST 82 H (17-59) U/L Total Protein 4.9 L (6.3-8.2) g/dL Albumin 3.2 L (3.5-5.0) g/dL Crossmatch - Imaging and Cardiology Chest x-ray: report reviewed, image reviewed Assessment and Plan Assessment: 1. Coronary artery disease, status post four-vessel off-pump CABG 2. History of coronary artery disease with myocardial infarction status post PCI in 2010 3. History of hypertension 4. Hyperlipidemia, treated, cholesterol 138, LDL 74 5. Asthma 6. History of skin cancer status post removal 7. Previous tobacco dependence, preoperative FEV1 62% of predicted 8. Family history of heart disease. 9. Postoperative acute blood loss anemia and thrombocytopenia, expected 10. Postoperative afib Plan: 1. Continue to maximize medical therapy with aspirin, Zetia, statin, and beta ashley. Will increase beta ashley as tolerated 2. Continue low dose calcium channel ashley for radial artery spasm prophylaxis 3. Wean O2 as tolerated. Encourage incentive spirometry 10 times every hour while awake. Bronchodilators per pulmonology. 4. Increase activity, ambulate as tolerated. PT/OT/cardiac rehab following 5. Will monitor daily labs and chest x-ray. Electrolyte replacement per protocol. Will give 1 unit packed red blood cells today followed by 20 mg IVP lasix 6. Pain control with current medication regimen. 7. Insulin management per internal medicine. Patient is not diabetic, preoperative hemaglobin A1c 5.5%. 8. Will discontinue left pleural chest tube 9. Continue flomax. May bladder scan and straight cath for greater than 300 mL residual 10. Strict accurate intake and output. Daily weights. 11. More recommendations to follow
[2022-01-20] MEDS: AMIODARONE 200 MG TAB PO SCH ×2 (09:53→20:19)
[2022-01-20] MEDS: ASPIRIN 325 MG TAB PO SCH (09:54)
[2022-01-20] MEDS: ATORVASTATIN 80 MG TAB PO SCH (09:54)
[2022-01-20] MEDS: CLOPIDOGREL 75 MG TAB PO SCH (09:54)
[2022-01-20] MEDS: EZETIMIBE 10 MG TAB PO SCH (09:54)
[2022-01-20] MEDS: MULTIVITAMINS, THERA 1 EACH TAB PO SCH (09:54)
[2022-01-20] MEDS: METOPROLOL TARTRATE 25 MG TAB PO SCH ×3 (09:54→20:20)
--- NOTE | 2022-01-20 10:14 | P.PN ---
Subjective Progress Note Date: 01/20/22 Principal diagnosis: Status post bypass grafting. 81-year-old male patient of Dr. Wu Turner, previous history of CAD with MT status post PCI in 2010, hypertension, hyperlipidemia, chronic bronchial asthma unspecified, former smoker and family history of heart disease. Patient was recently hospitalized at [facility] where he presented with exertional chest pain and shortness of breath. He underwent heart catheterization on 01/12/2022 which showed distal left main stenosis of 60%, proximal LAD stenosis of 99%, patent up his marginal 2 stent, and mid to distal RCA stenosis of 99%. Echocardiogram showed preserved LV function with EF of 55- 60%, and minimal mitral and tricuspid insufficiency, no pulmonary hypertension or pericardial effusion. Patient underwent four-vessel bypass grafting surgery off pump, with JUDD to LAD, left radial artery to OM, SVG to RI, and SVG to the RCA, endoscopic vein harvest of the right leg, and left atrial appendage exclusion. Patient is seen in postoperative period sedated and intubated on assist control with a rate of 12, tidal volume is 550, FiO2 100% and PEEP of 8. Postoperative chest x-ray is pending, she is on Diprivan at 25 mics per kilo per minute, Cardizem drip is at 5 mg per hour, and nitroglycerin is a 5 mics per kilo per minute and lactated Ringer's at 50 ML per hour, PA pressures 22/7, CVP 6, cardiac output is 5.3, and cardiac index is 2.6, he is in sinus mechanism, hemodynamically he is stable, his left pleural and mediastinal chest tube with small amount of serous output in the Pleur-evac, postoperative blood gas and labs are pending. Progress note dated 01/18/2022. This is a 81-year-old male postop day #1, status post four-vessel bypass grafting. He was extubated about 5 hours after leaving the operating room. He's currently on 2 L nasal cannula. He is getting lactated Ringer's at 50 mL an hour, Cardizem drip at 5 mg an hour, and insulin drip at 1.5 units an hour. The patient's doing very well. His been doing his incentive spirometer, every hour. White count 13.6, hemoglobin 7.2, hematocrit 21.5, and platelet count 236,000. Electrolyte profile completely normal. Chest x-ray shows some post surgical changes without evidence of pneumothorax or pleural effusion. Progress note dated 01/19/2022. 81-year-old male seen again in the intensive care unit, room 265. He is postop day #2, status post four-vessel bypass grafting. The patient is currently on 2 L nasal cannula. He is getting dopamine at 2.5 mcg/kg/m. He is also receiving lactated Ringer's at 40 mL an hour. He had an uneventful night according to the nurses. He's been relatively stable. The patient is going to receive 1 unit of blood. White count 11.3, hemoglobin 6.2, hematocrit 18.5, and platelet count 112,000. Sodium 133, potassium 4.1, chloride 104, CO2 25, BUN 24, and creatinine 1.17. Chest x-ray shows basilar atelectasis on the left. Progress note dated 01/20/2022. This is a patient who is 81 years of age. He is postop day #3, status post four-vessel bypass grafting. The patient is going to receive 1 unit of packed red blood cells for hemoglobin of 6.7. He's currently on amiodarone at 1 mg/m, 2 L of nasal oxygen, and lactated Ringer's at 40 mL an hour. He seems quite s table. White count is 9.4, hemoglobin 6.7, hematocrit 19.8, and platelet count 206,000. Sodium 133, potassium 3.8, chlorides 103, CO2 24, BUN 26, and creatinine 1.02. Chest x-ray shows postsurgical changes, without pneumothorax or significant pleural effusion. Objective - Vital Signs Vital signs: Vital Signs Temp 97.8 F 01/20/22 09:45 Pulse 73 01/20/22 10:00 Resp 16 01/20/22 10:00 BP 110/59 01/20/22 10:00 Pulse Ox 98 01/20/22 10:00 FiO2 50 01/17/22 17:40 Intake & Output 01/19/22 01/20/22 01/20/22 18:59 06:59 18:59 Intake Total 1889 396 302 Output Total 582 505 30 Balance 1307 -109 272 Weight 93.9 kg Intake: IV 429 396 132 Lactated Ringers 1,000 ml 360 360 120 @ 20 mls/hr IV .Q24H [facility] Rx#:[id number] pressure bag 69 36 12 Oral 840 170 Blood Product 620 0 Rc As-1 Unit 0 [id number] Rc As-1 Unit 310 [id number] Output: Chest Tube Drainage 190 180 30 LP 110 180 30 MS 80 Urine 392 325 0 Straight 100 Other: Voiding Method Indwelling Catheter Urinal # Voids 1 ABP, PAP, CO, CI - Last Documented Arterial Blood Pressure 160/58 Pulmonary Artery Pressure 29/13 Cardiac Output 4.4 Cardiac Index 2.2 - Exam No acute distress, oriented 3. Sitting in a chair. Currently on 2 L. HEENT examination is grossly unremarkable. Neck supple. Full range of motion. No adenopathy thyromegaly or neck vein distention. Cardiovascular examination reveals regular rhythm rate. S1-S2 normal. No S3 or S4. No discernible murmur noted. Heart rate 73 bpm. Lungs reveal mild scattered rhonchi. No wheezes. No crackles. Breath sounds equal bilaterally. Saturation is 98 %. Abdomen soft bowel sounds are heard. No masses or tenderness. Extremities are intact. No cyanosis clubbing or edema. Skin is without rash or lesion. Neurologic examination is brief but nonfocal. - Labs CBC & Chem 7: 01/20/22 04:00 01/20/22 04:00 Labs: Abnormal Lab Results - Last 24 Hours (Table) 01/12/22 01/19/22 01/19/22 Range/Units 11:00 14:46 16:53 WBC 14.2 H (3.8-10.6) k/uL RBC 2.37 L (4.30-5.90) m/uL Hgb 7.5 L (13.0-17.5) gm/dL Hct 22.9 L (39.0-53.0) % Plt Count 129 L (150-450) k/uL Neutrophils # 11.4 H (1.3-7.7) k/uL Sodium (137-145) mmol/L BUN (9-20) mg/dL Glucose (74-99) mg/dL POC Glucose (mg/dL) 146 H (70-110) mg/dL Calcium (8.4-10.2) mg/dL AST (17-59) U/L Total Protein (6.3-8.2) g/dL Albumin (3.5-5.0) g/dL Crossmatch See Detail 01/20/22 01/20/22 01/20/22 Range/Units 04:00 04:00 06:08 WBC (3.8-10.6) k/uL RBC 2.00 L (4.30-5.90) m/uL Hgb 6.7 L* (13.0-17.5) gm/dL Hct 19.8 L* (39.0-53.0) % Plt Count 106 L (150-450) k/uL Neutrophils # (1.3-7.7) k/uL Sodium 133 L (137-145) mmol/L BUN 26 H (9-20) mg/dL Glucose 119 H (74-99) mg/dL POC Glucose (mg/dL) (70-110) mg/dL Calcium 8.3 L (8.4-10.2) mg/dL AST 82 H (17-59) U/L Total Protein 4.9 L (6.3-8.2) g/dL Albumin 3.2 L (3.5-5.0) g/dL Crossmatch See Detail 01/20/22 Range/Units 06:09 WBC (3.8-10.6) k/uL RBC (4.30-5.90) m/uL Hgb (13.0-17.5) gm/dL Hct (39.0-53.0) % Plt Count (150-450) k/uL Neutrophils # (1.3-7.7) k/uL Sodium (137-145) mmol/L BUN (9-20) mg/dL Glucose (74-99) mg/dL POC Glucose (mg/dL) 162 H (70-110) mg/dL Calcium (8.4-10.2) mg/dL AST (17-59) U/L Total Protein (6.3-8.2) g/dL Albumin (3.5-5.0) g/dL Crossmatch Assessment and Plan Assessment: Postop day #3, status post four-vessel bypass grafting, with left atrial appendage exclusion. Routine postoperative ventilator management. Postoperative anemia, expected. History of chronic bronchial asthma. Hypertension. Hyperlipidemia. Prior history of tobacco use. Family history of heart disease. CAD, with previous MT, and PCI. Plan: Plan dated 01/18/2022. The patient is postop day #1. Labs, x-rays, and medications are reviewed. The patient remains on Cardizem 5 mg an hour, and insulin at 1.5 units an hour. He's on 2 L nasal cannula. He is using his incentive spirometer every hour. He was extubated about 5 hours after leaving the operating room. Labs, x-rays, and medications are reviewed. Prognosis is guarded. The patient appears to be tolerating the procedure very well. Plan dated 01/19/2022. The patient is postop day #2. The patient's hemoglobin is a bit low, and he will receive 1 unit of packed red blood cells. Labs, x-rays, medications are reviewed. He is on 2 L. Saturations are 96-97%. Chest x-ray shows some atelectasis at the left lung base. He continues to work on his incentive spirometer. He is progressing very nicely. We'll continue to follow the patient and make recommendations along the way. Prognosis is thought to be good. Plan dated 01/20/2022. Today's postop day #3. The patient will receive a unit of blood today. Hemoglobin is 6.7. Is getting lactated Ringer's at 40 mL an hour. He remains on 2 L of oxygen. He is also on amiodarone at 1 mg/m. We recommend hourly use of the incentive spirometer. His x-ray looks reasonably good. We will continue to follow make recommendations along the way. Time with Patient: Less than 30
[2022-01-20 11:53] LABS: Glucose,Whole Blood 130 mg/dL (70-110)
[2022-01-20] MEDS: amLODIPine 2.5 MG TAB PO SCH (13:41)
[2022-01-20 17:18] LABS: Glucose,Whole Blood 102 mg/dL (70-110)
[2022-01-20] MEDS: TAMSULOSIN 0.4 MG CAP.ER.24H PO SCH (18:10)
[2022-01-20 19:40] LABS: Glucose,Whole Blood 138 mg/dL (70-110)
[2022-01-20] MEDS: MELATONIN 3 MG TABLET PO SCH (20:20)
[2022-01-20] MEDS: SENNOSIDES-DOCUSATE SODIUM 1 EACH TAB PO SCH (20:20)
[2022-01-20] MEDS: LACTATED RINGERS 1,000 ML IV SCH (20:20)
--- NOTE | 2022-01-21 00:15 | P.PN ---
Subjective Progress Note Date: 01/20/22 - Reason for Consult Consult date: 01/18/22 Medical management postop CABG - History of Present Illness This is a pleasant 81-year-old male who was recently admitted for chest pain underwent cardiac catheterization which revealed severe coronary artery disease with myocardial infarction status post PCI and underwent off-pump four-vessel c oronary artery bypass grafting with Dr. Billy and is postop day #1. Patient does have a past medical history of asthma, coronary artery disease, skin cancer, chest pain angina, hyperlipidemia, hypertension, myocardial infarction with PCI stenting, and prostate disorder and follows with Dr. Wu Turner in the outpatient setting. Patient is a former smoker and denies any alcohol or illicit drug use. Patient is seen and evaluated sitting up in the chair in the ICU with and daughter at the bedside. Multiple chest tubes and drains noted. Patient also continues on 2 L via nasal cannula maintaining oxygen saturations above 95%.. Blood pressures are on the lower side although not req uiring pressor support and home medications of blood pressure has been resumed. Patient was maintained on insulin drip for tight glycemic control per CABG protocol and recommend continue monitoring Accu-Cheks before meals and at bedtime and using sliding scale and discontinuing the insulin drip. Patient is being started on clear liquid diet and slowly advancing as tolerated. 01/19/2022 Patient is seen in follow-up this morning continues to be in the ICU with multiple medical consultations following. Patient continues with multiple chest tubes an indwelling Canlea catheter and 2 L via nasal cannula. He is reporting his buttock hurts from sitting and was unable to get up and walk much yesterday. Plan is for patient to continue to increase activity as tolerated. Chest x-ray today shows mild left lobe infiltrate and a [place] reuben catheter has been removed. Patient is afebrile and denies chest pain or shortness of breath. On this morning's labs hemoglobin was found to be 6.2 and awaiting to receive a unit of PRBCs. WBCs 11.3 with a platelet count of 112. Sodium was 133 with a potassium of 4.1 and current creatinine is 1.17 and blood sugars well controlled. Patient tolerating diet with no reports of nausea or vomiting noted. Recommend repeat labs and x-ray in the a.m. 01/20/2022 Patient is seen today in the ICU and is receiving a unit of PRBC for hemoglobin of 6.7 today. Patient is being downgraded from the ICU to selective once a bed becomes available. Patient continues with a chest tube and chest xray shows similar left infiltrate with no pneumothorax noted. Patient is currently maintaining oxygen saturations above 92%. Cardiology following as well and patient developed post op afib and is maintained on IV amiodarone and being transitioned to oral. Increasing beta ashley. Patient is afebrile and denies chest pain or shortness of breath. Some mild shortness of breath with exertion but recovers. Patient is tolerating diet and denies nausea or vomiting. Patient is working with physical therapy. Review of systems: Constitutional: No reports of fatigue, fever, or chills Cardiovascular: No reports of chest pain or palpitations Respiratory: No reports of shortness of breath or cough GI: No reports of nausea, vomiting, or diarrhea : No reports of dysuria or retention Neurovascular: reports of generalized weakness All medications have been reviewed PHYSICAL EXAMINATION: GENERAL: The patient is alert and oriented x4, Well developed, well nourished. HEENT: Pupils are round and equally reacting to light. EOMI. no scleral icterus. No conjunctival pallor. Normocephalic, atraumatic. No pharyngeal erythema. No thyromegaly. CARDIOVASCULAR: S1 and S2 muffled, currently sinus rhythm on the monitor PULMONARY: diminished breath sounds bilaterally with no wheezing or rhonchi noted. Heart hugger noted, continued chest tube noted ABDOMEN: soft. Nontender on exam. non-distended, normoactive bowel sounds. No palpable organomegaly. MUSCULOSKELETAL: No joint swelling or deformity. EXTREMITIES: No cyanosis, clubbing, or pedal edema. NEUROLOGICAL: Gross neurological examination did not reveal any focal deficits. Diffuse weakness SKIN: No rashes. Assessment: Coronary artery disease, status post four-vessel CABG postop day #3 Hypertension paroxysmal atrial fibrillation, post operative, common with recent CABG, currently sinus Acute blood loss anemia and thrombocytopenia, expected postoperatively Hyperlipidemia History of asthma Former history of nicotine dependence History of previous myocardial infarction with coronary artery disease and PCI in 2010 GI prophylaxis DVT prophylaxis Full code Plan: Recommend to continue with current medications and management per cardiothoracic services. Patient is status post four-vessel off-pump CABG postop day #2. Patient continues with a chest tube and drains along with indwelling Canela ca theter have been removed. Plan is to remove remaining left chest tube today. Patient hemoglobin of 6.7 today and receiving a unit of PRBCs and recommend repeat labs. Chest x-ray showing left lower lobe infiltrate that appears similar to previous xray. Currently on room air. Patient was able to get up and work with physical therapy today and is being downgraded from the ICU to the selective unit. Patient is maintained on consistent carb diet and Accu-Cheks before meals and at bedtime and will use sliding scale as needed for tight glycemic control. Patient is not a diabetic and hemoglobin A1c was 5.5 on initial surgical evaluation. Encouraged incentive spirometer use at least 10 times every hour while awake. Repeat labs and chest xray ordered for the am. Thank you for this consultation and we will continue to follow with cardiothoracic surgery during hospitalization. The impression and plan of care has been dictated by Bushra Ramon, nurse practitioner as directed. Dr. Rudy MD I have performed a history and examination and MDM of this patient, discussed the same with the dictator, and agree with the dictator's assessment and plan as written ,documented as a scribe. Based on total visit time, I have performed more than 50% of the visit. Any additional findings or plans will be noted. Objective - Vital Signs Vital signs: Vital Signs Temp 98.4 F 01/20/22 04:00 Pulse 85 01/20/22 07:21 Resp 12 01/20/22 07:00 BP 105/61 01/20/22 07:00 Pulse Ox 99 01/20/22 07:10 FiO2 50 01/17/22 17:40 Intake & Output 01/19/22 01/20/22 01/20/22 18:59 06:59 18:59 Intake Total 1889 396 33 Output Total 582 505 30 Balance 1307 -109 3 Weight 93.9 kg Intake: IV 429 396 33 Lactated Ringers 1,000 ml 360 360 30 @ 20 mls/hr IV .Q24H [facility] Rx#:[id number] pressure bag 69 36 3 Oral 840 Blood Product 620 Rc As-1 Unit 310 [id number] Output: Chest Tube Drainage 190 180 30 LP 110 180 30 MS 80 Urine 392 325 0 Straight 100 Other: Voiding Method Indwelling Catheter Urinal ABP, PAP, CO, CI - Last Documented Arterial Blood Pressure 160/58 Pulmonary Artery Pressure 29/13 Cardiac Output 4.4 Cardiac Index 2.2 - Labs CBC & Chem 7: 01/20/22 04:00 01/20/22 04:00 Labs: Abnormal Lab Results - Last 24 Hours (Table) 01/12/22 01/19/22 01/19/22 Range/Units 11:00 14:46 16:53 WBC 14.2 H (3.8-10.6) k/uL RBC 2.37 L (4.30-5.90) m/uL Hgb 7.5 L (13.0-17.5) gm/dL Hct 22.9 L (39.0-53.0) % Plt Count 129 L (150-450) k/uL Neutrophils # 11.4 H (1.3-7.7) k/uL Sodium (137-145) mmol/L BUN (9-20) mg/dL Glucose (74-99) mg/dL POC Glucose (mg/dL) 146 H (70-110) mg/dL Calcium (8.4-10.2) mg/dL AST (17-59) U/L Total Protein (6.3-8.2) g/dL Albumin (3.5-5.0) g/dL Crossmatch See Detail 01/20/22 01/20/22 01/20/22 Range/Units 04:00 04:00 06:08 WBC (3.8-10.6) k/uL RBC 2.00 L (4.30-5.90) m/uL Hgb 6.7 L* (13.0-17.5) gm/dL Hct 19.8 L* (39.0-53.0) % Plt Count 106 L (150-450) k/uL Neutrophils # (1.3-7.7) k/uL Sodium 133 L (137-145) mmol/L BUN 26 H (9-20) mg/dL Glucose 119 H (74-99) mg/dL POC Glucose (mg/dL) (70-110) mg/dL Calcium 8.3 L (8.4-10.2) mg/dL AST 82 H (17-59) U/L Total Protein 4.9 L (6.3-8.2) g/dL Albumin 3.2 L (3.5-5.0) g/dL Crossmatch See Detail 01/20/22 Range/Units 06:09 WBC (3.8-10.6) k/uL RBC (4.30-5.90) m/uL Hgb (13.0-17.5) gm/dL Hct (39.0-53.0) % Plt Count (150-450) k/uL Neutrophils # (1.3-7.7) k/uL Sodium (137-145) mmol/L BUN (9-20) mg/dL Glucose (74-99) mg/dL POC Glucose (mg/dL) 162 H (70-110) mg/dL Calcium (8.4-10.2) mg/dL AST (17-59) U/L Total Protein (6.3-8.2) g/dL Albumin (3.5-5.0) g/dL Crossmatch
[2022-01-21 06:25] LABS: Glucose,Whole Blood 116 mg/dL (70-110)
[2022-01-21] MEDS: INSULIN ASPART (NovoLOG) 100 UNIT/ML VIAL SQ SCH ×4 (06:29→20:37)
[2022-01-21] MEDS: ASCORBIC ACID 500 MG TAB PO SCH ×2 (06:31→17:23)
[2022-01-21] MEDS: FERROUS SULFATE 325 MG TAB PO SCH ×2 (06:31→17:23)
[2022-01-21] MEDS: PANTOPRAZOLE 40 MG TABLET PO SCH (06:31)
[2022-01-21] MEDS: DEXTROSE/WATER 1 250ML.BAG with DOPamine DRIP 800 MG IV SCH (07:51)
[2022-01-21] MEDS: IPRATROPIUM-ALBUTEROL 3 ML NEB INHALATION SCH ×4 (08:37→20:50)
[2022-01-21] MEDS: SYMBICORT 160-4.5 MCG INHALER INHALATION SCH (08:37)
--- NOTE | 2022-01-21 08:59 | P.PN ---
Subjective Progress Note Date: 01/21/22 Principal diagnosis: Coronary artery disease. Previous medical history of coronary artery disease with myocardial infarction status post PCI in 2010, hypertension, hyperlipidemia, asthma with a preoperative FEV1 62% of predicted value, skin cancer status post removal, previous tobacco dependence, and family history of heart disease. POD #4 off-pump coronary artery bypass grafting 4 with left internal mammary artery to left anterior descending coronary artery, left radial artery graft to the obtuse marginal coronary artery, saphenous vein graft to the intermediate coronary artery and right coronary artery. Ligation of the left atrial appendage with a 35 mm Atriclip. Endovascular harvest of both right greater saphenous vein and left radial artery. Postoperative acute blood loss anemia and thrombocytopenia, expected due to hemodilution. Postoperative afib, known common occurrence after open heart surgery The patient was seen and examined this morning sitting up in a recliner on the cardiac stepdown unit in no acute distress eating breakfast. States post surg ical pain is controlled on current medication regimen, denies shortness of breath. Remains in sinus rhythm and hemodynamically stable. Remains on room air with oxygen saturation in the high 90s. He has been ambulatory with help a short distance. No other new concerns. Objective - Vital Signs Vital signs: Vital Signs Temp 97.9 F 01/21/22 03:38 Pulse 80 01/21/22 08:51 Resp 19 01/21/22 03:38 BP 133/75 01/21/22 03:38 Pulse Ox 98 01/21/22 08:39 FiO2 50 01/17/22 17:40 Intake & Output 01/20/22 01/21/22 01/21/22 18:59 06:59 18:59 Intake Total 1161 240 180 Output Total 880 500 150 Balance 281 -260 30 Weight 95.6 kg Intake: IV 311 Lactated Ringers 1,000 ml 290 @ 20 mls/hr IV .Q24H [facility] Rx#:[id number] pressure bag 21 Oral 540 240 180 Blood Product 310 Rc As-1 Unit 310 [id number] Output: Chest Tube Drainage 30 LP 30 Urine 850 500 150 Other: Voiding Method Toilet Toilet Bedside Commode Urinal Urinal # Voids 1 1 ABP, PAP, CO, CI - Last Documented Arterial Blood Pressure 160/58 Pulmonary Artery Pressure 29/13 Cardiac Output 4.4 Cardiac Index 2.2 - Exam CONSTITUTIONAL: Appears comfortable, cooperative, no acute distress RESPIRATORY: Lungs sounds diminished bilaterally. Respirations even, n onlabored. Currently on room air with oxygen saturation 98%. Able to achieve 1000 mL on incentive spirometry. Strong cough. CARDIOVASCULAR: S1, S2 present. Regular rate and rhythm, sinus rhythm on telemetry. Sternum stable. Palpable peripheral pulses bilaterally. Left upper extremity edema present. No calf pain or tenderness noted. Heart hugger in place with patient demonstrating appropriate use. Antiembolism stockings, SCDs present. GASTROINTESTINAL: Abdomen soft, nontender, nondistended. Active bowel sounds present 4 quadrants. Tolerating diet. Positive flatus GENITOURINARY: Continues to void INTEGUMENTARY: Skin is warm and dry with evidence of good perfusion. Anterior chest incision well approximated and covered with dry intact dressing. Right lower extremity EVH site as well as left radial artery harvest site well approximated without redness or drainage. Left upper extremity very eccymotic- expected NEUROLOGIC: Cranial nerves II through XII intact MUSKULOSKELETAL: Able to move all extremities, strength equal bilaterally, gait normal PSYCHIATRIC: Alert and oriented to person place and time, appropriate affect, intact judgment and insight - Allied health notes Allied health notes reviewed: nursing - Labs CBC & Chem 7: 01/21/22 11:02 01/21/22 11:02 Labs: Abnormal Lab Results - Last 24 Hours (Table) 01/20/22 01/20/22 01/20/22 Range/Units 06:08 11:52 19:39 POC Glucose (mg/dL) 130 H 138 H (70-110) mg/dL Crossmatch See Detail 01/21/22 Range/Units 06:24 POC Glucose (mg/dL) 116 H (70-110) mg/dL Crossmatch - Imaging and Cardiology Chest x-ray: report reviewed, image reviewed Assessment and Plan Assessment: 1. Coronary artery disease, status post four-vessel off-pump CABG 2. History of coronary artery disease with myocardial infarction status post PCI in 2010 3. History of hypertension 4. Hyperlipidemia, treated, cholesterol 138, LDL 74 5. Asthma 6. History of skin cancer status post removal 7. Previous tobacco dependence, preoperative FEV1 62% of predicted 8. Family history of heart disease. 9. Postoperative acute blood loss anemia and thrombocytopenia, expected 10. Postoperative afib Plan: 1. Continue to maximize medical therapy with aspirin, Zetia, statin, and beta ashley. Will increase beta ashley as tolerated, increased to 25 mg 3 times a day yesterday 2. Continue low dose calcium channel ashley for radial artery spasm prophylaxis 3. Encourage incentive spirometry 10 times every hour while awake. Bronchodilators per pulmonology. 4. Increase activity, ambulate as tolerated. PT/OT/cardiac rehab following. Keep left upper extremity elevated, apply warm packs 5. Will monitor daily labs and chest x-ray. Electrolyte replacement per p rotocol. 6. Pain control with current medication regimen. 7. Insulin management per internal medicine. Patient is not diabetic, preoperative hemaglobin A1c 5.5%. 8. Continue flomax. May bladder scan and straight cath for greater than 300 mL residual 9. Strict accurate intake and output. Daily weights. 10. Patient to shower daily 11. Discharge planning in progress. Anticipate discharge to home with home care this weekend 12. More recommendations to follow
--- NOTE | 2022-01-21 09:18 | XR ---
EXAMINATION TYPE: XR chest 2V DATE OF EXAM: 01/21/2022 6:19 AM COMPARISON: Chest radiographs from TECHNIQUE: XR chest 2V Frontal and lateral views of the chest. CLINICAL INDICATION:Male, 81 years old with history of post cardiac surgery; FINDINGS: Lungs/Pleura: There is no evidence of focal consolidation, or pneumothorax. There is blunting of the posterior costophrenic angles. Pulmonary vascularity: Unremarkable. Heart/mediastinum: Cardiomediastinal silhouette is unremarkable. Left atrial appendage occlusion de vice is present. Musculoskeletal: No acute osseous pathology. Midline sternotomy wires are noted and stable. There has been removal of the prior drainage catheters. IMPRESSION: Small bilateral pleural effusions with cardiomegaly.
[2022-01-21] MEDS: ASPIRIN 325 MG TAB PO SCH (10:07)
[2022-01-21] MEDS: polyethylene glycoL 3350 17 GM POWD.PACK PO SCH (10:07)
[2022-01-21] MEDS: EZETIMIBE 10 MG TAB PO SCH (10:07)
[2022-01-21] MEDS: amLODIPine 2.5 MG TAB PO SCH (10:08)
[2022-01-21] MEDS: METOPROLOL TARTRATE 25 MG TAB PO SCH (10:08)
[2022-01-21] MEDS: AMIODARONE 200 MG TAB PO SCH ×2 (10:08→20:42)
[2022-01-21] MEDS: CLOPIDOGREL 75 MG TAB PO SCH (10:08)
[2022-01-21] MEDS: MULTIVITAMINS, THERA 1 EACH TAB PO SCH (10:08)
[2022-01-21] MEDS: ACETAMINOPHEN TAB 500 MG TAB PO PRN (10:08)
[2022-01-21] MEDS: ATORVASTATIN 80 MG TAB PO SCH (10:08)
[2022-01-21] MEDS: HEPARIN SODIUM,PORCINE/PF 5,000 UNIT/0.5 ML SYRINGE SQ SCH ×3 (10:09→23:05)
[2022-01-21 11:36] LABS: Glucose,Whole Blood 133 mg/dL (70-110)
--- NOTE | 2022-01-21 11:36 | P.PN ---
Subjective Progress Note Date: 01/21/22 Principal diagnosis: Status post bypass grafting. 81-year-old male patient of Dr. Wu Turner, previous history of CAD with AZ status post PCI in 2010, hypertension, hyperlipidemia, chronic bronchial asthma unspecified, former smoker and family history of heart disease. Patient was recently hospitalized at [facility] where he presented with exertional chest pain and shortness of breath. He underwent heart catheterization on 01/12/2022 which showed distal left main stenosis of 60%, proximal LAD stenosis of 99%, patent up his marginal 2 stent, and mid to distal RCA stenosis of 99%. Echocardiogram showed preserved LV function with EF of 55- 60%, and minimal mitral and tricuspid insufficiency, no pulmonary hypertension or pericardial effusion. Patient underwent four-vessel bypass grafting surgery off pump, with JUDD to LAD, left radial artery to OM, SVG to RI, and SVG to the RCA, endoscopic vein harvest of the right leg, and left atrial appendage exclusion. Patient is seen in postoperative period sedated and intubated on assist control with a rate of 12, tidal volume is 550, FiO2 100% and PEEP of 8. Postoperative chest x-ray is pending, she is on Diprivan at 25 mics per kilo per minute, Cardizem drip is at 5 mg per hour, and nitroglycerin is a 5 mics per kilo per minute and lactated Ringer's at 50 ML per hour, PA pressures 22/7, CVP 6, cardiac output is 5.3, and cardiac index is 2.6, he is in sinus mechanism, hemodynamically he is stable, his left pleural and mediastinal chest tube with small amount of serous output in the Pleur-evac, postoperative blood gas and labs are pending. Progress note dated 01/18/2022. This is a 81-year-old male postop day #1, status post four-vessel bypass grafting. He was extubated about 5 hours after leaving the operating room. He's currently on 2 L nasal cannula. He is getting lactated Ringer's at 50 mL an hour, Cardizem drip at 5 mg an hour, and insulin drip at 1.5 units an hour. The patient's doing very well. His been doing his incentive spirometer, every hour. White count 13.6, hemoglobin 7.2, hematocrit 21.5, and platelet count 236,000. Electrolyte profile completely normal. Chest x-ray shows some post surgical changes without evidence of pneumothorax or pleural effusion. Progress note dated 01/19/2022. 81-year-old male seen again in the intensive care unit, room 265. He is postop day #2, status post four-vessel bypass grafting. The patient is currently on 2 L nasal cannula. He is getting dopamine at 2.5 mcg/kg/m. He is also receiving lactated Ringer's at 40 mL an hour. He had an uneventful night according to the nurses. He's been relatively stable. The patient is going to receive 1 unit of blood. White count 11.3, hemoglobin 6.2, hematocrit 18.5, and platelet count 112,000. Sodium 133, potassium 4.1, chloride 104, CO2 25, BUN 24, and creatinine 1.17. Chest x-ray shows basilar atelectasis on the left. Progress note dated 01/20/2022. This is a patient who is 81 years of age. He is postop day #3, status post four-vessel bypass grafting. The patient is going to receive 1 unit of packed red blood cells for hemoglobin of 6.7. He's currently on amiodarone at 1 mg/m, 2 L of nasal oxygen, and lactated Ringer's at 40 mL an hour. He seems quite s table. White count is 9.4, hemoglobin 6.7, hematocrit 19.8, and platelet count 206,000. Sodium 133, potassium 3.8, chlorides 103, CO2 24, BUN 26, and creatinine 1.02. Chest x-ray shows postsurgical changes, without pneumothorax or significant pleural effusion. Progress note dated 01/21/2022. 81-year-old male postop day #4, status post four-vessel bypass grafting. He is seen today in room 351. The patient will likely be discharged this weekend. The patient is currently not receiving any IV fluids, and not on any supplemental oxygen. No new labs today. Chest x-ray shows some mild cardi omegaly, with small effusions, and some postsurgical changes. Objective - Vital Signs Vital signs: Vital Signs Temp 98.2 F 01/21/22 09:54 Pulse 61 01/21/22 09:54 Resp 18 01/21/22 09:54 BP 130/73 01/21/22 09:54 Pulse Ox 98 01/21/22 08:39 FiO2 50 01/17/22 17:40 Intake & Output 01/20/22 01/21/22 01/21/22 18:59 06:59 18:59 Intake Total 1161 240 180 Output Total 880 500 150 Balance 281 -260 30 Weight 95.6 kg Intake: IV 311 Lactated Ringers 1,000 ml 290 @ 20 mls/hr IV .Q24H [facility] Rx#:[id number] pressure bag 21 Oral 540 240 180 Blood Product 310 Rc As-1 Unit 310 [id number] Output: Chest Tube Drainage 30 LP 30 Urine 850 500 150 Other: Voiding Method Toilet Toilet Bedside Commode Urinal Urinal # Voids 1 1 ABP, PAP, CO, CI - Last Documented Arterial Blood Pressure 160/58 Pulmonary Artery Pressure 29/13 Cardiac Output 4.4 Cardiac Index 2.2 - Exam No acute distress, oriented 3. Sitting in a chair. Currently on room air. HEENT examination is grossly unremarkable. Neck supple. Full range of motion. No adenopathy thyromegaly or neck vein distention. Cardiovascular examination reveals regular rhythm rate. S1-S2 normal. No S3 or S4. No discernible murmur noted. Heart rate 80 bpm. Lungs reveal mild scattered rhonchi. No wheezes. No crackles. Breath sounds equal bilaterally. Saturation is 98 %. Abdomen soft bowel sounds are heard. No masses or tenderness. Extremities are intact. No cyanosis clubbing or edema. Skin is without rash or lesion. Neurologic examination is brief but nonfocal. - Labs CBC & Chem 7: 01/20/22 04:00 01/20/22 04:00 Labs: Abnormal Lab Results - Last 24 Hours (Table) 01/20/22 01/20/22 01/20/22 Range/Units 06:08 11:52 19:39 POC Glucose (mg/dL) 130 H 138 H (70-110) mg/dL Crossmatch See Detail 01/21/22 Range/Units 06:24 POC Glucose (mg/dL) 116 H (70-110) mg/dL Crossmatch Assessment and Plan Assessment: Postop day #4, status post four-vessel bypass grafting, with left atrial appendage exclusion. Routine postoperative ventilator management. Postoperative anemia, expected. Postoperative atrial fibrillation. History of chronic bronchial asthma. Hypertension. Hyperlipidemia. Prior history of tobacco use. Family history of heart disease. CAD, with previous AZ, and PCI. Plan: Plan dated 01/18/2022. The patient is postop day #1. Labs, x-rays, and medications are reviewed. The patient remains on Cardizem 5 mg an hour, and insulin at 1.5 units an hour. He's on 2 L nasal cannula. He is using his incentive spirometer every hour. He was extubated about 5 hours after leaving the operating room. Labs, x-rays, and medications are reviewed. Prognosis is guarded. The patient appears to be tolerating the procedure very well. Plan dated 01/19/2022. The patient is postop day #2. The patient's hemoglobin is a bit low, and he will receive 1 unit of packed red blood cells. Labs, x-rays, medications are reviewed. He is on 2 L. Saturations are 96-97%. Chest x-ray shows some atelectasis at the left lung base. He continues to work on his incentive spirometer. He is progressing very nicely. We'll continue to follow the patient and make recommendations along the way. Prognosis is thought to be good. Plan dated 01/20/2022. Today's postop day #3. The patient will receive a unit of blood today. Hemoglobin is 6.7. Is getting lactated Ringer's at 40 mL an hour. He remains on 2 L of oxygen. He is also on amiodarone at 1 mg/m. We recommend hourly use of the incentive spirometer. His x-ray looks reasonably good. We will continue to follow make recommendations along the way. Plan dated 01/21/2022. The patient appears to be doing relatively well. He is postoperative day #4. He likely be discharged home this weekend. He is not on any supplemental oxygen. He's not receiving any IV fluids. No new labs today. Chest x-ray stable. We encourage the incentive spirometer. Prognosis is thought to be g enerally good. Time with Patient: Less than 30
[2022-01-21 11:38] LABS: HCT 25.1 % (39.0-53.0); MCH 32.4 pg (25.0-35.0); MCHC 33.4 g/dL (31.0-37.0); MCV 97.1 fL (80.0-100.0); Mean Platelet Volume 8.4; RBC 2.59 m/uL (4.30-5.90); RDW 15.6 % (11.5-15.5); WBC 10.4 k/uL (3.8-10.6)
[2022-01-21 11:40] LABS: HGB 8.4 gm/dL (13.0-17.5); Platelet Count 193 k/uL (150-450)
[2022-01-21 12:05] LABS: ALT 26 U/L (4-49); AST 77 U/L (17-59); African American GFR (CKD) >90 (>60 ml/min/1.73 sqM); Albumin 3.6 g/dL (3.5-5.0); Alkaline Phosphatase 61 U/L (38-126); Anion Gap 8 mmol/L; Blood Urea Nitrogen 21 mg/dL (9-20); Calcium 8.3 mg/dL (8.4-10.2); Carbon Dioxide 23 mmol/L (22-30); Chloride 102 mmol/L (98-107); Glucose 102 mg/dL (74-99); Magnesium 2.1 mg/dL (1.6-2.3); Non-African American GFR(CKD) 85 (>60 ml/min/1.73 sqM); Potassium 4.1 mmol/L (3.5-5.1); Sodium 133 mmol/L (137-145); Total Protein 5.5 g/dL (6.3-8.2)
--- NOTE | 2022-01-21 12:07 | P.PN ---
Subjective This is a pleasant 81-year-old male who was recently admitted for chest pain underwent cardiac catheterization which revealed severe coronary artery disease with myocardial infarction status post PCI and underwent off-pump four-vessel coronary artery bypass grafting with Dr. Billy and is postop day #1. Patient does have a past medical history of asthma, coronary artery disease, skin cancer, chest pain angina, hyperlipidemia, hypertension, myocardial infarction with PCI stenting, and prostate disorder and follows with Dr. Wu Turner in the outpatient setting. Patient is a former smoker and denies any alcohol or illicit drug use. Patient is seen and evaluated sitting up in the chair in the ICU with and daughter at the bedside. Multiple chest tubes and drains noted. Patient also continues on 2 L via nasal cannula maintaining oxygen saturations above 95%.. Blood pressures are on the lower side although not requiring pressor support and home medications of blood pressure has been resumed. Patient was maintained on insulin drip for tight glycemic control per CABG protocol and recommend continue monitoring Accu-Cheks before meals and at bedtime and using sliding scale and discontinuing the insulin drip. Patient is being started on clear liquid diet and slowly advancing as tolerated. 01/19/2022 Patient is seen in follow-up this morning continues to be in the ICU with multiple medical consultations following. Patient continues with multiple chest tubes an indwelling Canela catheter and 2 L via nasal cannula. He is reporting his buttock hurts from sitting and was unable to get up and walk much yesterday. Plan is for patient to continue to increase activity as tolerated. Chest x-ray today shows mild left lobe infiltrate and a [place] reuben catheter has been removed. Patient is afebrile and denies chest pain or shortness of breath. On this morning's labs hemoglobin was found to be 6.2 and awaiting to receive a unit of PRBCs. WBCs 11.3 with a platelet count of 112. Sodium was 133 with a potassium of 4.1 and current creatinine is 1.17 and blood sugars well controlled. Patient tolerating diet with no reports of nausea or vomiting noted. Recommend repeat labs and x-ray in the a.m. 01/20/2022 Patient is seen today in the ICU and is receiving a unit of PRBC for hemoglobin of 6.7 today. Patient is being downgraded from the ICU to selective once a bed becomes available. Patient continues with a chest tube and chest xray shows similar left infiltrate with no pneumothorax noted. Patient is currently maintaining oxygen saturations above 92%. Cardiology following as well and patient developed post op afib and is maintained on IV amiodarone and being transitioned to oral. Increasing beta ashley. Patient is afebrile and denies chest pain or shortness of breath. Some mild shortness of breath with exertion but recovers. Patient is tolerating diet and denies nausea or vomiting. Patient is working with physical therapy. 01/21/2022 Patient had an episode of atrial fibrillation for which patient was given a bolus of amiodarone today. Patient is otherwise clinically doing well says is a large bruise in the left arm and still has some bilateral lower extremity pedal edema. Review of systems: Constitutional: No reports of fatigue, fever, or chills Cardiovascular: No reports of chest pain or palpitations Respiratory: No reports of shortness of breath or cough GI: No reports of nausea, vomiting, or diarrhea : No reports of dysuria or retention Neurovascular: reports of generalized weakness All medications have been reviewed PHYSICAL EXAMINATION: GENERAL: The patient is alert and oriented x4, Well developed, well nourished. HEENT: Pupils are round and equally reacting to light. EOMI. no scleral icterus. No conjunctival pallor. Normocephalic, atraumatic. No pharyngeal erythema. No thyromegaly. CARDIOVASCULAR: S1 and S2 muffled, currently sinus rhythm on the monitor PULMONARY: diminished breath sounds bilaterally with no wheezing or rhonchi noted. Heart hugger noted, continued chest tube noted ABDOMEN: soft. Nontender on exam. non-distended, normoactive bowel sounds. No palpable organomegaly. MUSCULOSKELETAL: No joint swelling or deformity. EXTREMITIES: No cyanosis, clubbing, or pedal edema. NEUROLOGICAL: Gross neurological examination did not reveal any focal deficits. Diffuse weakness SKIN: No rashes. Assessment: Coronary artery disease, status post four-vessel CABG postop day #4 Hypertension paroxysmal atrial fibrillation, post operative, common with recent CABG, currently sinus Acute blood loss anemia and thrombocytopenia, expected postoperatively Hyperlipidemia History of asthma Former history of nicotine dependence History of previous myocardial infarction with coronary artery disease and PCI in 2010 GI prophylaxis DVT prophylaxis Full code Objective - Vital Signs Vital signs: Vital Signs Temp 98.3 F 01/21/22 11:39 Pulse 69 01/21/22 11:39 Resp 18 01/21/22 11:39 BP 135/71 01/21/22 11:39 Pulse Ox 97 01/21/22 11:39 FiO2 50 01/17/22 17:40 Intake & Output 01/20/22 01/21/22 01/21/22 18:59 06:59 18:59 Intake Total 1161 240 180 Output Total 880 500 150 Balance 281 -260 30 Weight 95.6 kg Intake: IV 311 Lactated Ringers 1,000 ml 290 @ 20 mls/hr IV .Q24H [facility] Rx#:[id number] pressure bag 21 Oral 540 240 180 Blood Product 310 Rc As-1 Unit 310 [id number] Output: Chest Tube Drainage 30 LP 30 Urine 850 500 150 Other: Voiding Method Toilet Toilet Bedside Commode Urinal Urinal # Voids 1 1 ABP, PAP, CO, CI - Last Documented Arterial Blood Pressure 160/58 Pulmonary Artery Pressure 29/13 Cardiac Output 4.4 Cardiac Index 2.2 - Labs CBC & Chem 7: 01/21/22 11:02 01/21/22 11:02 Labs: Abnormal Lab Results - Last 24 Hours (Table) 01/20/22 01/21/22 01/21/22 Range/Units 19:39 06:24 11:02 RBC 2.59 L (4.30-5.90) m/uL Hgb 8.4 L D (13.0-17.5) gm/dL Hct 25.1 L (39.0-53.0) % RDW 15.6 H (11.5-15.5) % Sodium (137-145) mmol/L BUN (9-20) mg/dL Glucose (74-99) mg/dL POC Glucose (mg/dL) 138 H 116 H (70-110) mg/dL Calcium (8.4-10.2) mg/dL AST (17-59) U/L Total Protein (6.3-8.2) g/dL 01/21/22 01/21/22 Range/Units 11:02 11:34 RBC (4.30-5.90) m/uL Hgb (13.0-17.5) gm/dL Hct (39.0-53.0) % RDW (11.5-15.5) % Sodium 133 L (137-145) mmol/L BUN 21 H (9-20) mg/dL Glucose 102 H (74-99) mg/dL POC Glucose (mg/dL) 133 H (70-110) mg/dL Calcium 8.3 L (8.4-10.2) mg/dL AST 77 H (17-59) U/L Total Protein 5.5 L (6.3-8.2) g/dL
--- NOTE | 2022-01-21 14:59 | P.PN ---
Subjective This is a 81 year old male with a past medical history Coronary artery disease with myocardial infarction status post PCI in 2010, hypertension, hype rlipidemia, asthma, skin cancer status post removal, previous tobacco dependence, and family history of heart disease. Patient follows in the office with Dr. Epperson. Patient underwent four-vessel CABG on 01/17. Patient seen and examined at bedside, no acute distress. He is sitting up in the bedside chair. He denies any chest pain or shortness of breath. He is maintaining sinus mechanism. No acute events overnight. Vital signs are stable. GENERAL: Well-appearing, well-nourished and in no acute distress. NECK: Supple without JVD or thyromegaly. LUNGS: Breath sounds diminished to auscultation bilaterally. Respiration equal and unlabored. No wheezes, rales or rhonchi. HEART: Regular rate and rhythm without murmurs, rubs or gallops. S1 and S2 heard. EXTREMITIES: Normal range of motion. No clubbing or cyanosis. Peripheral pulses intact. ASSESSMENT Coronary artery disease status post four-vessel CABG on 01/17/2022 Postoperative atrial fibrillation Postoperative acute blood loss anemia and thrombocytopenia History of coronary disease in the setting of an DC status post PCI in 2010 Hypertension Dyslipidemia Asthma Previous nicotine dependence PLAN Postoperative management per CT surgery Continue medical therapy with aspirin, diuretic, statin, beta ashley Continue low-dose calcium channel ashley Patient also on amiodarone Increase activity as tolerated We will continue to follow Nurse Practitioner note has been reviewed, I agree with a documented findings and plan of care. Patient was seen and examined. Objective - Vital Signs Vital signs: Vital Signs Temp 98.3 F 01/21/22 11:39 Pulse 76 01/21/22 12:23 Resp 18 01/21/22 11:39 BP 135/71 01/21/22 11:39 Pulse Ox 97 01/21/22 11:39 FiO2 50 01/17/22 17:40 Intake & Output 01/20/22 01/21/22 01/21/22 18:59 06:59 18:59 Intake Total 1161 240 180 Output Total 880 500 150 Balance 281 -260 30 Weight 95.6 kg Intake: IV 311 Lactated Ringers 1,000 ml 290 @ 20 mls/hr IV .Q24H [facility] Rx#:[id number] pressure bag 21 Oral 540 240 180 Blood Product 310 Rc As-1 Unit 310 [id number] Output: Chest Tube Drainage 30 LP 30 Urine 850 500 150 Other: Voiding Method Toilet Toilet Bedside Commode Urinal Urinal # Voids 1 1 ABP, PAP, CO, CI - Last Documented Arterial Blood Pressure 160/58 Pulmonary Artery Pressure 29/13 Cardiac Output 4.4 Cardiac Index 2.2 - Labs CBC & Chem 7: 01/21/22 11:02 01/21/22 11:02 Labs: Abnormal Lab Results - Last 24 Hours (Table) 01/20/22 01/21/22 01/21/22 Range/Units 19:39 06:24 11:02 RBC 2.59 L (4.30-5.90) m/uL Hgb 8.4 L D (13.0-17.5) gm/dL Hct 25.1 L (39.0-53.0) % RDW 15.6 H (11.5-15.5) % Sodium (137-145) mmol/L BUN (9-20) mg/dL Glucose (74-99) mg/dL POC Glucose (mg/dL) 138 H 116 H (70-110) mg/dL Calcium (8.4-10.2) mg/dL AST (17-59) U/L Total Protein (6.3-8.2) g/dL 01/21/22 01/21/22 Range/Units 11:02 11:34 RBC (4.30-5.90) m/uL Hgb (13.0-17.5) gm/dL Hct (39.0-53.0) % RDW (11.5-15.5) % Sodium 133 L (137-145) mmol/L BUN 21 H (9-20) mg/dL Glucose 102 H (74-99) mg/dL POC Glucose (mg/dL) 133 H (70-110) mg/dL Calcium 8.3 L (8.4-10.2) mg/dL AST 77 H (17-59) U/L Total Protein 5.5 L (6.3-8.2) g/dL
[2022-01-21] MEDS ORDERED: METOPROLOL TARTRATE 25 MG TAB PO STA (15:14)
[2022-01-21 16:48] LABS: Glucose,Whole Blood 121 mg/dL (70-110)
[2022-01-21] MEDS: TAMSULOSIN 0.4 MG CAP.ER.24H PO SCH (17:23)
[2022-01-21 20:38] LABS: Glucose,Whole Blood 125 mg/dL (70-110)
[2022-01-21] MEDS: SENNOSIDES-DOCUSATE SODIUM 1 EACH TAB PO SCH (20:43)
[2022-01-21] MEDS: METOPROLOL TARTRATE 50 MG TAB PO SCH (20:43)
[2022-01-21] MEDS: MELATONIN 3 MG TABLET PO SCH (20:43)
[2022-01-22 03:43] VITALS: RESP 18
[2022-01-22 06:00] LABS: Glucose,Whole Blood 116 mg/dL (70-110)
[2022-01-22] MEDS: INSULIN ASPART (NovoLOG) 100 UNIT/ML VIAL SQ SCH (06:01)
[2022-01-22] MEDS: PANTOPRAZOLE 40 MG TABLET PO SCH (06:41)
[2022-01-22] MEDS: FERROUS SULFATE 325 MG TAB PO SCH (06:41)
[2022-01-22] MEDS: ASCORBIC ACID 500 MG TAB PO SCH (06:41)
--- NOTE | 2022-01-22 07:27 | XR ---
EXAMINATION TYPE: XR chest 2V DATE OF EXAM: 01/22/2022 6:26 AM COMPARISON: Chest radiographs from 01/21/2022 TECHNIQUE: XR chest 2V Frontal and lateral views of the chest. CLINICAL INDICATION:Male, 81 years old with history of post cardiac surgery; FINDINGS: Lungs/Pleura: There is no evidence of consolidation, or pneumothorax. Trace bilateral pleural effusi ons left greater than right. Pulmonary vascularity: Unremarkable. Heart/mediastinum: Cardiomediastinal silhouette is enlarged and stable. Left atrial appendage occlusi on device is present. Musculoskeletal: No acute osseous pathology. Midline sternotomy wires are noted and stable. IMPRESSION: Similar bilateral pleural effusions and cardiomegaly.
--- NOTE | 2022-01-22 07:41 | P.PN ---
Subjective Progress Note Date: 01/22/22 Principal diagnosis: CAD and status post CABG The patient is a 81-year-old gentleman who underwent elective CABG 4 with JUDD to LAD and radial artery to OM and also SVG to ramus intermedius and RCA. The patient was seen this morning. He is doing good from a cardiac standpoint overview. He has been maintaining normal sinus mechanism. Hemodynamically he is stable. The hemoglobin this morning is 8.4. At this point I would continue the current medical regimen including dual antiplatelet therapy as well as high intensity statin as well as amiodarone the patient potentially can be discharged home in the next 24 hours Objective - Vital Signs Vital signs: Vital Signs Temp 97.6 F 01/22/22 03:43 Pulse 77 01/22/22 03:43 Resp 18 01/22/22 03:43 BP 132/76 01/22/22 03:43 Pulse Ox 99 01/22/22 03:43 FiO2 50 01/17/22 17:40 Intake & Output 01/21/22 01/22/22 01/22/22 18:59 06:59 18:59 Intake Total 1220 740 Output Total 850 500 Balance 370 240 Weight 95.6 kg Intake: IV 20 20 Invasive Line 5 20 20 Oral 1200 720 Output: Urine 850 500 Other: Voiding Method Toilet Toilet Urinal Urinal # Voids 2 1 # Bowel Movements 1 2 ABP, PAP, CO, CI - Last Documented Arterial Blood Pressure 160/58 Pulmonary Artery Pressure 29/13 Cardiac Output 4.4 Cardiac Index 2.2 - Constitutional General appearance: Present: no acute distress - Respiratory Respiratory: bilateral: diminished - Cardiovascular Rhythm: regular - Labs CBC & Chem 7: 01/21/22 11:02 01/21/22 11:02 Labs: Abnormal Lab Results - Last 24 Hours (Table) 01/21/22 01/21/22 01/21/22 Range/Units 11:02 11:02 11:34 RBC 2.59 L (4.30-5.90) m/uL Hgb 8.4 L D (13.0-17.5) gm/dL Hct 25.1 L (39.0-53.0) % RDW 15.6 H (11.5-15.5) % Sodium 133 L (137-145) mmol/L BUN 21 H (9-20) mg/dL Glucose 102 H (74-99) mg/dL POC Glucose (mg/dL) 133 H (70-110) mg/dL Calcium 8.3 L (8.4-10.2) mg/dL AST 77 H (17-59) U/L Total Protein 5.5 L (6.3-8.2) g/dL 01/21/22 01/21/22 01/22/22 Range/Units 16:47 20:36 05:53 RBC (4.30-5.90) m/uL Hgb (13.0-17.5) gm/dL Hct (39.0-53.0) % RDW (11.5-15.5) % Sodium (137-145) mmol/L BUN (9-20) mg/dL Glucose (74-99) mg/dL POC Glucose (mg/dL) 121 H 125 H 116 H (70-110) mg/dL Calcium (8.4-10.2) mg/dL AST (17-59) U/L Total Protein (6.3-8.2) g/dL Assessment and Plan Assessment: Assessment #1 severe CAD and status post CABG #2 hypertension #3 dyslipidemia #4 blood loss anemia #5 paroxysmal atrial fibrillation, postoperatively Plan #1 continue the current medical regimen #2 Possible discharge in the next 24 hour
[2022-01-22] MEDS: ASPIRIN 325 MG TAB PO SCH (08:31)
[2022-01-22] MEDS: METOPROLOL TARTRATE 50 MG TAB PO SCH (08:31)
[2022-01-22] MEDS: CLOPIDOGREL 75 MG TAB PO SCH (08:31)
[2022-01-22] MEDS: AMIODARONE 200 MG TAB PO SCH (08:31)
[2022-01-22] MEDS: MULTIVITAMINS, THERA 1 EACH TAB PO SCH (08:31)
[2022-01-22] MEDS: amLODIPine 2.5 MG TAB PO SCH (08:31)
[2022-01-22] MEDS: ATORVASTATIN 80 MG TAB PO SCH (08:31)
[2022-01-22] MEDS: EZETIMIBE 10 MG TAB PO SCH (08:32)
[2022-01-22] MEDS: polyethylene glycoL 3350 17 GM POWD.PACK PO SCH (08:32)
[2022-01-22] MEDS: HEPARIN SODIUM,PORCINE/PF 5,000 UNIT/0.5 ML SYRINGE SQ SCH (08:32)
[2022-01-22] MEDS: IPRATROPIUM-ALBUTEROL 3 ML NEB INHALATION SCH ×2 (08:38→12:00)
[2022-01-22] MEDS: SYMBICORT 160-4.5 MCG INHALER INHALATION SCH (08:38)
[2022-01-22 09:20] LABS: HCT 25.7 % (39.0-53.0); HGB 8.4 gm/dL (13.0-17.5); MCH 31.7 pg (25.0-35.0); MCHC 32.6 g/dL (31.0-37.0); MCV 97.3 fL (80.0-100.0); Platelet Count 233 k/uL (150-450); RBC 2.64 m/uL (4.30-5.90); RDW 15.5 % (11.5-15.5); WBC 11.2 k/uL (3.8-10.6)
[2022-01-22 09:29] LABS: African American GFR (CKD) >90 (>60 ml/min/1.73 sqM); Anion Gap 6 mmol/L; Blood Urea Nitrogen 21 mg/dL (9-20); Calcium 8.5 mg/dL (8.4-10.2); Carbon Dioxide 25 mmol/L (22-30); Chloride 101 mmol/L (98-107); Glucose 120 mg/dL (74-99); Non-African American GFR(CKD) 87 (>60 ml/min/1.73 sqM); Potassium 3.9 mmol/L (3.5-5.1); Sodium 132 mmol/L (137-145)
--- NOTE | 2022-01-22 11:07 | P.PN ---
Subjective Progress Note Date: 01/22/22 Principal diagnosis: Coronary artery disease. Previous medical history of coronary artery disease with myocardial infarction status post PCI in 2010, hypertension, hyperlipidemia, asthma with a preoperative FEV1 62% of predicted value, skin cancer status post removal, previous tobacco dependence, and family history of heart disease. POD #5 off-pump coronary artery bypass grafting 4 with left internal mammary artery to left anterior descending coronary artery, left radial artery graft to the obtuse marginal coronary artery, saphenous vein graft to the intermediate coronary artery and right coronary artery. Ligation of the left atrial appendage with a 35 mm Atriclip. Endovascular harvest of both right greater saphenous vein and left radial artery. Postoperative acute blood loss anemia and thrombocytopenia, expected due to hemodilution. Postoperative afib, known common occurrence after open heart surgery The patient was seen and examined this morning with Dr. Strauss sitting up in a recliner on the cardiac stepdown unit in no acute distress eating breakfast. S tates post surgical pain is controlled on current medication regimen, denies shortness of breath. Remains in sinus rhythm and hemodynamically stable. Remains on room air with oxygen saturation in the high 90s. He has been [facility] in the [facility]. States he wants to go home today. No other new concerns. Objective - Vital Signs Vital signs: Vital Signs Temp 97.8 F 01/22/22 08:15 Pulse 78 01/22/22 08:50 Resp 18 01/22/22 08:15 BP 138/69 01/22/22 08:15 Pulse Ox 99 01/22/22 08:15 FiO2 50 01/17/22 17:40 Intake & Output 01/21/22 01/22/22 01/22/22 18:59 06:59 18:59 Intake Total 1220 740 128 Output Total 850 500 Balance 370 240 128 Weight 95.6 kg Intake: IV 20 20 10 Invasive Line 5 20 20 10 Oral 1200 720 118 Output: Urine 850 500 Other: Voiding Method Toilet Toilet Toilet Urinal Urinal Urinal # Voids 2 1 # Bowel Movements 1 2 ABP, PAP, CO, CI - Last Documented Arterial Blood Pressure 160/58 Pulmonary Artery Pressure 29/13 Cardiac Output 4.4 Cardiac Index 2.2 - Exam CONSTITUTIONAL: Appears comfortable, cooperative, no acute distress RESPIRATORY: Lungs sounds diminished bilaterally. Respirations even, nonlabored. Currently on room air with oxygen saturation 99%. Able to achieve 1000 mL on incentive spirometry. Strong cough. CARDIOVASCULAR: S1, S2 present. Regular rate and rhythm, sinus rhythm on telemetry. Sternum stable. Palpable peripheral pulses bilaterally. Left upper extremity edema present but decreasing the. No calf pain or tenderness noted. Heart hugger in place with patient demonstrating appropriate use. Antiembolism stockings, SCDs present. GASTROINTESTINAL: Abdomen soft, nontender, nondistended. Active bowel sounds present 4 quadrants. Tolerating diet. Positive bowel movement GENITOURINARY: Continues to void, output 1350 mL the last 24 hours INTEGUMENTARY: Skin is warm and dry with evidence of good perfusion. Anterior chest incision well approximated. Right lower extremity EVH site as well as left radial artery harvest site well approximated without redness or drainage. Left upper extremity very eccymotic-expected NEUROLOGIC: Cranial nerves II through XII intact MUSKULOSKELETAL: Able to move all extremities, strength equal bilaterally, gait normal PSYCHIATRIC: Alert and oriented to person place and time, appropriate affect, intact judgment and insight - Allied health notes Allied health notes reviewed: nursing - Labs CBC & Chem 7: 01/22/22 08:33 01/22/22 08:33 Labs: Abnormal Lab Results - Last 24 Hours (Table) 01/21/22 01/21/22 01/21/22 Range/Units 11:02 11:02 11:34 WBC (3.8-10.6) k/uL RBC 2.59 L (4.30-5.90) m/uL Hgb 8.4 L D (13.0-17.5) gm/dL Hct 25.1 L (39.0-53.0) % RDW 15.6 H (11.5-15.5) % Sodium 133 L (137-145) mmol/L BUN 21 H (9-20) mg/dL Glucose 102 H (74-99) mg/dL POC Glucose (mg/dL) 133 H (70-110) mg/dL Calcium 8.3 L (8.4-10.2) mg/dL AST 77 H (17-59) U/L Total Protein 5.5 L (6.3-8.2) g/dL 01/21/22 01/21/22 01/22/22 Range/Units 16:47 20:36 05:53 WBC (3.8-10.6) k/uL RBC (4.30-5.90) m/uL Hgb (13.0-17.5) gm/dL Hct (39.0-53.0) % RDW (11.5-15.5) % Sodium (137-145) mmol/L BUN (9-20) mg/dL Glucose (74-99) mg/dL POC Glucose (mg/dL) 121 H 125 H 116 H (70-110) mg/dL Calcium (8.4-10.2) mg/dL AST (17-59) U/L Total Protein (6.3-8.2) g/dL 01/22/22 01/22/22 Range/Units 08:33 08:33 WBC 11.2 H (3.8-10.6) k/uL RBC 2.64 L (4.30-5.90) m/uL Hgb 8.4 L (13.0-17.5) gm/dL Hct 25.7 L (39.0-53.0) % RDW (11.5-15.5) % Sodium 132 L (137-145) mmol/L BUN 21 H (9-20) mg/dL Glucose 120 H (74-99) mg/dL POC Glucose (mg/dL) (70-110) mg/dL Calcium (8.4-10.2) mg/dL AST (17-59) U/L Total Protein (6.3-8.2) g/dL - Imaging and Cardiology Chest x-ray: report reviewed, image reviewed Assessment and Plan Assessment: 1. Coronary artery disease, status post four-vessel off-pump CABG 2. History of coronary artery disease with myocardial infarction status post PCI in 2010 3. History of hypertension 4. Hyperlipidemia, treated, cholesterol 138, LDL 74 5. Asthma 6. History of skin cancer status post removal 7. Previous tobacco dependence, preoperative FEV1 62% of predicted 8. Family history of heart disease. 9. Postoperative acute blood loss anemia and thrombocytopenia, expected 10. Postoperative afib Plan: 1. Continue to maximize medical therapy with aspirin, Zetia, statin, and beta ashley 2. Continue low dose calcium channel ashley for radial artery spasm prophylaxis 3. Encourage incentive spirometry 10 times every hour while awake. Bronchodilators per pulmonology. 4. Increase activity, ambulate as tolerated. PT/OT/cardiac rehab following. Keep left upper extremity elevated, apply warm packs 5. Pain control with current medication regimen. 6. Insulin management per internal medicine. Patient is not diabetic, preoperative hemaglobin A1c 5.5%. 7. Continue flomax 8. Patient to shower daily 9. Discharge planning in progress. Anticipate discharge to home with home care today
--- NOTE | 2022-01-22 11:08 | P.PN ---
Subjective Progress Note Date: 01/22/22 Principal diagnosis: Status post bypass grafting. 81-year-old male patient of Dr. Wu Turner, previous history of CAD with SC status post PCI in 2010, hypertension, hyperlipidemia, chronic bronchial asthma unspecified, former smoker and family history of heart disease. Patient was recently hospitalized at [facility] where he presented with exertional chest pain and shortness of breath. He underwent heart catheterization on 01/12/2022 which showed distal left main stenosis of 60%, proximal LAD stenosis of 99%, patent up his marginal 2 stent, and mid to distal RCA stenosis of 99%. Echocardiogram showed preserved LV function with EF of 55- 60%, and minimal mitral and tricuspid insufficiency, no pulmonary hypertension or pericardial effusion. Patient underwent four-vessel bypass grafting surgery off pump, with JUDD to LAD, left radial artery to OM, SVG to RI, and SVG to the RCA, endoscopic vein harvest of the right leg, and left atrial appendage exclusion. Patient is seen in postoperative period sedated and intubated on assist control with a rate of 12, tidal volume is 550, FiO2 100% and PEEP of 8. Postoperative chest x-ray is pending, she is on Diprivan at 25 mics per kilo per minute, Cardizem drip is at 5 mg per hour, and nitroglycerin is a 5 mics per kilo per minute and lactated Ringer's at 50 ML per hour, PA pressures 22/7, CVP 6, cardiac output is 5.3, and cardiac index is 2.6, he is in sinus mechanism, hemodynamically he is stable, his left pleural and mediastinal chest tube with small amount of serous output in the Pleur-evac, postoperative blood gas and labs are pending. Progress note dated 01/18/2022. This is a 81-year-old male postop day #1, status post four-vessel bypass grafting. He was extubated about 5 hours after leaving the operating room. He's currently on 2 L nasal cannula. He is getting lactated Ringer's at 50 mL an hour, Cardizem drip at 5 mg an hour, and insulin drip at 1.5 units an hour. The patient's doing very well. His been doing his incentive spirometer, every hour. White count 13.6, hemoglobin 7.2, hematocrit 21.5, and platelet count 236,000. Electrolyte profile completely normal. Chest x-ray shows some post surgical changes without evidence of pneumothorax or pleural effusion. Progress note dated 01/19/2022. 81-year-old male seen again in the intensive care unit, room 265. He is postop day #2, status post four-vessel bypass grafting. The patient is currently on 2 L nasal cannula. He is getting dopamine at 2.5 mcg/kg/m. He is also receiving lactated Ringer's at 40 mL an hour. He had an uneventful night according to the nurses. He's been relatively stable. The patient is going to receive 1 unit of blood. White count 11.3, hemoglobin 6.2, hematocrit 18.5, and platelet count 112,000. Sodium 133, potassium 4.1, chloride 104, CO2 25, BUN 24, and creatinine 1.17. Chest x-ray shows basilar atelectasis on the left. Progress note dated 01/20/2022. This is a patient who is 81 years of age. He is postop day #3, status post four-vessel bypass grafting. The patient is going to receive 1 unit of packed red blood cells for hemoglobin of 6.7. He's currently on amiodarone at 1 mg/m, 2 L of nasal oxygen, and lactated Ringer's at 40 mL an hour. He seems quite s table. White count is 9.4, hemoglobin 6.7, hematocrit 19.8, and platelet count 206,000. Sodium 133, potassium 3.8, chlorides 103, CO2 24, BUN 26, and creatinine 1.02. Chest x-ray shows postsurgical changes, without pneumothorax or significant pleural effusion. Progress note dated 01/21/2022. 81-year-old male postop day #4, status post four-vessel bypass grafting. He is seen today in room 351. The patient will likely be discharged this weekend. The patient is currently not receiving any IV fluids, and not on any supplemental oxygen. No new labs today. Chest x-ray shows some mild cardi omegaly, with small effusions, and some postsurgical changes. Progress note dated 01/22/2022. 81-year-old male postop day #5, status post four-vessel bypass grafting. He is again seen in room 351. The patient will likely be discharged sometime either today or tomorrow. He is not on any supplemental oxygen, or receiving any IV fluids. Laboratory data from today shows a white count 11.2, hemoglobin 8.4, and a normal platelet count. Sodium 132, potassium 3.9, chlorides 101, CO2 25, BUN 21, and creatinine 0.75. Chest x-ray shows small bilateral pleural effusions and cardiomegaly. Objective - Vital Signs Vital signs: Vital Signs Temp 97.8 F 01/22/22 08:15 Pulse 78 01/22/22 08:50 Resp 18 01/22/22 08:15 BP 138/69 01/22/22 08:15 Pulse Ox 99 01/22/22 08:15 FiO2 50 01/17/22 17:40 Intake & Output 01/21/22 01/22/22 01/22/22 18:59 06:59 18:59 Intake Total 1220 740 128 Output Total 850 500 Balance 370 240 128 Weight 95.6 kg Intake: IV 20 20 10 Invasive Line 5 20 20 10 Oral 1200 720 118 Output: Urine 850 500 Other: Voiding Method Toilet Toilet Toilet Urinal Urinal Urinal # Voids 2 1 # Bowel Movements 1 2 ABP, PAP, CO, CI - Last Documented Arterial Blood Pressure 160/58 Pulmonary Artery Pressure 29/13 Cardiac Output 4.4 Cardiac Index 2.2 - Exam No acute distress, oriented 3. Sitting in a chair. Currently on room air. HEENT examination is grossly unremarkable. Neck supple. Full range of motion. No adenopathy thyromegaly or neck vein distention. Cardiovascular examination reveals regular rhythm rate. S1-S2 normal. No S3 or S4. No discernible murmur noted. Heart rate 71 bpm. Lungs reveal mild scattered rhonchi. No wheezes. No crackles. Breath sounds equal bilaterally. Saturation is 97 %. Abdomen soft bowel sounds are heard. No masses or tenderness. Extremities are intact. No cyanosis clubbing or edema. Skin is without rash or lesion. Neurologic examination is brief but nonfocal. - Labs CBC & Chem 7: 01/22/22 08:33 01/22/22 08:33 Labs: Abnormal Lab Results - Last 24 Hours (Table) 01/21/22 01/21/22 01/21/22 Range/Units 11:02 11:02 11:34 WBC (3.8-10.6) k/uL RBC 2.59 L (4.30-5.90) m/uL Hgb 8.4 L D (13.0-17.5) gm/dL Hct 25.1 L (39.0-53.0) % RDW 15.6 H (11.5-15.5) % Sodium 133 L (137-145) mmol/L BUN 21 H (9-20) mg/dL Glucose 102 H (74-99) mg/dL POC Glucose (mg/dL) 133 H (70-110) mg/dL Calcium 8.3 L (8.4-10.2) mg/dL AST 77 H (17-59) U/L Total Protein 5.5 L (6.3-8.2) g/dL 01/21/22 01/21/22 01/22/22 Range/Units 16:47 20:36 05:53 WBC (3.8-10.6) k/uL RBC (4.30-5.90) m/uL Hgb (13.0-17.5) gm/dL Hct (39.0-53.0) % RDW (11.5-15.5) % Sodium (137-145) mmol/L BUN (9-20) mg/dL Glucose (74-99) mg/dL POC Glucose (mg/dL) 121 H 125 H 116 H (70-110) mg/dL Calcium (8.4-10.2) mg/dL AST (17-59) U/L Total Protein (6.3-8.2) g/dL 01/22/22 01/22/22 Range/Units 08:33 08:33 WBC 11.2 H (3.8-10.6) k/uL RBC 2.64 L (4.30-5.90) m/uL Hgb 8.4 L (13.0-17.5) gm/dL Hct 25.7 L (39.0-53.0) % RDW (11.5-15.5) % Sodium 132 L (137-145) mmol/L BUN 21 H (9-20) mg/dL Glucose 120 H (74-99) mg/dL POC Glucose (mg/dL) (70-110) mg/dL Calcium (8.4-10.2) mg/dL AST (17-59) U/L Total Protein (6.3-8.2) g/dL Assessment and Plan Assessment: Postop day #5, status post four-vessel bypass grafting, with left atrial appendage exclusion. Routine postoperative ventilator management. Postoperative anemia, expected. Postoperative atrial fibrillation. History of chronic bronchial asthma. Hypertension. Hyperlipidemia. Prior history of tobacco use. Family history of heart disease. CAD, with previous SC, and PCI. Plan: Plan dated 01/18/2022. The patient is postop day #1. Labs, x-rays, and medications are reviewed. The patient remains on Cardizem 5 mg an hour, and insulin at 1.5 units an hour. He's on 2 L nasal cannula. He is using his incentive spirometer every hour. He was extubated about 5 hours after leaving the operating room. Labs, x-rays, and medications are reviewed. Prognosis is guarded. The patient appears to be tolerating the procedure very well. Plan dated 01/19/2022. The patient is postop day #2. The patient's hemoglobin is a bit low, and he will receive 1 unit of packed red blood cells. Labs, x-rays, medications are reviewed. He is on 2 L. Saturations are 96-97%. Chest x-ray shows some atelectasis at the left lung base. He continues to work on his incentive spirometer. He is progressing very nicely. We'll continue to follow the patient and make recommendations along the way. Prognosis is thought to be good. Plan dated 01/20/2022. Today's postop day #3. The patient will receive a unit of blood today. Hemoglobin is 6.7. Is getting lactated Ringer's at 40 mL an hour. He remains on 2 L of oxygen. He is also on amiodarone at 1 mg/m. We recommend hourly use of the incentive spirometer. His x-ray looks reasonably good. We will continue to follow make recommendations along the way. Plan dated 01/21/2022. The patient appears to be doing relatively well. He is postoperative day #4. He likely be discharged home this weekend. He is not on any supplemental oxygen. He's not receiving any IV fluids. No new labs today. Chest x-ray stable. We encourage the incentive spirometer. Prognosis is thought to be generally good. Plan dated 01/22/2022. The patient's doing well. He is not on any supplemental oxygen or IV fluids. He tells us that is being discharged home. Nothing in the chart yet from cardiothoracic surgery. He should take home the incentive spirometer, and continue to use it at home. He will follow-up with me in the office. No nola tional recommendations are made. Prognosis is thought to be generally good. Time with Patient: Less than 30
[2022-01-22 12:21] LABS: Glucose,Whole Blood 119 mg/dL (70-110)
[2022-01-22 13:21] VITALS: BP 139/80; PULSE 79; TEMP 98.1
--- NOTE | 2022-01-23 05:36 | P.PN ---
Subjective Progress Note Date: 01/22/22 - Reason for Consult Consult date: 01/18/22 Medical management postop CABG - History of Present Illness This is a pleasant 81-year-old male who was recently admitted for chest pain underwent cardiac catheterization which revealed severe coronary artery disease with myocardial infarction status post PCI and underwent off-pump four-vessel c oronary artery bypass grafting with Dr. Billy and is postop day #1. Patient does have a past medical history of asthma, coronary artery disease, skin cancer, chest pain angina, hyperlipidemia, hypertension, myocardial infarction with PCI stenting, and prostate disorder and follows with Dr. Wu Turner in the outpatient setting. Patient is a former smoker and denies any alcohol or illicit drug use. Patient is seen and evaluated sitting up in the chair in the ICU with and daughter at the bedside. Multiple chest tubes and drains noted. Patient also continues on 2 L via nasal cannula maintaining oxygen saturations above 95%.. Blood pressures are on the lower side although not req uiring pressor support and home medications of blood pressure has been resumed. Patient was maintained on insulin drip for tight glycemic control per CABG protocol and recommend continue monitoring Accu-Cheks before meals and at bedtime and using sliding scale and discontinuing the insulin drip. Patient is being started on clear liquid diet and slowly advancing as tolerated. 01/19/2022 Patient is seen in follow-up this morning continues to be in the ICU with multiple medical consultations following. Patient continues with multiple chest tubes an indwelling Canela catheter and 2 L via nasal cannula. He is reporting his buttock hurts from sitting and was unable to get up and walk much yesterday. Plan is for patient to continue to increase activity as tolerated. Chest x-ray today shows mild left lobe infiltrate and a Ramey reuben catheter has been removed. Patient is afebrile and denies chest pain or shortness of breath. On this morning's labs hemoglobin was found to be 6.2 and awaiting to receive a unit of PRBCs. WBCs 11.3 with a platelet count of 112. Sodium was 133 with a potassium of 4.1 and current creatinine is 1.17 and blood sugars well controlled. Patient tolerating diet with no reports of nausea or vomiting noted. Recommend repeat labs and x-ray in the a.m. 01/20/2022 Patient is seen today in the ICU and is receiving a unit of PRBC for hemoglobin of 6.7 today. Patient is being downgraded from the ICU to selective once a bed becomes available. Patient continues with a chest tube and chest xray shows similar left infiltrate with no pneumothorax noted. Patient is currently maintaining oxygen saturations above 92%. Cardiology following as well and patient developed post op afib and is maintained on IV amiodarone and being transitioned to oral. Increasing beta ashley. Patient is afebrile and denies chest pain or shortness of breath. Some mild shortness of breath with exertion but recovers. Patient is tolerating diet and denies nausea or vomiting. Patient is working with physical therapy. 01/21/2022 Patient had an episode of atrial fibrillation for which patient was given a bolus of amiodarone today. Patient is otherwise clinically doing well says is a large bruise in the left arm and still has some bilateral lower extremity pedal edema. 01/22/2022 Patient is seen in follow-up this morning with multiple family members at bedside. Plan is for discharge home today. Patient continues to have some shortness of breath with exertion and encouraged with activity restrictions per CT surgery. Patient also encouraged to continue to use incentive spirometer while at home. Patient is afebrile and denies chest pain or palpitations. Patient denies nausea or vomiting and tolerating diet. Review of systems: Constitutional: No reports of fatigue, fever, or chills Cardiovascular: No reports of chest pain or palpitations Respiratory: reports of shortness of breath with walking GI: No reports of nausea, vomiting, or diarrhea : No reports of dysuria or retention Neurovascular: reports of generalized weakness All medications have been reviewed PHYSICAL EXAMINATION: GENERAL: The patient is alert and oriented x4, Well developed, well nourished. HEENT: Pupils are round and equally reacting to light. EOMI. no scleral icterus. No conjunctival pallor. Normocephalic, atraumatic. No pharyngeal erythema. No thyromegaly. CARDIOVASCULAR: S1 and S2 muffled, currently sinus rhythm on the monitor PULMONARY: diminished breath sounds bilaterally with no wheezing or rhonchi noted. Heart hugger noted ABDOMEN: soft. Nontender on exam. non-distended, normoactive bowel sounds. No palpable organomegaly. MUSCULOSKELETAL: No joint swelling or deformity. EXTREMITIES: No cyanosis, clubbing, or pedal edema. NEUROLOGICAL: Gross neurological examination did not reveal any focal deficits. Diffuse weakness SKIN: No rashes. Assessment: Coronary artery disease, status post four-vessel CABG Hypertension paroxysmal atrial fibrillation, post operative, common with recent CABG, currently sinus Acute blood loss anemia and thrombocytopenia, expected postoperatively Hyperlipidemia History of asthma Former history of nicotine dependence History of previous myocardial infarction with coronary artery disease and PCI in 2010 GI prophylaxis DVT prophylaxis Full code Plan: Recommend to continue with current medications and management per cardiothoracic services. Encouraged incentive spirometer use at least 10 times every hour while awake while at home. Patient is being discharged home today. Recommend close outpatient follow up with cardiology and CT surgery. Encouraged patient to follow up with pcp DR. Wu Frederick. Thank you for this consultation and we will continue to follow with cardiothoracic surgery during hospitalization. The impression and plan of care has been dictated by Bushra Ramon, nurse practitioner as directed. Dr. Rudy MD I have performed a history and examination and MDM of this patient, discussed the same with the dictator, and agree with the dictator's assessment and plan as written ,documented as a scribe. Based on total visit time, I have performed more than 50% of the visit. Any additional findings or plans will be noted. Objective - Vital Signs Vital signs: Vital Signs Temp 97.8 F 01/22/22 08:15 Pulse 78 01/22/22 08:50 Resp 18 01/22/22 08:15 BP 138/69 01/22/22 08:15 Pulse Ox 99 01/22/22 08:15 FiO2 50 01/17/22 17:40 Intake & Output 01/21/22 01/22/22 01/22/22 18:59 06:59 18:59 Intake Total 1220 740 128 Output Total 850 500 Balance 370 240 128 Weight 95.6 kg Intake: IV 20 20 10 Invasive Line 5 20 20 10 Oral 1200 720 118 Output: Urine 850 500 Other: Voiding Method Toilet Toilet Toilet Urinal Urinal Urinal # Voids 2 1 # Bowel Movements 1 2 ABP, PAP, CO, CI - Last Documented Arterial Blood Pressure 160/58 Pulmonary Artery Pressure 29/13 Cardiac Output 4.4 Cardiac Index 2.2 - Labs CBC & Chem 7: 01/22/22 08:33 01/22/22 08:33 Labs: Abnormal Lab Results - Last 24 Hours (Table) 01/21/22 01/21/22 01/21/22 Range/Units 11:02 11:02 11:34 RBC 2.59 L (4.30-5.90) m/uL Hgb 8.4 L D (13.0-17.5) gm/dL Hct 25.1 L (39.0-53.0) % RDW 15.6 H (11.5-15.5) % Sodium 133 L (137-145) mmol/L BUN 21 H (9-20) mg/dL Glucose 102 H (74-99) mg/dL POC Glucose (mg/dL) 133 H (70-110) mg/dL Calcium 8.3 L (8.4-10.2) mg/dL AST 77 H (17-59) U/L Total Protein 5.5 L (6.3-8.2) g/dL 01/21/22 01/21/22 01/22/22 Range/Units 16:47 20:36 05:53 RBC (4.30-5.90) m/uL Hgb (13.0-17.5) gm/dL Hct (39.0-53.0) % RDW (11.5-15.5) % Sodium (137-145) mmol/L BUN (9-20) mg/dL Glucose (74-99) mg/dL POC Glucose (mg/dL) 121 H 125 H 116 H (70-110) mg/dL Calcium (8.4-10.2) mg/dL AST (17-59) U/L Total Protein (6.3-8.2) g/dL
--- NOTE | 2022-01-23 08:55 | P.DS ---
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 Coronary artery disease with history of myocardial infarction and PCI in 2010 2. History of hypertension 3. Hyperlipidemia, treated, cholesterol 138, LDL 74 4. Asthma 5. History of skin cancer status post removal 6. Previous tobacco dependence, preoperative FEV1 62% of predicted 7. Family history of heart disease 8. Postoperative acute blood loss anemia and thrombocytopenia, expected 9. Postoperative atrial fibrillation PRINCIPAL PROCEDURE: 1. Off-pump coronary artery bypass grafting 4 with the left internal mammary artery to left anterior descending coronary artery, left radial artery graft to the obtuse marginal coronary artery, reverse saphenous vein graft to the intermediate coronary artery and right coronary artery 2. Ligation of the left atrial appendage with a 35 mm AtriClip 3. Endovascular harvest of both right greater saphenous vein and left radial artery HISTORY OF PRESENT ILLNESS: This is a 81-year-old active male who follows on an outpatient basis with Dr. Wu Turner for primary care and Dr. Epperson for cardiology. He presented to [facility] with complaints of exertional chest pain and shortness of breath which had been increasing in frequency and severity recently. He underwent heart catheterization which revealed distal left main stenosis 60%, proximal LAD stenosis 99%, patent OM 2 stent, and mid to distal RCA stenosis 99%. Consultation was placed to Dr. Billy from cardiothoracic surgery. He was recommended to undergo surgical myocardial revascularization. The usual perioperative course was discussed in detail with the patient and his family, all risks and benefits were explained, all questions were answered, and consent was obtained to proceed with surgery. The patient was discharged to home on maximal medical therapy to return as an outpatient for surgery at the earliest possible date. HOSPITAL COURSE: The patient was brought to the hospital on 01/17/22, taken to the preoperative area, prepared in the usual fashion, and subsequently taken to the operating room where Dr. Billy performed four-vessel off-pump CABG. Upon completion of surgery the patient was transferred to the cardiovascular intensive care unit where he was recovered and monitored hemodynamically. He was extubated, all lines, tubes, and drips were discontinued when appropriate, and he was transferred to 3 S cardiac stepdown unit for further monitoring and rehabilitation. He did experience a brief postoperative atrial fibrillation which was successfully treated with amiodarone. His oxygen was titrated down, he continued to work with physical and occupational therapy, he was tolerating oral diet, his pain was controlled, and he was ready to be discharged to home with [facility] care on postoperative day #5. He received written and verbal instruction regarding his medications, activity restrictions, signs and symptoms requiring physician notification, and follow-up appointments. Patient Condition at Discharge: Stable Plan - Discharge Summary Discharge Rx Participant: No New Discharge Prescriptions: New Melatonin 6 mg PO HS tab Amiodarone [Cordarone] 400 mg PO BID #50 tab Tamsulosin [Flomax] 0.4 mg PO PC-SUPPER #30 cap amLODIPine [Norvasc] 2.5 mg PO DAILY #30 tab INSULIN ASPART (NovoLOG) [NovoLOG (formulary)] 0 unit SQ ACHS each Clopidogrel [Plavix] 75 mg PO DAILY #30 tab Sennosides-Docusate Sodium [Senokot-S] 2 each PO HS PRN tab PRN Reason: Constipation Acetaminophen Tab [Tylenol] 1,000 mg PO Q6HR PRN tab PRN Reason: Fever And/ Or Pain Continue Potassium Chloride [K-Tab ER] 10 meq PO BID Aspirin [Adult Low Dose Aspirin EC] 81 mg PO DAILY Atorvastatin [Lipitor] 40 mg PO DAILY Multivitamins, Thera [Multivitamin (formulary)] 1 tab PO DAILY Ezetimibe [Zetia] 10 mg PO DAILY Pantoprazole [Protonix] 40 mg PO AC-BRKFST #30 tab Fluticasone Propion/Salmeterol [Advair Hfa 115-21 Mcg Inhaler] 1 puff INHALATION RT-DAILY Metoprolol Tartrate [Lopressor] 50 mg PO BID polyethylene glycoL 3350 [Miralax] 17 gm PO DAILY PRN packet PRN Reason: Constipation Discontinued dilTIAZem HCL [Cardizem CD] 120 mg PO DAILY hydrALAZINE HCL [Apresoline] 50 mg PO BID Nitroglycerin Sl Tabs [Nitrostat] 0.4 mg SUBLINGUAL Q5M PRN PRN Reason: Chest Pain Isosorbide Mononitrate ER [Imdur] 60 mg PO DAILY #30 tab lisinopriL [Zestril] 20 mg PO BID 30 Days #60 tab Discharge Medication List Aspirin [Adult Low Dose Aspirin EC] 81 mg PO DAILY 10/08/17 [History] Potassium Chloride [K-Tab ER] 10 meq PO BID 10/08/17 [History] Atorvastatin [Lipitor] 40 mg PO DAILY 12/05/19 [History] Ezetimibe [Zetia] 10 mg PO DAILY 01/11/22 [History] Fluticasone Propion/Salmeterol [Advair Hfa 115-21 Mcg Inhaler] 1 puff INHALATION RT-DAILY 01/11/22 [History] Metoprolol Tartrate [Lopressor] 50 mg PO BID 01/11/22 [History] Multivitamins, Thera [Multivitamin (formulary)] 1 tab PO DAILY 01/11/22 [History] Pantoprazole [Protonix] 40 mg PO AC-BRKFST #30 tab 01/13/22 [Rx] polyethylene glycoL 3350 [Miralax] 17 gm PO DAILY PRN packet 01/13/22 [Rx] Acetaminophen Tab [Tylenol] 1,000 mg PO Q6HR PRN tab 01/22/22 [Rx] Amiodarone [Cordarone] 400 mg PO BID #50 tab 01/22/22 [Rx] Clopidogrel [Plavix] 75 mg PO DAILY #30 tab 01/22/22 [Rx] INSULIN ASPART (NovoLOG) [NovoLOG (formulary)] 0 unit SQ ACHS each 01/22/22 [Rx] Melatonin 6 mg PO HS tab 01/22/22 [Rx] Sennosides-Docusate Sodium [Senokot-S] 2 each PO HS PRN tab 01/22/22 [Rx] Tamsulosin [Flomax] 0.4 mg PO PC-SUPPER #30 cap 01/22/22 [Rx] amLODIPine [Norvasc] 2.5 mg PO DAILY #30 tab 01/22/22 [Rx] Follow up Appointment(s)/Referral(s): Gaye Pryor NPC [Nurse Practitioner] - 01/28/22 12:00 pm (You will be seen in the surgeon's office behind the hospital in [facility], [address]. Office phone number is ) Henry Epperson MD [STAFF PHYSICIAN] - 02/04/22 3:45 pm (At the [facility] (in front of [place] on the north end)) Rehab Melody GAMEZ,Cardiac [NON-STAFF] - 4 Weeks (You will receive a phone call in approximately 4-6 weeks for evaluation for cardiac rehab) [facility] - ([facility] will contact you to arrange a visit. ) Leslie Braun NPC [Nurse Practitioner] - 02/15/22 2:15 pm Germán Billy MD [STAFF PHYSICIAN] - 02/14/22 10:30 am (Your appointment is with JENNIFER Darby) Wu Turner MD [Primary Care Provider] - 2 Weeks (Please call for arielle ointment, office is closed on Fridays) Ambulatory/Diagnostic Orders: Complete Blood Count w/diff [LAB.AMB] Time Frame: 3 Days, Location: None Selected Comprehensive Metabolic Panel [LAB.AMB] Time Frame: 3 Days, Location: None Selected Activity/Diet/Wound Care/Special Instructions: DISCHARGE INSTRUCTIONS: 1. No driving for 4 weeks, or until physician gives their ok. 2. The patient should sleep in their own bed, no medical bed needed. 3. Stairs are not an issue. If the bedroom is upstairs, it is advised that the patient go up at night and down in the morning for the first week. Go slowly, using handrail and take 1 step at a time. 4. MATT hose are to be worn for 30 days or until physician discontinues. 5. Heart hugger is to be worn 100% of the time until physician discontinues.(except when showering) 6. No lifting, pushing, or pulling more than 10 pounds for 12 weeks. The physician will advise of any restriction changes. 7. The patient is expected to continue the prescribed walking program. 8. Continue pain control per as needed orders. 9. Continue with incentive spirometry and splinting/heart hugger until otherwise directed by the physician. 10. Must shower daily using liquid antibacterial soap and a separate white washcloth for each individual incision. 11. Routine sternal incision care. No powders, lotions, ointments on incisions. No dressings are necessary on incisions unless they are draining. Dermabond tape is to remain on sternal incision until surgeon follow-up. 12. Please call surgeon/MAGNETIC PROSPECTOR for temp greater than 101 F or purulent drainage from incisions. 13. You should weigh yourself daily, record and bring log with you to follow up appointments. 14. All prescriptions given by surgeon for 30 days. Refills need to be filled through milk deliverer/primary care physician. 15. A Red armband has been placed on the patient. It should be worn for 30 days post surgery and will be removed by the cardiac surgeons. If an ER visit is necessary, please make sure the number on the Red armband is called. 16. You have been referred to and are expected to begin Cardiac Rehab in approximately 4-6 weeks. HOME HEALTH SERVICES TO PROVIDE: RN SKILLED HOME CARE SERVICES FOR POST-OP SURGICAL PATIENTS WITH THE FOLLOWING: Coronary Artery Bypass Surgery (CABG), Mitral Valve Replacement/Repair ( MVR), Aortic Valve Replacement/Repair (AVR) RN TO CONTINUE EDUCATION FROM ``ROAD TO A HEALTH HEART PATIENT EDUCATION MANUAL (GIVEN TO PATIENT IN THE HOSPITAL) MEDICATION RECONCILIATION WITH EDUCATION NEEDED ON FIRST HOME VISIT EMPHASIZE IMPORTANCE OF WEARING BREAST SUPPORT/HEART HUGGER ENCOURAGE USE OF INCENTIVE SPIROMETER 10 X EVERY HOUR WHILE AWAKE ENCOURAGE UTILIZATION OF LOWER EXTREMITY COMPRESSION STOCKINGS/MATT HOSE and ELEVATE LEGS ABOVE LEVEL OF HEART WHILE AT REST. ENCOURAGE AMBULATION 3-5x/day INCREASING TOLERATES, WHILE AVOIDING EXTREMES IN TEMPERATURE FREQUENCY: RN TO OPEN THE PATIENT WITHIN 24 HOURS OF DISCHARGE FROM THE HOSPITAL WITH TELEHEALTH INSTALLED AT [facility] [place], RN TO VISIT 2-3 X A WEEK FOR 4 WEEKS ESTABLISHED BY PATIENT NEEDS. LABORATORY: CBC, CMP TO BE DRAWN ON THE THIRD DAY HOME, (RAN STAT) FAX RESULTS TO [phone]. TELEHEALTH PARAMETERS: WEIGHT: NOTIFY MD OF WEIGHT GAIN OF 2 LBS IN 24 HOURS OR 5 LBS IN ONE WEEK HR: NOTIFY MD OF HR <55 BPM OR HR>100 BPM BP: NOTIFY MD IF BP <90/55 OR BP>140/100 O2 SAT: NOTIFY MD IF PO2<93% ON ROOM AIR SEND TELEHEALTH REPORT TO BLOW UP OPERATOR AND CARDIOVASCULAR SURGEON THE FIRST WEEK OF CARE AND THEN BI-WEEKLY. PLEASE ADDITIONALLY COMMUNICATE ANY ABNORMALS AND NEW FINDINGS TO THE SURGEONS OFFICE. Discharge Disposition: HOME WITH HOME HEALTH SERVICES
== END 2022-01-22 14:04 | disposition home health service (06) | DRG 236 ==
LOC: 2ORMAIN 05:36 → 2SICU 13:18 → 3SCARD 01-20 18:16
PROVIDERS: ADMIT Thoracic Surgery (Cardiothoracic Vascular Surgery); ATTEND Thoracic Surgery (Cardiothoracic Vascular Surgery)
PROC: 03BC4ZZ Excision of Left Radial Artery, Percutaneous Endoscopic Approach (ICD-10-PCS; principal; 2022-01-17 08:00)
PROC: 02100Z9 Bypass Coronary Artery, One Artery from Left Internal Mammary, Open Approach (ICD-10-PCS; principal; 2022-01-17 08:00)
PROC: 06BP4ZZ Excision of Right Saphenous Vein, Percutaneous Endoscopic Approach (ICD-10-PCS; principal; 2022-01-17 08:00)
PROC: 021109W Bypass Coronary Artery, Two Arteries from Aorta with Autologous Venous Tissue, Open Approach (ICD-10-PCS; principal; 2022-01-17 08:00)
PROC: 0HB5XZZ Excision of Chest Skin, External Approach (ICD-10-PCS; principal; 2022-01-17 08:00)
PROC: 02L70CK Occlusion of Left Atrial Appendage with Extraluminal Device, Open Approach (ICD-10-PCS; principal; 2022-01-17 08:00)
PROC: 02100AW Bypass Coronary Artery, One Artery from Aorta with Autologous Arterial Tissue, Open Approach (ICD-10-PCS; principal; 2022-01-17 08:00)
PROC: 30243N1 Transfusion of Nonautologous Red Blood Cells into Central Vein, Percutaneous Approach (ICD-10-PCS; 2022-01-19)
DX: I25.10 Atherosclerotic heart disease of native coronary artery without angina pectoris (principal); D62 Acute posthemorrhagic anemia; J98.11 Atelectasis; D69.6 Thrombocytopenia, unspecified; I11.9 Hypertensive heart disease without heart failure; I95.9 Hypotension, unspecified; I48.0 Paroxysmal atrial fibrillation; I25.119 Atherosclerotic heart disease of native coronary artery with unspecified angina pectoris; E78.5 Hyperlipidemia, unspecified; I08.1 Rheumatic disorders of both mitral and tricuspid valves; I25.2 Old myocardial infarction; N42.9 Disorder of prostate, unspecified; J45.909 Unspecified asthma, uncomplicated; K44.9 Diaphragmatic hernia without obstruction or gangrene; Z79.82 Long term (current) use of aspirin; Z79.51 Long term (current) use of inhaled steroids; Z79.899 Other long term (current) drug therapy; Z95.5 Presence of coronary angioplasty implant and graft; Z87.891 Personal history of nicotine dependence; Z96.652 Presence of left artificial knee joint; Z85.828 Personal history of other malignant neoplasm of skin; Z71.3 Dietary counseling and surveillance; Z80.3 Family history of malignant neoplasm of breast; Z82.49 Family history of ischemic heart disease and other diseases of the circulatory system; Z82.5 Family history of asthma and other chronic lower respiratory diseases; Z88.0 Allergy status to penicillin; Z88.2 Allergy status to sulfonamides; Z91.011 Allergy to milk products
CPT/HCPCS: 71045; 71046; 80048; 80053; 82330; 82805; 83735; 85025; 85027; 85520; 85610; 85730; 86850; 86891; 86900; 86901; 86920; 88305; 94002; 94640; 94760